=== PATIENT | female | born 1955 | race Caucasian/White ===

== ENCOUNTER 2016-10-17 03:03 | Inpatient (IN) | payer BC ==
[~2016-10-17] VITALS: Ht 157.5 cm; Wt 73.0 kg
[~2016-10-17 03:03] MED LIST: AMLO-145 PO; ASPI325T4 PO; ATOR20TA38 PO; LISI10TA2 PO; METO-53 PO; OMEP40CA3 PO; RANI150T9 PO
[2016-10-17 03:07] VITALS: Ht 157.5 cm; Wt 73.0 kg
[2016-10-17 05:21] LABS: ADD SCAN DIFF NO
[2016-10-17 05:31] LABS: BASOPHIL # 0.1 10^3/ul (0.0-0.1); BASOPHILS % 0.6 % (0.0-2.0); EOSINOPHILS # 0.2 10^3/ul (0.0-0.5); EOSINOPHILS % 2.2 % (0.0-7.0); HEMATOCRIT 39.6 % (37.0-47.0); HEMOGLOBIN 12.3 g/dl (12.0-16.0); LYMPHOCYTES # 1.9 10^3/ul (0.8-2.9); LYMPHOCYTES % 22.9 % (15.0-51.0); MEAN CORPUSCULAR HEMOGLOBIN 26.3 pg (29.0-33.0); MEAN CORPUSCULAR HGB CONC 31.1 g/dl (32.0-37.0); MEAN CORPUSCULAR VOLUME 84.6 fl (82.0-101.0); MONOCYTE # 0.7 10^3/ul (0.3-0.9); NEUTROPHIL # 5.6 10^3/ul (1.6-7.5); NEUTROPHILS % 66.2 % (39.0-77.0); PLATELET COUNT 362 10^3/UL (140-415); RED BLOOD COUNT 4.68 10^6/ul (4.20-5.40); RED CELL DISTRIBUTION WIDTH 21.4 % (11.5-14.5); WHITE BLOOD COUNT 8.5 10^3/ul (4.8-10.8)
[2016-10-17 05:38] LABS: PARTIAL THROMBOPLASTIN TIME 24.7 Sec (25.0-35.0)
[2016-10-17 05:45] LABS: INR 1.01; PROTIME 13.3 Sec (12.2-14.2)
--- NOTE | 2016-10-17 05:46 | RADRPT ---
PROCEDURE: CHEST - 1 VIEW CLINICAL INDICATION: 61-year-old female with chest pain. TECHNIQUE: A single frontal AP portable view of the chest was performed. The images were reviewed on a PACS workstation. COMPARISON: Chest x-ray October 16, 2013. FINDINGS: The cardiomediastinal silhouette has a normal appearance. There is no evidence for an infiltrate. There is no evidence for congestive heart failure. There is no evidence for pneumothorax. There is a old fracture deformity within the right mid clavicle. IMPRESSION: 1. No evidence for active cardiopulmonary disease. 2. Old right mid clavicular fracture deformity. .Arsalan Najera MD, MD Date Time Electronically viewed and signed by .Arsalan Najera MD, on 10/17/2016 05:46 .M/
[2016-10-17 05:52] LABS: POTASSIUM 3.1 mmol/L (3.5-5.1)
[2016-10-17 05:54] LABS: CREATININE 0.75 mg/dl (0.44-1.00)
[2016-10-17 05:55] LABS: CALCIUM 9.7 mg/dl (8.4-10.2)
[2016-10-17 06:04] LABS: TROPONIN-I 0.035 ng/ml (0.00-0.12)
[2016-10-17] MEDS ORDERED: KETOROLAC 15 MG INJ IV ONE (06:40)
[2016-10-17] MEDS ORDERED: FUROSEMIDE 40 MG INJ IV ONE (07:00)
[2016-10-17] MEDS ORDERED: ASPIRIN 325 MG TAB PO ONE (07:00)
--- NOTE | 2016-10-17 07:26 | ERA ---
ER Documentation Chief Complaint Date/Time DATE: 10/17/16 TIME: 07:23 Chief Complaint CP started 1 hour ago HPI 61-year-old woman complains of pressure-like left-sided chest pain beginning about 1-2 hours prior to arrival, she does have a history of myocardial infarction and states symptoms similar to previous episodes. She states when it occurred she had associated diaphoresis. She denies cough, no shortness of breath, no loss of consciousness, no calf or leg swelling, no vomiting or diarrhea. ROS All systems reviewed and are negative except as per history of present illness. Medications Home Meds Reported Medications Zolpidem Tartrate* (Ambien*) 10 Mg Tablet, 10 MG PO QHS Y for INSOMNIA, TAB 10/17/16 Esomeprazole Mag Trihydrate (Nexium) 40 Mg Capsule.dr, 40 MG PO DAILY, #30 CAP 10/17/16 Ranitidine Hcl* (Zantac*) 300 Mg Tablet, 300 MG PO HS, #30 TAB 10/17/16 Metoprolol Tartrate* (Lopressor*) 50 Mg Tab, 50 MG PO TID, #60 TAB 10/17/16 Lisinopril* (Lisinopril*) 20 Mg Tablet, 20 MG PO BID, #30 TAB 10/17/16 Aspirin* (Aspirin*) 325 Mg Tablet, 325 MG PO DAILY 10/16/13 Amlodipine Besylate* (Amlodipine Besylate*) 5 Mg Tablet, 5 MG PO DAILY 10/16/13 Atorvastatin Calcium* (Atorvastatin Calcium*) 20 Mg Tablet, 20 MG PO DAILY 10/16/13 Discontinued Reported Medications Ranitidine Hcl* (Zantac*) 150 Mg Tablet, 150 MG PO HS, TAB 06/20/14 Omeprazole* (Prilosec*) 40 Mg Capsule.dr, 40 MG PO DAILY 10/16/13 Lisinopril* (Lisinopril*) 10 Mg Tablet, 20 MG PO DAILY 10/16/13 Metoprolol (Lopressor) 50 Mg Tablet, 50 MG PO BID 10/16/13 Allergies Allergies: Coded Allergies: Penicillins (Verified Allergy, Unknown, 10/17/16) PMhx/Soc History of HI in 1994, hypertension, hypercholesterolemia History of Surgery: Yes (c-sectionx2, hysterectomy,tonsil,cholecyst, hemorrhoidx2,hernia) Anesthesia Reaction: No Hx Neurological Disorder: No Hx Respiratory Disorders: No Hx Cardiac Disorders: Yes (htn) Hx Psychiatric Problems: No Hx Miscellaneous Medical Probl: No Hx Alcohol Use: Yes (social) Hx Substance Use: No Hx Tobacco Use: No Smoking Status: Never smoker FmHx Family History: No diabetes Physical Exam Vitals Vital Signs Date Time Temp Pulse Resp B/P Pulse Ox O2 Delivery O2 Flow Rate FiO2 10/17/16 12:00 98.0 97 20 131/108 98 Room Air 10/17/16 11:30 98.0 99 20 128/88 97 10/17/16 10:36 80 20 135/79 98 10/17/16 08:30 100 18 137/94 99 10/17/16 06:25 98.0 78 20 142/89 98 10/17/16 03:07 98.0 104 20 136/99 97 Physical Exam GENERAL: Well-developed, well-nourished, well-hydrated, in no apparent distress , looks nontoxic in appearance HEENT: Moist mucous membranes, pink conjunctiva, no cervical spine tenderness or step-off deformities, no goiter, no jaundice or icterus, extraocular movements intact without pain. No submandibular induration, and no pharyngeal erythema NEURO: Alert and oriented 3, cranial nerves II through XII intact bilaterally, pupils equal round reactive to light, no focal deficits or facial asymmetry, sensation intact distally Strength 5/5 in upper and lower extremities bilaterally CARDIAC: Regular rate and rhythm, no murmurs rubs or gallops LUNGS: Clear bilaterally no wheezing crackles or stridor ABDOMEN: Soft nontender, no guarding, no rigidity, no rebound, no psoas sign no obturator sign. Normoactive bowel sounds SKIN: Warm and dry to touch, no abrasions, contusions, or hematomas, no lacerations, no ecchymosis, no target lesions, and without ulcers EXTREMITIES: No clubbing cyanosis, 2+ pitting edema in the lower extremities bilaterally, calves are bilaterally symmetrical, no Homans sign, no popliteal cord sign. Distal pulses equal and bilateral PSYCH: Normal affect without agitation or irritability Result Diagram: 10/17/16 0503 10/17/16 0503 Results 24 hrs Laboratory Tests Test 10/17/16 05:03 10/17/16 11:45 White Blood Count 8.510^3/ul Red Blood Count 4.6810^6/ul Hemoglobin 12.3g/dl Hematocrit 39.6% Mean Corpuscular Volume 84.6fl Mean Corpuscular Hemoglobin 26.3pg Mean Corpuscular Hemoglobin Concent 31.1g/dl Red Cell Distribution Width 21.4% Platelet Count 91666^3/UL Mean Platelet Volume 10.0fl Neutrophils % 66.2% Lymphocytes % 22.9% Monocytes % 8.0% Eosinophils % 2.2% Basophils % 0.6% Nucleated Red Blood Cells % 0.0/100WBC Neutrophils # 5.610^3/ul Lymphocytes # 1.910^3/ul Monocytes # 0.710^3/ul Eosinophils # 0.210^3/ul Basophils # 0.110^3/ul Nucleated Red Blood Cells # 0.010^3/ul Prothrombin Time 13.3Sec Prothrombin Time Ratio 1.0 INR International Normalized Ratio 1.01 Activated Partial Thromboplast Time 24.7Sec Sodium Level 147mmol/L Potassium Level 3.1mmol/L Chloride Level 104mmol/L Carbon Dioxide Level 25mmol/L Anion Gap 21 Blood Urea Nitrogen 18mg/dl Creatinine 0.75mg/dl Glucose Level 100mg/dl Calcium Level 9.7mg/dl Troponin I 0.035ng/ml 0.019ng/ml Creatine Kinase 293IU/L Creatine Kinase Index 0.7 Creatinine Kinase MB (Mass) 2.14ng/ml Current Medications Medications (Trade) Dose Ordered Sig/Markus Route PRN Reason Start Time Stop Time Status Last Admin Dose Admin Aspirin (Aspirin) 325 mg ONCE ONCE PO 10/17/16 07:00 10/17/16 07:01 DC 10/17/16 06:55 Furosemide (Lasix) 40 mg ONCE ONCE IV 10/17/16 07:00 10/17/16 07:01 DC 10/17/16 06:55 Ketorolac Tromethamine (Toradol) 15 mg ONCE ONCE IV 10/17/16 06:40 10/17/16 06:43 DC 10/17/16 06:55 Acetaminophen (Tylenol Tab) 650 mg ONCE ONCE PO 10/17/16 12:30 10/17/16 12:31 DC 10/17/16 12:14 Acetaminophen (Tylenol Tab) 325 mg STK-MED ONCE .ROUTE 10/17/16 12:10 10/17/16 12:11 DC IV Flush (NS 3 ml) 3 ml PER PROTOCOL IV 10/17/16 13:00 UNV Lorazepam (Ativan) 0.5 mg Q8H PRN PO ANXIETY 10/17/16 13:00 UNV Ondansetron HCl (Zofran Tab) 4 mg Q6H PRN PO NAUSEA AND/OR VOMITING 10/17/16 13:00 UNV Aspirin (Aspirin) 81 mg DAILY PO 10/18/16 09:00 UNV Nitroglycerin (Nitroglycerin (Sl Tab) 0.4 Mg) 1 tab Q5M PRN SL CHEST PAIN 10/17/16 13:00 UNV Acetaminophen (Tylenol Tab) 650 mg Q6H PRN PO PAIN LEVEL 1-3 OR FEVER 10/17/16 13:00 UNV Morphine Sulfate (morphine) 1 mg Q4H PRN IV PAIN LEVEL 7-10 10/17/16 13:00 UNV Docusate Sodium (Colace) 100 mg Q12H PRN PO CONSTIPATION 10/17/16 13:00 UNV Pantoprazole (Protonix Tab) 40 mg DAILY@06 PO 10/18/16 06:00 UNV Enoxaparin Sodium (Lovenox) 40 mg DAILY SC 10/18/16 09:00 UNV Atorvastatin Calcium (Lipitor) 20 mg DAILY PO 10/18/16 09:00 UNV Lisinopril (Zestril) 20 mg BID PO 10/17/16 21:00 UNV Metoprolol Tartrate (Lopressor) 50 mg TID PO 10/17/16 13:00 10/17/16 13:00 DC Zolpidem Tartrate (Ambien) 10 mg QHS PRN PO INSOMNIA 10/17/16 13:00 UNV Miscellaneous Information 40 mg DAILY PO 10/18/16 09:00 UNV Metoprolol Tartrate (Lopressor) 50 mg BID PO 10/17/16 21:00 UNV Potassium Chloride (Klor-Con 20) 40 meq Q4H PO 10/17/16 13:30 UNV Procedures/MDM IV line was established patient was placed on cardiac specialist rhythm strip revealed a normal sinus rhythm at about 90 bpm with upright P and T waves. Patient was afebrile. EKG performed, read by me revealed a normal sinus rhythm at 95 bpm, left axis deviation, with a right ventricular conduction delay and a QRS duration 102 ms, no concerning ST elevations or depressions noted. One AP view of the chest performed, read by me reveals no acute infiltrates, normal mediastinum, sharp costophrenic and cardiac borders, no air under the diaphragm. Otherwise unremarkable chest x-ray. Patient received furosemide 40 mg IV 1 and aspirin 325 mg p.o. for cardioprotective measures. She also received Toradol 15 mg IV 1 for complaints of pain. CBC was normal, electrolytes revealed hypokalemia 3.1, troponin was negative. Patient will be admitted to telemetry setting for continued medical management and cardiology consultation. Departure Diagnosis: Primary Impression: Chest pain Qualified Code: R07.9 - Chest pain, unspecified type Additional Impression: Hypertension Qualified Code: I10 - Essential hypertension Condition: KURT Lopez MD Oct 17, 2016 07:26
[2016-10-17] MEDS ORDERED: LISI20TA11 PO (09:18)
[2016-10-17] MEDS ORDERED: METO-429 PO (09:19)
[2016-10-17] MEDS ORDERED: RANI300T3 PO (09:20)
[2016-10-17] MEDS ORDERED: ZOLP10TA PO (09:21)
[2016-10-17] MEDS ORDERED: ESOM40CA PO (09:21)
[2016-10-17] MEDS ORDERED: ACETAMINOPHEN 325 MG TAB ONE (12:10)
[2016-10-17 12:17] LABS: CK-MB 2.14 ng/ml (0.0-2.4)
[2016-10-17 12:20] LABS: TROPONIN-I 0.019 ng/ml (0.00-0.12)
[2016-10-17] MEDS ORDERED: ACETAMINOPHEN 325 MG TAB PO ONE (12:30)
[2016-10-17] MEDS ORDERED: DOCUSATE SODIUM 100 MG CAP PO PRN (13:00)
[2016-10-17] MEDS ORDERED: ONDANSETRON 4 MG TAB PO PRN (13:00)
[2016-10-17] MEDS ORDERED: morphine 2 MG INJ IV PRN (13:00)
[2016-10-17] MEDS ORDERED: LORAZEPAM 0.5 MG TAB PO PRN (13:00)
[2016-10-17] MEDS ORDERED: ZOLPIDEM 5 MG TAB PO PRN (13:00)
[2016-10-17] MEDS ORDERED: ACETAMINOPHEN 325 MG TAB PO PRN (13:00)
[2016-10-17] MEDS ORDERED: NITROGLYCERIN (SL) 0.4 MG TAB SL PRN (13:00)
[2016-10-17] MEDS ORDERED: METOPROLOL 50 MG TAB PO SCH ×2 (13:00→21:00)
[2016-10-17] MEDS ORDERED: NACL 0.9% 3 ML SYG IV SCH (13:00)
[2016-10-17 13:32] LABS: BARBITURATES Negative (NEGATIVE); BENZODIAZEPINES Negative (NEGATIVE); CANNABINOIDS Positive (NEGATIVE); COCAINE Negative (NEGATIVE)
[2016-10-17 13:37] LABS: OPIATES Negative (NEGATIVE)
--- NOTE | 2016-10-17 13:42 | HP ---
DATE OF ADMISSION: 10/17/2016 MICROBIOLOGY SUPERVISOR: Mukund Langley MD, cardiology. CHIEF COMPLAINT: Chest discomfort. HISTORY OF PRESENT ILLNESS: This is a 61-year-old female with past medical history of congestive he art failure, hypertension, dyslipidemia, GERD, insomnia, who presented to [facility] secondary to having chest discomfort. Chest discomfort is explained as upper gastric and subster nal, nonradiating, accompanied with palpitations and diaphoresis. The pain was 4/10 and after the p atient received her aspirin it decreased to 2/10. The patient states that she has been having a lot of social issues at home with her significant others and this morning the pain started, which broug ht her to the emergency room at [facility]. Upon arrival to the ER, the troponin was 0.035. EKG showed normal sinus rhythm with ventricular rate 95, left axis deviation, right vent ricular conduction delay, QRS duration 102 msec, no concerning ST elevation or depression, no sign o f ischemia. The patient received aspirin, Lasix and Toradol. At this time, the patient continues t o complain of having chest discomfort. The patient denies any shortness of breath, nausea, vomiting , diarrhea. No headache, dizziness, lightheadedness. No change in visual acuity, diplopia, photoph obia. No abdominal pain. No dysuria, hematuria, urgency, incontinence or any other discomfort exce pt as stated above. PAST MEDICAL AND SURGICAL HISTORY: 1. Hypertension. 2. Congestive heart failure. 3. Dyslipidemia. 4. Insomnia. 5. GERD. MEDICATIONS: 1. Amlodipine 5 mg. 2. Aspirin 325 mg. 3. Lipitor 20 mg. 4. Omeprazole 40 mg. 5. Lisinopril 20 mg. 6. Lopressor 50 mg. 7. Zantac 300 mg. 8. Ambien 10 mg. ALLERGIES: PENICILLIN. SOCIAL HISTORY: She denies any history of smoking. She denies drinking any alcohol or any illicit drugs. PHYSICAL EXAMINATION: VITAL SIGNS: Temperature 98.0, pulse 80, respirations 20, blood pressure 134/79, oxygen saturation 98% in room air. GENERAL APPEARANCE: The patient is lying in bed comfortably without any acute distress. She is phyllis ke, alert, oriented. She is able to answer my questions properly. EYES AND ENT: Conjunctivae and lids are normal. Pupils are normal. Extraocular normal. Hearing g rossly normal. Lips, teeth and gums normal. Oral mucosa is moist. NECK: Supple. Trachea is midline. No lymphadenopathy. RESPIRATORY: Effort is normal. Clear to auscultation bilaterally. CARDIOVASCULAR: Normal S1, S2. Regular rhythm and rate. No murmur, no bruits, no edema. Peripher al pulses, radial pulses palpable. Capillary refill is normal. CHEST: Normal expansion of thorax during inspiration. GASTROINTESTINAL: Abdomen is soft, nontender, not distended. Bowel sounds present. No guarding, n o rebound. GENITOURINARY: Deferred. MUSCULOSKELETAL: Upper and lower extremities within normal limits. Full range of motion. Strength 5/5 both upper and lower extremities. NEUROLOGIC: Cranial nerves II through XII are grossly intact. She is awake, alert, oriented. LABORATORY DATA: WBC 8.5, hemoglobin 12.3, hematocrit 39.3, platelets 362. Sodium 147, potassium 3 .1, chloride 104, bicarbonate 25, BUN 18, creatinine 0.75, glucose 100, calcium 9.7. Troponin 0.19. EKG normal sinus rhythm with no ST elevation or depression, no sign of ischemia. Chest x-ray showed no evidence of acute cardiopulmonary disease, old right midclavicular fracture deformity. ASSESSMENT AND PLAN: 1. Atypical chest pain/angina with a history of hypertension, congestive heart failure, dyslipidemi a. Cardiology has been consulted. The patient has been restarted on aspirin. Continue metoprolol. Continue statin. We will obtain 2D echocardiogram. Follow up serial troponins. 2. Essential hypertension, well controlled on medical management. 3. Hypokalemia, repleted. 4. Dyslipidemia. Follow up lipid panel. Continue statin. 5. Gastroesophageal reflux disease. Continue proton pump inhibitor. 6. For deep venous thrombosis prophylaxis, on Lovenox. 7. We will continue to monitor patient closely. Further recommendations, management and treatment as per clinical course. Dictated By: BING HARKINS/SHEREEN Conf#: [id number] DID#: [id number]
[2016-10-17] MEDS: POTASSIUM CHLORIDE (SR) 20 MEQ TAB PO SCH ×2 (14:42→19:39)
[2016-10-17 17:33] LABS: CK-MB 1.82 ng/ml (0.0-2.4)
[2016-10-17 17:36] LABS: TROPONIN-I 0.025 ng/ml (0.00-0.12)
[2016-10-17 19:00] VITALS: TEMP 98.6
[2016-10-17] MEDS ORDERED: LISINOPRIL 20 MG TAB PO SCH (21:00)
--- NOTE | 2016-10-17 21:14 | RADRPT ---
Echocardiogram Report Patient Name: JOHNNIE CERNA Gender: Female Date: 1955 Study Date: 17-Oct-2016 Photostatic Copy Maker: Carline SCHUMACHER Location: ED 7 Ref. Physician: BING PRADO Quality: Adequate Procedures: Transthoracic echocardiogram with complete 2D, M-Mode, and doppler examination. Indications: Chest Pain. 2D/M Mode Doppler Measurement Value Normal Ranges Measurement Value Normal Ranges LVIDd 2D 3.9 3.5 - 5.6 cm AV Mean Jeff 1.7 m/sec LVIDs 2D 2.3 2.1 - 4.1 cm AV Mean PG 13.0 mmHg FS 2D 41.2 % AV Peak Jeff 2.2 m/sec LVPWd 2D 1.3 0.6 - 1.1 cm AV Peak PG 20.0 mmHg IVSd 2D 1.3 0.6 - 1.1 cm AV VTI 42.6 cm IVS/LVPW 2D 1.0 LVOT Mean Jeff 1.0 m/sec AoR Diam 2D 2.9 2.0 - 3.7 cm LVOT Mean PG 5.0 mmHg LA/Ao 2D 1 0 - 1 LVOT Peak Jeff 1.5 m/sec EDV 2D 57.5 cm3 LVOT Peak PG 9.0 mmHg ESV 2D 11.7 cm3 LVOT VTI 31.7 cm LA Dimen 2D 2.7 2.3 - 4.0 cm MV E Peak Jeff 0.8 m/sec MV A Peak Jeff 1.3 m/sec MV E/A 0.6 MV Decel Time 232 msec MV E/A 0.6 TR Peak Jeff 1.9 m/sec TR Peak PG 15.0 mmHg Findings Left Ventricle: Normal left ventricular systolic function. Normal left ventricular cavity size. Moderate concentric left ventricular hypertrophy. Ejection fraction is visually estimated at 65 %. Tissue Doppler/Mitral Doppler indices are consistent with impaired relaxation (Stage I diastolic dysfunction). Right Ventricle: Normal right ventricular size. Normal right ventricular systolic function. Left Atrium: The left atrium is normal in size. Right Atrium: The right atrium is normal in size. Mitral Valve: Normal appearance and function of the mitral valve with trace physiologic regurgitation. Aortic Valve: Aortic valve Max velocity 2.21 m/sec. Max PG 19.00 mmHg. Mean PG 13.00 mmHg. Aortic sclerosis without stenosis. Trace aortic valve regurgitation. Tricuspid Valve: Normal appearance and function of the tricuspid valve with trace physiologic regurgitation. Normal right ventricular systolic pressure. Estimated peak PA systolic pressure 18 mmHg. Pulmonic Valve: Pulmonic valve not well visualized. Pericardium: Trivial pericardial effusion. Aorta: Normal aortic root. IVC: Normal size and normal respiratory collapse consistent with normal right atrial pressure. Conclusions 1.Normal left ventricular systolic function. Normal left ventricular cavity size. Moderate concentric left ventricular hypertrophy. Ejection fraction is visually estimated at 65 %. Tissue Doppler/Mitral Doppler indices are consistent with impaired relaxation (Stage I diastolic dysfunction). 2.Normal appearance and function of the mitral valve with trace physiologic regurgitation. 3.Trace aortic valve regurgitation. 4.Normal appearance and function of the tricuspid valve with trace physiologic regurgitation. Normal right ventricular systolic pressure. Estimated peak PA systolic pressure 18 mmHg. 5.Trivial pericardial effusion. Electronically Signed By: Mukund Langley 17-Oct-2016 21:13:18 -0700 Patient Name: JOHNNIE CERNA Study Date: 17-Oct-2016 [id number]
--- NOTE | 2016-10-17 21:38 | CONS ---
DATE OF ADMISSION: 10/17/2016 DATE OF CONSULTATION: 10/17/2016 TYPE OF CONSULTATION: Cardiology. REASON FOR CONSULTATION: Chest pain, assess for acute coronary syndrome. REQUESTING PHYSICIAN: Bing Prado MD from the hospitalist service. HISTORY OF PRESENT ILLNESS: Ms. Gaitan is a 61-year-old female with history of hypertension, dysli pidemia, prior myocardial infarction, gastroesophageal reflux disease, possible congestive heart lurdes lure, who presented with left-sided substernal chest pain. The patient states that she initially in the evening had diaphoresis, and then began to have chest pain; left-sided middle of her chest that awoke her from sleep; she describes a dull aching pain without radiation. Upon arrival in the [facility], temperature 98, blood pressure 136/99, pulse 104, respiratory rate 20, saturating 97%. The patient's labs revealed white count 8.5, hemoglobin 12.3, platelet count 362. Sodium 147, potassium 3.1, creatinine 0.75, BUN of 18. Troponin negative 0.035. The patient's electrocardiogr am revealed sinus tachycardic rate of 100, left axis deviation, left ventricular hypertrophy with vo ltage criteria, anteroseptal Q's, poor R-wave progression across the anterior precordial leads. The patient underwent a chest x-ray revealing no evidence of acute cardiopulmonary abnormalities and ol d right midclavicular fracture. The patient subsequently has been in awaiting admit in the emergenc y department. The patient at this time denies ongoing chest pain. PAST MEDICAL HISTORY: As above in HPI. MEDICATIONS CURRENTLY IN HOSPITAL: 1. Aspirin 81 mg daily. 2. Lovenox 40 mg subcutaneous daily. 3. Lipitor 20 mg at bedtime. 4. Protonix 40 mg daily. 5. Zestril 20 mg p.o. b.i.d. 6. Metoprolol 50 mg p.o. b.i.d. 7. Ativan p.r.n. 8. Zofran p.r.n. 9. Sublingual nitroglycerin p.r.n. 10. Tylenol p.r.n. 11. Morphine p.r.n. 12. Colace 100 mg p.o. q.12 hours p.r.n. 13. Ambien. ALLERGIES: PENICILLIN. SOCIAL HISTORY: No tobacco, ETOH, or illicit drug use. FAMILY HISTORY: No history of sudden cardiac or early CAD. REVIEW OF SYSTEMS: As above in HPI. CONSTITUTIONAL: No fevers, chills. PULMONARY: No current shortness of breath. CARDIOVASCULAR: Intermittent chest pain. GASTROINTESTINAL: No vomiting. GENITOURINARY: No hematuria. MUSCULOSKELETAL: Degenerative joint disease. PSYCHIATRIC: The patient denies depression. NEUROLOGIC: No documented history of CVA. PHYSICAL EXAMINATION VITAL SIGNS: Temperature 98, blood pressure 120/88, pulse 99, respiratory 20, saturating 97%. GENERAL: The patient is alert, awake, complaining of chest pain. NECK: JVP approximately 8-9 cm of water. CHEST: Fair air movement throughout. HEART: Regular rate and rhythm. Normal S1, S2, a I/ systolic murmur, nondisplaced PMI. ABDOMEN: Positive bowel sounds, soft. EXTREMITIES: No pitting edema, 1+ pulses bilaterally, posterior tibial. LABORATORY DATA: As above in HPI. No further labs for my review at this time. IMAGING STUDIES: As above in HPI. No further imaging studies for my review at this time. ECG: As above in HPI. No further electrocardiograms for my review at this time. IMPRESSION: 1. Chest pain. Assess for acute coronary syndrome. A somewhat atypical symptomatology for cardiac etiology at this time, but given history of prior myocardial infarction, it deserves further evalua tion. 2. Abnormal electrocardiogram with anteroseptal Q's, poor R-wave progression across the anterior pr ecordial leads, concerning for possible prior anteroseptal infarction. 3. Hypertension, under reasonable control. 4. Dyslipidemia. 5. History of congestive heart failure, question systolic versus diastolic, likely chronic. 6. Gastroesophageal reflux disease. RECOMMENDATIONS: 1. At this time, would admit patient to telemetry monitoring to follow rhythm and rate control clos josi. 2. Would send an additional troponin to ensure the patient's chest pain was not due to an acute cor onary syndrome or acute myocardial infarction. 3. Continue the patient's aspirin for prophylaxis against cardiovascular events. 4. Continue the patient's current aspirin and beta-viji for control of blood pressure and heart rate. 5. Continue the patient's current statin therapy and adjust it according to a fasting lipid panel t o be checked. 6. Continue the patient's Protonix to ensure that the chest pain is not due to gastroesophageal ref lux disease. 7. We will follow the patient's 2D echo to assess ejection fraction, wall motion, and any major abdias ve abnormalities, and if the patient does rule out, given the patient's cardiac history, I believe t he patient would benefit from further risk stratification as inpatient with cardiac stress test, whi ch thus can scheduled to take place first thing in the morning. Thank you for allowing me to take part in the care of this patient. I will continue to follow her v chiquita closely with you, with further recommendations to be made as the patient progresses through her inpatient hospital clinical course. Dictated By: KIMMY COHN/SHEREEN Conf#: [id number] DID#: [id number] CC: BING PRADO MD;*[facility]*
[2016-10-18 00:21] VITALS: BP 144/103; RESP 20
[2016-10-18 00:49] VITALS: PULSE 70
[2016-10-18 01:38] LABS: CK-MB 1.51 ng/ml (0.0-2.4); TROPONIN-I 0.024 ng/ml (0.00-0.12)
[2016-10-18 03:43] VITALS: BP 131/82; RESP 20
[2016-10-18 04:34] VITALS: PULSE 63
[2016-10-18] MEDS ORDERED: PANTOPRAZOLE (EC) 40 MG TAB PO SCH (06:00)
[2016-10-18 07:39] VITALS: BP 144/86; RESP 20
[2016-10-18] MEDS ORDERED: NON-FORMULARY/PATIENT OWN MED (Esomeprazole Mag Trihydrate (Nexium) 40 MG) PO SCH (09:00)
[2016-10-18] MEDS ORDERED: ENOXAPARIN 40 MG/0.4 ML SYG SC SCH (09:00)
[2016-10-18] MEDS ORDERED: ATORVASTATIN 20 MG TAB PO SCH (09:00)
[2016-10-18] MEDS ORDERED: ASPIRIN 81 MG TAB PO SCH (09:00)
--- NOTE | 2016-10-18 12:07 | DS ---
DATE OF ADMISSION: 10/17/2016 DATE OF DISCHARGE: 10/18/2016 The patient, Leah Gaitan, left against medical advice this morning 10/18/2016 at 6:02. This patie nt was admitted by my partner, Dr. Vides, yesterday and I was scheduled to take over management today. I never saw the patient. No instructions were given. Dictated By: BRANDON TRAN MD BA/NTS Conf#: [id number] DID#: [id number]
== END 2016-10-18 07:30 | disposition left against medical advice (07) | DRG 313 ==
LOC: E/R 03:03 → TEL 08:32
PROVIDERS: ADMIT Family Medicine; ATTEND Family Medicine
DX: R07.89 Other chest pain (principal); I50.9 Heart failure, unspecified; I10 Essential (primary) hypertension; E78.5 Hyperlipidemia, unspecified; K21.9 Gastro-esophageal reflux disease without esophagitis; Z90.710 Acquired absence of both cervix and uterus; Z90.49 Acquired absence of other specified parts of digestive tract
CPT/HCPCS: 36415; 71010; 80048; 80307; 82550; 82553; 84484; 85025; 85610; 85730; 93005; 93306; 96374; 96375; J1885; J1940

== ENCOUNTER 2017-01-22 21:28 | Inpatient (IN) | payer BC ==
[~2017-01-22] VITALS: Ht 165.1 cm; Wt 71.0 kg
[~2017-01-22 21:28] MED LIST changes: +ESOM40CA PO; -LISI10TA2 PO; +LISI20TA11 PO; +METO-429 PO; -METO-53 PO; -OMEP40CA3 PO; -RANI150T9 PO; +RANI300T3 PO; +ZOLP10TA PO
[2017-01-22] MEDS ORDERED: ONDANSETRON 4 MG INJ IV STA (21:51)
[2017-01-22] MEDS ORDERED: SOD CHLORIDE 0.9% 1,000 ML IV STA (21:51)
[2017-01-22] MEDS ORDERED: morphine 4 MG/ML VIAL IV STA (21:51)
[2017-01-22] MEDS ORDERED: LORAZEPAM 2 MG INJ IV ONE ×2 (22:00→23:00)
[2017-01-22 22:17] LABS: ADD SCAN DIFF NO
[2017-01-22 22:18] LABS: BASOPHILS % 0.1 % (0.0-2.0); HEMATOCRIT 40.5 % (37.0-47.0); HEMOGLOBIN 13.8 g/dl (12.0-16.0); MEAN CORPUSCULAR HEMOGLOBIN 27.4 pg (29.0-33.0); MEAN CORPUSCULAR HGB CONC 34.1 g/dl (32.0-37.0); MEAN CORPUSCULAR VOLUME 80.4 fl (82.0-101.0); MEAN PLATELET VOLUME 10.1 fl (7.4-10.4); MONOCYTE # 1.1 10^3/ul (0.3-0.9); MONOCYTES % 4.9 % (0.0-11.0); NEUTROPHIL # 18.7 10^3/ul (1.6-7.5); NEUTROPHILS % 85.3 % (39.0-77.0); PLATELET COUNT 417 10^3/UL (140-415); RED BLOOD COUNT 5.04 10^6/ul (4.20-5.40); RED CELL DISTRIBUTION WIDTH 17.9 % (11.5-14.5); WHITE BLOOD COUNT 21.9 10^3/ul (4.8-10.8)
[2017-01-22] MEDS ORDERED: HALOPERIDOL 5 MG INJ IM ONE ×2 (22:30→23:00)
[2017-01-22 22:31] LABS: ADD UMIC YES; UR ASCORBIC ACID NEGATIVE (NEGATIVE); UR BILIRUBIN (Dip) 1+ mg/dL (NEGATIVE); UR BLOOD (Dip) 1+ mg/dL (NEGATIVE); UR CLARITY CLOUDY (CLEAR); UR COLOR AMBER (YELLOW); UR GLUCOSE (Dip) 1+ mg/dL (NEGATIVE); UR KETONES (Dip) TRACE mg/dL (NEGATIVE); UR LEUKOCYTE ESTERASE (Dip) NEGATIVE Leu/ul (NEGATIVE); UR MUCUS FEW /HPF (NONE SEEN); UR NITRITE (Dip) NEGATIVE (NEGATIVE); UR RBC 4 /HPF (0-5); UR SPECIFIC GRAVITY (Dip) 1.021 (1.003-1.030); UR SQUAMOUS EPITHELIAL CELL FEW /HPF (FEW); UR TOTAL PROTEIN (Dip) 2+ mg/dl (NEGATIVE); UR UROBILINOGEN (Dip) NEGATIVE (NEGATIVE)
[2017-01-22 22:36] LABS: INR 1.05; PROTIME 13.7 Sec (12.2-14.2); PT RATIO 1.1
[2017-01-22 22:37] LABS: PARTIAL THROMBOPLASTIN TIME 22.3 Sec (25.0-35.0)
[2017-01-22] MEDS ORDERED: CEFEPIME 2GM/50 ML (PMX) 50 ML IVPB STA (22:41)
[2017-01-22] MEDS ORDERED: SODIUM CHLORIDE 0.9% 1L BAG IV* STA (22:41)
[2017-01-22 22:44] LABS: ALANINE AMINOTRANSFERASE 35 IU/L (13-69); ALBUMIN 5.8 g/dl (3.3-4.9); ALBUMIN/GLOBULIN RATIO 1.52; ALKALINE PHOSPHATASE 118 IU/L (42-121); ANION GAP 31 (8-16); ASPARTATE AMINO TRANSFERASE 55 IU/L (15-46); BILIRUBIN,INDIRECT 0.9 mg/dl (0-1.1); BILIRUBIN,TOTAL 0.9 mg/dl (0.2-1.3); BLOOD UREA NITROGEN 52 mg/dl (7-20); CARBON DIOXIDE 19 mmol/L (21-31); CHLORIDE 89 mmol/L (97-110); GLUCOSE 251 mg/dl (70-220); SODIUM 135 mmol/L (135-144); TOTAL PROTEIN 9.6 g/dl (6.1-8.1)
[2017-01-22 22:46] LABS: ACETAMINOPHEN < 10.0 ug/ml (10.0-30.0); ETHANOL < 10.0 mg/dl; SALICYLATE < 1.0 mg/dl (5.0-30.0)
[2017-01-22 22:59] LABS: BARBITURATES Negative (NEGATIVE); BENZODIAZEPINES Negative (NEGATIVE); CANNABINOIDS Positive (NEGATIVE); COCAINE Negative (NEGATIVE); OPIATES Negative (NEGATIVE); TROPONIN-I 0.091 ng/ml (0.00-0.12)
--- NOTE | 2017-01-22 23:34 | RADRPT ---
PROCEDURE: CT Abdomen and pelvis without contrast. CLINICAL INDICATION: Abdominal pain. TECHNIQUE: CT scan of the abdomen and pelvis was performed on a multi-detector high-resolution CT scanner. Contiguous axial images were obtained from the lung bases to the ischial tuberosities wit hout intravenous contrast. Coronal and sagittal reformatted images were also obtained. Images were reviewed on the PACS workstation. One or more of the following dose reduction techniques were used: - Automated exposure control. - Adjustment of the mA and/or kV according to patient size. - Use of iterative reconstruction technique. Exam CTD/vol = 12.86 mGy. Total exam DLP = 708.98 mGy-cm. COMPARISON: 10/16/2013. FINDINGS: Evaluation of the lung bases demonstrates mild bibasilar atelectasis. The heart is mildly enlarged. There is a large hiatal hernia. Abdomen: The liver is normal in size. There is no focal mass or dilatation of the biliary tree. T he patient status post cholecystectomy. The spleen, pancreas and bilateral adrenal glands are withi n normal limits. Bilateral kidneys are normal in size with no contour deforming mass identified. T here is a 1 mm calculus within the upper pole of the right kidney. There is a 1 mm calculus within the mid left kidney. There is no radiopaque ureteral calculus identified. There is no hydronephros is or hydroureter. There is no retroperitoneal adenopathy. The abdominal aorta is of normal calibe r with mild scattered atherosclerotic calcifications. There is a small periumbilical hernia containing nonobstructed loops of small bowel. There is no cheryl wel obstruction or free air. The appendix is not visualized. There are no pericecal inflammatory c hanges to suggest appendicitis. There are scattered diverticuli of the descending and sigmoid colon without evidence of diverticulitis. There is no ascites. Pelvis: The bladder contains a Cano catheter. The uterus is absent. There is no significant pelv ic adenopathy or free fluid. Evaluation of the osseous structures demonstrates no suspicious lytic or blastic lesion. IMPRESSION: Small periumbilical hernia containing loops of small bowel, new compared to 10/16/2013. There is no bowel obstruction. Large hiatal hernia. Bilateral nonobstructing renal calculi. Descending and sigmoid diverticulosis without evidence of diverticulitis. Mild cardiomegaly. Mild bibasilar atelectasis. Status post cholecystectomy. Mild vascular calcifications reflective of atherosclerosis. .Rios Majano MD, Date Time Electronically viewed and signed by .Rios Majano MD, on 01/22/2017 23:33 .T/
[2017-01-23] VITALS (9 sets, daily range): BP systolic 124–145; BP diastolic 69–90; PULSE 96–110; RESP 16–22; Ht 165.1 cm; Wt 71.0 kg
[2017-01-23] MEDS ORDERED: ONDANSETRON 4 MG INJ IV PRN ×2 (00:30→03:00)
[2017-01-23] MEDS ORDERED: ACETAMINOPHEN 325 MG TAB PO PRN (00:30)
[2017-01-23 02:07] LABS: ADD SCAN DIFF NO
[2017-01-23 02:10] LABS: BASOPHILS % 0.1 % (0.0-2.0); HEMATOCRIT 32.2 % (37.0-47.0); HEMOGLOBIN 10.4 g/dl (12.0-16.0); LYMPHOCYTES % 6.7 % (15.0-51.0); MEAN CORPUSCULAR HEMOGLOBIN 27.7 pg (29.0-33.0); MEAN CORPUSCULAR HGB CONC 32.3 g/dl (32.0-37.0); MEAN CORPUSCULAR VOLUME 85.6 fl (82.0-101.0); MEAN PLATELET VOLUME 10.2 fl (7.4-10.4); MONOCYTE # 1.3 10^3/ul (0.3-0.9); MONOCYTES % 8.2 % (0.0-11.0); NEUTROPHILS % 84.5 % (39.0-77.0); PLATELET COUNT 272 10^3/UL (140-415); RED BLOOD COUNT 3.76 10^6/ul (4.20-5.40); RED CELL DISTRIBUTION WIDTH 18.2 % (11.5-14.5); WHITE BLOOD COUNT 15.3 10^3/ul (4.8-10.8)
--- NOTE | 2017-01-23 02:15 | ERA ---
ER Documentation Chief Complaint Date/Time DATE: 01/23/17 TIME: 01:43 Chief Complaint c/o abd pain, states vomiting blood HPI This 61-year-old female presents to the ER with severe mid abdominal pain. This began yesterday around midday she is also been vomiting. Last couple times she vomited there was some blood in the vomit. She has no dark stools. She denies doing any drugs or drinking alcohol. States that she does have psychiatric diagnoses including bipolar for which she used to be on meds but stopped taking. She cannot however the names of the medications except that 1 of them is Latuda. ROS All systems reviewed and are negative except as per history of present illness. Medications Home Meds Reported Medications Zolpidem Tartrate* (Ambien*) 10 Mg Tablet, 10 MG PO QHS Y for INSOMNIA, TAB 10/17/16 Esomeprazole Mag Trihydrate (Nexium) 40 Mg Capsule.dr, 40 MG PO DAILY, #30 CAP 10/17/16 Ranitidine Hcl* (Zantac*) 300 Mg Tablet, 300 MG PO HS, #30 TAB 10/17/16 Metoprolol Tartrate* (Lopressor*) 50 Mg Tab, 50 MG PO TID, #60 TAB 10/17/16 Lisinopril* (Lisinopril*) 20 Mg Tablet, 20 MG PO BID, #30 TAB 10/17/16 Aspirin* (Aspirin*) 325 Mg Tablet, 325 MG PO DAILY 10/16/13 Amlodipine Besylate* (Amlodipine Besylate*) 5 Mg Tablet, 5 MG PO DAILY 10/16/13 Atorvastatin Calcium* (Atorvastatin Calcium*) 20 Mg Tablet, 20 MG PO DAILY 10/16/13 Allergies Allergies: Coded Allergies: Penicillins (Unverified Allergy, Unknown, 01/22/17) PMhx/Soc History of Surgery: Yes (Hernia repair, hysterectomy ) Anesthesia Reaction: No Hx Neurological Disorder: No Hx Respiratory Disorders: No Hx Cardiac Disorders: Yes (HTN) Hx Psychiatric Problems: No Hx Miscellaneous Medical Probl: No Hx Alcohol Use: No Hx Substance Use: No Hx Tobacco Use: No Smoking Status: Unknown if ever smoked Physical Exam Vitals Vital Signs Date Time Temp Pulse Resp B/P Pulse Ox O2 Delivery O2 Flow Rate FiO2 01/23/17 01:34 102 19 108/94 97 Nasal Cannula 5.0 01/23/17 00:49 105 18 128/90 100 Nasal Cannula 5.0 01/22/17 23:25 102 22 109/81 98 Nasal Cannula 4.0 01/22/17 21:39 98.1 163 30 99 Physical Exam Const: [] Moderate distress, patient is rocking back and forth Head: Atraumatic Eyes: Normal Conjunctiva, EOMI, PRL ENT: Normal External Ears, Nose and Mouth. Neck: Full range of motion..~ No meningismus. Resp: Clear to auscultation bilaterally, mild tachypnea Cardio: Regular extreme tachycardia, no murmurs Abd: Soft, mild to moderate mid abdominal tenderness without guarding or rebound, non distended. Normal bowel sounds Skin: No petechiae or rashes Back: No midline or flank tenderness Ext: No cyanosis, or edema Neur: Awake and alert and oriented 3, no focal deficits Psych: Very anxious Result Diagram: 01/22/17220801/22/172208 Results 24 hrs Laboratory Tests Test 01/22/17 22:00 01/22/17 22:09 01/22/17 22:37 01/23/17 00:20 Lactic Acid Level 6.2mmol/L 1.8mmol/L White Blood Count 21.910^3/ul Red Blood Count 5.0410^6/ul Hemoglobin 13.8g/dl Hematocrit 40.5% Mean Corpuscular Volume 80.4fl Mean Corpuscular Hemoglobin 27.4pg Mean Corpuscular Hemoglobin Concent 34.1g/dl Red Cell Distribution Width 17.9% Platelet Count 27777^3/UL Mean Platelet Volume 10.1fl Neutrophils % 85.3% Lymphocytes % 9.0% Monocytes % 4.9% Eosinophils % 0.0% Basophils % 0.1% Nucleated Red Blood Cells % 0.0/100WBC Neutrophils # 18.710^3/ul Lymphocytes # 2.010^3/ul Monocytes # 1.110^3/ul Eosinophils # 0.010^3/ul Basophils # 0.010^3/ul Nucleated Red Blood Cells # 0.010^3/ul Prothrombin Time 13.7Sec Prothrombin Time Ratio 1.1 INR International Normalized Ratio 1.05 Activated Partial Thromboplast Time 22.3Sec Urine Color CHER Urine Clarity CLOUDY Urine pH 5.0 Urine Specific [place] 1.021 Urine Ketones TRACEmg/dL Urine Nitrite NEGATIVEmg/dL Urine Bilirubin 1+mg/dL Urine Urobilinogen NEGATIVEmg/dL Urine Leukocyte Esterase NEGATIVELeu/ul Urine Microscopic RBC 4/HPF Urine Microscopic WBC 0/HPF Urine Squamous Epithelial Cells FEW/HPF Urine Mucus FEW/HPF Urine Hemoglobin 1+mg/dL Urine Glucose 1+mg/dL Urine Total Protein 2+mg/dl Sodium Level 135mmol/L Potassium Level 4.0mmol/L Chloride Level 89mmol/L Carbon Dioxide Level 19mmol/L Anion Gap 31 Blood Urea Nitrogen 52mg/dl Creatinine 3.80mg/dl Glucose Level 251mg/dl Calcium Level 11.0mg/dl Total Bilirubin 0.9mg/dl Direct Bilirubin 0.00mg/dl Indirect Bilirubin 0.9mg/dl Aspartate Amino Transf (AST/SGOT) 55IU/L Alanine Aminotransferase (ALT/SGPT) 35IU/L Alkaline Phosphatase 118IU/L Troponin I 0.091ng/ml Total Protein 9.6g/dl Albumin 5.8g/dl Globulin 3.80g/dl Albumin/Globulin Ratio 1.52 Lipase 133U/L Salicylates Level < 1.0mg/dl Urine Opiates Screen Negative Acetaminophen Level < 10.0ug/ml Urine Barbiturates Negative Urine Amphetamines Screen Negative Urine Benzodiazepines Screen Negative Urine Cocaine Screen Negative Urine Cannabinoids Positive Ethyl Alcohol Level < 10.0mg/dl Bedside Glucose 167mg/dL Current Medications Medications (Trade) Dose Ordered Sig/Markus Route PRN Reason Start Time Stop Time Status Last Admin Dose Admin Sodium Chloride (NS) 1,000 ml @ 1,000 mls/hr Q1H STAT IV 01/22/17 21:51 01/22/17 22:50 DC 01/22/17 22:09 Morphine Sulfate (morphine) 4 mg ONCE STAT IV 01/22/17 21:51 01/22/17 21:55 DC 01/22/17 22:10 Ondansetron HCl (Zofran Inj) 4 mg ONCE STAT IV 01/22/17 21:51 01/22/17 21:55 DC 01/22/17 22:10 Lorazepam (Ativan) 1 mg ONCE ONCE IV 01/22/17 22:00 01/22/17 22:01 DC 01/22/17 22:10 Haloperidol (Haldol) 5 mg ONCE ONCE IM 01/22/17 22:30 01/22/17 22:31 DC 01/22/17 22:31 Sodium Chloride 2200 ml 2,200 ml BOLUS OVER 2 HOURS STAT IV* 01/22/17 22:41 01/22/17 22:43 DC 01/22/17 22:59 Cefepime HCl (Maxipime 2gm/50 ml (Pmx)) 50 ml @ 100 mls/hr ONCE STAT IVPB 01/22/17 22:41 01/22/17 23:10 DC 01/22/17 22:59 Lorazepam (Ativan) 2 mg ONCE ONCE IV 01/22/17 23:00 01/22/17 23:01 DC 01/22/17 22:59 Haloperidol (Haldol) 5 mg ONCE ONCE IM 01/22/17 23:00 01/22/17 23:01 DC 01/22/17 22:59 Ondansetron HCl (Zofran Inj) 4 mg ER BRIDGE PRN IV NAUSEA AND/OR VOMITING 01/23/17 00:30 01/24/17 00:29 Acetaminophen (Tylenol Tab) 650 mg ER BRIDGE PRN PO MILD PAIN/FEVER 01/23/17 00:30 01/24/17 00:29 Procedures/MDM 61-year-old female with abdominal pain and extreme tachycardia. Patient is afebrile but does meet criteria for sepsis with a very high white count and vital sign abnormalities. Diagnosis of sepsis was made when labs return approximately 40 minutes after patient arrived. There is no clear source of infection currently. The urine was quite cloudy however there is no leukocyte esterase, no white blood cells. Culture was also taken. She was given 30 cc/ kg of IV fluid as well as cefepime. Patient's vital signs did stabilize with fluid, pain management, psychiatric medications. She was given a total of 3 mg of Ativan and 10 of Haldol. Lactic acid was also corrected quickly with IV fluid administration. Patient seen much more comfortable after that. No signs of cardiac ischemia. EKG interpretation: Sinus tachycardia rate of 144, left axis deviation, incomplete right bundle branch block, no obvious ST elevations or depressions concerning for acute ischemia. QTC of 504. electronic device monitor interpretation: Extreme sinus tachycardia improved with fluid. No other arrhythmia CT abdomen pelvis interpretation: Abdominal hernia containing bowel loops with no signs of obstruction, no evidence of bowel obstruction at all, no free air, no abnormal fat stranding, renal stones, no fractures. Chest x-ray interpretation: Possibly very slight infiltrate in the right lower mid lung, otherwise a see no acute process. I see no pneumothorax, no pulmonary edema, no fractures. Perfusion Reassessment for Septic Shock: Temp [98.1], Pulse [102], RR [20], BP [118] / 66 Heart Exam: [Tachycardic]OXOXO Lung Exam: [No Crackles] Capillary Refill: [Less than 1 second] Peripheral Pulses: [Radially present] Skin: [Normal skin exam] Departure Diagnosis: Primary Impression: Severe sepsis Additional Impressions: Lactic acidosis Acute abdominal pain Acute renal failure Condition: Serious MARILIN ELIZABETH DO Jan 23, 2017 01:53
[2017-01-23 02:28] LABS: CALCIUM 8.1 mg/dl (8.4-10.2); CREATININE 2.88 mg/dl (0.44-1.00); POTASSIUM 3.5 mmol/L (3.5-5.1)
--- NOTE | 2017-01-23 02:32 | RADRPT ---
PROCEDURE: Chest. CLINICAL INDICATION: Chest pain. TECHNIQUE: Single frontal view of the chest was obtained. COMPARISON: 10/17/2016. FINDINGS: The cardiac silhouette is enlarged. The aortic arch is calcified. There is mild bibasilar atelecta sis. There is no focal consolidation, vascular congestion or pleural effusion. There is no pneumot horax. IMPRESSION: Mild bibasilar atelectasis. Cardiomegaly and aortic atherosclerosis. .Rios Majano MD, Date Time Electronically viewed and signed by .Rios Majano MD, on 01/23/2017 02:32 .T/
[2017-01-23] MEDS ORDERED: LORAZEPAM 2 MG INJ IV PRN (03:00)
[2017-01-23] MEDS ORDERED: LEVOFLOXACIN 750MG/D5W (PMX) 150 ML IVPB SCH (03:00)
[2017-01-23] MEDS ORDERED: ACETAMINOPHEN 650 MG SUPP PR PRN (03:00)
[2017-01-23] MEDS ORDERED: NACL 0.9% 3 ML SYG IV SCH (03:00)
--- NOTE | 2017-01-23 03:01 | HP ---
Date/Time of Note Date/Time of Note DATE: 01/23/17 TIME: 02:51 Assessment/Plan VTE Prophylaxis VTE Prophylaxis Intervention: SCD's Assessment/Plan Chief Complaint/Hosp Course This is a 61 year female being admitted to the telemetry floor for: #1 Sirs: Patient presented with tachypnea and tachycardia as well as an elevated white blood cell count of 21. There is no overt source identified at this time with the negative chest x-ray and UA. Patient did receive cefepime in the ED. At the current time I will continue the patient on Levaquin renally dosed as a broad coverage antibiotic. Will await urine and blood cultures. #2 lactic acidosis: Initial lactic acid was 6.2 which could have been infectious versus dehydration. Fluid resuscitation was started will continue IV normal saline fluid resuscitation and continue antibiotic coverage at this time until blood cultures and urine cultures are back. #3 JOSE GUADALUPE: Based on previous lab results patient had normal kidney function back in October 2016. This likely is acute in nature. Will continue IV fluid hydration and continue to monitor renal function. Consider nephrology if renal function does not improve. #4 Leukocytosis: Initial white blood cell count was 21. No overt source of infection was found at this time. CAT scan was performed which did show abdominal hernia however no overt signs of any infection. We will continue Levaquin at this time as broad coverage until blood cultures and urine cultures come back. #5 Schizophrenia: At the current time we will continue to monitor as there are no medications the patient is taking right now. Consider telemetry psych eval as indicated. #6 DVT and GI prophylaxis: SCDs, Protonix Further treatment strategy will be up implemented as per the clinical course Problems: HPI/ROS Admit Date/Time Admit Date/Time Hx of Present Illness Chief complaint: Abdominal pain. This 61-year-old female presents to the ER with severe mid abdominal pain. Patient is a poor historian and most of the information was obtained from the ED records. This began yesterday around midday she is also been vomiting. Last couple times she vomited there was some blood in the vomit. She has no dark stools. She denies doing any drugs or drinking alcohol. States that she does have psychiatric diagnoses including bipolar for which she used to be on meds but stopped taking. She thinks 1 of them may be named Latuda. Allergies: Penicillin Medications: See MAR ROS Subjective hx not possible: other (Unable to get an adequate review of systems secondary to patient's somnolent and lethargic condition) PMH/Family/Social Past Medical History Ovarian cancer, schizophrenia, unable to fully assess secondary to patient's somnolent lethargic condition Past Surgical History nable to fully assess secondary to patient's somnolent lethargic condition Family History Significant Family History: other (nable to fully assess secondary to patient' s somnolent lethargic condition) Social History nable to fully assess secondary to patient's somnolent lethargic condition Smoking Status: Unknown if ever smoked Exam/Review of Systems Vital Signs Vitals Vital Signs Date Time Temp Pulse Resp B/P Pulse Ox O2 Delivery O2 Flow Rate FiO2 01/23/17 02:49 108 18 115/76 97 Nasal Cannula 5.0 01/22/17 21:39 98.1 Exam Exam General: Patient initially was reported as being very uncooperative and aggressive she was given Haldol and Ativan. At the current time patient is somnolent however she is easily arousable though she was unable to give proper answers to my questions she states that she has a hard time coming up with the answers. HEENT: Atraumatic, normocephalic. The pupils are equal, round and reactive. Extraocular motor are intact Neck: Supple with full range of motion. No rigidity or meningismus Chest: Nontender Lungs: Clear to auscultation bilaterally no crackles rales or wheezing Heart: Normal S1-S2, Regular rhythm and rate. Abdomen: Soft, mild tenderness to palpation over the lower abdominal quadrant, normal bowel sound Extremities: Normal to inspection, no edema no cyanosis Neurologic: Somnolent and lethargic though easily arousable. Unable to answer questions she states that she has a hard time coming up with the Additional Comments PROCEDURE: Chest. CLINICAL INDICATION: Chest pain. TECHNIQUE: Single frontal view of the chest was obtained. COMPARISON: 10/17/2016. FINDINGS: The cardiac silhouette is enlarged. The aortic arch is calcified. There is mild bibasilar atelectasis. There is no focal consolidation, vascular congestion or pleural effusion. There is no pneumothorax. IMPRESSION: Mild bibasilar atelectasis. Cardiomegaly and aortic atherosclerosis. .Rios Majano MD, MD Date Time Electronically viewed and signed by .Rios Majano MD, MD on 01/23/2017 02:32 PROCEDURE: CT Abdomen and pelvis without contrast. CLINICAL INDICATION: Abdominal pain. TECHNIQUE: CT scan of the abdomen and pelvis was performed on a multi- detector high-resolution CT scanner. Contiguous axial images were obtained from the lung bases to the ischial tuberosities without intravenous contrast. Coronal and sagittal reformatted images were also obtained. Images were reviewed on the PACS workstation. One or more of the following dose reduction techniques were used: - Automated exposure control. - Adjustment of the mA and/or kV according to patient size. - Use of iterative reconstruction technique. Exam CTD/vol = 12.86 mGy. Total exam DLP = 708.98 mGy-cm. COMPARISON: 10/16/2013. FINDINGS: Evaluation of the lung bases demonstrates mild bibasilar atelectasis. The heart is mildly enlarged. There is a large hiatal hernia. Abdomen: The liver is normal in size. There is no focal mass or dilatation of the biliary tree. The patient status post cholecystectomy. The spleen, pancreas and bilateral adrenal glands are within normal limits. Bilateral kidneys are normal in size with no contour deforming mass identified. There is a 1 mm calculus within the upper pole of the right kidney. There is a 1 mm calculus within the mid left kidney. There is no radiopaque ureteral calculus identified. There is no hydronephrosis or hydroureter. There is no retroperitoneal adenopathy. The abdominal aorta is of normal caliber with mild scattered atherosclerotic calcifications. There is a small periumbilical hernia containing nonobstructed loops of small bowel. There is no bowel obstruction or free air. The appendix is not visualized. There are no pericecal inflammatory changes to suggest appendicitis. There are scattered diverticuli of the descending and sigmoid colon without evidence of diverticulitis. There is no ascites. Pelvis: The bladder contains a Cano catheter. The uterus is absent. There is no significant pelvic adenopathy or free fluid. Evaluation of the osseous structures demonstrates no suspicious lytic or blastic lesion. IMPRESSION: Small periumbilical hernia containing loops of small bowel, new compared to 11/2013. There is no bowel obstruction. Large hiatal hernia. Bilateral nonobstructing renal calculi. Descending and sigmoid diverticulosis without evidence of diverticulitis. Mild cardiomegaly. Mild bibasilar atelectasis. Status post cholecystectomy. Mild vascular calcifications reflective of atherosclerosis. .Rios Majano MD, MD Date Time Electronically viewed and signed by .Rios Majano MD, MD on 01/22/2017 23:33 Labs Result Diagram: 01/23/170 01/23/17199 ANTONIO ABBOTT Jan 23, 2017 03:01
[2017-01-23] MEDS: SOD CHLORIDE 0.9% 1,000 ML IV SCH ×2 (04:30→17:12)
[2017-01-23] MEDS: PANTOPRAZOLE 40 MG INJ IV SCH (05:46)
[2017-01-23 07:34] LABS: ADD SCAN DIFF NO
[2017-01-23 07:43] LABS: ABNORMAL IP MESSAGE 1; BASOPHILS % 0.1 % (0.0-2.0); HEMATOCRIT 30.4 % (37.0-47.0); HEMOGLOBIN 9.6 g/dl (12.0-16.0); LYMPHOCYTES # 1.9 10^3/ul (0.8-2.9); LYMPHOCYTES % 12.1 % (15.0-51.0); MEAN CORPUSCULAR HEMOGLOBIN 26.7 pg (29.0-33.0); MEAN CORPUSCULAR HGB CONC 31.6 g/dl (32.0-37.0); MEAN CORPUSCULAR VOLUME 84.7 fl (82.0-101.0); MEAN PLATELET VOLUME 10.1 fl (7.4-10.4); MONOCYTE # 1.7 10^3/ul (0.3-0.9); MONOCYTES % 10.5 % (0.0-11.0); NEUTROPHIL # 12.2 10^3/ul (1.6-7.5); NEUTROPHILS % 76.6 % (39.0-77.0); PLATELET COUNT 282 10^3/UL (140-415); RED BLOOD COUNT 3.59 10^6/ul (4.20-5.40); RED CELL DISTRIBUTION WIDTH 18.3 % (11.5-14.5)
[2017-01-23 07:57] LABS: ALBUMIN 4.2 g/dl (3.3-4.9); ALBUMIN/GLOBULIN RATIO 1.61; BILIRUBIN,INDIRECT 0.5 mg/dl (0-1.1); BILIRUBIN,TOTAL 0.5 mg/dl (0.2-1.3); CALCIUM 8.3 mg/dl (8.4-10.2); CREATININE 2.01 mg/dl (0.44-1.00); POTASSIUM 3.6 mmol/L (3.5-5.1); TOTAL PROTEIN 6.8 g/dl (6.1-8.1)
[2017-01-23] MEDS ORDERED: CEFEPIME 2GM/50 ML (PMX) 50 ML IVPB SCH (09:00)
--- NOTE | 2017-01-23 14:21 | CONS ---
Date/Time of Note Date/Time of Note DATE: 01/23/17 TIME: 14:14 Assessment/Plan Assessment/Plan Chief Complaint/Hosp Course 1. Nonoliguric acute kidney injury with previously normal baseline creatinine -Etiology is likely secondary to prerenal volume depletion due to GI losses. Possible MICAH inhibitor effect -Renal function is improving with IV fluids. Urinalysis is bland no active sediment Continue current treatment plan continue IV hydration continue to monitor renal function closely, will check renal ultrasound, repeat urinalysis with lytes 2. Lactic acidosis -Etiology likely from volume depletion questionable infection -Levels have normalized with IV fluids and IV antibiotic -Continue to monitor 3. Anemia Monitor H&H levels 4. Mineral bone disorder -Monitor calcium phosphorus levels 5. Sirs possible sepsis -Continue current treatment plan continue antibiotics follow-up cultures 6. Leukocytosis improving Thank you for this interesting consult will be pleasure follow patient with you throughout hospital course Problems: Consultation Date/Type/Reason Admit Date/Time Reason for Consultation Acute kidney injury Hx of Present Illness This 61-year-old female presents to the ER with severe mid abdominal pain. Patient is a poor historian and most of the information was obtained from the ED records. Patient states she had multiple bouts of emesis starting yesterday. Patient also described episode of hematemesis. Patient came to the emergency room for evaluation Upon arrival in the emergency room patient was noted to be hypertensive acute kidney injury with creatinine around 3.8 mg/dL. Patient also had elevated lactic acid and abdominal pain. CT scan was obtained which showed periumbilical hernia but no evidence of obstruction. Patient was given IV fluids IV antibiotics admitted to telemetry for further evaluation Patient has no prior history of kidney disease denies any recent NSAID use denies any rashes or frothy urine Per HPI Past Medical History Ovarian cancer, schizophrenia, Past Surgical History none Social History Smoking Status: Former smoker Exam/Review of Systems Vital Signs Vitals Vital Signs Date Time Temp Pulse Resp B/P Pulse Ox O2 Delivery O2 Flow Rate FiO2 01/23/17 12:21 109 01/23/17 11:20 98.0 16 145/90 98 01/23/17 08:00 Nasal Cannula 2.0 Exam G HEENT: Atraumatic, normocephalic. The pupils are equal, round and reactive. Extraocular motor are intact Neck: Supple with full range of motion. No rigidity or meningismus Chest: Nontender Lungs: Clear to auscultation bilaterally no crackles rales or wheezing Heart: Normal S1-S2, Regular rhythm and rate. Abdomen: Soft, mild tenderness to palpation over the lower abdominal quadrant, normal bowel sound Extremities: Normal to inspection, no edema no cyanosis Neurologic: No deficit Results Result Diagram: 01/23/17 0704 01/23/17 0704 Results 24 hrs Laboratory Tests Test 01/22/17 22:00 01/22/17 22:09 01/22/17 22:37 01/23/17 00:20 Lactic Acid Level 6.2 *H 1.8 White Blood Count 21.9 #H Red Blood Count 5.04 Hemoglobin 13.8 Hematocrit 40.5 Mean Corpuscular Volume 80.4 L Mean Corpuscular Hemoglobin 27.4 L Mean Corpuscular Hemoglobin Concent 34.1 Red Cell Distribution Width 17.9 H Platelet Count 417 H Mean Platelet Volume 10.1 Neutrophils % 85.3 H Lymphocytes % 9.0 L Monocytes % 4.9 Eosinophils % 0.0 Basophils % 0.1 Nucleated Red Blood Cells % 0.0 Neutrophils # 18.7 H Lymphocytes # 2.0 Monocytes # 1.1 H Eosinophils # 0.0 Basophils # 0.0 Nucleated Red Blood Cells # 0.0 Prothrombin Time 13.7 Prothrombin Time Ratio 1.1 INR International Normalized Ratio 1.05 Activated Partial Thromboplast Time 22.3 L Urine Color CHER Urine Clarity CLOUDY A Urine pH 5.0 Urine Specific [place] 1.021 Urine Ketones TRACE A Urine Nitrite NEGATIVE Urine Bilirubin 1+ H Urine Urobilinogen NEGATIVE Urine Leukocyte Esterase NEGATIVE Urine Microscopic RBC 4 Urine Microscopic WBC 0 Urine Squamous Epithelial Cells FEW Urine Mucus FEW A Urine Hemoglobin 1+ H Urine Glucose 1+ H Urine Total Protein 2+ H Sodium Level 135 Potassium Level 4.0 Chloride Level 89 L Carbon Dioxide Level 19 L Anion Gap 31 H Blood Urea Nitrogen 52 H Creatinine 3.80 H Glucose Level 251 H Calcium Level 11.0 H Total Bilirubin 0.9 Direct Bilirubin 0.00 Indirect Bilirubin 0.9 Aspartate Amino Transf (AST/SGOT) 55 H Alanine Aminotransferase (ALT/SGPT) 35 Alkaline Phosphatase 118 Troponin I 0.091 Total Protein 9.6 H Albumin 5.8 H Globulin 3.80 H Albumin/Globulin Ratio 1.52 Lipase 133 Salicylates Level < 1.0 L Urine Opiates Screen Negative Acetaminophen Level < 10.0 L Urine Barbiturates Negative Urine Amphetamines Screen Negative Urine Benzodiazepines Screen Negative Urine Cocaine Screen Negative Urine Cannabinoids Positive Ethyl Alcohol Level < 10.0 Bedside Glucose 167 Test 01/23/17 02:00 01/23/17 07:04 White Blood Count 15.3 #H 16.0 H Red Blood Count 3.76 #L 3.59 L Hemoglobin 10.4 #L 9.6 L Hematocrit 32.2 #L 30.4 L Mean Corpuscular Volume 85.6 84.7 Mean Corpuscular Hemoglobin 27.7 L 26.7 L Mean Corpuscular Hemoglobin Concent 32.3 31.6 L Red Cell Distribution Width 18.2 H 18.3 H Platelet Count 272 # 282 Mean Platelet Volume 10.2 10.1 Neutrophils % 84.5 H 76.6 Lymphocytes % 6.7 L 12.1 L Monocytes % 8.2 10.5 Eosinophils % 0.0 0.0 Basophils % 0.1 0.1 Nucleated Red Blood Cells % 0.0 0.0 Neutrophils # 13.0 H 12.2 H Lymphocytes # 1.0 1.9 Monocytes # 1.3 H 1.7 H Eosinophils # 0.0 0.0 Basophils # 0.0 0.0 Nucleated Red Blood Cells # 0.0 0.0 Sodium Level 140 135 Potassium Level 3.5 3.6 Chloride Level 102 # 101 Carbon Dioxide Level 27 27 Anion Gap 15 # 11 Blood Urea Nitrogen 48 H 48 H Creatinine 2.88 H 2.01 H Glucose Level 114 # 95 Calcium Level 8.1 L 8.3 L [place]so Level < 0.6 L Lactic Acid Level 1.0 Total Bilirubin 0.5 Direct Bilirubin 0.00 Indirect Bilirubin 0.5 Aspartate Amino Transf (AST/SGOT) 43 Alanine Aminotransferase (ALT/SGPT) 27 Alkaline Phosphatase 59 Total Protein 6.8 # Albumin 4.2 # Globulin 2.60 Albumin/Globulin Ratio 1.61 Medications Medications Current Medications Sodium Chloride (NS) 1,000 ml @ 70 mls/hr [id number] IV Last administered on 01/23t 04:30; Admin Dose 70 MLS/HR; Start 01/23/17 at 02:54 Lorazepam (Ativan) 0.5 mg Q6H PRN IV ANXIETY; Start 01/23/17 at 03:00 Ondansetron HCl (Zofran Inj) 4 mg Q6H PRN IV NAUSEA AND/OR VOMITING; Start at 03:00 Acetaminophen (Tylenol Supp) 650 mg Q6H PRN ID PAIN LEVEL 1-3 OR FEVER; Start 01/23/17 at 03:00 Pantoprazole 40 mg 40 mg DAILY@06 IV Last administered on 01/23/17 05:46; Admin Dose 40 MG; Start 01/23/17 at 06:00 Levofloxacin/ Dextrose (Levaquin 750 Mg/ D5W 150 ml (Pmx)) 150 ml @ 100 mls/hr Q48H IVPB Last administered on 01/23/17 04:46; Admin Dose 100 MLS/HR; Start at 03:00 LISET SHAIKH DO Jan 23, 2017 14:21
[2017-01-23] MEDS: ATORVASTATIN 20 MG TAB PO SCH (21:49)
[2017-01-23] MEDS: METOPROLOL 50 MG TAB PO SCH (21:49)
[2017-01-23] MEDS: ZOLPIDEM 5 MG TAB PO PRN (21:49)
--- NOTE | 2017-01-23 21:58 | RADRPT ---
PROCEDURE: Renal US. CLINICAL INDICATION: Renal dysfunction. TECHNIQUE: Multiple sonographic images of the kidneys and urinary bladder were obtained. The imag es were reviewed on a PACS workstation. COMPARISON: No prior studies are available for comparison. FINDINGS: The right kidney measures 10.3 x 4.6 x 3.8 cm. The left kidney measures 9.9 x 4.5 x 5.0 cm. There is a small benign cyst in the mid right kidney measuring 1.4 cm. There is no solid renal mass . There is no hydronephrosis. There is no renal calculus. Renal parenchymal thickness is normal bilaterally. Both kidneys are hyperechoic consistent with medical renal disease. The perirenal regions are normal with no fluid collection or mass. A Cano catheter is present in the urinary bladder. IMPRESSION: 1. Small benign right renal cyst. 2. No hydronephrosis. 3. Bilateral hyperechoic kidneys consistent with medical renal disease. 4. Cano catheter in the bladder. RPTAT: QQ .Ethan Piña MD, MD Date Time Electronically viewed and signed by .Ethan Piña MD, MD on 01/23/2017 21:58 .R/
[2017-01-24] VITALS (12 sets, daily range): BP systolic 127–162; BP diastolic 93–101; PULSE 58–86; RESP 16–20
[2017-01-24] MEDS: SOD CHLORIDE 0.9% 1,000 ML IV SCH ×3 (04:00→22:56)
[2017-01-24] MEDS: PANTOPRAZOLE 40 MG INJ IV SCH ×2 (06:01→18:00)
[2017-01-24 07:58] LABS: ADD SCAN DIFF NO
[2017-01-24 08:15] LABS: BASOPHILS % 0.2 % (0.0-2.0); EOSINOPHILS % 0.3 % (0.0-7.0); HEMATOCRIT 33.1 % (37.0-47.0); HEMOGLOBIN 10.3 g/dl (12.0-16.0); LYMPHOCYTES # 1.7 10^3/ul (0.8-2.9); LYMPHOCYTES % 14.2 % (15.0-51.0); MEAN CORPUSCULAR HGB CONC 31.1 g/dl (32.0-37.0); MEAN CORPUSCULAR VOLUME 86.6 fl (82.0-101.0); MONOCYTE # 0.8 10^3/ul (0.3-0.9); MONOCYTES % 6.4 % (0.0-11.0); NEUTROPHIL # 9.6 10^3/ul (1.6-7.5); NEUTROPHILS % 78.5 % (39.0-77.0); PLATELET COUNT 284 10^3/UL (140-415); RED BLOOD COUNT 3.82 10^6/ul (4.20-5.40); RED CELL DISTRIBUTION WIDTH 18.3 % (11.5-14.5); WHITE BLOOD COUNT 12.3 10^3/ul (4.8-10.8)
[2017-01-24] MEDS: AMLODIPINE 5 MG TAB PO SCH (08:20)
[2017-01-24] MEDS: METOPROLOL 50 MG TAB PO SCH ×3 (08:20→20:49)
[2017-01-24] MEDS: HYDROCODONE/APAP (5/325) TAB PO PRN ×4 (08:20→23:26)
[2017-01-24 08:23] LABS: IRON 41 ug/dl (35-150)
[2017-01-24 08:33] LABS: TOTAL IRON BINDING CAPACITY 330 ug/dl (241-421)
[2017-01-24 08:45] LABS: ALBUMIN 4.3 g/dl (3.3-4.9); ALBUMIN/GLOBULIN RATIO 1.72; BILIRUBIN,INDIRECT 0.6 mg/dl (0-1.1); BILIRUBIN,TOTAL 0.6 mg/dl (0.2-1.3); CALCIUM 9.3 mg/dl (8.4-10.2); CHOL/HDL RATIO 2.7 RATIO; CREATININE 0.97 mg/dl (0.44-1.00); POTASSIUM 3.7 mmol/L (3.5-5.1); TOTAL PROTEIN 6.8 g/dl (6.1-8.1)
[2017-01-24 09:09] LABS: THYROID STIMULATING HORMONE 1.11 MIU/L (0.465-4.680)
--- NOTE | 2017-01-24 10:44 | CONS ---
Date/Time of Note Date/Time of Note DATE: 01/24/17 TIME: 10:42 Consult Date/Type/Reason Admit Date/Time Jan 23, 2017 at 00:23 Initial Consult Date Type of Consultation: nephro Subjective good uop. renal us reviewed. renal function stable. Objective Vital Signs Date Time Temp Pulse Resp B/P Pulse Ox O2 Delivery O2 Flow Rate FiO2 01/24/17 08:03 86 01/24/17 07:59 98.7 20 154/93 94 01/23/17 08:00 Nasal Cannula 2.0 Intake and Output 01/23/17 01/23/17 01/24/17 15:00 23:00 07:00 Intake Total 750 ml 1240 ml Output Total 800 ml 600 ml Balance -50 ml 640 ml Exam HEENT: Atraumatic, normocephalic. The pupils are equal, round and reactive. Extraocular motor are intact Neck: Supple with full range of motion. No rigidity or meningismus Chest: Nontender Lungs: Clear to auscultation bilaterally no crackles rales or wheezing Heart: Normal S1-S2, Regular rhythm and rate. Abdomen: Soft, mild tenderness to palpation over the lower abdominal quadrant, normal bowel sound Extremities: Normal to inspection, no edema no cyanosis Neurologic: No deficit Results/Medications Result Diagram: 01/24/1772001/24/17720 Results 24 hrs Laboratory Tests Test 01/24/17 07:21 White Blood Count 12.3 #H Red Blood Count 3.82 L Hemoglobin 10.3 L Hematocrit 33.1 L Mean Corpuscular Volume 86.6 Mean Corpuscular Hemoglobin 27.0 L Mean Corpuscular Hemoglobin Concent 31.1 L Red Cell Distribution Width 18.3 H Platelet Count 284 Mean Platelet Volume 10.0 Neutrophils % 78.5 H Lymphocytes % 14.2 L Monocytes % 6.4 Eosinophils % 0.3 Basophils % 0.2 Nucleated Red Blood Cells % 0.0 Neutrophils # 9.6 H Lymphocytes # 1.7 Monocytes # 0.8 Eosinophils # 0.0 Basophils # 0.0 Nucleated Red Blood Cells # 0.0 Sodium Level 137 Potassium Level 3.7 Chloride Level 104 Carbon Dioxide Level 25 Anion Gap 12 Blood Urea Nitrogen 27 #H Creatinine 0.97 # Glucose Level 90 Calcium Level 9.3 Iron Level 41 Total Iron Binding Capacity 330 Percent Iron Saturation 12 L Ferritin 25.9 Total Bilirubin 0.6 Direct Bilirubin 0.00 Indirect Bilirubin 0.6 Aspartate Amino Transf (AST/SGOT) 45 Alanine Aminotransferase (ALT/SGPT) 36 Alkaline Phosphatase 78 Total Protein 6.8 Albumin 4.3 Globulin 2.50 Albumin/Globulin Ratio 1.72 Triglycerides Level 105 Cholesterol Level 173 LDL Cholesterol, Calculated 89 HDL Cholesterol 63 Cholesterol/HDL Ratio 2.7 Thyroid Stimulating Hormone (TSH) 1.110 Free Thyroxine 1.80 Medications Current Medications Sodium Chloride (NS) 1,000 ml @ 70 mls/hr [id number] IV Last administered on 01/24 04:00; Admin Dose 70 MLS/HR; Start 01/23/17 at 02:54 Lorazepam (Ativan) 0.5 mg Q6H PRN IV ANXIETY; Start 01/23/17 at 03:00 Ondansetron HCl (Zofran Inj) 4 mg Q6H PRN IV NAUSEA AND/OR VOMITING; Start at 03:00 Acetaminophen (Tylenol Supp) 650 mg Q6H PRN [place] PAIN LEVEL 1-3 OR FEVER; Start 01/23/17 at 03:00 Pantoprazole 40 mg 40 mg DAILY@06 IV Last administered on 01/24/17 06:01; Admin Dose 40 MG; Start 01/23/17 at 06:00 Levofloxacin/ Dextrose (Levaquin 750 Mg/ D5W 150 ml (Pmx)) 150 ml @ 100 mls/hr Q48H IVPB Last administered on 01/23/17 04:46; Admin Dose 100 MLS/HR; Start at 03:00 Amlodipine Besylate (Norvasc) 5 mg DAILY PO Last administered on 01/24/17 08: 20; Admin Dose 5 MG; Start 01/24/17 at 09:00 Atorvastatin Calcium (Lipitor) 20 mg DAILY@21 PO Last administered on 21:49; Admin Dose 20 MG; Start 01/23/17 at 21:00 Metoprolol Tartrate (Lopressor) 50 mg TID PO Last administered on 01/24/17 08: 20; Admin Dose 50 MG; Start 01/23/17 at 21:00 Zolpidem Tartrate (Ambien) 10 mg QHS PRN PO INSOMNIA Last administered on 21:49; Admin Dose 10 MG; Start 01/23/17 at 15:00 Acetaminophen/ Hydrocodone Bitart ([place] (5/325)) 1 tab Q4H PRN PO Pain Last administered on 01/24/17 08:20; Admin Dose 1 TAB; Start 01/23/17 at 15:00 Assessment/Plan Chief Complaint/Hosp Course 1. Nonoliguric acute kidney injury with previously normal baseline creatinine -Etiology is likely secondary to prerenal volume depletion due to GI losses. Possible MICAH inhibitor effect -Renal function is improving with IV fluids. Urinalysis is bland no active sediment Continue current treatment plan continue IV hydration continue to monitor renal function closely, will check renal ultrasound, repeat urinalysis with lytes 2. Lactic acidosis -Etiology likely from volume depletion questionable infection -Levels have normalized with IV fluids and IV antibiotic -Continue to monitor 3. Anemia Monitor H&H levels 4. Mineral bone disorder -Monitor calcium phosphorus levels 5. Sirs possible sepsis -Continue current treatment plan continue antibiotics follow-up cultures 6. Leukocytosis improving Problems: SONY HILL MD Jan 24, 2017 10:43
--- NOTE | 2017-01-24 12:10 | RADRPT ---
PROCEDURE: XR Chest 1 View. CLINICAL INDICATION: This of breath, elevated white count. TECHNIQUE: AP view of the chest was obtained. COMPARISON: Yesterday. FINDINGS: The heart size is within normal limits. Calcified atherosclerosis is noted in the aorta. Rounded re trocardiac density may reflect a hiatal hernia. The lungs are hyperexpanded. Mild interstitial pro minence is seen in both lungs. No consolidations are identified. No pneumothorax is seen. Atelecta sis is noted in the lingula. The osseous structures are unchanged. IMPRESSION: Calcified atherosclerosis in the aorta. Hyperexpanded lungs with diffuse mild interstitial prominence in both lungs. Interstitial prominenc e could be chronic. Findings could reflect COPD. Atelectasis in the lingula. Rounded retrocardiac density that may reflect a [id number] hiatal hernia. RPTAT: AA .Alberto Robertson MD, Date Time Electronically viewed and signed by .Alberto Robertson MD, MD on 01/24/2017 12:10 .P/
--- NOTE | 2017-01-24 13:51 | PN ---
Date/Time of Note Date/Time of Note DATE: 01/24/17 TIME: 13:45 Assessment/Plan VTE Prophylaxis VTE Prophylaxis Intervention: SCD's Lines/Catheters IV Catheter Type (from Nrsg): Peripheral IV Urinary Cath still in place: Yes Reason Cath still needed: other (indicate) Assessment/Plan Assessment/Plan 1. Acute gastritis, improving, on protonix 2. Dehydration from GI loss, improving on IVF 3. Acute pre-renal renal failure, improving, follow up with BMP 4. Hypertension, on norvasc and metoprolol 5. Bipolar disorder, stopped medication per herself due to side effects, psychiatry outpatient 6. No evidence of infection, stop levaquin Exam/Review of Systems Vital Signs Vitals Vital Signs Date Time Temp Pulse Resp B/P Pulse Ox O2 Delivery O2 Flow Rate FiO2 01/24/17 12:12 62 01/24/17 11:50 98.6 20 162/98 95 01/23/17 08:00 Nasal Cannula 2.0 Intake and Output 01/23/17 01/23/17 01/24/17 15:00 23:00 07:00 Intake Total 750 ml 1240 ml Output Total 800 ml 600 ml Balance -50 ml 640 ml Exam Constitutional: alert, oriented Head: atraumatic, normocephalic Eyes: EOMI, PERRL, nl conjunctiva, nl lids ENMT: nl external ears & nose, nl lips & teeth, nl nasal mucosa & septum Neck: non-tender, supple Respiratory: clear to auscultation, normal air movement, No congested cough, No crackles/rales, No diminished breath sounds, No intercostal retraction, No labored breathing, No other, No respirations, No tactile fremitus, No wheezing Cardiovascular: nl pulses, regular rate and rhythm, No S3, No S4, No bruits, No diastolic murmur, No edema, No gallop, No irregular rhythm, No jugular venous distention (JVD), No murmurs/extra sounds, No other, No rub, No systolic murmur Gastrointestinal: nl liver, spleen, soft, tender (epigastric) Musculoskeletal: nl extremities to inspection Extremities: normal pulses, No calf tenderness, No clubbing, No cyanosis, No edema, No other, No palpable cord, No pitting pedal edema, No tenderness Neurological: CLINIC MD ASSOCIATE II-XII intact, nl mental status, nl speech, nl strength Skin: nl turgor Lymph: nl lymph nodes Results Result Diagram: 01/24/17 0721 01/24/17 0721 Results 24 hrs Laboratory Tests Test 01/24/17 07:21 White Blood Count 12.3 #H Red Blood Count 3.82 L Hemoglobin 10.3 L Hematocrit 33.1 L Mean Corpuscular Volume 86.6 Mean Corpuscular Hemoglobin 27.0 L Mean Corpuscular Hemoglobin Concent 31.1 L Red Cell Distribution Width 18.3 H Platelet Count 284 Mean Platelet Volume 10.0 Neutrophils % 78.5 H Lymphocytes % 14.2 L Monocytes % 6.4 Eosinophils % 0.3 Basophils % 0.2 Nucleated Red Blood Cells % 0.0 Neutrophils # 9.6 H Lymphocytes # 1.7 Monocytes # 0.8 Eosinophils # 0.0 Basophils # 0.0 Nucleated Red Blood Cells # 0.0 Sodium Level 137 Potassium Level 3.7 Chloride Level 104 Carbon Dioxide Level 25 Anion Gap 12 Blood Urea Nitrogen 27 #H Creatinine 0.97 # Glucose Level 90 Calcium Level 9.3 Iron Level 41 Total Iron Binding Capacity 330 Percent Iron Saturation 12 L Ferritin 25.9 Total Bilirubin 0.6 Direct Bilirubin 0.00 Indirect Bilirubin 0.6 Aspartate Amino Transf (AST/SGOT) 45 Alanine Aminotransferase (ALT/SGPT) 36 Alkaline Phosphatase 78 Total Protein 6.8 Albumin 4.3 Globulin 2.50 Albumin/Globulin Ratio 1.72 Triglycerides Level 105 Cholesterol Level 173 LDL Cholesterol, Calculated 89 HDL Cholesterol 63 Cholesterol/HDL Ratio 2.7 Thyroid Stimulating Hormone (TSH) 1.110 Free Thyroxine 1.80 Medications Medications Current Medications Sodium Chloride (NS) 1,000 ml @ 70 mls/hr [id number] IV Last administered on 01/24t 04:00; Admin Dose 70 MLS/HR; Start 01/23/17 at 02:54 Lorazepam (Ativan) 0.5 mg Q6H PRN IV ANXIETY; Start 01/23/17 at 03:00 Ondansetron HCl (Zofran Inj) 4 mg Q6H PRN IV NAUSEA AND/OR VOMITING; Start at 03:00 Acetaminophen (Tylenol Supp) 650 mg Q6H PRN [place] PAIN LEVEL 1-3 OR FEVER; Start 01/23/17 at 03:00 Pantoprazole 40 mg 40 mg DAILY@06 IV Last administered on 01/24/17 06:01; Admin Dose 40 MG; Start 01/23/17 at 06:00 Levofloxacin/ Dextrose (Levaquin 750 Mg/ D5W 150 ml (Pmx)) 150 ml @ 100 mls/hr Q48H IVPB Last administered on 01/23/17 04:46; Admin Dose 100 MLS/HR; Start at 03:00 Amlodipine Besylate (Norvasc) 5 mg DAILY PO Last administered on 01/24/17 08: 20; Admin Dose 5 MG; Start 01/24/17 at 09:00 Atorvastatin Calcium (Lipitor) 20 mg DAILY@21 PO Last administered on 21:49; Admin Dose 20 MG; Start 01/23/17 at 21:00 Metoprolol Tartrate (Lopressor) 50 mg TID PO Last administered on 01/24/17 12: 22; Admin Dose 50 MG; Start 01/23/17 at 21:00 Zolpidem Tartrate (Ambien) 10 mg QHS PRN PO INSOMNIA Last administered on 21:49; Admin Dose 10 MG; Start 01/23/17 at 15:00 Acetaminophen/ Hydrocodone Bitart ([place] (5/325)) 1 tab Q4H PRN PO Pain Last administered on 01/24/17 12:26; Admin Dose 1 TAB; Start 01/23/17 at 15:00 IGOR WARNER MD Jan 24, 2017 13:51
[2017-01-24] MEDS: ATORVASTATIN 20 MG TAB PO SCH (20:49)
[2017-01-24] MEDS: ZOLPIDEM 5 MG TAB PO PRN (20:52)
[2017-01-25 00:11] VITALS: PULSE 87
[2017-01-25 00:28] VITALS: BP 179/100; RESP 18
[2017-01-25] MEDS: hydrALAzine 20 MG INJ IV PRN ×2 (01:19→04:38)
[2017-01-25 04:21] VITALS: PULSE 71
[2017-01-25] MEDS: HYDROCODONE/APAP (5/325) TAB PO PRN ×2 (04:36→08:37)
[2017-01-25 04:47] VITALS: BP 185/97; RESP 16
[2017-01-25] MEDS: PANTOPRAZOLE 40 MG INJ IV SCH (05:28)
[2017-01-25 08:14] VITALS: BP 150/93; RESP 18
[2017-01-25 08:16] LABS: ADD SCAN DIFF NO
[2017-01-25 08:20] VITALS: PULSE 91
[2017-01-25 08:22] LABS: BASOPHIL # 0.1 10^3/ul (0.0-0.1); BASOPHILS % 0.7 % (0.0-2.0); EOSINOPHILS # 0.2 10^3/ul (0.0-0.5); EOSINOPHILS % 1.9 % (0.0-7.0); HEMATOCRIT 35.9 % (37.0-47.0); HEMOGLOBIN 11.1 g/dl (12.0-16.0); LYMPHOCYTES % 22.4 % (15.0-51.0); MEAN CORPUSCULAR HEMOGLOBIN 26.6 pg (29.0-33.0); MEAN CORPUSCULAR HGB CONC 30.9 g/dl (32.0-37.0); MEAN CORPUSCULAR VOLUME 86.1 fl (82.0-101.0); MEAN PLATELET VOLUME 9.8 fl (7.4-10.4); MONOCYTE # 0.7 10^3/ul (0.3-0.9); MONOCYTES % 7.5 % (0.0-11.0); NEUTROPHILS % 67.1 % (39.0-77.0); PLATELET COUNT 317 10^3/UL (140-415); RED BLOOD COUNT 4.17 10^6/ul (4.20-5.40); RED CELL DISTRIBUTION WIDTH 17.5 % (11.5-14.5)
[2017-01-25] MEDS: AMLODIPINE 5 MG TAB PO SCH (08:30)
[2017-01-25] MEDS: METOPROLOL 50 MG TAB PO SCH (08:30)
[2017-01-25 08:39] LABS: ALBUMIN 4.3 g/dl (3.3-4.9); ALBUMIN/GLOBULIN RATIO 1.79; BILIRUBIN,INDIRECT 0.4 mg/dl (0-1.1); BILIRUBIN,TOTAL 0.4 mg/dl (0.2-1.3); CALCIUM 9.2 mg/dl (8.4-10.2); CREATININE 0.82 mg/dl (0.44-1.00); POTASSIUM 3.8 mmol/L (3.5-5.1); TOTAL PROTEIN 6.7 g/dl (6.1-8.1)
[2017-01-25] MEDS ORDERED: LISINOPRIL 20 MG TAB PO SCH (09:30)
--- NOTE | 2017-01-25 09:38 | PDOCDIS ---
Discharge Instructions DIAGNOSIS Discharge Diagnosis Acute gastroenteritis with severe dehydration and acute kidney injury; hypertension; schizoaffective disorder with bipolar features; hyperlipidemia; lactic acidosis; umbilical hernia; hiatal hernia CONDITION Patient Condition: Fair HOME CARE INSTRUCTIONS: Special Diet: REG ACTIVITY: Activity Restrictions: Do not operate Machinery Do not operate Power Tool FOLLOW UP/APPOINTMENTS Follow-up Plan Primary care physician, Dr. Devon Holland in 2 weeks SCHOOL/WORK RELEASE May return to School/Work with: With Restrictions MARILIN ISABEL MD Jan 25, 2017 09:38
--- NOTE | 2017-01-25 09:41 | DS ---
Date/Time of Note Date/Time of Note DATE: 01/25/17 TIME: 09:39 Discharge Summary Admission/Discharge Info Admit Date/Time Jan 23, 2017 at 00:23 Discharge Date/Time January 25, 2017 Discharge Diagnosis Acute gastroenteritis with severe dehydration and acute kidney injury; hypertension; schizoaffective disorder with bipolar features; hyperlipidemia; lactic acidosis; umbilical hernia; hiatal hernia Patient Condition: Good Consults Nephrology Procedures Renal ultrasound; noncontrast CT scan abdomen and pelvis Hx of Present Illness Chief complaint: Abdominal pain. This 61-year-old female presents to the ER with severe mid abdominal pain. Patient is a poor historian and most of the information was obtained from the ED records. This began yesterday around midday she is also been vomiting. Last couple times she vomited there was some blood in the vomit. She has no dark stools. She denies doing any drugs or drinking alcohol. States that she does have psychiatric diagnoses including bipolar for which she used to be on meds but stopped taking. She thinks 1 of them may be named Latuda. Allergies: Penicillin Medications: See [facility] Hospital Course 1. Nonoliguric acute kidney injury with previously normal baseline creatinine -Etiology is likely secondary to prerenal volume depletion due to GI losses. Possible MICAH inhibitor effect -Renal function is improving with IV fluids. Urinalysis is bland no active sediment Continue current treatment plan continue IV hydration continue to monitor renal function closely, will check renal ultrasound, repeat urinalysis with lytes 2. Lactic acidosis -Etiology likely from volume depletion questionable infection -Levels have normalized with IV fluids and IV antibiotic -Continue to monitor 3. Anemia Monitor H&H levels 4. Mineral bone disorder -Monitor calcium phosphorus levels 5. Sirs possible sepsis -Continue current treatment plan continue antibiotics follow-up cultures 6. Leukocytosis improving [facility] [place] 61-year-old female who came in with nausea vomiting severe dehydration and acute gastroenteritis. She had lactic acidosis with acute kidney injury. This resolved fully with IV hydration. There is no significant GI blood loss. Patient is now markedly improved condition as compared to the time of admission she has no known communicable diseases she is not hazard to herself or others and she is competent for medical decisions. She has fair to good rehabilitation potential. As such she will be followed up as an outpatient. She will follow-up with primary care physician Dr. Devon Holland. Please note she does have an umbilical hernia found on the CT scan that should be followed up as an outpatient. Home Meds Reported Medications Zolpidem Tartrate* (Ambien*) 10 Mg Tablet, 10 MG PO QHS Y for INSOMNIA, TAB 10/17/16 Esomeprazole Mag Trihydrate (Nexium) 40 Mg Capsule.dr, 40 MG PO DAILY, #30 CAP 10/17/16 Ranitidine Hcl* (Zantac*) 300 Mg Tablet, 300 MG PO HS, #30 TAB 10/17/16 Metoprolol Tartrate* (Lopressor*) 50 Mg Tab, 50 MG PO TID, #60 TAB 10/17/16 Lisinopril* (Lisinopril*) 20 Mg Tablet, 20 MG PO BID, #30 TAB 10/17/16 Aspirin* (Aspirin*) 325 Mg Tablet, 325 MG PO DAILY 10/16/13 Amlodipine Besylate* (Amlodipine Besylate*) 5 Mg Tablet, 5 MG PO DAILY 10/16/13 Atorvastatin Calcium* (Atorvastatin Calcium*) 20 Mg Tablet, 20 MG PO DAILY 10/16/13 Primary Care Provider Devon Holland MD Time spent on discharge: > 30 minutes Pending Labs Laboratory Tests Test 01/25/17 07:50 White Blood Count 9.010^3/ul (4.8-10.8) Red Blood Count 4.1710^6/ul (4.20-5.40) Hemoglobin 11.1g/dl (12.0-16.0) Hematocrit 35.9% (37.0-47.0) Mean Corpuscular Volume 86.1fl (82.0-101.0) Mean Corpuscular Hemoglobin 26.6pg (29.0-33.0) Mean Corpuscular Hemoglobin Concent 30.9g/dl (32.0-37.0) Red Cell Distribution Width 17.5% (11.5-14.5) Platelet Count 36457^3/UL (140-415) Mean Platelet Volume 9.8fl (7.4-10.4) Neutrophils % 67.1% (39.0-77.0) Lymphocytes % 22.4% (15.0-51.0) Monocytes % 7.5% (0.0-11.0) Eosinophils % 1.9% (0.0-7.0) Basophils % 0.7% (0.0-2.0) Nucleated Red Blood Cells % 0.0/100WBC (0.0-0.0) Neutrophils # 6.010^3/ul (1.6-7.5) Lymphocytes # 2.010^3/ul (0.8-2.9) Monocytes # 0.710^3/ul (0.3-0.9) Eosinophils # 0.210^3/ul (0.0-0.5) Basophils # 0.110^3/ul (0.0-0.1) Nucleated Red Blood Cells # 0.010^3/ul (0.0-0.0) Sodium Level 145mmol/L (135-144) Potassium Level 3.8mmol/L (3.5-5.1) Chloride Level 105mmol/L (97-110) Carbon Dioxide Level 22mmol/L (21-31) Anion Gap 22 (8-16) Blood Urea Nitrogen 19mg/dl (7-20) Creatinine 0.82mg/dl (0.44-1.00) Glucose Level 75mg/dl (70-220) Calcium Level 9.2mg/dl (8.4-10.2) Total Bilirubin 0.4mg/dl (0.2-1.3) Direct Bilirubin 0.00mg/dl (0.00-0.20) Indirect Bilirubin 0.4mg/dl (0-1.1) Aspartate Amino Transf (AST/SGOT) 56IU/L (15-46) Alanine Aminotransferase (ALT/SGPT) 41IU/L (13-69) Alkaline Phosphatase 72IU/L (42-121) Total Protein 6.7g/dl (6.1-8.1) Albumin 4.3g/dl (3.3-4.9) Globulin 2.40g/dl (1.3-3.2) Albumin/Globulin Ratio 1.79 MARILIN ISABEL MD Jan 25, 2017 09:41
--- NOTE | 2017-01-25 11:17 | CONS ---
Date/Time of Note Date/Time of Note DATE: 01/25/17 TIME: 11:16 Consult Date/Type/Reason Admit Date/Time Jan 23, 2017 at 00:23 Initial Consult Date Type of Consultation: nephro Subjective good uop. renal us reviewed. renal function stable. being discharged Exam HEENT: Atraumatic, normocephalic. The pupils are equal, round and reactive. Extraocular motor are intact Neck: Supple with full range of motion. No rigidity or meningismus Chest: Nontender Lungs: Clear to auscultation bilaterally no crackles rales or wheezing Heart: Normal S1-S2, Regular rhythm and rate. Abdomen: Soft, mild tenderness to palpation over the lower abdominal quadrant, normal bowel sound Extremities: Normal to inspection, no edema no cyanosis Neurologic: No deficit Objective Vital Signs Date Time Temp Pulse Resp B/P Pulse Ox O2 Delivery O2 Flow Rate FiO2 01/25/17 08:20 91 01/25/17 08:14 98.0 18 150/93 97 01/23/17 08:00 Nasal Cannula 2.0 Intake and Output 01/24/17 01/24/17 01/25/17 15:00 23:00 07:00 Intake Total 800 ml 1200 ml Output Total 450 ml 750 ml Balance 350 ml 450 ml Results/Medications Result Diagram: 01/25/17 0750 01/25/17 0750 Results 24 hrs Laboratory Tests Test 01/25/17 07:50 White Blood Count 9.0 # Red Blood Count 4.17 L Hemoglobin 11.1 L Hematocrit 35.9 L Mean Corpuscular Volume 86.1 Mean Corpuscular Hemoglobin 26.6 L Mean Corpuscular Hemoglobin Concent 30.9 L Red Cell Distribution Width 17.5 H Platelet Count 317 Mean Platelet Volume 9.8 Neutrophils % 67.1 Lymphocytes % 22.4 Monocytes % 7.5 Eosinophils % 1.9 Basophils % 0.7 Nucleated Red Blood Cells % 0.0 Neutrophils # 6.0 Lymphocytes # 2.0 Monocytes # 0.7 Eosinophils # 0.2 Basophils # 0.1 Nucleated Red Blood Cells # 0.0 Sodium Level 145 H Potassium Level 3.8 Chloride Level 105 Carbon Dioxide Level 22 Anion Gap 22 #H Blood Urea Nitrogen 19 Creatinine 0.82 Glucose Level 75 Calcium Level 9.2 Total Bilirubin 0.4 Direct Bilirubin 0.00 Indirect Bilirubin 0.4 Aspartate Amino Transf (AST/SGOT) 56 H Alanine Aminotransferase (ALT/SGPT) 41 Alkaline Phosphatase 72 Total Protein 6.7 Albumin 4.3 Globulin 2.40 Albumin/Globulin Ratio 1.79 Medications Current Medications Sodium Chloride (NS) 1,000 ml @ 70 mls/hr [id number] IV Last administered on 01/24 22:56; Admin Dose 70 MLS/HR; Start 01/23/17 at 02:54 Lorazepam (Ativan) 0.5 mg Q6H PRN IV ANXIETY; Start 01/23/17 at 03:00 Ondansetron HCl (Zofran Inj) 4 mg Q6H PRN IV NAUSEA AND/OR VOMITING; Start at 03:00 Acetaminophen (Tylenol Supp) 650 mg Q6H PRN [place] PAIN LEVEL 1-3 OR FEVER; Start 01/23/17 at 03:00 Amlodipine Besylate (Norvasc) 5 mg DAILY PO Last administered on 01/25/17 08: 30; Admin Dose 5 MG; Start 01/24/17 at 09:00 Atorvastatin Calcium (Lipitor) 20 mg DAILY@21 PO Last administered on 20:49; Admin Dose 20 MG; Start 01/23/17 at 21:00 Metoprolol Tartrate (Lopressor) 50 mg TID PO Last administered on 01/25/17 08: 30; Admin Dose 50 MG; Start 01/23/17 at 21:00 Zolpidem Tartrate (Ambien) 10 mg QHS PRN PO INSOMNIA Last administered on 20:52; Admin Dose 10 MG; Start 01/23/17 at 15:00 Acetaminophen/ Hydrocodone Bitart ([place] (5/325)) 1 tab Q4H PRN PO Pain Last administered on 01/25/17 08:37; Admin Dose 1 TAB; Start 01/23/17 at 15:00 Pantoprazole (Protonix Iv) 40 mg BID@06,18 IV Last administered on 01/25/17 05 :28; Admin Dose 40 MG; Start 01/24/17 at 18:00 Hydralazine HCl (Apresoline) 10 mg Q6H PRN IV ELEVATED SYSTOLIC BP Last administered on 01/25/17 04:38; Admin Dose 10 MG; Start 01/25/17 at 01:30 Lisinopril (Zestril) 20 mg DAILY PO Last administered on 01/25/17t 10:30; Admin Dose 20 MG; Start 01/25/17 at 09:30 Assessment/Plan Chief Complaint/Hosp Course 1. Nonoliguric acute kidney injury with previously normal baseline creatinine -Etiology is likely secondary to prerenal volume depletion due to GI losses. Possible MICAH inhibitor effect -Renal function is improving with IV fluids. Urinalysis is bland no active sediment Continue current treatment plan continue IV hydration continue to monitor renal function closely, will check renal ultrasound, repeat urinalysis with lytes 2. Lactic acidosis -Etiology likely from volume depletion questionable infection -Levels have normalized with IV fluids and IV antibiotic -Continue to monitor 3. Anemia Monitor H&H levels 4. Mineral bone disorder -Monitor calcium phosphorus levels 5. Sirs possible sepsis -Continue current treatment plan continue antibiotics follow-up cultures 6. Leukocytosis improving Problems: CHANDLER GREEN MD Jan 25, 2017 11:17
== END 2017-01-25 11:14 | disposition home or self-care (01) | DRG 872 ==
LOC: E/R 21:28 → MS4 01-23 00:23
PROVIDERS: ADMIT Family Medicine; ATTEND Family Medicine
DX: A41.9 Sepsis, unspecified organism (principal); N17.9 Acute kidney failure, unspecified; R45.1 Restlessness and agitation; I10 Essential (primary) hypertension; D64.9 Anemia, unspecified; K29.00 Acute gastritis without bleeding; E86.0 Dehydration; K52.9 Noninfective gastroenteritis and colitis, unspecified; F25.0 Schizoaffective disorder, bipolar type; K42.9 Umbilical hernia without obstruction or gangrene; K44.9 Diaphragmatic hernia without obstruction or gangrene
CPT/HCPCS: 36415; 71010; 74176; 76775; 80048; 80053; 80061; 80178; 80306; 80307; 81001; 82728; 82962; 83036; 83540; 83605; 83690; 84439; 84443; 84484; 85025; 85610; 85730; 87040; 87086; 93005; 96372; 96374; 96375; 96376; C9113; J0360; J0692; J1630; J1956; J2060; J2270; J2405; J7030

== ENCOUNTER 2017-01-30 16:00 | Outpatient (CLI) | payer BC ==
[~2017-01-30] VITALS: Ht 165.1 cm; Wt 78.9 kg
[2017-01-30 16:06] VITALS: Ht 165.1 cm; Wt 78.9 kg
[2017-01-30 16:08] VITALS: BP 135/84; PULSE 81; RESP 18
--- NOTE | 2017-01-30 16:22 | PN ---
Date/Time of Note Date/Time of Note DATE: 01/30/17 TIME: 16:17 Outpatient Progress Note Chief Complaint Abdominal pain/hypertension/hyperlipidemia/depression/umbilical hernia and hiatal hernia HPI Abdominal pain/patient was recently hospitalized with a severe abdominal pain, patient was had intractable vomiting, patient doing much better, patient on 2 medication, doing well, no nausea vomiting, no heartburn, patient also drinks wine one bottle 2-3 days, patient advised not to drink, Hypertension/no headache or dizziness, no local focal weakness, no impaired vision, Hyperlipidemia/no xanthoma, on medication, no side effect of medication, Depression/patient has schizoaffective disorder, no suicidal, not hearing any voices, on medication, Umbilical hernia and hiatal hernia/patient had umbilical hernia and hiatal hernia, no pain at present, no obstruction, Review of Systems Const: No Fever, no chills, no Wt. loss, no Fatigue, normal appetite, no diaphoresis. Slightly obese, Eyes: No pain, no discharge, no redness, no visual change, no foreign body. ENT: No pain, no bleeding, no congestion, no sore throat, no dysphagia, no discharge or rhinitis. Lymph: No adenopathy, no tender nodes, no lymphedema. Resp: No SOB, no cough, no sputum, no wheezing, no chest pain. CV: No chest pain, no palpitaions, no MONTERO, no PND, no edema. GI: Normal appetite, minimal retrosternal pain, no nausea, no vomiting, no diarrhea, no blood, no constipation. : No frequency, no urgency, no dysuria, no hematuria, no flank pain, no discharge, no bleeding. Musc: No bone/joint pain, no back pain, no neck pain, no knee pain, no restricted ROM. Skin: No rash, no skin lesions, no erythema, no laceration, no bruising, no pruritus. Neuro: No HAILE, no dizziness, no syncope, no seizure, no focal-weakness. Endo: No polyuria, no polydypsia, no dry-skin, no temp-intolerance. Psych: No hallucinations, no depression, no anxiety, no suicidal ideation. Ext: No edema, no pain, no ulcer, no weakness. Physical Exam Vital Signs Date Time Temp Pulse Resp B/P Pulse Ox O2 Delivery O2 Flow Rate FiO2 01/30/17 16:08 99.8 81 18 135/84 96 Room Air General Appearance: A 61 year-old female who appears well-developed, well- nourished, in no acute distress. Slightly obese, HEENT: Head normocephalic, atraumatic. Pupils equal, round, reactive to light and accommodate. Sclerae are no jaundice. Nasal turbinates pink without erythema or nasal discharge. Mucous membranes pink and moist without lesions. Oropharynx clear without any exudate or discharge. NECK: Supple. Trachea midline, No thyromegaly, No cervical lymphadenopathy, No mass, No carotid bruits, No JVD, Carotid pulses 2+ bilaterally. PULMONARY: Clear to auscultaion bilaterally, No retractions, Chest expansion symmetric bilaterally, no rales, no ronchi, no dulness on percussion. CARDIAC: Normal SI and S2, Regular rate and rythm, no murmur, gallop, or rub. GASTROINTESTINAL: Abdomen is soft, minimal retrosternal discomfort, much improved, Non Rigid, No distention, Positive bowel sounds x4 quadrants, Liver normal. SKIN: Warm, dry, no rash, no bruise, no echmosis. EXTREMITIES: Bilateral lower extremities normal, no edema, no phlabitus, pulse palpable, no contracture. MUSCULOSKELETAL: Spine Normal, Non-tender, Normal range of motion, No swelling, no deformity, no clubbing, or cyanosis, the patient has no edema to bilateral lower extremities, dorsalis pedis pulses palpable bilaterally. NEUROLOGIC: The patient is awake, alert, oriented, responding to yes/no questions appropriately, moving all extremities, cranial nerve intact, normal strenght, normal power, normal coordination, normal gait. Allergies Coded Allergies: Penicillins (Unverified Allergy, Unknown, 01/22/17) PMH Abdominal pain/acute nonoliguric kidney injury, lactic acidosis, mean calcium and phosphorus abnormality, possible sepsis, leukocytosis, hypertension, hyperlipidemia, No smoking, patient used to drinks 1 or 2 glasses of wine every day, Social Hx No smoking, Drinking 1 or 2 glasses of wine every day, Family Hx Noncontributory Assessment/Plan Impression Abdominal pain resolved Hypertension Hyperlipidemia Depression and schizoaffective disorder Umbilical hernia Hiatal hernia Possible sepsis resolved/middle bone disorder/renal insufficiency improved Plan Patient education done about alcohol and related disease, Patient advised not to drink at present for many months, Patient has enough medication, continue all medication, Patient encouraged to follow with the primary care physician, Patient also advised to lose weight, Medications Home Meds Reported Medications Zolpidem Tartrate* (Ambien*) 10 Mg Tablet, 10 MG PO QHS Y for INSOMNIA, TAB 10/17/16 Esomeprazole Mag Trihydrate (Nexium) 40 Mg Capsule.dr, 40 MG PO DAILY, #30 CAP 10/17/16 Ranitidine Hcl* (Zantac*) 300 Mg Tablet, 300 MG PO HS, #30 TAB 10/17/16 Metoprolol Tartrate* (Lopressor*) 50 Mg Tab, 50 MG PO TID, #60 TAB 10/17/16 Lisinopril* (Lisinopril*) 20 Mg Tablet, 20 MG PO BID, #30 TAB 10/17/16 Aspirin* (Aspirin*) 325 Mg Tablet, 325 MG PO DAILY 10/16/13 Amlodipine Besylate* (Amlodipine Besylate*) 5 Mg Tablet, 5 MG PO DAILY 10/16/13 Atorvastatin Calcium* (Atorvastatin Calcium*) 20 Mg Tablet, 20 MG PO DAILY 10/16/13 VIC JOSEPH MD Jan 30, 2017 16:22
== END 2017-01-30 16:24 | disposition home or self-care (01) ==
LOC: DCC 16:00
PROVIDERS: ATTEND Internal Medicine
DX: R10.9 Unspecified abdominal pain (principal); I10 Essential (primary) hypertension; E78.5 Hyperlipidemia, unspecified; F32.9 Major depressive disorder, single episode, unspecified; F25.9 Schizoaffective disorder, unspecified; K42.9 Umbilical hernia without obstruction or gangrene; K44.9 Diaphragmatic hernia without obstruction or gangrene; Z88.0 Allergy status to penicillin

== ENCOUNTER 2017-03-30 11:50 | Inpatient (IN) | payer BC ==
[~2017-03-30] VITALS: Ht 162.6 cm; Wt 72.5 kg
[2017-03-30] MEDS ORDERED: SODIUM CHLORIDE 0.9% 1L BAG IV* STA (12:30)
[2017-03-30] MEDS ORDERED: LORAZEPAM 2 MG INJ IV ONE (12:30)
[2017-03-30] MEDS ORDERED: morphine 4 MG/ML VIAL IV STA (12:30)
[2017-03-30] MEDS ORDERED: QUET50TA16 PO (12:57)
[2017-03-30] MEDS ORDERED: MIRT15TA5 PO (12:57)
[2017-03-30] MEDS ORDERED: GABA-526 PO (12:58)
--- NOTE | 2017-03-30 13:34 | RADRPT ---
PROCEDURE: XR Chest. CLINICAL INDICATION: Sepsis. TECHNIQUE: Single frontal view. COMPARISON: 01/24/2017. FINDINGS: The lungs are clear. The heart size is normal. There is calcification in the aorta consistent with atherosclerosis. There is a hiatus hernia. There is no pleural effusion. There is no pneumothorax. IMPRESSION: 1. Clear lungs. 2. Atherosclerosis. 3. Hiatus hernia. 4. No change from 01/24/2017. RPTAT: QQ .Ethan Piña MD, Date Time Electronically viewed and signed by .Ethan Piña MD, MD on 03/30/2017 13:34 .R/
[2017-03-30 13:41] LABS: BASOPHILS % 0.3 % (0.0-2.0); HEMATOCRIT 39.4 % (37.0-47.0); LYMPHOCYTES # 1.1 10^3/ul (0.8-2.9); LYMPHOCYTES % 8.4 % (15.0-51.0); MEAN CORPUSCULAR HEMOGLOBIN 26.8 pg (29.0-33.0); MEAN CORPUSCULAR VOLUME 81.2 fl (82.0-101.0); MONOCYTE # 0.5 10^3/ul (0.3-0.9); MONOCYTES % 3.7 % (0.0-11.0); NEUTROPHILS % 87.2 % (39.0-77.0); PLATELET COUNT 504 10^3/UL (140-415); RED BLOOD COUNT 4.85 10^6/ul (4.20-5.40); RED CELL DISTRIBUTION WIDTH 16.9 % (11.5-14.5); WHITE BLOOD COUNT 12.6 10^3/ul (4.8-10.8)
[2017-03-30 13:56] LABS: INR 1.01; PROTIME 13.3 Sec (12.2-14.2)
[2017-03-30 13:57] LABS: PARTIAL THROMBOPLASTIN TIME 23.2 Sec (25.0-35.0)
[2017-03-30 14:00] LABS: ALBUMIN 4.5 g/dl (3.3-4.9); ALBUMIN/GLOBULIN RATIO 1.18; BILIRUBIN,INDIRECT 0.3 mg/dl (0-1.1); BILIRUBIN,TOTAL 0.3 mg/dl (0.2-1.3); CALCIUM 9.8 mg/dl (8.4-10.2); CREATININE 1.32 mg/dl (0.44-1.00); POTASSIUM 3.7 mmol/L (3.5-5.1); TOTAL PROTEIN 8.3 g/dl (6.1-8.1)
[2017-03-30 14:11] LABS: TROPONIN-I 0.024 ng/ml (0.00-0.12)
[2017-03-30 15:10] LABS: ADD UMIC YES; UR ASCORBIC ACID NEGATIVE (NEGATIVE); UR BACTERIA FEW /HPF (NONE SEEN); UR BILIRUBIN (Dip) 1+ mg/dL (NEGATIVE); UR BLOOD (Dip) 1+ mg/dL (NEGATIVE); UR CLARITY CLOUDY (CLEAR); UR COLOR AMBER (YELLOW); UR GLUCOSE (Dip) 1+ mg/dL (NEGATIVE); UR KETONES (Dip) TRACE mg/dL (NEGATIVE); UR LEUKOCYTE ESTERASE (Dip) NEGATIVE Leu/ul (NEGATIVE); UR MUCUS MANY /HPF (NONE SEEN); UR NITRITE (Dip) NEGATIVE (NEGATIVE); UR NONSQUAMOUS EPITHELIAL CELL 1 /HPF (NONE SEEN); UR RBC 5 /HPF (0-5); UR SPECIFIC GRAVITY (Dip) 1.025 (1.003-1.030); UR SQUAMOUS EPITHELIAL CELL MANY /HPF (FEW); UR TOTAL PROTEIN (Dip) 2+ mg/dl (NEGATIVE); UR UROBILINOGEN (Dip) 1+ mg/dL (NEGATIVE)
[2017-03-30] MEDS ORDERED: CEFTRIAXONE 1 GM/50 ML (PMX) 50 ML IVPB ONE (15:30)
[2017-03-30] MEDS ORDERED: SOD CHLORIDE 0.9% 1,000 ML IV SCH (15:57)
[2017-03-30] MEDS ORDERED: ONDANSETRON 4 MG INJ IV PRN ×2 (16:00→20:00)
[2017-03-30] MEDS ORDERED: ACETAMINOPHEN 325 MG TAB PO PRN (16:00)
--- NOTE | 2017-03-30 16:02 | ERA ---
ER Documentation Chief Complaint Date/Time DATE: 03/30/17 TIME: 15:58 Chief Complaint AP W/VOMITTING X1 DAY, PT UNABLE TO SIT STILL, STATES SHE ANIXOUS HPI This is a 61-year-old female with a history of schizoaffective disorder, hypertension and previous renal issues who presents to the emergency room for evaluation of abdominal pain, nausea, vomiting and painful urination for the past 3 days. The patient denies any fevers and localizes the pain to the lower portion of the abdomen. She denies any radiation the pain came to the ER today for evaluation. ROS All systems reviewed and are negative except as per history of present illness. Medications Home Meds Reported Medications Gabapentin* (Gabapentin*) 600 Mg Tablet, 600 MG PO TID, #90 TAB 03/30/17 Quetiapine Fumarate* (Seroquel*) 50 Mg Tablet, 50 MG PO BID, TAB 03/30/17 Mirtazapine* (Mirtazapine*) 15 Mg Tablet, 15 MG PO HS, TAB 03/30/17 Zolpidem Tartrate* (Ambien*) 10 Mg Tablet, 10 MG PO QHS Y for INSOMNIA, TAB 10/17/16 Esomeprazole Mag Trihydrate (Nexium) 40 Mg Capsule.dr, 40 MG PO DAILY, #30 CAP 10/17/16 Ranitidine Hcl* (Zantac*) 300 Mg Tablet, 300 MG PO HS, #30 TAB 10/17/16 Metoprolol Tartrate* (Lopressor*) 50 Mg Tab, 50 MG PO TID, #60 TAB 10/17/16 Lisinopril* (Lisinopril*) 20 Mg Tablet, 20 MG PO BID, #30 TAB 10/17/16 Aspirin* (Aspirin*) 325 Mg Tablet, 325 MG PO DAILY 10/16/13 Amlodipine Besylate* (Amlodipine Besylate*) 5 Mg Tablet, 5 MG PO DAILY 10/16/13 Atorvastatin Calcium* (Atorvastatin Calcium*) 20 Mg Tablet, 20 MG PO DAILY 10/16/13 Allergies Allergies: Coded Allergies: Penicillins (Unverified Allergy, Unknown, 03/30/17) PMhx/Soc Medical and Surgical Hx: pt denies Medical Hx, pt denies Surgical Hx History of Surgery: Yes (2 c-sections,x3 Hernia repair,Hysterectomy.) Anesthesia Reaction: No Hx Neurological Disorder: No Hx Respiratory Disorders: No Hx Cardiac Disorders: Yes (CHF) Hx Psychiatric Problems: Yes (BiPolar) Hx Miscellaneous Medical Probl: No Hx Alcohol Use: No Hx Substance Use: No Hx Tobacco Use: No Smoking Status: Never smoker Physical Exam Vitals Vital Signs Date Time Temp Pulse Resp B/P Pulse Ox O2 Delivery O2 Flow Rate FiO2 03/30/17 14:30 111 19 124/98 100 Room Air 03/30/17 12:37 111 19 110/97 100 Room Air 03/30/17 11:56 97.9 144 22 155/112 99 Physical Exam INITIAL VITAL SIGNS: Reviewed by me GENERAL: The patient is well developed and appropriate for usual state of health in no apparent distress HEENT: Dry mucous membranes, pupils equal, round, and reactive to light. EOMI. There is no scleral icterus. NECK: C-spine is soft and supple, there is no meningismus. There is no cervical lymphadenopathy. LUNGS: Clear to auscultation bilaterally. There are no rales, wheezes or rhonchi. HEART: Tachycardic, no murmurs, clicks, rubs or gallops. ABDOMEN: Suprapubic tenderness, otherwise soft, non-tender, non-distended. There are bowel sounds in all four quadrants. No rebound or guarding. EXTREMITIES: There is no peripheral cyanosis or edema. No focal swelling or erythema. NEUROLOGICAL: The patient moves all four extremities with 5/5 strength. Cranial nerves II - XII are intact. Normal gait. Alert and oriented SKIN: There is no apparent rash or petechiae. HEME/LYMPHATIC: There is no evidence of excessive bruising or lymphedema. PSYCHIATRIC: The patient Appears to be mildly anxious Result Diagram: 03/30/17 1305 03/30/17 1305 Results 24 hrs Laboratory Tests Test 03/30/17 13:05 03/30/17 14:24 03/30/17 14:30 White Blood Count 12.610^3/ul Red Blood Count 4.8510^6/ul Hemoglobin 13.0g/dl Hematocrit 39.4% Mean Corpuscular Volume 81.2fl Mean Corpuscular Hemoglobin 26.8pg Mean Corpuscular Hemoglobin Concent 33.0g/dl Red Cell Distribution Width 16.9% Platelet Count 16814^3/UL Mean Platelet Volume 10.0fl Neutrophils % 87.2% Lymphocytes % 8.4% Monocytes % 3.7% Eosinophils % 0.0% Basophils % 0.3% Nucleated Red Blood Cells % 0.0/100WBC Neutrophils # 11.010^3/ul Lymphocytes # 1.110^3/ul Monocytes # 0.510^3/ul Eosinophils # 0.010^3/ul Basophils # 0.010^3/ul Nucleated Red Blood Cells # 0.010^3/ul Prothrombin Time 13.3Sec Prothrombin Time Ratio 1.0 INR International Normalized Ratio 1.01 Activated Partial Thromboplast Time 23.2Sec Sodium Level 145mmol/L Potassium Level 3.7mmol/L Chloride Level 106mmol/L Carbon Dioxide Level 21mmol/L Anion Gap 22 Blood Urea Nitrogen 29mg/dl Creatinine 1.32mg/dl Glucose Level 135mg/dl Lactic Acid Level 4.7mmol/L 2.5mmol/L Calcium Level 9.8mg/dl Total Bilirubin 0.3mg/dl Direct Bilirubin 0.00mg/dl Indirect Bilirubin 0.3mg/dl Aspartate Amino Transf (AST/SGOT) 38IU/L Alanine Aminotransferase (ALT/SGPT) 24IU/L Alkaline Phosphatase 135IU/L Troponin I 0.024ng/ml Total Protein 8.3g/dl Albumin 4.5g/dl Globulin 3.80g/dl Albumin/Globulin Ratio 1.18 Urine Color CHER Urine Clarity CLOUDY Urine pH 5.0 Urine Specific [place] 1.025 Urine Ketones TRACEmg/dL Urine Nitrite NEGATIVEmg/dL Urine Bilirubin 1+mg/dL Urine Urobilinogen 1+mg/dL Urine Leukocyte Esterase NEGATIVELeu/ul Urine Microscopic RBC 5/HPF Urine Microscopic WBC 10/HPF Urine Squamous Epithelial Cells MANY/HPF Urine Bacteria FEW/HPF Urine Hyaline Casts FEW/HPF Urine Mucus MANY/HPF Urine Hemoglobin 1+mg/dL Urine Glucose 1+mg/dL Urine Total Protein 2+mg/dl Current Medications Medications (Trade) Dose Ordered Sig/Markus Route PRN Reason Start Time Stop Time Status Last Admin Dose Admin Sodium Chloride (NS) 2,250 ml BOLUS OVER 2 HOURS STAT IV* 03/30/17 12:30 03/30/17 12:32 DC 03/30/17 13:19 Morphine Sulfate (morphine) 4 mg ONCE STAT IV 03/30/17 12:30 03/30/17 12:32 DC 03/30/17 13:18 Lorazepam 2 mg 2 mg ONCE ONCE IV 03/30/17 12:30 03/30/17 12:32 DC 03/30/17 13:17 Ceftriaxone Sodium (Rocephin) 50 ml @ 100 mls/hr ONCE ONCE IVPB 03/30/17 15:30 03/30/17 15:59 03/30/17 15:36 Procedures/MDM EKG: Rate/Rhythm: Sinus tach QRS, ST, T-waves: [No changes consistent w/ acute ischemia] Impression: [No evidence of ischemia or arrhythmia] Chest X-ray 1V Interpreted by me: Soft Tissue: No acute abnormalities Bones: No acute abnormalities Mediastinum/Cardiac Silhouette/Lungs: [No acute abnormalities] This 61-year-old female presents to the ER for evaluation of lower abdominal pain and painful urination. The patient was tachycardic on my examination. She did have a septic workup which does demonstrate a leukocytosis, urinary tract infection and a lactic acid of 4.7. This patient was given morphine and Ativan for her pain and anxiety. Urine cultures and blood cultures were obtained. This patient does not have a significant leukocytosis however she does have significant lactic acid elevation. The patient was given greater than 30 cc/kg of IV normal saline. She will be placed in for admission at this time for cystitis, lactic acidosis and sepsis. The patient was started on Rocephin after blood and urine cultures were obtained and will be admitted to Dr. Mark on the [facility] Critical Care: Excluding all billable procedures Time: 34 minutes Treatments/Evaluations: Close monitoring and treatment of unstable vital signs, cardiorespiratory, and neurologic status, while maintaining tight balance of fluid, respiratory, and cardiac interventions. Departure Diagnosis: Primary Impression: Sepsis Additional Impression: Cystitis Condition: Stable HEJOAO TAVAREZ Mar 30, 2017 16:02
[2017-03-30 18:05] VITALS: BP 124/80; RESP 18
[2017-03-30 18:32] VITALS: Ht 162.6 cm; Wt 72.5 kg
[2017-03-30 19:27] VITALS: BP 143/92; RESP 20
[2017-03-30] MEDS: morphine 2 MG INJ IV PRN (20:36)
[2017-03-30] MEDS: SOD CHLORIDE 0.9% 1,000 ML IV SCH (20:39)
[2017-03-31] MEDS: morphine 2 MG INJ IV PRN ×5 (00:24→21:28)
[2017-03-31 01:35] VITALS: BP 111/63; RESP 20
[2017-03-31] MEDS: SOD CHLORIDE 0.9% 1,000 ML IV SCH ×4 (02:40→11:03)
[2017-03-31 06:07] LABS: BASOPHIL # 0.1 10^3/ul (0.0-0.1); BASOPHILS % 0.7 % (0.0-2.0); EOSINOPHILS # 0.1 10^3/ul (0.0-0.5); EOSINOPHILS % 0.7 % (0.0-7.0); HEMATOCRIT 28.6 % (37.0-47.0); HEMOGLOBIN 9.2 g/dl (12.0-16.0); LYMPHOCYTES # 1.8 10^3/ul (0.8-2.9); LYMPHOCYTES % 26.1 % (15.0-51.0); MEAN CORPUSCULAR HEMOGLOBIN 27.3 pg (29.0-33.0); MEAN CORPUSCULAR HGB CONC 32.2 g/dl (32.0-37.0); MEAN CORPUSCULAR VOLUME 84.9 fl (82.0-101.0); MEAN PLATELET VOLUME 10.1 fl (7.4-10.4); MONOCYTE # 0.6 10^3/ul (0.3-0.9); MONOCYTES % 9.1 % (0.0-11.0); NEUTROPHIL # 4.4 10^3/ul (1.6-7.5); NEUTROPHILS % 63.1 % (39.0-77.0); PLATELET COUNT 330 10^3/UL (140-415); RED BLOOD COUNT 3.37 10^6/ul (4.20-5.40); RED CELL DISTRIBUTION WIDTH 17.3 % (11.5-14.5)
[2017-03-31 06:37] LABS: CALCIUM 7.6 mg/dl (8.4-10.2); CREATININE 0.84 mg/dl (0.44-1.00)
[2017-03-31 06:51] LABS: POTASSIUM 2.8 mmol/L (3.5-5.1)
[2017-03-31 07:14] VITALS: BP 136/89; RESP 20
[2017-03-31] MEDS: POTASSIUM CHLORIDE (SR) 20 MEQ TAB PO SCH ×2 (08:00→14:29)
[2017-03-31] MEDS ORDERED: POTASSIUM CHLORIDE (SR) 20 MEQ TAB PO SCH (08:00)
[2017-03-31] MEDS ORDERED: ESOM20CA PO (11:54)
[2017-03-31 14:00] VITALS: BP 149/93; PULSE 92; RESP 18
[2017-03-31] MEDS: CEFTRIAXONE 1 GM/50 ML (PMX) 50 ML IVPB SCH (14:29)
[2017-03-31] MEDS ORDERED: ZOLPIDEM 5 MG TAB PO PRN (16:30)
[2017-03-31] MEDS: NS + KCL 20 MEQ 1,000 ML IV SCH (16:50)
--- NOTE | 2017-03-31 17:27 | HP ---
DATE OF ADMISSION: 03/30/2017 CHIEF COMPLAINT: Abdominal pain, nausea, vomiting and anxiety. HISTORY OF PRESENT ILLNESS: The patient is a 61-year-old female with history of CHF, hypertension, hyperlipidemia, and bipolar disorder. Patient presented to the emergency room for evaluation of abdominal pain, nausea, vomiting, and painful urination for the last 3 days. Patient had extensive surgical history. Patient was diagnosed with ovarian cancer and underwent hysterectomy and bilateral salpingo-oophorectomy [place] [address] Rajput. Patient also had developed a hernia and had the initial hernia repair by in 2014, and patient had another hernia repair surgery by Dr. Gonsales. On evaluation in the emergency room, patient had elevated white blood cells and elevated lactic acid to 4.7. Patient also had urinalysis indicative of urinary tract infection. Patient was diagnosed with cystitis and sepsis and admitted for further evaluation and management. Patient was also started on Rocephin. Patient denies any chest pain, denies any shortness of breath, denies any diarrhea. PAST MEDICAL HISTORY: Positive for history of heart attack, hypertension, CHF, hypercholesterolemia, bipolar disorder, history of schizophrenia. PAST SURGICAL HISTORY: Per HPI. FAMILY HISTORY: History of bipolar disorder in patient's father. Both parents are . Both had cardiovascular disease. SOCIAL HISTORY: Patient lives at home. Patient denies any tobacco use. Patient drinks alcohol occasionally. The patient also takes edible marijuana for anxiety. ALLERGIES: PATIENT IS ALLERGIC TO PENICILLIN ANTIBIOTICS. MEDICATIONS: Includes: 1. Amlodipine. 2. Aspirin. 3. Atorvastatin. 4. Gabapentin. 5. Lisinopril. 6. Metoprolol. 7. Mirtazapine. 8. Seroquel. 9. Zantac. 10. Ambien. REVIEW OF SYSTEMS: A 12-point review of system is negative, otherwise as mentioned in HPI. PHYSICAL EXAMINATION: GENERAL: Well-developed, well-nourished female, in no acute distress. VITAL SIGNS: Temperature is 97.9, pulse is 87, blood pressure is 136/89, respiratory rate 20, oxygen saturation is 96 percent on room air. HEENT: Head is atraumatic, normocephalic. Pupils equal, round, reactive to light and accommodation. Oral mucosa is pink and moist. NECK: Supple. No cervical lymphadenopathy. No thyromegaly. CHEST: Lungs clear bilaterally. There are no rhonchi, wheezes, rales noted. CARDIOVASCULAR: Normal S1, S2. No murmurs, gallops, clicks, rubs noted. ABDOMEN: Round, soft, nondistended, nontender. Patient has umbilical hernia. Bowel sounds present. There is no guarding. No rebound tenderness. EXTREMITIES: No edema, clubbing, cyanosis. Pulses equal bilaterally, 2+. SKIN: There is no rash, petechiae noted. NEUROLOGICAL: Patient is awake, alert, and oriented x4. Moves all extremities. LABORATORY DATA: On admission, CBC: White blood cells 12.6, hemoglobin 13.0, hematocrit 39.4, platelets 504. Chemistry: Sodium was 145, potassium 3.7, chloride 106, carbon dioxide 21, anion gap 22, BUN of 29, creatinine 1.32, glucose 135. AST 38, ALT 24, alkaline phosphatase is 135. ASSESSMENT AND PLAN: 1. Urinary tract infection per urinalysis. Continue Rocephin. Follow up on final cultures. 2. Sepsis secondary to urinary tract infection. Continue intravenous fluids. 3. Umbilical hernia, with history of multiple hernia repairs. Patient is currently followed by Dr. Gonsales and await for insurance approval for hernia repair surgery by Dr. Gonsales. 4. Hypertension. Continue metoprolol and lisinopril. 5. Coronary artery disease. Continue aspirin. 6. Hyperlipidemia. Continue atorvastatin. 7. History of bipolar disorder and schizophrenia. Continue Seroquel and mirtazapine. 8. Hypokalemia, with potassium today 2.8. Replace potassium. Continue to monitor electrolytes. Further recommendations based on clinical course. 9. Plan of care discussed with Dr. Edwards. Dictated By: Shea Mcnally NP /cata/nicolás /Document#: [id number]
[2017-03-31 19:19] VITALS: BP 129/88; RESP 20
--- NOTE | 2017-03-31 19:37 | RADRPT ---
PROCEDURE: MRI ABDOMEN WITH CONTRAST CLINICAL INDICATION: 61 years of age, female , lower abdominal pain . COMPARISON: CT abdomen pelvis January 22, 2017 TECHNIQUE: An MRI study was performed with intravenous contrast. The following sequences were perfor med: Axial and coronal SS-T2 FSE, axial SS-T2FSE with fat suppression, axial T1 gradient echo in an d out of phase, axial DWI, axial T1 gradient echo with fat suppression pre and post gadolinium x 3 phases and coronal post gadolinium. Contrast: 20 mL gadolinium contrast was administered intravenously. FINDINGS: Lung bases: Bilateral dependent atelectasis. Liver: Normal. Negative for fatty infiltration. No focal lesions. Normal size. Liver measures 16 cm in length. Hepatic veins, portal veins, splenic vein and SMV are patent. Gall Bladder: Absent Bile Ducts: Mild prominence of intrahepatic and extrahepatic bile ducts is within normal limits post cholecystectomy. Pancreas: Normal. Negative for dilatation of pancreatic duct. Spleen: Normal. Adrenal glands: Normal. Kidneys: There are bilateral renal parenchymal cysts including simple cysts that are hyperintense o n T2 and hypointense on T1 and hemorrhagic or proteinaceous cysts that demonstrate low signal intens ity on T2 and hyperintensity on T1. Hemorrhagic or proteinaceous cysts include a 1.6 cm cyst in the superior pole of the right kidney (10/60) and a 2 cm cyst in the superior pole of the left kidney (1 0/49). Renal calculi seen on CT are not seen on MRI. Negative for hydronephrosis. Vasculature: Tortuous aorta. Negative for abdominal aortic aneurysm. IVC is patent. Lymph nodes: Small retroperitoneal lymph nodes are similar to prior exam and likely reactive. Foci o f magnetic susceptibility artifact in the infrarenal retroperitoneum correspond to surgical clips fr om prior lymph node dissection. Bowel: There is a moderate hiatus hernia that is similar to prior exam. There is a bowel containing umbilical hernia that is unchanged. Bowel loops are decompressed without obstruction. Peritoneal space: No free fluid. Abdominal wall: Normal. Musculoskeletal: Degenerative changes in spine. No suspicious bone lesions. IMPRESSION: 1. Moderate hiatus hernia. Bowel containing umbilical hernia without obstruction or strangulation. These findings are unchanged from CT performed January 22, 2017. 2. Bilateral renal parenchymal cysts including simple cysts and hemorrhagic/proteinaceous cysts. He morrhagic cysts are incompletely characterized. Recommend follow-up renal ultrasound in 6 months to document stability. RPTAT: HCTS Bunny Osborn, Physician Date Time Electronically viewed and signed by Bunny Osborn, Physician on 03/31/2017 19:49 CS/
[2017-03-31] MEDS: LISINOPRIL 20 MG TAB PO SCH (20:51)
[2017-03-31] MEDS: QUETIAPINE 25 MG TAB PO SCH (20:51)
[2017-03-31] MEDS: RANITIDINE 150 MG TAB PO SCH (20:52)
[2017-03-31] MEDS: GABAPENTIN 300 MG CAP PO SCH (20:52)
[2017-03-31] MEDS: METOPROLOL 50 MG TAB PO SCH (20:53)
[2017-03-31] MEDS: MIRTAZAPINE 15 MG TAB PO SCH (20:53)
[2017-04-01 01:41] VITALS: BP 111/81; RESP 20
[2017-04-01] MEDS: NS + KCL 20 MEQ 1,000 ML IV SCH ×3 (03:30→13:45)
[2017-04-01] MEDS: morphine 2 MG INJ IV PRN ×4 (05:23→21:18)
[2017-04-01 05:50] LABS: BASOPHILS % 0.8 % (0.0-2.0); EOSINOPHILS # 0.1 10^3/ul (0.0-0.5); EOSINOPHILS % 2.1 % (0.0-7.0); HEMOGLOBIN 8.5 g/dl (12.0-16.0); LYMPHOCYTES # 1.6 10^3/ul (0.8-2.9); LYMPHOCYTES % 30.8 % (15.0-51.0); MEAN CORPUSCULAR HEMOGLOBIN 26.3 pg (29.0-33.0); MEAN CORPUSCULAR HGB CONC 30.4 g/dl (32.0-37.0); MEAN CORPUSCULAR VOLUME 86.7 fl (82.0-101.0); MONOCYTE # 0.5 10^3/ul (0.3-0.9); MONOCYTES % 9.9 % (0.0-11.0); NEUTROPHIL # 2.9 10^3/ul (1.6-7.5); NEUTROPHILS % 56.2 % (39.0-77.0); PLATELET COUNT 307 10^3/UL (140-415); RED BLOOD COUNT 3.23 10^6/ul (4.20-5.40); RED CELL DISTRIBUTION WIDTH 17.7 % (11.5-14.5); WHITE BLOOD COUNT 5.2 10^3/ul (4.8-10.8)
[2017-04-01 06:30] LABS: CREATININE 0.68 mg/dl (0.44-1.00); POTASSIUM 4.1 mmol/L (3.5-5.1)
[2017-04-01 07:17] VITALS: BP 127/83; RESP 20
[2017-04-01] MEDS: ATORVASTATIN 20 MG TAB PO SCH (08:49)
[2017-04-01] MEDS: GABAPENTIN 300 MG CAP PO SCH ×3 (08:49→20:17)
[2017-04-01] MEDS: QUETIAPINE 25 MG TAB PO SCH ×2 (08:53→20:18)
[2017-04-01] MEDS: ASPIRIN 325 MG TAB PO SCH (08:54)
[2017-04-01] MEDS: LISINOPRIL 20 MG TAB PO SCH ×2 (08:54→20:18)
[2017-04-01] MEDS: AMLODIPINE 5 MG TAB PO SCH (08:54)
[2017-04-01] MEDS: METOPROLOL 50 MG TAB PO SCH ×3 (08:54→20:17)
[2017-04-01 13:06] VITALS: BP 122/76; RESP 20
[2017-04-01] MEDS: CEFTRIAXONE 1 GM/50 ML (PMX) 50 ML IVPB SCH (15:30)
--- NOTE | 2017-04-01 17:09 | PN ---
Date/Time of Note Date/Time of Note DATE: 04/01/17 TIME: 17:05 Assessment/Plan VTE Prophylaxis VTE Prophylaxis Intervention: SCD's Lines/Catheters IV [facility]ter Type (from [facility]): Peripheral IV Assessment/Plan Chief Complaint/Hosp Course She stated improvement in symptoms of dysuria, fevers. Problems: Assessment/Plan - Urinary tract infection per urinalysis. Continue Rocephin. Follow up on final cultures. - Sepsis secondary to urinary tract infection. Continue intravenous fluids. - Umbilical hernia, with history of multiple hernia repairs. Patient is currently followed by Dr. Gonsales and await for insurance approval for hernia repair surgery by Dr. Gonsales. - Hypertension. Continue metoprolol and lisinopril. - Coronary artery disease. Continue aspirin. - Hyperlipidemia. Continue atorvastatin. - History of bipolar disorder and schizophrenia. Continue Seroquel and mirtazapine. Further recommendations based on clinical course. Plan of care discussed with Dr. Edwards. Exam/Review of Systems Vital Signs Vitals Vital Signs Date Time Temp Pulse Resp B/P Pulse Ox O2 Delivery O2 Flow Rate FiO2 04/01/17 13:06 99.4 86 20 122/76 98 03/30/17 14:30 Room Air Intake and Output 03/31/17 03/31/17 04/01/17 15:00 23:00 07:00 Intake Total 50 ml 1400 ml 1600 ml Balance 50 ml 1400 ml 1600 ml Exam Constitutional: alert Neck: supple Respiratory: normal air movement Cardiovascular: nl pulses Gastrointestinal: soft Extremities: normal pulses Neurological: nl mental status Results Result Diagram: 04/01/17 0505 04/01/17 0506 Results 24 hrs Laboratory Tests Test 04/01/17 05:05 04/01/17 05:06 White Blood Count 5.2 # Red Blood Count 3.23 L Hemoglobin 8.5 L Hematocrit 28.0 L Mean Corpuscular Volume 86.7 Mean Corpuscular Hemoglobin 26.3 L Mean Corpuscular Hemoglobin Concent 30.4 L Red Cell Distribution Width 17.7 H Platelet Count 307 Mean Platelet Volume 10.0 Neutrophils % 56.2 Lymphocytes % 30.8 Monocytes % 9.9 Eosinophils % 2.1 Basophils % 0.8 Nucleated Red Blood Cells % 0.0 Neutrophils # 2.9 Lymphocytes # 1.6 Monocytes # 0.5 Eosinophils # 0.1 Basophils # 0.0 Nucleated Red Blood Cells # 0.0 Sodium Level 142 Potassium Level 4.1 Chloride Level 117 H Carbon Dioxide Level 24 Anion Gap 5 L Blood Urea Nitrogen 11 # Creatinine 0.68 Glucose Level 81 Calcium Level 8.0 L Medications Medications Current Medications Morphine Sulfate (morphine) 2 mg Q4H PRN IV PAIN Last administered on 13:38; Admin Dose 2 MG; Start 03/30/17 at 20:00 Ondansetron HCl 4 mg 4 mg Q6H PRN IV NAUSEA AND/OR VOMITING; Start 03/30/17 at 20:00 Ceftriaxone Sodium (Rocephin) 50 ml @ 100 mls/hr Q24H IVPB Last administered on 04/01/17 15:30; Admin Dose 100 MLS/HR; Start 03/31/17 at 15:00 Miscellaneous Information Patients own medicat... BID@10,16 XX ; Start 03/31/17 at 16:00 Potassium Chloride/Sodium Chloride (NS-KCl 20 Meq) 1,000 ml @ 40 mls/hr Q24H IV Last administered on 04/01/17 13:45; Admin Dose 100 MLS/HR; Start 03/31/17 at 16:00 Amlodipine Besylate (Norvasc) 5 mg DAILY PO Last administered on 04/01/17 08: 54; Admin Dose 5 MG; Start 04/01/17 at 09:00 Aspirin (Aspirin) 325 mg DAILY PO Last administered on 04/01/17 08:54; Admin Dose 325 MG; Start 04/01/17 at 09:00 Atorvastatin Calcium (Lipitor) 20 mg DAILY PO Last administered on 04/01/17 08 :49; Admin Dose 20 MG; Start 04/01/17 at 09:00 Gabapentin (Neurontin) 600 mg TID PO Last administered on 04/01/17 13:37; Admin Dose 600 MG; Start 03/31/17 at 21:00 Lisinopril (Zestril) 20 mg BID PO Last administered on 04/01/17 08:54; Admin Dose 20 MG; Start 03/31/17 at 21:00 Metoprolol Tartrate (Lopressor) 50 mg TID PO Last administered on 04/01/17 13: 37; Admin Dose 50 MG; Start 03/31/17 at 21:00 Mirtazapine (Remeron) 15 mg HS PO Last administered on 03/31/17 20:53; Admin Dose 15 MG; Start 03/31/17 at 21:00 Quetiapine Fumarate (Seroquel) 50 mg BID PO Last administered on 04/01/17 08: 53; Admin Dose 50 MG; Start 03/31/17 at 21:00 Ranitidine HCl (Zantac) 300 mg HS PO Last administered on 03/31/17 20:52; Admin Dose 300 MG; Start 03/31/17 at 21:00 Zolpidem Tartrate (Ambien) 10 mg QHS PRN PO INSOMNIA; Start 03/31/17 at 16:30 Acetaminophen/ Hydrocodone Bitart (Steedman (5/325)) 1 tab Q4H PRN PO PAIN; Start 04/01/17 at 15:30 LUDWIN BARRON Apr 01, 2017 17:09
[2017-04-01] MEDS: HYDROCODONE/APAP (5/325) TAB PO PRN (18:07)
[2017-04-01 19:20] VITALS: BP 147/93; RESP 20
[2017-04-01] MEDS: MIRTAZAPINE 15 MG TAB PO SCH (20:18)
[2017-04-01] MEDS: RANITIDINE 150 MG TAB PO SCH (20:18)
[2017-04-02 01:41] VITALS: BP 129/86; RESP 20
[2017-04-02 05:48] LABS: BASOPHILS % 0.8 % (0.0-2.0); EOSINOPHILS # 0.1 10^3/ul (0.0-0.5); EOSINOPHILS % 2.9 % (0.0-7.0); HEMATOCRIT 28.8 % (37.0-47.0); HEMOGLOBIN 8.8 g/dl (12.0-16.0); LYMPHOCYTES # 1.4 10^3/ul (0.8-2.9); MEAN CORPUSCULAR HEMOGLOBIN 26.5 pg (29.0-33.0); MEAN CORPUSCULAR HGB CONC 30.6 g/dl (32.0-37.0); MEAN CORPUSCULAR VOLUME 86.7 fl (82.0-101.0); MEAN PLATELET VOLUME 9.9 fl (7.4-10.4); MONOCYTE # 0.5 10^3/ul (0.3-0.9); MONOCYTES % 11.1 % (0.0-11.0); NEUTROPHIL # 2.7 10^3/ul (1.6-7.5); NEUTROPHILS % 55.8 % (39.0-77.0); PLATELET COUNT 300 10^3/UL (140-415); RED BLOOD COUNT 3.32 10^6/ul (4.20-5.40); RED CELL DISTRIBUTION WIDTH 17.3 % (11.5-14.5); WHITE BLOOD COUNT 4.8 10^3/ul (4.8-10.8)
[2017-04-02 06:24] LABS: CALCIUM 8.4 mg/dl (8.4-10.2); CREATININE 0.71 mg/dl (0.44-1.00)
[2017-04-02 07:21] VITALS: BP 151/96; RESP 18
[2017-04-02] MEDS: HYDROCODONE/APAP (5/325) TAB PO PRN ×3 (07:38→20:22)
[2017-04-02] MEDS: ATORVASTATIN 20 MG TAB PO SCH (08:48)
[2017-04-02] MEDS: ASPIRIN 325 MG TAB PO SCH (08:48)
[2017-04-02] MEDS: QUETIAPINE 25 MG TAB PO SCH ×2 (08:49→20:16)
[2017-04-02] MEDS: GABAPENTIN 300 MG CAP PO SCH ×3 (08:49→20:15)
[2017-04-02] MEDS: LISINOPRIL 20 MG TAB PO SCH ×2 (08:50→20:17)
[2017-04-02] MEDS: AMLODIPINE 5 MG TAB PO SCH (08:51)
[2017-04-02] MEDS: METOPROLOL 50 MG TAB PO SCH ×3 (08:51→20:16)
[2017-04-02] MEDS: NS + KCL 20 MEQ 1,000 ML IV SCH (08:52)
[2017-04-02] MEDS: morphine 2 MG INJ IV PRN ×4 (08:53→22:56)
[2017-04-02 14:23] VITALS: BP 131/91
[2017-04-02] MEDS: CEFTRIAXONE 1 GM/50 ML (PMX) 50 ML IVPB SCH (15:23)
--- NOTE | 2017-04-02 17:42 | PN ---
Date/Time of Note Date/Time of Note DATE: 04/02/17 TIME: 17:38 Assessment/Plan VTE Prophylaxis VTE Prophylaxis Intervention: SCD's Lines/Catheters [facility] Peripheral IV Assessment/Plan Chief Complaint/Hosp Course Patient complains of episodes of emesis after breakfast in the morning however was able to tolerate lunch, complains of abdominal pain however is well controlled on current medication regimen. Assessment/Plan - Urinary tract infection. Change Rocephin to Levaquin. - Sepsis secondary to urinary tract infection. Continue intravenous fluids. - Umbilical hernia, with history of multiple hernia repairs. Patient is currently followed by Dr. Gonsales and await for insurance approval for hernia repair surgery by Dr. Gonsales. - Hypertension. Continue metoprolol and lisinopril. - Coronary artery disease. Continue aspirin. - Hyperlipidemia. Continue atorvastatin. - History of bipolar disorder and schizophrenia. Continue Seroquel and mirtazapine. Further recommendations based on clinical course. Plan of care discussed with Dr. Edwards. Problems: Exam/Review of Systems Vital Signs Vitals Vital Signs Date Time Temp Pulse Resp B/P Pulse Ox O2 Delivery O2 Flow Rate FiO2 04/02/17 14:23 98.7 75 131/91 95 04/02/17 07:21 18 03/30/17 14:30 Room Air Intake and Output 04/01/17 04/01/17 04/02/17 15:00 23:00 07:00 Intake Total 800 ml 2190 ml 680 ml Balance 800 ml 2190 ml 680 ml Exam Constitutional: alert Neck: supple Respiratory: normal air movement Cardiovascular: nl pulses Gastrointestinal: soft Extremities: normal pulses Neurological: nl mental status Results Result Diagram: 04/02/17 0516 04/02/17 0516 Results 24 hrs Laboratory Tests Test 04/02/17 05:16 White Blood Count 4.8 Red Blood Count 3.32 L Hemoglobin 8.8 L Hematocrit 28.8 L Mean Corpuscular Volume 86.7 Mean Corpuscular Hemoglobin 26.5 L Mean Corpuscular Hemoglobin Concent 30.6 L Red Cell Distribution Width 17.3 H Platelet Count 300 Mean Platelet Volume 9.9 Neutrophils % 55.8 Lymphocytes % 29.0 Monocytes % 11.1 H Eosinophils % 2.9 Basophils % 0.8 Nucleated Red Blood Cells % 0.0 Neutrophils # 2.7 Lymphocytes # 1.4 Monocytes # 0.5 Eosinophils # 0.1 Basophils # 0.0 Nucleated Red Blood Cells # 0.0 Sodium Level 139 Potassium Level 4.0 Chloride Level 113 H Carbon Dioxide Level 24 Anion Gap 6 L Blood Urea Nitrogen 8 Creatinine 0.71 Glucose Level 89 Calcium Level 8.4 Medications Medications Current Medications Morphine Sulfate (morphine) 2 mg Q4H PRN IV PAIN Last administered on 13:02; Admin Dose 2 MG; Start 03/30/17 at 20:00 Ondansetron HCl 4 mg 4 mg Q6H PRN IV NAUSEA AND/OR VOMITING Last administered on 04/02/17 13:02; Admin Dose 4 MG; Start 03/30/17 at 20:00 Ceftriaxone Sodium (Rocephin) 50 ml @ 100 mls/hr Q24H IVPB Last administered on 04/02/17 15:23; Admin Dose 100 MLS/HR; Start 03/31/17 at 15:00 Miscellaneous Information Patients own medicat... BID@10,16 XX ; Start 03/31/17 at 16:00 Potassium Chloride/Sodium Chloride (NS-KCl 20 Meq) 1,000 ml @ 40 mls/hr Q24H IV Last administered on 04/02/17 08:52; Admin Dose 40 MLS/HR; Start 03/31/17 at 16:00 Amlodipine Besylate (Norvasc) 5 mg DAILY PO Last administered on 04/02/17 08: 51; Admin Dose 5 MG; Start 04/01/17 at 09:00 Aspirin (Aspirin) 325 mg DAILY PO Last administered on 04/02/17 08:48; Admin Dose 325 MG; Start 04/01/17 at 09:00 Atorvastatin Calcium (Lipitor) 20 mg DAILY PO Last administered on 04/02/17 08 :48; Admin Dose 20 MG; Start 04/01/17 at 09:00 Gabapentin (Neurontin) 600 mg TID PO Last administered on 04/02/17 13:01; Admin Dose 600 MG; Start 03/31/17 at 21:00 Lisinopril (Zestril) 20 mg BID PO Last administered on 04/02/17 08:50; Admin Dose 20 MG; Start 03/31/17 at 21:00 Metoprolol Tartrate (Lopressor) 50 mg TID PO Last administered on 04/02/17 13: 02; Admin Dose 50 MG; Start 03/31/17 at 21:00 Mirtazapine (Remeron) 15 mg HS PO Last administered on 04/01/17 20:18; Admin Dose 15 MG; Start 03/31/17 at 21:00 Quetiapine Fumarate (Seroquel) 50 mg BID PO Last administered on 04/02/17 08: 49; Admin Dose 50 MG; Start 03/31/17 at 21:00 Ranitidine HCl (Zantac) 300 mg HS PO Last administered on 04/01/17 20:18; Admin Dose 300 MG; Start 03/31/17 at 21:00 Zolpidem Tartrate (Ambien) 10 mg QHS PRN PO INSOMNIA; Start 03/31/17 at 16:30 Acetaminophen/ Hydrocodone Bitart (Pfeifer (5/325)) 1 tab Q4H PRN PO PAIN Last administered on 04/02/17 11:59; Admin Dose 1 TAB; Start 04/01/17 at 15:30 LUDWIN BARRON Apr 02, 2017 17:42
[2017-04-02] MEDS: LEVOFLOXACIN 500MG/D5W (PMX) 100 ML IVPB SCH (18:04)
[2017-04-02 20:00] VITALS: BP 144/98; RESP 20
[2017-04-02] MEDS: MIRTAZAPINE 15 MG TAB PO SCH (20:15)
[2017-04-02] MEDS: RANITIDINE 150 MG TAB PO SCH (20:16)
[2017-04-03 01:11] VITALS: BP 117/78; PULSE 77; RESP 18
[2017-04-03 05:54] LABS: BASOPHILS % 0.9 % (0.0-2.0); EOSINOPHILS # 0.2 10^3/ul (0.0-0.5); EOSINOPHILS % 4.7 % (0.0-7.0); HEMATOCRIT 29.4 % (37.0-47.0); HEMOGLOBIN 9.1 g/dl (12.0-16.0); LYMPHOCYTES # 1.4 10^3/ul (0.8-2.9); LYMPHOCYTES % 31.5 % (15.0-51.0); MEAN CORPUSCULAR HEMOGLOBIN 26.9 pg (29.0-33.0); MEAN PLATELET VOLUME 9.8 fl (7.4-10.4); MONOCYTE # 0.5 10^3/ul (0.3-0.9); MONOCYTES % 11.6 % (0.0-11.0); NEUTROPHIL # 2.3 10^3/ul (1.6-7.5); NEUTROPHILS % 50.9 % (39.0-77.0); PLATELET COUNT 304 10^3/UL (140-415); RED BLOOD COUNT 3.38 10^6/ul (4.20-5.40); RED CELL DISTRIBUTION WIDTH 17.1 % (11.5-14.5); WHITE BLOOD COUNT 4.5 10^3/ul (4.8-10.8)
[2017-04-03 06:56] LABS: CALCIUM 8.7 mg/dl (8.4-10.2); CREATININE 0.73 mg/dl (0.44-1.00); POTASSIUM 4.2 mmol/L (3.5-5.1)
[2017-04-03 07:13] VITALS: BP 143/71; RESP 18
[2017-04-03 07:48] VITALS: BP 134/94; PULSE 83; RESP 18
--- NOTE | 2017-04-03 08:55 | CONS ---
DATE OF ADMISSION: 03/30/2017 DATE OF CONSULTATION: 04/03/2017 HISTORY OF PRESENT ILLNESS: This is a 61-year-old female with a history of CHF, hypertension, hyperlipidemia, and bipolar disorder. She presents to the ER for evaluation of abdominal pain and painful urination for the past 2-3 days. Per report, she also had nausea and vomiting. She has extensive surgical history. She was diagnosed with ovarian cancer and underwent hysterectomy and bilateral salpingo-oophorectomy. She developed a subsequent incisional hernia and she had a repair for hernia surgery. Further evaluation in the ER showed that she had a urinary tract infection and sepsis. Per the patient, she reported that recently she had been lifting a mattress at home and felt a tear and a rip in the abdomen. General Surgery is consulted for management of the recurrent incarcerated incisional hernia. PAST MEDICAL HISTORY: As above and also positive for heart attack, hypertension, CHF, hypercholesterolemia, bipolar disorder and schizophrenia. PAST SURGICAL HISTORY: Per HPI. FAMILY HISTORY: Bipolar disease in the father. Both parents are . Both had cardiovascular disease. SOCIAL HISTORY: The patient lives at home. Denies any tobacco use and occasional alcohol use. The patient also admits to using marijuana for anxiety. ALLERGIES: PENICILLIN. REVIEW OF SYSTEMS: A 12-point review of systems negative except for what is mentioned in HPI. PHYSICAL EXAMINATION: VITAL SIGNS: Temperature is 98.3, pulse is 83, respiratory rate is 18, blood pressure is 134/94. GENERAL: On exam, a well-nourished female, in no acute distress. HEENT: Atraumatic, normocephalic. PERRLA and EOMI. NECK: Supple, midline. No cervical lymphadenopathy. CHEST: Clear lungs bilaterally. HEART: Normal rate and rhythm. ABDOMEN: Soft. Extensive well-healed incisional scar. Painful protrusion in the incision. No rebound tenderness. No peritoneal signs. EXTREMITIES: Warm. No cyanosis. NEUROLOGIC: Intact. LABORATORY: White blood cell count is 4.5, hemoglobin is 9.8, platelets 304. Chemistries: Sodium is 144, potassium is 4.2, chloride 112, carbon dioxide is 26, BUN is 7, creatinine is 0.7, glucose is 91. Urine: Bacteria present. IMPRESSION AND PLAN: This is a 61-year-old female with recurrent incarcerated incisional hernia and urinary tract infection. She is being currently treated for a urinary tract infection. Will need appropriate treatment prior to evaluation for surgery as patient needs to be clear of any infection before using the prosthetic mesh for hernia repair. Patient to follow with me in the office after her clinical course has been managed. Dictated By: Chapincito Granados /cata/salena /Document#: [id number]
[2017-04-03] MEDS: GABAPENTIN 300 MG CAP PO SCH ×2 (08:58→12:38)
[2017-04-03] MEDS: HYDROCODONE/APAP (5/325) TAB PO PRN ×3 (08:58→18:31)
[2017-04-03] MEDS: QUETIAPINE 25 MG TAB PO SCH (08:58)
[2017-04-03] MEDS: ASPIRIN 325 MG TAB PO SCH (08:58)
[2017-04-03] MEDS: ATORVASTATIN 20 MG TAB PO SCH (08:58)
[2017-04-03] MEDS: AMLODIPINE 5 MG TAB PO SCH (08:59)
[2017-04-03] MEDS: METOPROLOL 50 MG TAB PO SCH ×2 (08:59→12:38)
[2017-04-03] MEDS: LISINOPRIL 20 MG TAB PO SCH (08:59)
[2017-04-03 09:02] VITALS: BP 155/92; PULSE 93
[2017-04-03 12:39] VITALS: BP 147/91; PULSE 78
[2017-04-03] MEDS: NS + KCL 20 MEQ 1,000 ML IV SCH (15:15)
[2017-04-03] MEDS: morphine 2 MG INJ IV PRN (15:48)
--- NOTE | 2017-04-03 16:27 | PN ---
Date/Time of Note Date/Time of Note DATE: 04/03/17 TIME: 16:25 Assessment/Plan VTE Prophylaxis VTE Prophylaxis Intervention: SCD's Lines/Catheters IV Catheter Type (from [facility]): Peripheral IV Assessment/Plan Assessment/Plan - Urinary tract infection. Cont. Levaquin. - Sepsis secondary to urinary tract infection. Continue intravenous fluids. - Umbilical hernia, with history of multiple hernia repairs. -Patient is currently followed by Dr. Gonsales and await for insurance approval for hernia repair surgery by Dr. Gonsales. - Hypertension. Continue metoprolol and lisinopril. - Coronary artery disease. Continue aspirin. - Hyperlipidemia. Continue atorvastatin. - History of bipolar disorder and schizophrenia. Continue Seroquel and mirtazapine. Further recommendations based on clinical course. Plan of care discussed with Dr. Edwards. Subjective 24 Hr Interval Summary Constitutional: improved Respiratory: no complaints Cardiovascular: no complaints Gastrointestinal: no complaints Genitourinary: flank pain Musculoskeletal: no complaints Skin: no complaints Exam/Review of Systems Vital Signs Vitals Vital Signs Date Time Temp Pulse Resp B/P Pulse Ox O2 Delivery O2 Flow Rate FiO2 04/03/17 12:39 78 147/91 04/03/17 07:48 98.3 18 93 Room Air Intake and Output 04/02/17 04/02/17 04/03/17 15:00 23:00 07:00 Intake Total 160 ml 2380 ml 400 ml Balance 160 ml 2380 ml 400 ml Exam Constitutional: alert, oriented, well developed Respiratory: clear to auscultation, normal air movement Cardiovascular: nl pulses, regular rate and rhythm Gastrointestinal: non-tender, soft Genitourinary - Female: CVA tenderness (right CVA tenderness-better than before ) Musculoskeletal: nl extremities to inspection Extremities: normal pulses Neurological: nl mental status, nl speech Results Result Diagram: 04/03/1719 04/03/17 0519 Results 24 hrs Laboratory Tests Test 04/03/17 05:19 White Blood Count 4.5 L Red Blood Count 3.38 L Hemoglobin 9.1 L Hematocrit 29.4 L Mean Corpuscular Volume 87.0 Mean Corpuscular Hemoglobin 26.9 L Mean Corpuscular Hemoglobin Concent 31.0 L Red Cell Distribution Width 17.1 H Platelet Count 304 Mean Platelet Volume 9.8 Neutrophils % 50.9 Lymphocytes % 31.5 Monocytes % 11.6 H Eosinophils % 4.7 Basophils % 0.9 Nucleated Red Blood Cells % 0.0 Neutrophils # 2.3 Lymphocytes # 1.4 Monocytes # 0.5 Eosinophils # 0.2 Basophils # 0.0 Nucleated Red Blood Cells # 0.0 Sodium Level 144 Potassium Level 4.2 Chloride Level 112 H Carbon Dioxide Level 26 Anion Gap 10 Blood Urea Nitrogen 7 Creatinine 0.73 Glucose Level 91 Calcium Level 8.7 Medications Medications Current Medications Morphine Sulfate (morphine) 2 mg Q4H PRN IV PAIN Last administered on 15:48; Admin Dose 2 MG; Start 03/30/17 at 20:00 Ondansetron HCl (Zofran Inj) 4 mg Q6H PRN IV NAUSEA AND/OR VOMITING Last administered on 04/02/17 13:02; Admin Dose 4 MG; Start 03/30/17 at 20:00 Miscellaneous Information Patients own medicat... BID@10,16 XX ; Start 03/31/17 at 16:00 Potassium Chloride/Sodium Chloride (NS-KCl 20 Meq) 1,000 ml @ 40 mls/hr Q24H IV Last administered on 04/03/17 15:15; Admin Dose 40 MLS/HR; Start 03/31/17 at 16:00 Amlodipine Besylate (Norvasc) 5 mg DAILY PO Last administered on 04/03/17 08: 59; Admin Dose 5 MG; Start 04/01/17 at 09:00 Aspirin (Aspirin) 325 mg DAILY PO Last administered on 04/03/17 08:58; Admin Dose 325 MG; Start 04/01/17 at 09:00 Atorvastatin Calcium (Lipitor) 20 mg DAILY PO Last administered on 04/03/17 08 :58; Admin Dose 20 MG; Start 04/01/17 at 09:00 Gabapentin (Neurontin) 600 mg TID PO Last administered on 04/03/17 12:38; Admin Dose 600 MG; Start 03/31/17 at 21:00 Lisinopril (Zestril) 20 mg BID PO Last administered on 04/03/17 08:59; Admin Dose 20 MG; Start 03/31/17 at 21:00 Metoprolol Tartrate (Lopressor) 50 mg TID PO Last administered on 04/03/17 12: 38; Admin Dose 50 MG; Start 03/31/17 at 21:00 Mirtazapine (Remeron) 15 mg HS PO Last administered on 04/02/17 20:15; Admin Dose 15 MG; Start 03/31/17 at 21:00 Quetiapine Fumarate (Seroquel) 50 mg BID PO Last administered on 04/03/17 08: 58; Admin Dose 50 MG; Start 03/31/17 at 21:00 Ranitidine HCl (Zantac) 300 mg HS PO Last administered on 04/02/17 20:16; Admin Dose 300 MG; Start 03/31/17 at 21:00 Zolpidem Tartrate (Ambien) 10 mg QHS PRN PO INSOMNIA; Start 03/31/17 at 16:30 Acetaminophen/ Hydrocodone Bitart 1 tab 1 tab Q4H PRN PO PAIN Last administered on 04/03/17 13:40; Admin Dose 1 TAB; Start 04/01/17 at 15:30 Levofloxacin/ Dextrose (Levaquin 500mg/ D5W 100 ml (Pmx)) 100 ml @ 100 mls/hr Q24H IVPB Last administered on 04/02/17 18:04; Admin Dose 100 MLS/HR; Start at 18:00 SOM PALENCIA Apr 03, 2017 16:27
[2017-04-03] MEDS: LEVOFLOXACIN 500MG/D5W (PMX) 100 ML IVPB SCH (18:06)
--- NOTE | 2017-04-03 18:31 | PDOCDIS ---
Discharge Instructions CONDITION Patient Condition: Stable HOME CARE INSTRUCTIONS: Special Diet: cardiac diet ACTIVITY: Activity Restrictions: Slowly Increase Activity Rest between Activity Avoid heavy lifting Do not Drive Do not operate Machinery Do not operate Power Tool Avoid Heavy Housework Bathing Restrictions: Sponge Bath FOLLOW UP/APPOINTMENTS Follow-up Plan Fu with primary MD X 1 WEEK cALL 911 or go to the nearest hospital if symptoms get worse. dc instructions reviewed with patient and she [id number] understanding dc instructions. Macario Edwards/staff. SOM PALENCIA Apr 03, 2017 18:31
[2017-04-03] MEDS ORDERED: CEPH-443 PO (18:33)
[2017-04-03] MEDS ORDERED: HYDR-3498 PO (18:33)
--- NOTE | 2017-04-03 18:37 | DS ---
Date/Time of Note Date/Time of Note DATE: 04/03/17 TIME: 18:36 Discharge Summary Admission/Discharge Info Admit Date/Time Mar 30, 2017 at 15:58 Discharge Date/Time Discharge Diagnosis - Urinary tract infection. - Sepsis secondary to urinary tract infection. - Umbilical hernia, with history of multiple hernia repairs. - Hypertension. - Coronary artery disease. - Hyperlipidemia. - History of bipolar disorder and schizophrenia. Patient Condition: Stable Hospital Course This is a 61-year-old female with history of CHF, hypertension, hyperlipidemia , and bipolar disorder is admitted with abdominal pain, nausea, vomiting, and painful urination for the last 3 days. Patient was admitted with cystitis and sepsis for further evaluation and management. Patient was also started on Rocephin.Patient denies any chest pain, shortness of breath, abdominal pain. diarrhea. Patient was started on Rocephin abd changed to Levaquin with good response. Dr Gonsales cleared her to discharge home with fu in 1 week Constitutional: alert, oriented, well developed Respiratory: clear to auscultation, normal air movement Cardiovascular: nl pulses, regular rate and rhythm Gastrointestinal: non-tender, soft Genitourinary - Female: CVA tenderness (right CVA tenderness-better than before ) Musculoskeletal: nl extremities to inspection Extremities: normal pulses Neurological: nl mental status, nl speech Plan of care discussed with Dr. Edwards. Home Meds Active Scripts Cephalexin* (Keflex*) 500 Mg Capsule, 500 MG PO QID for 5 Days, CAP Prov:SOM PALENCIA 04/03/17 Hydrocodone Bit-Acetaminophen (Hydrocodone Bit-APAP) 5-325MG Tablet, 1 TAB PO Q4H Y for PAIN, #10 TAB Prov:SOM PALENCIA 04/03/17 Reported Medications Esomeprazole Mag Trihydrate (Nexium) 20 Mg Capsule., 22.3 MG PO DAILY, #30 CAP 03/31/17 Gabapentin* (Gabapentin*) 600 Mg Tablet, 600 MG PO TID, #90 TAB 03/30/17 Quetiapine Fumarate* (Seroquel*) 50 Mg Tablet, 50 MG PO BID, TAB 03/30/17 Mirtazapine* (Mirtazapine*) 15 Mg Tablet, 15 MG PO HS, TAB 03/30/17 Zolpidem Tartrate* (Ambien*) 10 Mg Tablet, 10 MG PO QHS Y for INSOMNIA, TAB 10/17/16 Esomeprazole Mag Trihydrate (Nexium) 40 Mg Capsule.dr, 40 MG PO DAILY, #30 CAP 10/17/16 Ranitidine Hcl* (Zantac*) 300 Mg Tablet, 300 MG PO HS, #30 TAB 10/17/16 Metoprolol Tartrate* (Lopressor*) 50 Mg Tab, 50 MG PO TID, #60 TAB 10/17/16 Lisinopril* (Lisinopril*) 20 Mg Tablet, 20 MG PO BID, #30 TAB 10/17/16 Aspirin* (Aspirin*) 325 Mg Tablet, 325 MG PO DAILY 10/16/13 Amlodipine Besylate* (Amlodipine Besylate*) 5 Mg Tablet, 5 MG PO DAILY 10/16/13 Atorvastatin Calcium* (Atorvastatin Calcium*) 20 Mg Tablet, 20 MG PO DAILY 10/16/13 Follow-up Plan Fu with primary MD X 1 WEEK cALL 911 or go to the nearest hospital if symptoms get worse. dc instructions reviewed with patient and she [id number] understanding dc instructions. Dw Dr Edwards/staff. Primary Care Provider Devon Holland MD Pending Labs Laboratory Tests Test 04/03/17 05:19 White Blood Count 4.510^3/ul (4.8-10.8) Red Blood Count 3.3810^6/ul (4.20-5.40) Hemoglobin 9.1g/dl (12.0-16.0) Hematocrit 29.4% (37.0-47.0) Mean Corpuscular Volume 87.0fl (82.0-101.0) Mean Corpuscular Hemoglobin 26.9pg (29.0-33.0) Mean Corpuscular Hemoglobin Concent 31.0g/dl (32.0-37.0) Red Cell Distribution Width 17.1% (11.5-14.5) Platelet Count 56133^3/UL (140-415) Mean Platelet Volume 9.8fl (7.4-10.4) Neutrophils % 50.9% (39.0-77.0) Lymphocytes % 31.5% (15.0-51.0) Monocytes % 11.6% (0.0-11.0) Eosinophils % 4.7% (0.0-7.0) Basophils % 0.9% (0.0-2.0) Nucleated Red Blood Cells % 0.0/100WBC (0.0-0.0) Neutrophils # 2.310^3/ul (1.6-7.5) Lymphocytes # 1.410^3/ul (0.8-2.9) Monocytes # 0.510^3/ul (0.3-0.9) Eosinophils # 0.210^3/ul (0.0-0.5) Basophils # 0.010^3/ul (0.0-0.1) Nucleated Red Blood Cells # 0.010^3/ul (0.0-0.0) Sodium Level 144mmol/L (135-144) Potassium Level 4.2mmol/L (3.5-5.1) Chloride Level 112mmol/L (97-110) Carbon Dioxide Level 26mmol/L (21-31) Anion Gap 10 (8-16) Blood Urea Nitrogen 7mg/dl (7-20) Creatinine 0.73mg/dl (0.44-1.00) Glucose Level 91mg/dl (70-220) Calcium Level 8.7mg/dl (8.4-10.2) SOM PALENCIA Apr 03, 2017 18:36
[2017-04-03 20:19] VITALS: BP 159/85; RESP 20
== END 2017-04-03 22:15 | disposition home or self-care (01) | DRG 872 ==
LOC: E/R 11:50 → MS2 15:58
PROVIDERS: ADMIT Internal Medicine; ATTEND Internal Medicine
DX: A41.9 Sepsis, unspecified organism (principal); K43.0 Incisional hernia with obstruction, without gangrene; I10 Essential (primary) hypertension; N39.0 Urinary tract infection, site not specified; F25.9 Schizoaffective disorder, unspecified; E87.6 Hypokalemia; I25.10 Atherosclerotic heart disease of native coronary artery without angina pectoris
CPT/HCPCS: 36415; 71010; 74182; 80048; 80053; 81001; 83605; 84484; 85025; 85610; 85730; 87040; 87086; 93005; 96374; 96375; J0696; J1956; J2060; J2270; J2405; J3480; J7030

== ENCOUNTER 2017-04-18 17:33 | Inpatient (IN) | payer BC ==
[~2017-04-18] VITALS: Ht 157.5 cm; Wt 74.7 kg
[~2017-04-18 17:33] MED LIST changes: +CEPH-443 PO; +ESOM20CA PO; +GABA-526 PO; +HYDR-3498 PO; +MIRT15TA5 PO; +QUET50TA16 PO
[2017-04-18] MEDS ORDERED: SODIUM CHLORIDE 0.9% 1L BAG IV* STA (18:50)
[2017-04-18] MEDS ORDERED: AZTREONAM 1 GM/NS (PMX) 50 ML IVPB STA (18:50)
[2017-04-18] MEDS ORDERED: VANCOMYCIN 1 GM (PMX) 250 ML IVPB STA (18:50)
[2017-04-18] MEDS ORDERED: LORAZEPAM 2 MG INJ IM ONE (19:00)
[2017-04-18] MEDS ORDERED: HALOPERIDOL 5 MG INJ IM ONE ×2 (19:00→20:30)
[2017-04-18 19:01] VITALS: TEMP 99.9
[2017-04-18 19:16] LABS: BASOPHILS % 0.3 % (0.0-2.0); HEMATOCRIT 39.2 % (37.0-47.0); HEMOGLOBIN 12.7 g/dl (12.0-16.0); LYMPHOCYTES # 1.1 10^3/ul (0.8-2.9); LYMPHOCYTES % 7.6 % (15.0-51.0); MEAN CORPUSCULAR HEMOGLOBIN 26.6 pg (29.0-33.0); MEAN CORPUSCULAR HGB CONC 32.4 g/dl (32.0-37.0); MEAN CORPUSCULAR VOLUME 82.2 fl (82.0-101.0); MEAN PLATELET VOLUME 10.4 fl (7.4-10.4); MONOCYTE # 0.5 10^3/ul (0.3-0.9); MONOCYTES % 3.7 % (0.0-11.0); NEUTROPHIL # 12.7 10^3/ul (1.6-7.5); PLATELET COUNT 512 10^3/UL (140-415); RED BLOOD COUNT 4.77 10^6/ul (4.20-5.40); RED CELL DISTRIBUTION WIDTH 16.7 % (11.5-14.5); WHITE BLOOD COUNT 14.4 10^3/ul (4.8-10.8)
[2017-04-18] MEDS ORDERED: ACETAMINOPHEN 325 MG TAB PO PRN ×2 (19:30→23:00)
[2017-04-18] MEDS ORDERED: ONDANSETRON 4 MG INJ IV PRN ×2 (19:30→23:00)
[2017-04-18 19:38] LABS: INR 1.02; PARTIAL THROMBOPLASTIN TIME 20.1 Sec (25.0-35.0); PROTIME 13.4 Sec (12.2-14.2)
[2017-04-18 19:58] LABS: ALBUMIN 5.1 g/dl (3.3-4.9); ALBUMIN/GLOBULIN RATIO 1.21; BILIRUBIN,INDIRECT 0.5 mg/dl (0-1.1); BILIRUBIN,TOTAL 0.5 mg/dl (0.2-1.3); CALCIUM 10.6 mg/dl (8.4-10.2); CREATININE 1.6 mg/dl (0.44-1.00); POTASSIUM 3.9 mmol/L (3.5-5.1); TOTAL PROTEIN 9.3 g/dl (6.1-8.1)
--- NOTE | 2017-04-18 20:00 | RADRPT ---
PROCEDURE: XR Chest. CLINICAL INDICATION: Sepsis . TECHNIQUE: Single frontal chest x-ray. COMPARISON: 03/30/2017 FINDINGS: There is diffuse bilateral interstitial prominence. . Calcific atherosclerosis of the aorta is prese nt.. The cardiomediastinal silhouette is unremarkable. The osseous structures are intact. Hiatal h ernia is present. IMPRESSION: Diffuse bilateral interstitial prominence consistent with interstitial edema or interstitial infiltr ates.. Hiatal hernia. RPTAT: [facility] .Chaitanya Hickman MD, Date Time Electronically viewed and signed by .Chaitanya Hickman MD, on 04/18/2017 20:00 .L/
[2017-04-18 20:09] LABS: TROPONIN-I 0.059 ng/ml (0.00-0.12)
--- NOTE | 2017-04-18 20:16 | RADRPT ---
PROCEDURE: CT ABDOMEN AND PELVIS WITHOUT CONTRAST CLINICAL INDICATION: 61 years of age, female . Abdominal pain. Two day history of hematemesis. COMPARISON: MRI abdomen March 31, [address] March 25, 2017 TECHNIQUE: CT of the abdomen and pelvis was performed without intravenous contrast. Oral contrast wa s not administered prior to the examination. Coronal and sagittal reformatted images were obtained from the axial source images. Images were revi ewed on a high-resolution PACS workstation. Dose information: Based on a 32 cm phantom, the estimated radiation dose (CTDIvol mGy) for each seri es in this exam is 13. The estimated cumulative dose (DLP mGy-cm) is 709. One or more of the following dose reduction techniques were used: - Automated exposure control. - Adjustment of the mA and/or kV according to patient size. - Use of iterative reconstruction technique. FINDINGS: In the absence of intravenous contrast, the study constitutes a limited assessment of the solid orga ns, bowel and vessels. LUNG BASES: Mild bibasilar atelectasis. Multivessel coronary artery calcification and trace pericard ial effusion. Pericardial effusion is increased from prior exam. ABDOMEN/PELVIS: Liver: Normal noncontrast appearance. Gallbladder: Status post cholecystectomy. Bile ducts: No intrahepatic or extrahepatic biliary duct dilatation. Spleen: Normal noncontrast appearance. Pancreas: Normal noncontrast appearance. Adrenal glands: Normal noncontrast appearance. Kidneys and ureters: Renal lesions seen on MRI are less well seen on CT. Kidneys are normal size wit hout hydronephrosis. Negative for urinary calculi or hydronephrosis Aorta and IVC: Atherosclerotic calcification and tortuosity of aorta and iliac vessels. Negative for abdominal aortic aneurysm. Lymph nodes: Surgical clips retroperitoneum from lymph node dissection. Negative for enlarged lymph nodes. Gastrointestinal tract: There is a moderate hiatus hernia that is unchanged from prior exam. Negativ e for abnormal wall thickening of the herniated fundus in the posterior mediastinum. Distal esophagu s is not evaluated. There is a 2.5 cm diverticulum arising from the anterior wall of the second port ion of the duodenum that is unchanged from prior exam. Negative for evidence of diverticulitis. Ther e are prominent fluid filled loops of small bowel in the left upper quadrant without a precise a zon e of transition likely due to dysmotility. There is a small bowel containing umbilical hernia withou t obstruction or strangulation that is unchanged. Hernia sac measures 8.1 cm. There is diverticulosi s of the descending and sigmoid colon without diverticulitis. There is moderate formed stool in the rectum suggesting constipation. Appendix: Not visualized Bladder: Normal noncontrast appearance. Pelvic Organs: Absent Peritoneal cavity: No free fluid or free intraperitoneal air. Abdominal wall: Small bowel containing umbilical hernia as described above. BONES: Musculoskeletal: Degenerative changes in spine. No suspicious bone lesions. No suspicious bone lesio ns. IMPRESSION: 1. Colonic diverticulosis without diverticulitis is unchanged. There is moderate stool in the dista l colon that may indicate constipation. 2. Moderate hiatus hernia and umbilical hernia containing small bowel without obstruction or roderick ulation are unchanged from prior exam. Duodenal diverticulum without diverticulitis is unchanged. 3. Trace pericardial effusion is mildly increased. RPTAT: HCTS Physician Isidoro Date Time Electronically viewed and signed by Bunny Osborn Physician on 04/18/2017 20:16 /
--- NOTE | 2017-04-18 21:30 | ERA ---
ER Documentation Chief Complaint Date/Time DATE: 04/18/17 TIME: 21:26 Chief Complaint ALTERED, CONFUSED, KEEPS SAYING " I'M SICK", WON'T ELABORATE FURTHER HPI Patient is a 61-year-old female with bipolar disorder and hypertension presents with abdominal pain. Please note the history and physical exam is limited secondary to the patient's mental status. The patient says "I am sick". She said that it started "a long time ago". She said that she had fever today but no treatment yet. She says that she has vomiting and diarrhea. Upon review of old medical records the patient has multiple visits to the ER and was admitted on March 30 for sepsis. Review of the emergency department information exchange system shows visits to 2 separate emergency departments. She does not know the name of her primary doctor. ROS All systems reviewed and are negative except as per history of present illness. Medications Home Meds Reported Medications Gabapentin* (Gabapentin*) 600 Mg Tablet, 600 MG PO TID, #90 TAB 03/30/17 Quetiapine Fumarate* (Seroquel*) 50 Mg Tablet, 50 MG PO BID, TAB 03/30/17 Mirtazapine* (Mirtazapine*) 15 Mg Tablet, 15 MG PO HS, TAB 03/30/17 Zolpidem Tartrate* (Ambien*) 10 Mg Tablet, 10 MG PO QHS Y for INSOMNIA, TAB 10/17/16 Esomeprazole Mag Trihydrate (Nexium) 40 Mg Capsule.dr, 40 MG PO DAILY, #30 CAP 10/17/16 Ranitidine Hcl* (Zantac*) 300 Mg Tablet, 300 MG PO HS, #30 TAB 10/17/16 Metoprolol Tartrate* (Lopressor*) 50 Mg Tab, 50 MG PO TID, #60 TAB 10/17/16 Lisinopril* (Lisinopril*) 20 Mg Tablet, 20 MG PO BID, #30 TAB 10/17/16 Aspirin* (Aspirin*) 325 Mg Tablet, 325 MG PO DAILY 10/16/13 Amlodipine Besylate* (Amlodipine Besylate*) 5 Mg Tablet, 5 MG PO DAILY 10/16/13 Atorvastatin Calcium* (Atorvastatin Calcium*) 20 Mg Tablet, 20 MG PO DAILY 10/16/13 Discontinued Reported Medications Esomeprazole Mag Trihydrate (Nexium) 20 Mg Capsule., 22.3 MG PO DAILY, #30 CAP 03/31/17 Discontinued Scripts Cephalexin* (Keflex*) 500 Mg Capsule, 500 MG PO QID for 5 Days, CAP Prov:SHERINE PALENCIABIR 04/03/17 Hydrocodone Bit-Acetaminophen (Hydrocodone Bit-APAP) 5-325MG Tablet, 1 TAB PO Q4H Y for PAIN, #10 TAB Prov:SOM PALENCIA 04/03/17 Allergies Allergies: Coded Allergies: Penicillins (Verified Allergy, Unknown, 04/18/17) PMhx/Soc History of Surgery: Yes (rossy, hernia repair, c section x2) Anesthesia Reaction: No Hx Neurological Disorder: No Hx Respiratory Disorders: No Hx Cardiac Disorders: Yes (htn, High cholesterol, CHF) Hx Psychiatric Problems: Yes (bipolar, patient is not being verbally cooperative ) Hx Miscellaneous Medical Probl: No Hx Alcohol Use: Yes (glass of wine every other day) Hx Substance Use: Yes Hx Tobacco Use: No Smoking Status: Current every day smoker FmHx Family History: No diabetes Physical Exam Vitals Vital Signs Date Time Temp Pulse Resp B/P Pulse Ox O2 Delivery O2 Flow Rate FiO2 04/18/17 19:01 99.9 19 165/95 99 Room Air 04/18/17 17:46 99.9 144 24 178/107 99 Physical Exam Const: Moderate distress Head: Atraumatic Eyes: Normal Conjunctiva ENT: Normal External Ears, Nose and Mouth. Neck: Full range of motion..~ No meningismus. Resp: Clear to auscultation bilaterally Cardio: Tachycardic rate without murmur Abd: Soft, diffuse tenderness to palpation without rebound or guarding Skin: No petechiae or rashes Back: No midline or flank tenderness Ext: No cyanosis, or edema Neur: Awake but confused Psych: Patient is confused and has flight of ideas, she keeps saying "I am sick" Result Diagram: 04/18/17185404/18/171854 Results 24 hrs Laboratory Tests Test 04/18/17 18:55 White Blood Count 14.410^3/ul Red Blood Count 4.7710^6/ul Hemoglobin 12.7g/dl Hematocrit 39.2% Mean Corpuscular Volume 82.2fl Mean Corpuscular Hemoglobin 26.6pg Mean Corpuscular Hemoglobin Concent 32.4g/dl Red Cell Distribution Width 16.7% Platelet Count 43625^3/UL Mean Platelet Volume 10.4fl Neutrophils % 88.0% Lymphocytes % 7.6% Monocytes % 3.7% Eosinophils % 0.0% Basophils % 0.3% Nucleated Red Blood Cells % 0.0/100WBC Neutrophils # 12.710^3/ul Lymphocytes # 1.110^3/ul Monocytes # 0.510^3/ul Eosinophils # 0.010^3/ul Basophils # 0.010^3/ul Nucleated Red Blood Cells # 0.010^3/ul Prothrombin Time 13.4Sec Prothrombin Time Ratio 1.0 INR International Normalized Ratio 1.02 Activated Partial Thromboplast Time 20.1Sec Sodium Level 147mmol/L Potassium Level 3.9mmol/L Chloride Level 105mmol/L Carbon Dioxide Level 19mmol/L Anion Gap 27 Blood Urea Nitrogen 32mg/dl Creatinine 1.60mg/dl Glucose Level 218mg/dl Lactic Acid Level 7.6mmol/L Calcium Level 10.6mg/dl Total Bilirubin 0.5mg/dl Direct Bilirubin 0.00mg/dl Indirect Bilirubin 0.5mg/dl Aspartate Amino Transf (AST/SGOT) 54IU/L Alanine Aminotransferase (ALT/SGPT) 30IU/L Alkaline Phosphatase 135IU/L Troponin I 0.059ng/ml Total Protein 9.3g/dl Albumin 5.1g/dl Globulin 4.20g/dl Albumin/Globulin Ratio 1.21 Current Medications Medications (Trade) Dose Ordered Sig/Markus Route PRN Reason Start Time Stop Time Status Last Admin Dose Admin Sodium Chloride 2480 ml 2,480 ml BOLUS OVER 2 HOURS STAT IV* 04/18/17 18:50 04/18/17 18:52 DC 04/18/17 19:16 Vancomycin HCl 250 ml @ 125 mls/hr ONCE STAT IVPB 04/18/17 18:50 04/18/17 20:49 DC 04/18/17 20:15 Aztreonam (Azactam 1gm/NS (Pmx)) 50 ml @ 100 mls/hr ONCE STAT IVPB 04/18/17 18:50 04/18/17 19:19 DC 04/18/17 19:50 Haloperidol (Haldol) 5 mg ONCE ONCE IM 04/18/17 19:00 04/18/17 19:01 DC 04/18/17 19:16 Lorazepam (Ativan) 2 mg ONCE ONCE IM 04/18/17 19:00 04/18/17 19:01 DC 04/18/17 19:17 Procedures/MDM EKG read by me: Rate/Rhythm: Tachycardic rate at 112 Intervals: Normal Impression: Sinus tachycardia with poor R-wave progression PROCEDURE: XR Chest. CLINICAL INDICATION: Sepsis . TECHNIQUE: Single frontal chest x-ray. COMPARISON: 03/30/2017 FINDINGS: There is diffuse bilateral interstitial prominence. . Calcific atherosclerosis of the aorta is present.. The cardiomediastinal silhouette is unremarkable. The osseous structures are intact. Hiatal hernia is present. IMPRESSION: Diffuse bilateral interstitial prominence consistent with interstitial edema or interstitial infiltrates.. Hiatal hernia. RPTAT: HJPL .Chaitanya Hickman MD, MD Date Time Electronically viewed and signed by .Chaitanya Hickman MD, MD on 04/18/2017 20:00 CT abdomen pelvis shows no surgical process per radiology. Admit MDM: Patient's infectious symptoms have not stabilized and the patient is at risk of rapid decompensation. The patient will be admitted for careful hydration, antibiotic therapy, and infectious source control. Severe Sepsis criteria: Infectious source: Likely cystitis End organ damage indicated by: Lactate greater than 2 Sepsis Management: Time of recognition of sepsis: 1854 Within 3 hours of recognition: Blood cultures x 2 before broad-spectrum antibiotics: Yes 30 ml/kg NS bolus Completed Initial lactate 7.6 Repeat lactate pending Time of recognition of septic shock: 1854 Septic Shock Assessment: Any lactic acid > 4.0 yes Persistent hypotension (SBP < 90 or 40 mmHg drop, MAP < 65) despite 30 mL/kg IV fluid bolus No Volume Re-assessment for Septic Shock (post 30 ml/kg bolus): Temp 99.9, BP 165/95, HR 112, RR 19, Pox 99% Heart tachycardic rate Lungs No crackles Skin pale skin Cap Refill Less than 2 seconds Peripheral pulses Radially present Persistent Hypotension Treatment: Comfort care No Central line Not Required Vasopressor started Not required I considered further perfusion assessment with CVP measurement, SCVO2, bedside ultrasound volume assessment, passive leg raise, trial of further fluid bolus. And proceeded with 30 ml/kg fluid bolus of NSS, broad spectrum antibiotics, and admission. I did discuss with Dr. Edwards whether we should admit this patient to the ICU based on her lactic acid result however we both decided that the patient is well-appearing and likely does not need ICU level of care at this time just based on a number. The patient will be fluid resuscitated was given broad-spectrum antibiotics and a repeat lactic acid is still pending. Accepting Care Team Current data and ongoing care discussed. Admitting Physician: Dr. Edwards as the patient was recently admitted to Dr. Edwards and has [employer] insurance assistant(s): None Outstanding Data: Culture results and repeat lactic acid Critical Care: Critical care time 35 minutes excluding all billable procedures Emergent fluid management while maintaining close respiratory support. Provision of immediate and broad-spectrum antibiotic therapy. Simultaneous assessment for possible sources in order to direct targeted therapy. Consideration for invasive and chemical support to prevent cardiopulmonary collapse. Departure Diagnosis: Primary Impression: Septic shock Additional Impression: Altered level of consciousness Condition: Serious RUSH VARGAS MD Apr 18, 2017 21:30
[2017-04-18 21:37] VITALS: PULSE 116
[2017-04-18 22:19] VITALS: BP 122/88; RESP 18
[2017-04-18] MEDS: SOD CHLORIDE 0.45% 1,000 ML IV SCH (23:38)
[2017-04-18] MEDS: morphine 2 MG INJ IV PRN (23:39)
[2017-04-19] VITALS (10 sets, daily range): BP systolic 112–149; BP diastolic 73–89; PULSE 75–122; RESP 18–20
[2017-04-19] MEDS: AZITHROMYCIN 500MG/NS (PMX) 250 ML IVPB SCH (02:15)
[2017-04-19] MEDS: morphine 2 MG INJ IV PRN ×4 (03:45→17:54)
[2017-04-19] MEDS: PANTOPRAZOLE (EC) 40 MG TAB PO SCH (06:43)
[2017-04-19 07:41] LABS: BASOPHIL # 0.1 10^3/ul (0.0-0.1); BASOPHILS % 0.6 % (0.0-2.0); EOSINOPHILS % 0.1 % (0.0-7.0); HEMOGLOBIN 9.8 g/dl (12.0-16.0); LYMPHOCYTES # 2.7 10^3/ul (0.8-2.9); MEAN CORPUSCULAR HGB CONC 30.6 g/dl (32.0-37.0); MEAN CORPUSCULAR VOLUME 84.9 fl (82.0-101.0); MEAN PLATELET VOLUME 10.2 fl (7.4-10.4); MONOCYTE # 1.5 10^3/ul (0.3-0.9); MONOCYTES % 10.8 % (0.0-11.0); NEUTROPHIL # 9.2 10^3/ul (1.6-7.5); NEUTROPHILS % 68.1 % (39.0-77.0); PLATELET COUNT 395 10^3/UL (140-415); RED BLOOD COUNT 3.77 10^6/ul (4.20-5.40); RED CELL DISTRIBUTION WIDTH 17.8 % (11.5-14.5); WHITE BLOOD COUNT 13.6 10^3/ul (4.8-10.8)
[2017-04-19 07:55] LABS: CALCIUM 8.5 mg/dl (8.4-10.2); CREATININE 1.23 mg/dl (0.44-1.00); POTASSIUM 3.6 mmol/L (3.5-5.1)
[2017-04-19] MEDS: ENOXAPARIN 30 MG/0.3 ML SYG SC SCH (08:53)
[2017-04-19] MEDS: AMLODIPINE 5 MG TAB PO SCH (08:54)
[2017-04-19] MEDS: CEFEPIME 1GM/50 ML (PMX) 50 ML IVPB SCH ×2 (08:55→20:30)
[2017-04-19] MEDS: SOD CHLORIDE 0.45% 1,000 ML IV SCH ×2 (08:55→19:31)
[2017-04-19] MEDS: METOPROLOL 50 MG TAB PO SCH ×2 (08:55→20:25)
--- NOTE | 2017-04-19 13:26 | CONS ---
Date/Time of Note Date/Time of Note DATE: 04/19/17 TIME: 13:24 Assessment/Plan Assessment/Plan Chief Complaint/Hosp Course assessment/impression - sepsis, possibly due to an intra-abdominal process e.g. ischemia - colonic diverticulosis without diverticulitis - moderate hiatus hernia and umbilical hernia containing small bowel without obstruction or strangulation (previously seen too) - JOSE GUADALUPE, improving - h/o sepsis associated with abd pain in the past - h/o JOSE GUADALUPE associated with sepsis - schizoaffective disorder with bipolar features - h/o CAD recommendations - Note: Pt's RN and I found that her urine sample was collected with another Pt' s label and has not been collected for hours. I instructed Pt and her RN to collect a fresh sample immediately. - pending results: blood cultures from 04/18/2017 - check hepatitis panel and HIV status (ordered) - continue empiric cefepime management d/w Pt and her RN Problems: Consultation Date/Type/Reason Admit Date/Time Apr 18, 2017 at 19:04 Date of Consultation: Apr 19, 2017 Type of Consultation: ID Reason for Consultation sepsis Referring Provider: JOSE EDWARDS MD Hx of Present Illness This is a 61 yo female with schizoaffective disorder with bipolar features, h/o hernia repair She presented at ER on 04/18/2017 c/o severe abdominal pain. One day prior to admission, Pt had hematemesis once. Since then, Pt has had abdominal pain, rated at 10 on the 1-10 scale. The pain is located around the umbilicus, and is constant. Pt denies diarrhea or bloating. She also denies fever, respiratory or genitourinary symptoms. At ER, Pt had leukocytosis, lactic acidosis and JOSE GUADALUPE. CT showed diverticulosis without diverticulitis, and moderate hiatus hernia and umbilical hernia containing small bowel without obstruction or strangulation. The latter finding was identified in her previous imaging studies in 2017. Pt was admitted and IV hydration and empiric cefepime. Today Pt continues to have severe abdominal pain. Her lactic acidosis has improved. Dr. Edwards requested ID consultation on this Pt. Constitutional: poor po Eyes: no complaints ENT: no complaints Respiratory: no complaints Cardiovascular: no complaints Gastrointestinal: decreased appetite, nausea, other (hemetemesis one day [employer]), pain, vomiting Genitourinary: no complaints Musculoskeletal: no complaints Skin: no complaints Neurologic: no complaints Past Medical History Medical History: angina, coronary artery disease, other (hernia, psych problems ) Past Surgical History Past Surgical Hx: other (hernia repair) Social History Alcohol Use: none Smoking Status: Former smoker Drug Use: none Exam/Review of Systems Vital Signs Vitals Vital Signs Date Time Temp Pulse Resp B/P Pulse Ox O2 Delivery O2 Flow Rate FiO2 04/19/17 12:21 98.0 76 18 116/80 98 04/18/17 19:15 Nasal Cannula 2 Exam Constitutional: alert, oriented, well developed Psych: nl mood/affect, no complaints Head: atraumatic, normocephalic Eyes: nl conjunctiva, nl lids ENMT: nl external ears & nose, nl nasal mucosa & septum Neck: supple Respiratory: clear to auscultation, normal air movement Cardiovascular: nl pulses, regular rate and rhythm Gastrointestinal: other (normoactive bowel sounds are present), soft, tender ( diffusely around umbilicus), No distended Genitourinary - Female: No CVA tenderness Musculoskeletal: nl extremities to inspection, nl gait and stance Extremities: normal pulses, No edema Neurological: [employer] II-XII intact, nl mental status Results Result Diagram: 04/19/17 0704 04/19/17 0704 Results 24 hrs Laboratory Tests Test 04/18/17 18:55 04/18/17 22:50 04/19/17 00:29 04/19/17 07:04 White Blood Count 14.4 #H 13.6 H Red Blood Count 4.77 # 3.77 #L Hemoglobin 12.7 # 9.8 #L Hematocrit 39.2 # 32.0 L Mean Corpuscular Volume 82.2 84.9 Mean Corpuscular Hemoglobin 26.6 L 26.0 L Mean Corpuscular Hemoglobin Concent 32.4 30.6 L Red Cell Distribution Width 16.7 H 17.8 H Platelet Count 512 #H 395 # Mean Platelet Volume 10.4 10.2 Neutrophils % 88.0 H 68.1 Lymphocytes % 7.6 L 20.0 Monocytes % 3.7 10.8 Eosinophils % 0.0 0.1 Basophils % 0.3 0.6 Nucleated Red Blood Cells % 0.0 0.0 Neutrophils # 12.7 H 9.2 H Lymphocytes # 1.1 2.7 Monocytes # 0.5 1.5 H Eosinophils # 0.0 0.0 Basophils # 0.0 0.1 Nucleated Red Blood Cells # 0.0 0.0 Prothrombin Time 13.4 Prothrombin Time Ratio 1.0 INR International Normalized Ratio 1.02 Activated Partial Thromboplast Time 20.1 L Sodium Level 147 H 145 H Potassium Level 3.9 3.6 Chloride Level 105 108 Carbon Dioxide Level 19 L 27 Anion Gap 27 H 14 # Blood Urea Nitrogen 32 H 32 H Creatinine 1.60 H 1.23 H Glucose Level 218 103 # Lactic Acid Level 7.6 *H 3.0 *H 1.6 Calcium Level 10.6 H 8.5 Total Bilirubin 0.5 Direct Bilirubin 0.00 Indirect Bilirubin 0.5 Aspartate Amino Transf (AST/SGOT) 54 H Alanine Aminotransferase (ALT/SGPT) 30 Alkaline Phosphatase 135 H Troponin I 0.059 Total Protein 9.3 H Albumin 5.1 H Globulin 4.20 H Albumin/Globulin Ratio 1.21 Medications Medications Current Medications Cefepime HCl (Maxipime 1gm/50 ml (Pmx)) 50 ml @ 100 mls/hr Q12 IVPB Last administered on 04/19/17 08:55; Admin Dose 100 MLS/HR; Start 04/19/17 at 09:00 Morphine Sulfate 2 mg 2 mg Q4H PRN IV PAIN Last administered on 04/19/17 08:53 ; Admin Dose 2 MG; Start 04/18/17 at 23:00 Azithromycin (Zithromax 500mg/ NS (Pmx)) 250 ml @ 250 mls/hr Q24H IVPB Last administered on 04/19/17 02:15; Admin Dose 250 MLS/HR; Start 04/19/17 at 00:00 Acetaminophen 650 mg 650 mg Q6H PRN PO PAIN AND OR ELEVATED TEMP; Start at 23:00 Sodium Chloride (1/2 NS) 1,000 ml @ 100 mls/hr Q10H IV Last administered on 23:38; Admin Dose 100 MLS/HR; Start 04/18/17 at 23:00 Enoxaparin Sodium (Lovenox) 30 mg DAILY SC Last administered on 04/19/17 08:53 ; Admin Dose 30 MG; Start 04/19/17 at 09:00 Ondansetron HCl (Zofran Inj) 4 mg Q4H PRN IV NAUSEA AND/OR VOMITING Last administered on 04/18/17 23:39; Admin Dose 4 MG; Start 04/18/17 at 23:00 Metoprolol Tartrate (Lopressor) 50 mg BID PO Last administered on 04/19/17 08: 55; Admin Dose 50 MG; Start 04/19/17 at 09:00 Amlodipine Besylate (Norvasc) 5 mg DAILY PO Last administered on 04/19/17 08: 54; Admin Dose 5 MG; Start 04/19/17 at 09:00 Pantoprazole (Protonix Tab) 40 mg DAILY@06 PO Last administered on 04/19/17 06 :43; Admin Dose 40 MG; Start 04/19/17 at 06:00 SADIE GUERRERO M.D. Apr 19, 2017 13:26
[2017-04-19 14:26] LABS: ADD UMIC YES; UR ASCORBIC ACID NEGATIVE (NEGATIVE); UR BILIRUBIN (Dip) NEGATIVE (NEGATIVE); UR BLOOD (Dip) NEGATIVE (NEGATIVE); UR CLARITY CLEAR (CLEAR); UR COLOR YELLOW (YELLOW); UR GLUCOSE (Dip) NEGATIVE (NEGATIVE); UR KETONES (Dip) NEGATIVE (NEGATIVE); UR LEUKOCYTE ESTERASE (Dip) NEGATIVE Leu/ul (NEGATIVE); UR NITRITE (Dip) NEGATIVE (NEGATIVE); UR RBC 3 /HPF (0-5); UR SPECIFIC GRAVITY (Dip) 1.025 (1.003-1.030); UR SQUAMOUS EPITHELIAL CELL FEW /HPF (FEW); UR TOTAL PROTEIN (Dip) 1+ mg/dl (NEGATIVE); UR UROBILINOGEN (Dip) 1+ mg/dL (NEGATIVE)
--- NOTE | 2017-04-19 16:01 | PN ---
Date/Time of Note Date/Time of Note DATE: 04/19/17 TIME: 16:01 Assessment/Plan Lines/Catheters IV C[facility]ter Type (from [facility]): Peripheral IV Urinary Cath still in place: No Exam/Review of Systems Vital Signs Vitals Vital Signs Date Time Temp Pulse Resp B/P Pulse Ox O2 Delivery O2 Flow Rate FiO2 04/19/17 12:21 98.0 76 18 116/80 98 04/18/17 19:15 Nasal Cannula 2 Results Result Diagram: 04/19/17 0704 04/19/17 0704 Results 24 hrs Laboratory Tests Test 04/18/17 18:55 04/18/17 22:50 04/19/17 00:29 04/19/17 07:04 White Blood Count 14.4 #H 13.6 H Red Blood Count 4.77 # 3.77 #L Hemoglobin 12.7 # 9.8 #L Hematocrit 39.2 # 32.0 L Mean Corpuscular Volume 82.2 84.9 Mean Corpuscular Hemoglobin 26.6 L 26.0 L Mean Corpuscular Hemoglobin Concent 32.4 30.6 L Red Cell Distribution Width 16.7 H 17.8 H Platelet Count 512 #H 395 # Mean Platelet Volume 10.4 10.2 Neutrophils % 88.0 H 68.1 Lymphocytes % 7.6 L 20.0 Monocytes % 3.7 10.8 Eosinophils % 0.0 0.1 Basophils % 0.3 0.6 Nucleated Red Blood Cells % 0.0 0.0 Neutrophils # 12.7 H 9.2 H Lymphocytes # 1.1 2.7 Monocytes # 0.5 1.5 H Eosinophils # 0.0 0.0 Basophils # 0.0 0.1 Nucleated Red Blood Cells # 0.0 0.0 Prothrombin Time 13.4 Prothrombin Time Ratio 1.0 INR International Normalized Ratio 1.02 Activated Partial Thromboplast Time 20.1 L Sodium Level 147 H 145 H Potassium Level 3.9 3.6 Chloride Level 105 108 Carbon Dioxide Level 19 L 27 Anion Gap 27 H 14 # Blood Urea Nitrogen 32 H 32 H Creatinine 1.60 H 1.23 H Glucose Level 218 103 # Lactic Acid Level 7.6 *H 3.0 *H 1.6 Calcium Level 10.6 H 8.5 Total Bilirubin 0.5 Direct Bilirubin 0.00 Indirect Bilirubin 0.5 Aspartate Amino Transf (AST/SGOT) 54 H Alanine Aminotransferase (ALT/SGPT) 30 Alkaline Phosphatase 135 H Troponin I 0.059 Total Protein 9.3 H Albumin 5.1 H Globulin 4.20 H Albumin/Globulin Ratio 1.21 Test 04/19/17 09:20 Urine Color YELLOW Urine Clarity CLEAR Urine pH 6.0 Urine Specific [place] 1.025 Urine Ketones NEGATIVE Urine Nitrite NEGATIVE Urine Bilirubin NEGATIVE Urine Urobilinogen 1+ H Urine Leukocyte Esterase NEGATIVE Urine Microscopic RBC 3 Urine Microscopic WBC 2 Urine Squamous Epithelial Cells FEW Urine Hemoglobin NEGATIVE Urine Glucose NEGATIVE Urine Total Protein 1+ H Medications Medications Current Medications Cefepime HCl (Maxipime 1gm/50 ml (Pmx)) 50 ml @ 100 mls/hr Q12 IVPB Last administered on 04/19/17 08:55; Admin Dose 100 MLS/HR; Start 04/19/17 at 09:00 Morphine Sulfate 2 mg 2 mg Q4H PRN IV PAIN Last administered on 04/19/17 13:28 ; Admin Dose 2 MG; Start 04/18/17 at 23:00 Azithromycin (Zithromax 500mg/ NS (Pmx)) 250 ml @ 250 mls/hr Q24H IVPB Last administered on 04/19/17 02:15; Admin Dose 250 MLS/HR; Start 04/19/17 at 00:00 Acetaminophen 650 mg 650 mg Q6H PRN PO PAIN AND OR ELEVATED TEMP; Start at 23:00 Sodium Chloride (1/2 NS) 1,000 ml @ 100 mls/hr Q10H IV Last administered on 23:38; Admin Dose 100 MLS/HR; Start 04/18/17 at 23:00 Enoxaparin Sodium (Lovenox) 30 mg DAILY SC Last administered on 04/19/17 08:53 ; Admin Dose 30 MG; Start 04/19/17 at 09:00 Ondansetron HCl (Zofran Inj) 4 mg Q4H PRN IV NAUSEA AND/OR VOMITING Last administered on 04/18/17 23:39; Admin Dose 4 MG; Start 04/18/17 at 23:00 Metoprolol Tartrate (Lopressor) 50 mg BID PO Last administered on 04/19/17 08: 55; Admin Dose 50 MG; Start 04/19/17 at 09:00 Amlodipine Besylate (Norvasc) 5 mg DAILY PO Last administered on 04/19/17 08: 54; Admin Dose 5 MG; Start 04/19/17 at 09:00 Pantoprazole (Protonix Tab) 40 mg DAILY@06 PO Last administered on 04/19/17 06 :43; Admin Dose 40 MG; Start 04/19/17 at 06:00 SOM PALENCIA Apr 19, 2017 16:01
--- NOTE | 2017-04-19 16:01 | HP ---
Date/Time of Note Date/Time of Note DATE: 04/19/17 TIME: 16:01 Assessment/Plan VTE Prophylaxis VTE Prophylaxis Intervention: other Lines/Catheters IV Catheter Type (from Nrsg): Peripheral IV Urinary Cath still in place: No Assessment/Plan Assessment/Plan - sepsis, possibly due to an intra-abdominal process e.g. ischemia - per ID consult --Septic shock sec to above -Altered level of consciousness -- JOSE GUADALUPE, improving - colonic diverticulosis without diverticulitis - moderate hiatus hernia and umbilical hernia containing small bowel without obstruction or strangulation (previously seen too) - h/o sepsis associated with abd pain in the past - h/o JOSE GUADALUPE associated with sepsis - schizoaffective disorder with bipolar features - h/o CAD Plan of care yadira Acuna HPI/ROS Admit Date/Time Admit Date/Time Apr 18, 2017 at 19:04 ROS Eyes: no complaints ENT: no complaints Respiratory: no complaints Cardiovascular: no complaints Gastrointestinal: decreased appetite, nausea, 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), pain, vomiting Genitourinary: no complaints Musculoskeletal: no complaints Skin: no complaints Neurologic: no complaints Psychological: nl mood/affect, no complaints PMH/Family/Social Past Medical History Medical History: angina, coronary artery disease, other (hernia, psych problems ) Past Surgical History Past Surgical Hx: other (hernia repair) Social History Alcohol Use: none Smoking Status: Former smoker Drug Use: none Exam/Review of Systems Vital Signs Vitals Vital Signs Date Time Temp Pulse Resp B/P Pulse Ox O2 Delivery O2 Flow Rate FiO2 04/19/17 12:21 98.0 76 18 116/80 98 04/18/17 19:15 Nasal Cannula 2 Exam Constitutional: alert, oriented Respiratory: clear to auscultation, diminished breath sounds Cardiovascular: nl pulses, regular rate and rhythm Gastrointestinal: non-tender, soft Musculoskeletal: other Extremities: normal pulses Neurological: nl mental status Labs Result Diagram: 04/19/1704 04/19/17 0704 Medications Medications Current Medications Cefepime HCl (Maxipime 1gm/50 ml (Pmx)) 50 ml @ 100 mls/hr Q12 IVPB Last administered on 04/19/17t 08:55; Admin Dose 100 MLS/HR; Start 04/19/17 at 09:00 Morphine Sulfate 2 mg 2 mg Q4H PRN IV PAIN Last administered on 04/19/17 13:28 ; Admin Dose 2 MG; Start 04/18/17 at 23:00 Azithromycin (Zithromax 500mg/ NS (Pmx)) 250 ml @ 250 mls/hr Q24H IVPB Last administered on 04/19/17 02:15; Admin Dose 250 MLS/HR; Start 04/19/17 at 00:00 Acetaminophen 650 mg 650 mg Q6H PRN PO PAIN AND OR ELEVATED TEMP; Start at 23:00 Sodium Chloride (1/2 NS) 1,000 ml @ 100 mls/hr Q10H IV Last administered on 23:38; Admin Dose 100 MLS/HR; Start 04/18/17 at 23:00 Enoxaparin Sodium (Lovenox) 30 mg DAILY SC Last administered on 04/19/17 08:53 ; Admin Dose 30 MG; Start 04/19/17 at 09:00 Ondansetron HCl (Zofran Inj) 4 mg Q4H PRN IV NAUSEA AND/OR VOMITING Last administered on 04/18/17 23:39; Admin Dose 4 MG; Start 04/18/17 at 23:00 Metoprolol Tartrate (Lopressor) 50 mg BID PO Last administered on 04/19/17 08: 55; Admin Dose 50 MG; Start 04/19/17 at 09:00 Amlodipine Besylate (Norvasc) 5 mg DAILY PO Last administered on 04/19/17 08: 54; Admin Dose 5 MG; Start 04/19/17 at 09:00 Pantoprazole (Protonix Tab) 40 mg DAILY@06 PO Last administered on 04/19/17 06 :43; Admin Dose 40 MG; Start 04/19/17 at 06:00 SOM PALENCIA Apr 19, 2017 16:01
[2017-04-19] MEDS: DOCUSATE SODIUM 100 MG CAP PO SCH (20:25)
[2017-04-19] MEDS: HYDROmorphONE 1 MG/ML SYG IV PRN (20:27)
[2017-04-20] MEDS: AZITHROMYCIN 500MG/NS (PMX) 250 ML IVPB SCH (00:29)
[2017-04-20] MEDS: HYDROmorphONE 1 MG/ML SYG IV PRN ×4 (00:29→21:38)
[2017-04-20 00:35] VITALS: Ht 157.5 cm; Wt 74.7 kg
[2017-04-20 02:00] VITALS: BP 98/69; RESP 20
[2017-04-20 02:06] LABS: BARBITURATES Negative (NEGATIVE); BENZODIAZEPINES Negative (NEGATIVE); CANNABINOIDS Positive (NEGATIVE); COCAINE Negative (NEGATIVE); OPIATES Positive (NEGATIVE)
[2017-04-20] MEDS: SOD CHLORIDE 0.45% 1,000 ML IV SCH ×4 (05:00→20:36)
[2017-04-20 05:23] LABS: HAAIG REFLEX REFLEX FILED
[2017-04-20 05:33] LABS: BASOPHIL # 0.1 10^3/ul (0.0-0.1); BASOPHILS % 0.9 % (0.0-2.0); EOSINOPHILS # 0.3 10^3/ul (0.0-0.5); EOSINOPHILS % 2.9 % (0.0-7.0); HEMATOCRIT 30.5 % (37.0-47.0); HEMOGLOBIN 9.1 g/dl (12.0-16.0); LYMPHOCYTES # 2.1 10^3/ul (0.8-2.9); LYMPHOCYTES % 22.2 % (15.0-51.0); MEAN CORPUSCULAR HEMOGLOBIN 26.1 pg (29.0-33.0); MEAN CORPUSCULAR HGB CONC 29.8 g/dl (32.0-37.0); MEAN CORPUSCULAR VOLUME 87.4 fl (82.0-101.0); MEAN PLATELET VOLUME 10.3 fl (7.4-10.4); MONOCYTE # 0.8 10^3/ul (0.3-0.9); MONOCYTES % 8.8 % (0.0-11.0); NEUTROPHIL # 6.1 10^3/ul (1.6-7.5); NEUTROPHILS % 64.8 % (39.0-77.0); PLATELET COUNT 334 10^3/UL (140-415); RED BLOOD COUNT 3.49 10^6/ul (4.20-5.40); RED CELL DISTRIBUTION WIDTH 17.4 % (11.5-14.5); WHITE BLOOD COUNT 9.4 10^3/ul (4.8-10.8)
[2017-04-20] MEDS: PANTOPRAZOLE (EC) 40 MG TAB PO SCH (05:35)
[2017-04-20 05:48] LABS: CALCIUM 8.5 mg/dl (8.4-10.2); CREATININE 0.82 mg/dl (0.44-1.00); POTASSIUM 3.7 mmol/L (3.5-5.1)
[2017-04-20 07:58] LABS: HEPATITIS B CORE ANTIBODY NEGATIVE (NEGATIVE)
[2017-04-20 08:16] VITALS: BP 118/81; RESP 18
[2017-04-20 08:21] VITALS: BP 160/70; RESP 18
[2017-04-20] MEDS: CEFEPIME 1GM/50 ML (PMX) 50 ML IVPB SCH ×2 (08:22→20:35)
[2017-04-20] MEDS: DOCUSATE SODIUM 100 MG CAP PO SCH ×2 (08:23→20:12)
[2017-04-20] MEDS: METOPROLOL 50 MG TAB PO SCH ×2 (08:25→20:13)
[2017-04-20] MEDS: AMLODIPINE 5 MG TAB PO SCH (08:27)
[2017-04-20] MEDS: ENOXAPARIN 30 MG/0.3 ML SYG SC SCH ×2 (09:00→12:07)
--- NOTE | 2017-04-20 12:13 | CONS ---
Date/Time of Note Date/Time of Note DATE: 04/20/17 TIME: 12:11 Assessment/Plan Assessment/Plan Chief Complaint/Hosp Course assessment/impression - sepsis, possibly due to an intra-abdominal process e.g. ischemic colon, improving - abdominal pain, possibly due to ileus or ischemia, improving - colonic diverticulosis without diverticulitis - moderate hiatus hernia and umbilical hernia containing small bowel without obstruction or strangulation (previously seen too) - JOSE GUADALUPE, improving - h/o sepsis associated with abd pain in the past - h/o JOSE GUADALUPE associated with sepsis - schizoaffective disorder with bipolar features - h/o CAD recommendations - pending results: blood and urine cultures - continue empiric cefepime (04/18/2017-) management d/w Pt Problems: Consultation Date/Type/Reason Admit Date/Time Apr 18, 2017 at 19:04 Initial Consult Date 04/19/17 Type of Consultation: ID Referring Provider: JOSE ZAVALA MD 24 HR Interval Summary Constitutional: improved Detailed Summary Eyes: no complaints ENT: no complaints Respiratory: no complaints Cardiovascular: no complaints Gastrointestinal: pain (less than yeseterday) Genitourinary: no complaints Musculoskeletal: no complaints Skin: no complaints Neurologic: no complaints Exam/Review of Systems Vital Signs Vitals Vital Signs Date Time Temp Pulse Resp B/P Pulse Ox O2 Delivery O2 Flow Rate FiO2 04/20/17 08:16 98.0 65 18 118/81 92 04/18/17 19:15 Nasal Cannula 2 Intake and Output 04/19/17 04/19/17 04/20/17 15:00 23:00 07:00 Intake Total 50 ml 850 ml 1720 ml Output Total 1600 ml Balance 50 ml 850 ml 120 ml Exam Constitutional: alert, oriented, well developed Psych: nl mood/affect, no complaints Head: atraumatic, normocephalic Eyes: nl conjunctiva, nl lids ENMT: nl external ears & nose, nl nasal mucosa & septum Neck: supple Respiratory: clear to auscultation, normal air movement Cardiovascular: nl pulses, regular rate and rhythm Gastrointestinal: other (normoactive BS is present), tender (diffusely, but not tense), No distended, No firm Musculoskeletal: nl extremities to inspection Extremities: normal pulses Neurological: PAINT TINTER II-XII intact, nl mental status, nl speech, nl strength Skin: nl turgor Results Result Diagram: 04/20/17 0455 04/20/17 0455 Results 24 hrs Laboratory Tests Test 04/19/17 15:15 04/20/17 04:55 Urine Opiates Screen Positive Urine Barbiturates Negative Urine Amphetamines Screen Negative Urine Benzodiazepines Screen Negative Urine Cocaine Screen Negative Urine Cannabinoids Positive White Blood Count 9.4 # Red Blood Count 3.49 L Hemoglobin 9.1 L Hematocrit 30.5 L Mean Corpuscular Volume 87.4 Mean Corpuscular Hemoglobin 26.1 L Mean Corpuscular Hemoglobin Concent 29.8 L Red Cell Distribution Width 17.4 H Platelet Count 334 Mean Platelet Volume 10.3 Neutrophils % 64.8 Lymphocytes % 22.2 Monocytes % 8.8 Eosinophils % 2.9 Basophils % 0.9 Nucleated Red Blood Cells % 0.0 Neutrophils # 6.1 Lymphocytes # 2.1 Monocytes # 0.8 Eosinophils # 0.3 Basophils # 0.1 Nucleated Red Blood Cells # 0.0 Sodium Level 139 Potassium Level 3.7 Chloride Level 107 Carbon Dioxide Level 26 Anion Gap 10 Blood Urea Nitrogen 20 # Creatinine 0.82 Glucose Level 93 Calcium Level 8.5 Hepatitis B Surface Antigen NEGATIVE Hepatitis B Core Total Antibody NEGATIVE Hepatitis C Antibody NEGATIVE HIV (1&2) Antibody NEGATIVE Medications Medications Current Medications Cefepime HCl 50 ml @ 100 mls/hr Q12 IVPB Last administered on 04/20/17 08:22 ; Admin Dose 100 MLS/HR; Start 04/19/17 at 09:00 Azithromycin (Zithromax 500mg/ NS (Pmx)) 250 ml @ 250 mls/hr Q24H IVPB Last administered on 04/20/17 00:29; Admin Dose 250 MLS/HR; Start 04/19/17 at 00:00 Acetaminophen 650 mg 650 mg Q6H PRN PO PAIN AND OR ELEVATED TEMP; Start at 23:00 Sodium Chloride (1/2 NS) 1,000 ml @ 100 mls/hr Q10H IV Last administered on 07:26; Admin Dose 100 MLS/HR; Start 04/18/17 at 23:00 Enoxaparin Sodium (Lovenox) 30 mg DAILY SC Last administered on 04/20/17 12:07 ; Admin Dose 30 MG; Start 04/19/17 at 09:00 Ondansetron HCl (Zofran Inj) 4 mg Q4H PRN IV NAUSEA AND/OR VOMITING Last administered on 04/18/17 23:39; Admin Dose 4 MG; Start 04/18/17 at 23:00 Metoprolol Tartrate (Lopressor) 50 mg BID PO Last administered on 04/20/17 08: 25; Admin Dose 50 MG; Start 04/19/17 at 09:00 Amlodipine Besylate (Norvasc) 5 mg DAILY PO Last administered on 04/20/17 08: 27; Admin Dose 5 MG; Start 04/19/17 at 09:00 Pantoprazole (Protonix Tab) 40 mg DAILY@06 PO Last administered on 04/20/17 05 :35; Admin Dose 40 MG; Start 04/19/17 at 06:00 Hydromorphone HCl (Dilaudid) 0.5 mg Q4H PRN IV PAIN Last administered on 05:40; Admin Dose 0.5 MG; Start 04/19/17 at 20:30 Docusate Sodium (Colace) 100 mg BID PO Last administered on 04/20/17 08:23; Admin Dose 100 MG; Start 04/19/17 at 21:00 SADIE GUERRERO M.D. Apr 20, 2017 12:13
--- NOTE | 2017-04-20 14:45 | PN ---
Date/Time of Note Date/Time of Note DATE: 04/20/17 TIME: 14:36 Assessment/Plan VTE Prophylaxis VTE Prophylaxis Intervention: SCD's Lines/Catheters IV Catheter Type (from Nrsg): Peripheral IV Urinary Cath still in place: No Assessment/Plan Assessment/Plan - sepsis, possibly due to an intra-abdominal process e.g. ischemia - per ID consult --Septic shock sec to above -Altered level of consciousness -- JOSE GUADALUPE, improving - colonic diverticulosis without diverticulitis - moderate hiatus hernia and umbilical hernia containing small bowel without obstruction or strangulation (previously seen too) - h/o sepsis associated with abd pain in the past - h/o JOSE GUADALUPE associated with sepsis - schizoaffective disorder with bipolar features - h/o CAD Plan of care yadira Acuna Subjective 24 Hr Interval Summary Respiratory: no complaints Cardiovascular: no complaints Gastrointestinal: no complaints Genitourinary: no complaints Musculoskeletal: no complaints Exam/Review of Systems Vital Signs Vitals Vital Signs Date Time Temp Pulse Resp B/P Pulse Ox O2 Delivery O2 Flow Rate FiO2 04/20/17 12:00 99.4 04/20/17 08:16 65 18 118/81 92 04/18/17 19:15 Nasal Cannula 2 Intake and Output 04/19/17 04/19/17 04/20/17 15:00 23:00 07:00 Intake Total 50 ml 850 ml 1720 ml Output Total 1600 ml Balance 50 ml 850 ml 120 ml Exam Constitutional: alert, well developed Respiratory: clear to auscultation, normal air movement Cardiovascular: nl pulses, regular rate and rhythm Gastrointestinal: non-tender, soft Musculoskeletal: nl extremities to inspection Extremities: normal pulses Neurological: confused, nl speech Results Result Diagram: 04/20/17 0455 04/20/17 0455 Results 24 hrs Laboratory Tests Test 04/19/17 15:15 04/20/17 04:55 Urine Opiates Screen Positive Urine Barbiturates Negative Urine Amphetamines Screen Negative Urine Benzodiazepines Screen Negative Urine Cocaine Screen Negative Urine Cannabinoids Positive White Blood Count 9.4 # Red Blood Count 3.49 L Hemoglobin 9.1 L Hematocrit 30.5 L Mean Corpuscular Volume 87.4 Mean Corpuscular Hemoglobin 26.1 L Mean Corpuscular Hemoglobin Concent 29.8 L Red Cell Distribution Width 17.4 H Platelet Count 334 Mean Platelet Volume 10.3 Neutrophils % 64.8 Lymphocytes % 22.2 Monocytes % 8.8 Eosinophils % 2.9 Basophils % 0.9 Nucleated Red Blood Cells % 0.0 Neutrophils # 6.1 Lymphocytes # 2.1 Monocytes # 0.8 Eosinophils # 0.3 Basophils # 0.1 Nucleated Red Blood Cells # 0.0 Sodium Level 139 Potassium Level 3.7 Chloride Level 107 Carbon Dioxide Level 26 Anion Gap 10 Blood Urea Nitrogen 20 # Creatinine 0.82 Glucose Level 93 Calcium Level 8.5 Hepatitis B Surface Antigen NEGATIVE Hepatitis B Core Total Antibody NEGATIVE Hepatitis C Antibody NEGATIVE HIV (1&2) Antibody NEGATIVE Medications Medications Current Medications Cefepime HCl 50 ml @ 100 mls/hr Q12 IVPB Last administered on 04/20/17 08:22 ; Admin Dose 100 MLS/HR; Start 04/19/17 at 09:00 Azithromycin (Zithromax 500mg/ NS (Pmx)) 250 ml @ 250 mls/hr Q24H IVPB Last administered on 04/20/17 00:29; Admin Dose 250 MLS/HR; Start 04/19/17 at 00:00 Acetaminophen 650 mg 650 mg Q6H PRN PO PAIN AND OR ELEVATED TEMP; Start at 23:00 Sodium Chloride (1/2 NS) 1,000 ml @ 100 mls/hr Q10H IV Last administered on 07:26; Admin Dose 100 MLS/HR; Start 04/18/17 at 23:00 Enoxaparin Sodium (Lovenox) 30 mg DAILY SC Last administered on 04/20/17 12:07 ; Admin Dose 30 MG; Start 04/19/17 at 09:00 Ondansetron HCl (Zofran Inj) 4 mg Q4H PRN IV NAUSEA AND/OR VOMITING Last administered on 04/18/17 23:39; Admin Dose 4 MG; Start 04/18/17 at 23:00 Metoprolol Tartrate (Lopressor) 50 mg BID PO Last administered on 04/20/17 08: 25; Admin Dose 50 MG; Start 04/19/17 at 09:00 Amlodipine Besylate (Norvasc) 5 mg DAILY PO Last administered on 04/20/17 08: 27; Admin Dose 5 MG; Start 04/19/17 at 09:00 Pantoprazole (Protonix Tab) 40 mg DAILY@06 PO Last administered on 04/20/17 05 :35; Admin Dose 40 MG; Start 04/19/17 at 06:00 Hydromorphone HCl (Dilaudid) 0.5 mg Q4H PRN IV PAIN Last administered on 05:40; Admin Dose 0.5 MG; Start 04/19/17 at 20:30 Docusate Sodium (Colace) 100 mg BID PO Last administered on 04/20/17 08:23; Admin Dose 100 MG; Start 04/19/17 at 21:00 SOM PALENCIA Apr 20, 2017 14:45
[2017-04-20 19:35] VITALS: BP 122/78; RESP 20
[2017-04-21] MEDS: AZITHROMYCIN 500MG/NS (PMX) 250 ML IVPB SCH (00:16)
[2017-04-21] MEDS: SOD CHLORIDE 0.45% 1,000 ML IV SCH ×3 (01:00→21:00)
[2017-04-21] MEDS: HYDROmorphONE 1 MG/ML SYG IV PRN ×5 (01:38→20:12)
[2017-04-21 02:00] VITALS: BP 129/92; RESP 20
[2017-04-21] MEDS: PANTOPRAZOLE (EC) 40 MG TAB PO SCH (05:38)
[2017-04-21 05:56] LABS: BASOPHIL # 0.1 10^3/ul (0.0-0.1); BASOPHILS % 0.9 % (0.0-2.0); EOSINOPHILS # 0.3 10^3/ul (0.0-0.5); EOSINOPHILS % 4.9 % (0.0-7.0); HEMATOCRIT 30.9 % (37.0-47.0); HEMOGLOBIN 9.4 g/dl (12.0-16.0); LYMPHOCYTES # 2.1 10^3/ul (0.8-2.9); LYMPHOCYTES % 30.6 % (15.0-51.0); MEAN CORPUSCULAR HEMOGLOBIN 26.6 pg (29.0-33.0); MEAN CORPUSCULAR HGB CONC 30.4 g/dl (32.0-37.0); MEAN CORPUSCULAR VOLUME 87.3 fl (82.0-101.0); MEAN PLATELET VOLUME 10.1 fl (7.4-10.4); MONOCYTE # 0.6 10^3/ul (0.3-0.9); MONOCYTES % 9.6 % (0.0-11.0); NEUTROPHIL # 3.6 10^3/ul (1.6-7.5); NEUTROPHILS % 53.6 % (39.0-77.0); PLATELET COUNT 330 10^3/UL (140-415); RED BLOOD COUNT 3.54 10^6/ul (4.20-5.40); RED CELL DISTRIBUTION WIDTH 17.1 % (11.5-14.5); WHITE BLOOD COUNT 6.7 10^3/ul (4.8-10.8)
[2017-04-21 06:24] LABS: CALCIUM 8.9 mg/dl (8.4-10.2); CREATININE 0.81 mg/dl (0.44-1.00); POTASSIUM 3.5 mmol/L (3.5-5.1)
--- NOTE | 2017-04-21 06:52 | HP ---
DATE OF ADMISSION: 04/18/2017 CHIEF COMPLAINT AND HISTORY OF PRESENT ILLNESS: The patient is a 61-year-old female with history of hypertension, dyslipidemia, bipolar disorder who came to ER with a mid abdominal pain and dysuria. Patient could not provide a good history. In fact, she was confused in the beginning and did receive some Haldol and Ativan in the ER. The patient denies any chest pain or cough. The patient was not short of breath. There was no leg edema or leg pain. The patient does have a history of extensive surgical history including ovarian cancer for which she underwent hysterectomy and bilateral salpingo-oophorectomy and subsequently developed incisional hernia and is status post repair of hernia surgery. The patient is being followed by Dr. Gonsales as an outpatient and was recently admitted for possible UTI, and was again seen by Dr. Gonsales, who recommended outpatient evaluation after treatment of infection. The patient did not have any vomiting. No reported abdominal distention. The patient underwent multiple diagnostic studies in the ER including urine examination, which was positive for UTI. However, the patient also has many squamous cells. Nitrite was negative, leukocyte esterase was also negative. The patient underwent CT of the abdomen and pelvis which revealed diverticulosis without diverticulitis, moderate hiatus hernia and umbilical hernia containing small bowel without obstruction or strangulation, unchanged from previous exam. The patient had a chest x-ray done which revealed diffuse bilateral interstitial prominence consistent with interstitial edema or interstitial infiltrate; however, the patient's lactic acid level was 7.6. The patient also had a white count of 14.4 with 88% neutrophils. The patient had a temperature of 99.9, therefore, a possibility of infectious etiology was high on the list. The patient received IV antibiotics in ER and is being admitted for further evaluation and management. PAST MEDICAL HISTORY: As stated above. The patient also reported a history of heart attack, details not available, history of bipolar disorder and schizophrenia. PAST SURGICAL HISTORY: Please see history of present illness. FAMILY HISTORY: The patient's father had bipolar disorder. Both parents had cardiovascular disease and are . SOCIAL HISTORY: The patient drinks alcohol occasionally and takes edible marijuana for anxiety. Denies any tobacco use. ALLERGIES: THE PATIENT IS ALLERGIC TO PENICILLIN. PHYSICAL EXAMINATION: GENERAL: The patient is conscious, awake, alert. VITAL SIGNS: T-maximum 99.9, pulse 115, respirations 18, blood pressure 122/88 , O2 saturation 99% on 2 liters nasal cannula. HEENT: Conjunctivae and lids normal. Oropharynx clear. NECK: Supple. No mass, no thyromegaly. CHEST: Revealed diminished air entry at bases. No use of accessory muscles. CARDIOVASCULAR: S1, S2 normal, no murmur, sinus tachycardia. ABDOMEN: Soft, nondistended, mid abdominal mild tenderness present. Rebound tenderness, no guarding. EXTREMITIES: No leg edema. Pedal pulses palpable. SKIN: Without rash. LABORATORY DATA: WBC 14.4, hemoglobin 12.7. Sodium 147, potassium 3.9, BUN 32 , creatinine 1.6, random glucose 218. The patient's hemoglobin A1c recently was only 6.1. Lactic acid 7, AST 54, ALT 30, alkaline phosphatase 134. IMPRESSION: 1. Sepsis, unclear etiology. Urine examination is not really suggestive of a urinary tract infection. Chest x-ray does show bilateral infiltrate, possibly she may have atypical pneumonia. The patient will be empirically started on IV cefepime and IV Zithromax.Urine & blood cultures will be sent. 2. Acute kidney injury. Continue IV fluid and do followup labs. 3. Bipolar disorder and schizophrenia. For now, we will hold off on Seroquel and gabapentin, as patient was confused and hallucinating when she arrived in the ER. 4. Dyslipidemia. Will hold off on statin because of slightly elevated liver enzymes. 5. Hypertension. Continue metoprolol and Norvasc. Will hold off on MICAH inhibitor because of elevated creatinine. 6. Infectious disease consult from Dr. Arroyo will be obtained. If the patient's renal functions do not improve by tomorrow morning and will also obtain nephrology consultation. Dictated By: JOSE PRECIADO/SHEREEN Conf#: [id number] DID#: [id number] MTDD
[2017-04-21 07:43] VITALS: BP 136/83; RESP 20
[2017-04-21] MEDS: CEFEPIME 1GM/50 ML (PMX) 50 ML IVPB SCH (08:16)
[2017-04-21] MEDS: AMLODIPINE 5 MG TAB PO SCH (08:18)
[2017-04-21] MEDS: DOCUSATE SODIUM 100 MG CAP PO SCH ×2 (08:19→20:09)
[2017-04-21] MEDS: METOPROLOL 50 MG TAB PO SCH ×2 (08:19→20:10)
[2017-04-21] MEDS: ENOXAPARIN 30 MG/0.3 ML SYG SC SCH (08:33)
--- NOTE | 2017-04-21 09:33 | RADRPT ---
PROCEDURE: US upper extremity Venous. CLINICAL INDICATION: Right arm edema TECHNIQUE: Multiple sonographic images of the right upper extremity venous system was obtained uti lizing grayscale, color-flow, compressive sonography and doppler imaging with augmentation. The oneil ges were reviewed on a PACS workstation. COMPARISON: None. FINDINGS: There is normal compressibility and flow within the right internal jugular vein, subclavian vein, ax illary vein, brachial, basilic veins. There is thrombosis of the right antecubital vein and right cephalic vein in the forearm. RPTAT: AA IMPRESSION: Thrombosed right antecubital vein and right cephalic vein in the forearm. .Rich Cedeno MD, MD Date Time Electronically viewed and signed by .Rich Cedeno MD, MD on 04/21/2017 09:33 .S/
--- NOTE | 2017-04-21 11:31 | CONS ---
Date/Time of Note Date/Time of Note DATE: 04/21/17 TIME: 11:29 Assessment/Plan Assessment/Plan Chief Complaint/Hosp Course assessment/impression - sepsis, possibly due to an intra-abdominal process e.g. ischemic colon, improving - abdominal pain, possibly due to ileus or ischemia, improving - colonic diverticulosis without diverticulitis - moderate hiatus hernia and umbilical hernia containing small bowel without obstruction or strangulation (previously seen too) - JOSE GUADALUPE, improving - h/o sepsis associated with abd pain in the past - h/o JOSE GUADALUPE associated with sepsis - schizoaffective disorder with bipolar features - h/o CAD recommendations - Pt's on azithromycin (04/19/2017-) for possible bronchitis - I recommend d/c empiric cefepime (04/18/2017-) - consider GI consultation management d/w Pt Problems: Consultation Date/Type/Reason Admit Date/Time Apr 18, 2017 at 19:04 Initial Consult Date 04/19/17 Type of Consultation: ID Referring Provider: JOSE ZAVALA MD 24 HR Interval Summary Constitutional: no complaints Detailed Summary Eyes: no complaints ENT: no complaints Respiratory: no complaints Cardiovascular: no complaints Gastrointestinal: pain (epigastrium), No diarrhea, No nausea, No vomiting Genitourinary: no complaints Musculoskeletal: no complaints Skin: no complaints Neurologic: no complaints Exam/Review of Systems Vital Signs Vitals Vital Signs Date Time Temp Pulse Resp B/P Pulse Ox O2 Delivery O2 Flow Rate FiO2 04/21/17 07:43 98.0 64 20 136/83 98 04/18/17 19:15 Nasal Cannula 2 Intake and Output 04/20/17 04/20/17 04/21/17 15:00 23:00 07:00 Intake Total 295 ml 1840 ml 1750 ml Output Total 1200 ml 650 ml Balance 295 ml 640 ml 1100 ml Exam Constitutional: alert, oriented, well developed Psych: nl mood/affect, no complaints Head: atraumatic, normocephalic Eyes: nl conjunctiva, nl lids ENMT: nl external ears & nose, nl nasal mucosa & septum Neck: non-tender, supple Respiratory: clear to auscultation, normal air movement Cardiovascular: nl pulses, regular rate and rhythm Gastrointestinal: soft, tender (mid gastrium, normoactive BS), No distended Musculoskeletal: nl extremities to inspection Extremities: normal pulses Neurological: FARM MANAGER II-XII intact, nl mental status Results Result Diagram: 04/21/1744404/21/175 Results 24 hrs Laboratory Tests Test 04/21/17 04:45 White Blood Count 6.7 # Red Blood Count 3.54 L Hemoglobin 9.4 L Hematocrit 30.9 L Mean Corpuscular Volume 87.3 Mean Corpuscular Hemoglobin 26.6 L Mean Corpuscular Hemoglobin Concent 30.4 L Red Cell Distribution Width 17.1 H Platelet Count 330 Mean Platelet Volume 10.1 Neutrophils % 53.6 Lymphocytes % 30.6 Monocytes % 9.6 Eosinophils % 4.9 Basophils % 0.9 Nucleated Red Blood Cells % 0.0 Neutrophils # 3.6 Lymphocytes # 2.1 Monocytes # 0.6 Eosinophils # 0.3 Basophils # 0.1 Nucleated Red Blood Cells # 0.0 Sodium Level 138 Potassium Level 3.5 Chloride Level 108 Carbon Dioxide Level 25 Anion Gap 9 Blood Urea Nitrogen 13 Creatinine 0.81 Glucose Level 86 Calcium Level 8.9 Medications Medications Current Medications Cefepime HCl 50 ml @ 100 mls/hr Q12 IVPB Last administered on 04/21/17 08:16 ; Admin Dose 100 MLS/HR; Start 04/19/17 at 09:00 Azithromycin (Zithromax 500mg/ NS (Pmx)) 250 ml @ 250 mls/hr Q24H IVPB Last administered on 04/21/17 00:16; Admin Dose 250 MLS/HR; Start 04/19/17 at 00:00 Acetaminophen 650 mg 650 mg Q6H PRN PO PAIN AND OR ELEVATED TEMP; Start at 23:00 Sodium Chloride (1/2 NS) 1,000 ml @ 100 mls/hr Q10H IV Last administered on 10:06; Admin Dose 100 MLS/HR; Start 04/18/17 at 23:00 Enoxaparin Sodium (Lovenox) 30 mg DAILY SC Last administered on 04/21/17 08:33 ; Admin Dose 30 MG; Start 04/19/17 at 09:00 Ondansetron HCl (Zofran Inj) 4 mg Q4H PRN IV NAUSEA AND/OR VOMITING Last administered on 04/18/17 23:39; Admin Dose 4 MG; Start 04/18/17 at 23:00 Metoprolol Tartrate (Lopressor) 50 mg BID PO Last administered on 04/21/17 08: 19; Admin Dose 50 MG; Start 04/19/17 at 09:00 Amlodipine Besylate (Norvasc) 5 mg DAILY PO Last administered on 04/21/17 08: 18; Admin Dose 5 MG; Start 04/19/17 at 09:00 Pantoprazole (Protonix Tab) 40 mg DAILY@06 PO Last administered on 04/21/17 05 :38; Admin Dose 40 MG; Start 04/19/17 at 06:00 Hydromorphone HCl (Dilaudid) 0.5 mg Q4H PRN IV PAIN Last administered on 10:25; Admin Dose 0.5 MG; Start 04/19/17 at 20:30 Docusate Sodium (Colace) 100 mg BID PO Last administered on 04/21/17 08:19; Admin Dose 100 MG; Start 04/19/17 at 21:00 SADIE GUERRERO M.D. Apr 21, 2017 11:31
[2017-04-21 13:14] VITALS: BP 143/94; RESP 20
--- NOTE | 2017-04-21 14:59 | PN ---
Date/Time of Note Date/Time of Note DATE: 04/21/17 TIME: 14:52 Assessment/Plan VTE Prophylaxis VTE Prophylaxis Intervention: SCD's Lines/Catheters IV C[facility]ter Type (from [facility]): Peripheral IV Urinary Cath still in place: No Assessment/Plan Chief Complaint/Hosp Course Patient stated that she had bloody emesis prior to admission, looks pale, did not drop in hemoglobin since admission, check stool for OB, Dr. Rodriguez is asked to see patient in gastroenterology consultation Problems: Assessment/Plan - Sepsis, possibly due to intra-abdominal process. Dr. Galeana is following in infection disease consultation. Dr. Rodriguez is asked to see patient in gastroenterology consultation - Acute kidney injury, resolving. - Bipolar disorder and schizophrenia. For now, we will hold off on Seroquel and gabapentin, as patient was confused and hallucinating when she arrived in the ER. - Dyslipidemia. Will hold off on statin because of slightly elevated liver enzymes. - Hypertension. Continue metoprolol and Norvasc. - Mild pericardial effusion - Moderate hiatus hernia and umbilical hernia containing small bowel without obstruction or strangulation Further recommendations based on clinical course. Plan of care discussed with Dr. Edwards Exam/Review of Systems Vital Signs Vitals Vital Signs Date Time Temp Pulse Resp B/P Pulse Ox O2 Delivery O2 Flow Rate FiO2 04/21/17 13:14 98.2 77 20 143/94 94 04/18/17 19:15 Nasal Cannula 2 Intake and Output 04/20/17 04/20/17 04/21/17 15:00 23:00 07:00 Intake Total 295 ml 1840 ml 1750 ml Output Total 1200 ml 650 ml Balance 295 ml 640 ml 1100 ml Exam Constitutional: alert, oriented, other (Pale) Head: normocephalic Neck: supple Respiratory: normal air movement Cardiovascular: nl pulses Gastrointestinal: non-tender, soft, tender Musculoskeletal: nl extremities to inspection Extremities: normal pulses Results Result Diagram: 04/21/17 0445 04/21/17 0445 Results 24 hrs Laboratory Tests Test 04/21/17 04:45 White Blood Count 6.7 # Red Blood Count 3.54 L Hemoglobin 9.4 L Hematocrit 30.9 L Mean Corpuscular Volume 87.3 Mean Corpuscular Hemoglobin 26.6 L Mean Corpuscular Hemoglobin Concent 30.4 L Red Cell Distribution Width 17.1 H Platelet Count 330 Mean Platelet Volume 10.1 Neutrophils % 53.6 Lymphocytes % 30.6 Monocytes % 9.6 Eosinophils % 4.9 Basophils % 0.9 Nucleated Red Blood Cells % 0.0 Neutrophils # 3.6 Lymphocytes # 2.1 Monocytes # 0.6 Eosinophils # 0.3 Basophils # 0.1 Nucleated Red Blood Cells # 0.0 Sodium Level 138 Potassium Level 3.5 Chloride Level 108 Carbon Dioxide Level 25 Anion Gap 9 Blood Urea Nitrogen 13 Creatinine 0.81 Glucose Level 86 Calcium Level 8.9 Medications Medications Current Medications Azithromycin (Zithromax 500mg/ NS (Pmx)) 250 ml @ 250 mls/hr Q24H IVPB Last administered on 04/21/17 00:16; Admin Dose 250 MLS/HR; Start 04/19/17 at 00:00 Acetaminophen 650 mg 650 mg Q6H PRN PO PAIN AND OR ELEVATED TEMP; Start at 23:00 Sodium Chloride (1/2 NS) 1,000 ml @ 100 mls/hr Q10H IV Last administered on 10:06; Admin Dose 100 MLS/HR; Start 04/18/17 at 23:00 Enoxaparin Sodium (Lovenox) 30 mg DAILY SC Last administered on 04/21/17 08:33 ; Admin Dose 30 MG; Start 04/19/17 at 09:00 Ondansetron HCl (Zofran Inj) 4 mg Q4H PRN IV NAUSEA AND/OR VOMITING Last administered on 04/18/17 23:39; Admin Dose 4 MG; Start 04/18/17 at 23:00 Metoprolol Tartrate (Lopressor) 50 mg BID PO Last administered on 04/21/17 08: 19; Admin Dose 50 MG; Start 04/19/17 at 09:00 Amlodipine Besylate (Norvasc) 5 mg DAILY PO Last administered on 04/21/17 08: 18; Admin Dose 5 MG; Start 04/19/17 at 09:00 Pantoprazole (Protonix Tab) 40 mg DAILY@06 PO Last administered on 04/21/17 05 :38; Admin Dose 40 MG; Start 04/19/17 at 06:00 Hydromorphone HCl (Dilaudid) 0.5 mg Q4H PRN IV PAIN Last administered on 14:38; Admin Dose 0.5 MG; Start 04/19/17 at 20:30 Docusate Sodium (Colace) 100 mg BID PO Last administered on 04/21/17 08:19; Admin Dose 100 MG; Start 04/19/17 at 21:00 LUDWIN BARRON Apr 21, 2017 14:59
--- NOTE | 2017-04-21 17:06 | CONS ---
DATE OF ADMISSION: 04/18/2017 DATE OF CONSULTATION: 04/21/2017 TYPE OF CONSULTATION: Gastroenterology. REFERRING PHYSICIAN: Sheila gillette. Dear Dr. Zavala: Thank you for the referral. HISTORY OF PRESENT ILLNESS: The patient is a 61-year-old female with schizoaffective disorder, bipo lar disorder and hernia repair who presented to the ER with abdominal pain. Patient had 1 episode o f hematemesis. She complains of vomiting on and off. No black stool. No hematochezia, no change i n bowel habits. The pain is around the umbilical area where she claims she has got a hernia. No ch est pain, no shortness of breath, no or [employer] SAL[employer] problem. When she arrived in the ER, she had a leuko cytosis with lactic acidosis and renal insufficiency. CAT scan of the abdomen and pelvis showed hia jorge hernia and umbilical hernia containing small bowel without strangulation. The patient was empir ically started on IV cefepime and hydration. GI consult was called in for persistent abdominal pain despite treatment. PAST MEDICAL HISTORY: Hernia surgery. Psychiatric problem, coronary artery disease and angina. PAST SURGICAL HISTORY: Hernia repair, endoscopy was done 15 years ago. SOCIAL HISTORY: Alcohol: None. Former smoker. REVIEW OF SYSTEMS: Otherwise negative. PHYSICAL EXAMINATION GENERAL: Well-built, nourished, not in distress. VITAL SIGNS: Stable. HEENT: Unremarkable. NECK: Supple, no thyromegaly, no lymphadenopathy. CARDIOVASCULAR: No murmur, gallop or click. LUNGS: Clear. ABDOMEN: Soft and mild ventral hernia identified. LUNGS: Clear. No peritonitis. EXTREMITIES: No edema. CENTRAL NERVOUS SYSTEM: Grossly within normal limits. LABORATORY DATA: WBC which was 14,000, came down to 6.7, hematocrit dropped down from [address] hydration, BUN was 32, creatinine 1.23, dropped down to 13 and 0.81 over a period of 48 hours. Serology was negative. LFTs showed mild elevation of alkaline phosphatase to 135. SGOT was 54, librado cium was mildly elevated to 10.6 and lactic acid was 7.6, which has come down to 1.6. The extremity study showed thrombosed right antecubital vein encephalic vein. Chest x-ray: Diffuse bilateral in terstitial prominence consistent with infiltrate or edema. IMPRESSION: 1. Sepsis much better, exact etiology is unclear. CAT scan is negative for any acute pathology. 2. Abdominal pain related to her hernia. Rule out peptic ulcer disease or erosive gastritis. 3. One episode of hematemesis. 4. Colonic diverticulosis. 5. Umbilical hernia. 6. Renal failure which has improved after hydration and is back to normal. 7. Schizoaffective disorder with bipolar feature. PLAN: To continue antibiotic as per infectious disease. Continue proton pump inhibitor and we will proceed with esophagogastroduodenoscopy. I will discuss with the patient and has agreed for the pr ocedure. Dictated By: GANESH VENTURA/NTS Conf#: [id number] DID#: [id number] CC: JOSE ZAVALA MD;*EndCC*
[2017-04-21 19:43] VITALS: BP 152/89; RESP 20
[2017-04-22] MEDS: AZITHROMYCIN 500MG/NS (PMX) 250 ML IVPB SCH (00:09)
[2017-04-22] MEDS: HYDROmorphONE 1 MG/ML SYG IV PRN ×6 (00:16→22:40)
[2017-04-22 02:00] VITALS: BP 152/88; PULSE 80; RESP 18
[2017-04-22] MEDS: SOD CHLORIDE 0.45% 1,000 ML IV SCH ×4 (03:03→17:00)
[2017-04-22] MEDS: PANTOPRAZOLE (EC) 40 MG TAB PO SCH (05:35)
[2017-04-22 05:41] LABS: BASOPHIL # 0.1 10^3/ul (0.0-0.1); BASOPHILS % 1.1 % (0.0-2.0); EOSINOPHILS # 0.3 10^3/ul (0.0-0.5); EOSINOPHILS % 5.4 % (0.0-7.0); HEMATOCRIT 31.9 % (37.0-47.0); HEMOGLOBIN 9.8 g/dl (12.0-16.0); MEAN CORPUSCULAR HEMOGLOBIN 26.8 pg (29.0-33.0); MEAN CORPUSCULAR HGB CONC 30.7 g/dl (32.0-37.0); MEAN CORPUSCULAR VOLUME 87.2 fl (82.0-101.0); MONOCYTE # 0.6 10^3/ul (0.3-0.9); MONOCYTES % 9.2 % (0.0-11.0); NEUTROPHIL # 3.3 10^3/ul (1.6-7.5); NEUTROPHILS % 52.1 % (39.0-77.0); PLATELET COUNT 325 10^3/UL (140-415); RED BLOOD COUNT 3.66 10^6/ul (4.20-5.40); WHITE BLOOD COUNT 6.3 10^3/ul (4.8-10.8)
[2017-04-22 06:23] LABS: CALCIUM 9.3 mg/dl (8.4-10.2); CREATININE 0.79 mg/dl (0.44-1.00); POTASSIUM 3.8 mmol/L (3.5-5.1)
[2017-04-22 07:33] VITALS: BP 147/95; RESP 20
[2017-04-22] MEDS: AMLODIPINE 5 MG TAB PO SCH (09:10)
[2017-04-22] MEDS: METOPROLOL 50 MG TAB PO SCH ×2 (09:10→20:25)
[2017-04-22] MEDS: DOCUSATE SODIUM 100 MG CAP PO SCH ×2 (09:10→20:25)
[2017-04-22 09:13] VITALS: BP 156/99; PULSE 80
[2017-04-22] MEDS: ENOXAPARIN 40 MG/0.4 ML SYG SC SCH (09:37)
[2017-04-22 13:28] VITALS: BP 144/84; RESP 20
--- NOTE | 2017-04-22 14:25 | PN ---
Date/Time of Note Date/Time of Note DATE: 04/22/17 TIME: 14:22 Assessment/Plan VTE Prophylaxis VTE Prophylaxis Intervention: SCD's Lines/Catheters [facility]ter Type (from [facility]): Peripheral IV Urinary Cath still in place: No Assessment/Plan Chief Complaint/Hosp Course Assessment/Plan - Sepsis, possibly due to intra-abdominal process. Dr. Galeana is following in infection disease consultation. - Abd pain, one episode of hematemesis, Dr Rodriguez is following in GI consultation. Pending endoscopy tomorrow. - Acute kidney injury, resolving. - Thrombosed right antecubital vein and right cephalic vein in the forearm. Continue Lovenox. - Bipolar disorder and schizophrenia. - Dyslipidemia. - Hypertension. Continue metoprolol and Norvasc. - Mild pericardial effusion - Moderate hiatus hernia and umbilical hernia containing small bowel without obstruction or strangulation Further recommendations based on clinical course. Plan of care discussed with Dr. Edwards Problems: Exam/Review of Systems Vital Signs Vitals Vital Signs Date Time Temp Pulse Resp B/P Pulse Ox O2 Delivery O2 Flow Rate FiO2 04/22/17 13:28 99.1 88 20 144/84 98 04/22/17 02:00 Room Air 04/18/17 19:15 2 Intake and Output 04/21/17 04/21/17 04/22/17 15:00 23:00 07:00 Intake Total 300 ml 1260 ml 1850 ml Output Total 600 ml 1400 ml Balance 300 ml 660 ml 450 ml Exam Constitutional: alert, oriented, other (Pale) Head: normocephalic Neck: supple Respiratory: normal air movement Cardiovascular: nl pulses Gastrointestinal: non-tender, soft, tender Musculoskeletal: nl extremities to inspection Extremities: normal pulses Results Result Diagram: 04/22/1751904/22/17519 Results 24 hrs Laboratory Tests Test 04/22/17 05:20 White Blood Count 6.3 Red Blood Count 3.66 L Hemoglobin 9.8 L Hematocrit 31.9 L Mean Corpuscular Volume 87.2 Mean Corpuscular Hemoglobin 26.8 L Mean Corpuscular Hemoglobin Concent 30.7 L Red Cell Distribution Width 17.0 H Platelet Count 325 Mean Platelet Volume 10.0 Neutrophils % 52.1 Lymphocytes % 32.0 Monocytes % 9.2 Eosinophils % 5.4 Basophils % 1.1 Nucleated Red Blood Cells % 0.0 Neutrophils # 3.3 Lymphocytes # 2.0 Monocytes # 0.6 Eosinophils # 0.3 Basophils # 0.1 Nucleated Red Blood Cells # 0.0 Sodium Level 141 Potassium Level 3.8 Chloride Level 109 Carbon Dioxide Level 26 Anion Gap 10 Blood Urea Nitrogen 10 Creatinine 0.79 Glucose Level 86 Calcium Level 9.3 Medications Medications Current Medications Azithromycin (Zithromax 500mg/ NS (Pmx)) 250 ml @ 250 mls/hr Q24H IVPB Last administered on 04/22/17 00:09; Admin Dose 250 MLS/HR; Start 04/19/17 at 00:00 Acetaminophen 650 mg 650 mg Q6H PRN PO PAIN AND OR ELEVATED TEMP; Start at 23:00 Sodium Chloride (1/2 NS) 1,000 ml @ 100 mls/hr Q10H IV Last administered on 13:18; Admin Dose 100 MLS/HR; Start 04/18/17 at 23:00 Ondansetron HCl (Zofran Inj) 4 mg Q4H PRN IV NAUSEA AND/OR VOMITING Last administered on 04/18/17 23:39; Admin Dose 4 MG; Start 04/18/17 at 23:00 Metoprolol Tartrate (Lopressor) 50 mg BID PO Last administered on 04/22/17 09 :10; Admin Dose 50 MG; Start 04/19/17 at 09:00 Amlodipine Besylate (Norvasc) 5 mg DAILY PO Last administered on 04/22/17 09: 10; Admin Dose 5 MG; Start 04/19/17 at 09:00 Pantoprazole (Protonix Tab) 40 mg DAILY@06 PO Last administered on 04/22/17 05:35; Admin Dose 40 MG; Start 04/19/17 at 06:00 Docusate Sodium (Colace) 100 mg BID PO Last administered on 04/22/17 09:10; Admin Dose 100 MG; Start 04/19/17 at 21:00 Enoxaparin Sodium (Lovenox) 40 mg DAILY SC Last administered on 04/22/17 09: 37; Admin Dose 40 MG; Start 04/22/17 at 09:00 Hydromorphone HCl (Dilaudid) 1 mg Q4H PRN IV PAIN Last administered on 10:00; Admin Dose 1 MG; Start 04/22/17 at 00:07 LUDWIN BARRON Apr 22, 2017 14:25
--- NOTE | 2017-04-22 17:25 | CONS ---
Date/Time of Note Date/Time of Note DATE: 04/22/17 TIME: 17:23 Assessment/Plan Assessment/Plan Chief Complaint/Hosp Course assessment/impression - sepsis, possibly due to an intra-abdominal process e.g. ischemic colon, improving - abdominal pain, possibly due to ileus or ischemia, improving - colonic diverticulosis without diverticulitis - moderate hiatus hernia and umbilical hernia containing small bowel without obstruction or strangulation (previously seen too) - JOSE GUADALUPE, improving - h/o sepsis associated with abd pain in the past - h/o JOSE GUADALUPE associated with sepsis - schizoaffective disorder with bipolar features - h/o CAD recommendations - Pt's on azithromycin (04/19/2017-) for possible bronchitis. Pt previously received cefepime (04/18/2017-04/21/2017) management d/w Pt Problems: Consultation Date/Type/Reason Admit Date/Time Apr 18, 2017 at 19:04 Initial Consult Date 04/19/17 Type of Consultation: ID Referring Provider: JOSE ZAVALA MD 24 HR Interval Summary Constitutional: no complaints Detailed Summary Eyes: no complaints ENT: no complaints Respiratory: cough ("my cold is better") Gastrointestinal: pain (diffuse in mid-abdomen) Genitourinary: no complaints Musculoskeletal: no complaints Skin: no complaints Neurologic: no complaints Exam/Review of Systems Vital Signs Vitals Vital Signs Date Time Temp Pulse Resp B/P Pulse Ox O2 Delivery O2 Flow Rate FiO2 04/22/17 13:28 99.1 88 20 144/84 98 04/22/17 02:00 Room Air 04/18/17 19:15 2 Intake and Output 04/21/17 04/21/17 04/22/17 15:00 23:00 07:00 Intake Total 300 ml 1260 ml 1850 ml Output Total 600 ml 1400 ml Balance 300 ml 660 ml 450 ml Exam Psych: nl mood/affect, no complaints, No confusion Head: normocephalic Eyes: nl conjunctiva, nl lids ENMT: nl external ears & nose, nl nasal mucosa & septum Neck: supple Respiratory: clear to auscultation, normal air movement Cardiovascular: nl pulses, regular rate and rhythm Gastrointestinal: soft, tender (diffusely, without guarding), No distended Musculoskeletal: nl extremities to inspection Extremities: No edema Neurological: SALESMAN/OWNER II-XII intact, nl mental status, nl speech, nl strength Skin: nl turgor Results Result Diagram: 04/22/17 0520 04/22/17 0520 Results 24 hrs Laboratory Tests Test 04/22/17 05:20 White Blood Count 6.3 Red Blood Count 3.66 L Hemoglobin 9.8 L Hematocrit 31.9 L Mean Corpuscular Volume 87.2 Mean Corpuscular Hemoglobin 26.8 L Mean Corpuscular Hemoglobin Concent 30.7 L Red Cell Distribution Width 17.0 H Platelet Count 325 Mean Platelet Volume 10.0 Neutrophils % 52.1 Lymphocytes % 32.0 Monocytes % 9.2 Eosinophils % 5.4 Basophils % 1.1 Nucleated Red Blood Cells % 0.0 Neutrophils # 3.3 Lymphocytes # 2.0 Monocytes # 0.6 Eosinophils # 0.3 Basophils # 0.1 Nucleated Red Blood Cells # 0.0 Sodium Level 141 Potassium Level 3.8 Chloride Level 109 Carbon Dioxide Level 26 Anion Gap 10 Blood Urea Nitrogen 10 Creatinine 0.79 Glucose Level 86 Calcium Level 9.3 Medications Medications Current Medications Azithromycin (Zithromax 500mg/ NS (Pmx)) 250 ml @ 250 mls/hr Q24H IVPB Last administered on 04/22/17 00:09; Admin Dose 250 MLS/HR; Start 04/19/17 at 00:00 Acetaminophen 650 mg 650 mg Q6H PRN PO PAIN AND OR ELEVATED TEMP; Start at 23:00 Sodium Chloride (1/2 NS) 1,000 ml @ 100 mls/hr Q10H IV Last administered on 13:18; Admin Dose 100 MLS/HR; Start 04/18/17 at 23:00 Ondansetron HCl (Zofran Inj) 4 mg Q4H PRN IV NAUSEA AND/OR VOMITING Last administered on 04/18/17 23:39; Admin Dose 4 MG; Start 04/18/17 at 23:00 Metoprolol Tartrate (Lopressor) 50 mg BID PO Last administered on 04/22/17 09 :10; Admin Dose 50 MG; Start 04/19/17 at 09:00 Amlodipine Besylate (Norvasc) 5 mg DAILY PO Last administered on 04/22/17 09: 10; Admin Dose 5 MG; Start 04/19/17 at 09:00 Pantoprazole (Protonix Tab) 40 mg DAILY@06 PO Last administered on 04/22/17 05:35; Admin Dose 40 MG; Start 04/19/17 at 06:00 Docusate Sodium (Colace) 100 mg BID PO Last administered on 04/22/17 09:10; Admin Dose 100 MG; Start 04/19/17 at 21:00 Enoxaparin Sodium (Lovenox) 40 mg DAILY SC Last administered on 04/22/17 09: 37; Admin Dose 40 MG; Start 04/22/17 at 09:00 Hydromorphone HCl (Dilaudid) 1 mg Q4H PRN IV PAIN Last administered on 14:29; Admin Dose 1 MG; Start 04/22/17 at 00:07 SADIE GUERRERO M.D. Apr 22, 2017 17:25
[2017-04-22 20:19] VITALS: BP 154/96; RESP 18
[2017-04-23] MEDS: SOD CHLORIDE 0.45% 1,000 ML IV SCH ×3 (00:50→22:56)
[2017-04-23] MEDS: AZITHROMYCIN 500MG/NS (PMX) 250 ML IVPB SCH (01:19)
[2017-04-23 01:52] VITALS: BP 153/99; RESP 18
[2017-04-23] MEDS: HYDROmorphONE 1 MG/ML SYG IV PRN ×5 (05:19→22:35)
[2017-04-23] MEDS: PANTOPRAZOLE (EC) 40 MG TAB PO SCH (05:30)
[2017-04-23 06:23] LABS: BASOPHIL # 0.1 10^3/ul (0.0-0.1); BASOPHILS % 0.7 % (0.0-2.0); EOSINOPHILS # 0.3 10^3/ul (0.0-0.5); EOSINOPHILS % 3.7 % (0.0-7.0); HEMATOCRIT 31.6 % (37.0-47.0); HEMOGLOBIN 9.7 g/dl (12.0-16.0); LYMPHOCYTES # 1.7 10^3/ul (0.8-2.9); LYMPHOCYTES % 23.2 % (15.0-51.0); MEAN CORPUSCULAR HEMOGLOBIN 26.1 pg (29.0-33.0); MEAN CORPUSCULAR HGB CONC 30.7 g/dl (32.0-37.0); MEAN CORPUSCULAR VOLUME 84.9 fl (82.0-101.0); MEAN PLATELET VOLUME 10.5 fl (7.4-10.4); MONOCYTE # 0.8 10^3/ul (0.3-0.9); MONOCYTES % 10.5 % (0.0-11.0); NEUTROPHIL # 4.5 10^3/ul (1.6-7.5); NEUTROPHILS % 61.8 % (39.0-77.0); PLATELET COUNT 348 10^3/UL (140-415); RED BLOOD COUNT 3.72 10^6/ul (4.20-5.40); RED CELL DISTRIBUTION WIDTH 17.3 % (11.5-14.5); WHITE BLOOD COUNT 7.3 10^3/ul (4.8-10.8)
[2017-04-23 07:13] LABS: CREATININE 0.76 mg/dl (0.44-1.00)
[2017-04-23 07:26] LABS: POTASSIUM 3.2 mmol/L (3.5-5.1)
[2017-04-23] MEDS: METOPROLOL 50 MG TAB PO SCH ×2 (08:05→20:46)
[2017-04-23] MEDS: DOCUSATE SODIUM 100 MG CAP PO SCH ×2 (08:05→20:46)
[2017-04-23 08:06] VITALS: BP 169/119; RESP 20
[2017-04-23] MEDS: ENOXAPARIN 40 MG/0.4 ML SYG SC SCH (08:06)
[2017-04-23] MEDS: AMLODIPINE 5 MG TAB PO SCH (08:06)
--- NOTE | 2017-04-23 09:44 | CONS ---
Date/Time of Note Date/Time of Note DATE: 04/23/17 TIME: 09:41 Assessment/Plan Assessment/Plan Chief Complaint/Hosp Course assessment/impression - sepsis, possibly due to an intra-abdominal process e.g. ischemic colon, improving - abdominal pain, possibly due to ileus or ischemia, improving - colonic diverticulosis without diverticulitis - moderate hiatus hernia and umbilical hernia containing small bowel without obstruction or strangulation (previously seen too) - JOSE GUADALUPE, improving - h/o sepsis associated with abd pain in the past - h/o JOSE GUADALUPE associated with sepsis - schizoaffective disorder with bipolar features - h/o CAD recommendations - ordered repeat urinalysis and urine culture - OK to complete 5 day course of azithromycin (04/19/2017-) for possible bronchitis. Pt previously received cefepime (04/18/2017-04/21/2017) management d/w Pt, her RN Problems: Consultation Date/Type/Reason Admit Date/Time Apr 18, 2017 at 19:04 Initial Consult Date 04/19/17 Type of Consultation: ID Referring Provider: JOSE ZAVALA MD 24 HR Interval Summary Constitutional: no complaints Detailed Summary Eyes: no complaints ENT: no complaints Respiratory: no complaints Cardiovascular: no complaints Gastrointestinal: pain (diffuse abdominal pain), No diarrhea Genitourinary: dysuria, No flank pain Musculoskeletal: no complaints Skin: no complaints Exam/Review of Systems Vital Signs Vitals Vital Signs Date Time Temp Pulse Resp B/P Pulse Ox O2 Delivery O2 Flow Rate FiO2 04/23/17 08:06 99.9 20 169/119 97 04/23/17 01:52 92 04/22/17 02:00 Room Air Intake and Output 04/22/17 04/22/17 04/23/17 15:00 23:00 07:00 Intake Total 800 ml 1450 ml 1700 ml Output Total 1375 ml 500 ml Balance 800 ml 75 ml 1200 ml Exam Constitutional: alert, well developed Psych: nl mood/affect, no complaints Head: atraumatic, normocephalic Eyes: nl conjunctiva, nl lids ENMT: nl external ears & nose, nl nasal mucosa & septum Respiratory: clear to auscultation, normal air movement Cardiovascular: nl pulses, regular rate and rhythm Gastrointestinal: tender (diffuse abdominal tenderness, particularly in mid abdomen and epigastrium), No distended Musculoskeletal: nl extremities to inspection Extremities: normal pulses Results Result Diagram: 04/23/17 0534 04/23/17 0534 Results 24 hrs Laboratory Tests Test 04/23/17 05:34 White Blood Count 7.3 Red Blood Count 3.72 L Hemoglobin 9.7 L Hematocrit 31.6 L Mean Corpuscular Volume 84.9 Mean Corpuscular Hemoglobin 26.1 L Mean Corpuscular Hemoglobin Concent 30.7 L Red Cell Distribution Width 17.3 H Platelet Count 348 Mean Platelet Volume 10.5 H Neutrophils % 61.8 Lymphocytes % 23.2 Monocytes % 10.5 Eosinophils % 3.7 Basophils % 0.7 Nucleated Red Blood Cells % 0.0 Neutrophils # 4.5 Lymphocytes # 1.7 Monocytes # 0.8 Eosinophils # 0.3 Basophils # 0.1 Nucleated Red Blood Cells # 0.0 Sodium Level 141 Potassium Level 3.2 L Chloride Level 109 Carbon Dioxide Level 22 Anion Gap 13 Blood Urea Nitrogen 9 Creatinine 0.76 Glucose Level 97 Calcium Level 9.0 Medications Medications Current Medications Acetaminophen 650 mg 650 mg Q6H PRN PO PAIN AND OR ELEVATED TEMP; Start at 23:00 Sodium Chloride (1/2 NS) 1,000 ml @ 100 mls/hr Q10H IV Last administered on 00:50; Admin Dose 100 MLS/HR; Start 04/18/17 at 23:00 Ondansetron HCl (Zofran Inj) 4 mg Q4H PRN IV NAUSEA AND/OR VOMITING Last administered on 04/18/17 23:39; Admin Dose 4 MG; Start 04/18/17 at 23:00 Metoprolol Tartrate (Lopressor) 50 mg BID PO Last administered on 04/22/17 20 :25; Admin Dose 50 MG; Start 04/19/17 at 09:00 Amlodipine Besylate (Norvasc) 5 mg DAILY PO Last administered on 04/22/17 09: 10; Admin Dose 5 MG; Start 04/19/17 at 09:00 Pantoprazole (Protonix Tab) 40 mg DAILY@06 PO Last administered on 04/22/17 05:35; Admin Dose 40 MG; Start 04/19/17 at 06:00 Docusate Sodium (Colace) 100 mg BID PO Last administered on 10/10/17at 20:25; Admin Dose 100 MG; Start 04/19/17 at 21:00 Enoxaparin Sodium (Lovenox) 40 mg DAILY SC Last administered on 04/22/17 09: 37; Admin Dose 40 MG; Start 04/22/17 at 09:00 Hydromorphone HCl (Dilaudid) 1 mg Q4H PRN IV PAIN Last administered on 09:26; Admin Dose 1 MG; Start 04/22/17 at 00:07 SADIE GUERRERO M.D. Apr 23, 2017 09:44
[2017-04-23 10:07] LABS: ADD UMIC YES; UR ASCORBIC ACID NEGATIVE (NEGATIVE); UR BILIRUBIN (Dip) NEGATIVE (NEGATIVE); UR BLOOD (Dip) 1+ mg/dL (NEGATIVE); UR CLARITY CLEAR (CLEAR); UR COLOR YELLOW (YELLOW); UR GLUCOSE (Dip) NEGATIVE (NEGATIVE); UR KETONES (Dip) 1+ mg/dL (NEGATIVE); UR LEUKOCYTE ESTERASE (Dip) NEGATIVE Leu/ul (NEGATIVE); UR MUCUS FEW /HPF (NONE SEEN); UR NITRITE (Dip) NEGATIVE (NEGATIVE); UR RBC 0 /HPF (0-5); UR SPECIFIC GRAVITY (Dip) 1.008 (1.003-1.030); UR TOTAL PROTEIN (Dip) NEGATIVE (NEGATIVE); UR UROBILINOGEN (Dip) NEGATIVE (NEGATIVE)
--- NOTE | 2017-04-23 13:29 | PN ---
Date/Time of Note Date/Time of Note DATE: 04/23/17 TIME: 13:27 Assessment/Plan VTE Prophylaxis VTE Prophylaxis Intervention: SCD's Lines/Catheters IV C[facility]ter Type (from [facility]): Peripheral IV Urinary Cath still in place: No Assessment/Plan Chief Complaint/Hosp Course Patient complains of dysuria, pending urinalysis and urine culture. Pending endoscopy today. Assessment/Plan - Hypokalemia, potassium replacement ordered - Sepsis, possibly due to intra-abdominal process. Dr. Galeana is following in infection disease consultation. - Abd pain, one episode of hematemesis, Dr Rodriguez is following in GI consultation. Pending endoscopy - Acute kidney injury, resolving. - Thrombosed right antecubital vein and right cephalic vein in the forearm. Continue Lovenox. - Bipolar disorder and schizophrenia. - Dyslipidemia. - Hypertension. Continue metoprolol and Norvasc. - Mild pericardial effusion - Moderate hiatus hernia and umbilical hernia containing small bowel without obstruction or strangulation Further recommendations based on clinical course. Plan of care discussed with Dr. Edwards Problems: Exam/Review of Systems Vital Signs Vitals Vital Signs Date Time Temp Pulse Resp B/P Pulse Ox O2 Delivery O2 Flow Rate FiO2 04/23/17 08:06 99.9 20 169/119 97 04/23/17 01:52 92 04/22/17 02:00 Room Air Intake and Output 04/22/17 04/22/17 04/23/17 15:00 23:00 07:00 Intake Total 800 ml 1450 ml 1700 ml Output Total 1375 ml 500 ml Balance 800 ml 75 ml 1200 ml Exam Constitutional: alert, oriented Head: normocephalic Neck: supple Respiratory: normal air movement Cardiovascular: nl pulses Gastrointestinal: non-tender, soft, tender Musculoskeletal: nl extremities to inspection Extremities: normal pulses Results Result Diagram: 04/23/17 0534 04/23/17 0534 Results 24 hrs Laboratory Tests Test 04/23/17 05:34 04/23/17 09:40 White Blood Count 7.3 Red Blood Count 3.72 L Hemoglobin 9.7 L Hematocrit 31.6 L Mean Corpuscular Volume 84.9 Mean Corpuscular Hemoglobin 26.1 L Mean Corpuscular Hemoglobin Concent 30.7 L Red Cell Distribution Width 17.3 H Platelet Count 348 Mean Platelet Volume 10.5 H Neutrophils % 61.8 Lymphocytes % 23.2 Monocytes % 10.5 Eosinophils % 3.7 Basophils % 0.7 Nucleated Red Blood Cells % 0.0 Neutrophils # 4.5 Lymphocytes # 1.7 Monocytes # 0.8 Eosinophils # 0.3 Basophils # 0.1 Nucleated Red Blood Cells # 0.0 Sodium Level 141 Potassium Level 3.2 L Chloride Level 109 Carbon Dioxide Level 22 Anion Gap 13 Blood Urea Nitrogen 9 Creatinine 0.76 Glucose Level 97 Calcium Level 9.0 Urine Color YELLOW Urine Clarity CLEAR Urine pH 5.0 Urine Specific Hart 1.008 Urine Ketones 1+ H Urine Nitrite NEGATIVE Urine Bilirubin NEGATIVE Urine Urobilinogen NEGATIVE Urine Leukocyte Esterase NEGATIVE Urine Microscopic RBC 0 Urine Microscopic WBC 0 Urine Mucus FEW A Urine Hemoglobin 1+ H Urine Glucose NEGATIVE Urine Total Protein NEGATIVE Medications Medications Current Medications Acetaminophen 650 mg 650 mg Q6H PRN PO PAIN AND OR ELEVATED TEMP; Start at 23:00 Sodium Chloride (1/2 NS) 1,000 ml @ 100 mls/hr Q10H IV Last administered on 00:50; Admin Dose 100 MLS/HR; Start 04/18/17 at 23:00 Ondansetron HCl (Zofran Inj) 4 mg Q4H PRN IV NAUSEA AND/OR VOMITING Last administered on 04/18/17 23:39; Admin Dose 4 MG; Start 04/18/17 at 23:00 Metoprolol Tartrate (Lopressor) 50 mg BID PO Last administered on 04/22/17 20 :25; Admin Dose 50 MG; Start 04/19/17 at 09:00 Amlodipine Besylate (Norvasc) 5 mg DAILY PO Last administered on 04/22/17 09: 10; Admin Dose 5 MG; Start 04/19/17 at 09:00 Pantoprazole (Protonix Tab) 40 mg DAILY@06 PO Last administered on 04/22/17 05:35; Admin Dose 40 MG; Start 04/19/17 at 06:00 Docusate Sodium (Colace) 100 mg BID PO Last administered on 04/22/17 20:25; Admin Dose 100 MG; Start 04/19/17 at 21:00 Enoxaparin Sodium (Lovenox) 40 mg DAILY SC Last administered on 04/22/17 09: 37; Admin Dose 40 MG; Start 04/22/17 at 09:00 Hydromorphone HCl (Dilaudid) 1 mg Q4H PRN IV PAIN Last administered on 09:26; Admin Dose 1 MG; Start 04/22/17 at 00:07 LUDWIN BARRON Apr 23, 2017 13:29
[2017-04-23] MEDS ORDERED: POTASSIUM CHLORIDE 30 MEQ in SOD CHLORIDE 0.9% 150 ML IVPB ONE (13:30)
[2017-04-23 15:30] VITALS: BP 157/99; RESP 20
[2017-04-23] MEDS ORDERED: PROPOFOL 40 ML ONE (17:01)
[2017-04-23] MEDS ORDERED: LIDOCAINE 2% (SDV) 5 ML INJ ONE (17:01)
--- NOTE | 2017-04-23 17:35 | OPPN ---
Date/Time of Note Date/Time of Note DATE: 04/23/17 TIME: 17:34 Proc Note GI Procedure Date 04/23/17 Indication: diagnostic Pre-procedure Diagnosis Epigastric pain and vomiting Post-procedure Diagnosis Extensive esophageal ulceration Large hiatal hernia Procedure Performed: Endoscopy Surgeon see signature line Room Service Clerk none Anesthesia Type: MAC Tourniquet Time none EBL none Transfusion required none Biopsy 1: Biopsies from the stomach to rule out H. pylori infection Grafts/Implants none Tubes/Drains none Complication(s) none Disposition: PACU Procedure Description EGD with biopsy 1. Deep esophageal ulceration involving the distal part circumferentially distributed 2. Large hiatal hernia 3. Gastritis GANESH VALDOVINOS MD Apr 23, 2017 17:35
[2017-04-23 17:46] VITALS: BP 152/94; PULSE 102; RESP 21
[2017-04-23 17:51] VITALS: BP 154/93; PULSE 98; RESP 21
[2017-04-23 20:00] VITALS: BP_SYST 152; BP_DIAS 103; BP_DIAS 90; RESP 20
[2017-04-24] MEDS: HYDROmorphONE 1 MG/ML SYG IV PRN (03:45)
[2017-04-24] MEDS: PANTOPRAZOLE (EC) 40 MG TAB PO SCH (06:04)
[2017-04-24] MEDS: SOD CHLORIDE 0.45% 1,000 ML IV SCH (06:08)
[2017-04-24 06:14] LABS: BASOPHILS % 0.3 % (0.0-2.0); EOSINOPHILS # 0.1 10^3/ul (0.0-0.5); EOSINOPHILS % 0.6 % (0.0-7.0); HEMATOCRIT 30.8 % (37.0-47.0); HEMOGLOBIN 9.5 g/dl (12.0-16.0); LYMPHOCYTES # 1.4 10^3/ul (0.8-2.9); MEAN CORPUSCULAR HEMOGLOBIN 26.2 pg (29.0-33.0); MEAN CORPUSCULAR HGB CONC 30.8 g/dl (32.0-37.0); MEAN CORPUSCULAR VOLUME 85.1 fl (82.0-101.0); MONOCYTE # 0.8 10^3/ul (0.3-0.9); MONOCYTES % 8.4 % (0.0-11.0); NEUTROPHILS % 75.5 % (39.0-77.0); PLATELET COUNT 333 10^3/UL (140-415); RED BLOOD COUNT 3.62 10^6/ul (4.20-5.40); RED CELL DISTRIBUTION WIDTH 17.4 % (11.5-14.5); WHITE BLOOD COUNT 9.3 10^3/ul (4.8-10.8)
[2017-04-24 06:41] LABS: CREATININE 0.66 mg/dl (0.44-1.00); POTASSIUM 3.3 mmol/L (3.5-5.1)
--- NOTE | 2017-04-24 10:51 | GILP ---
DATE OF PROCEDURE: PROCEDURE PERFORMED: Esophagogastroduodenoscopy with biopsy. INDICATION: The patient is a 61-year-old female undergoing this procedure for epigastric pain and v omiting. The purpose is to evaluate upper GI tract and find out the cause of her symptoms. Besides , the patient is also anemic. INFORMED CONSENT: The risk of the procedure, related and unrelated complications, anesthetic risks, alternatives discussed and informed consent was obtained. DESCRIPTION OF PROCEDURE: The patient was brought to the GI lab, sedated by Dr. Tena. After opti mal sedation, scope was passed with much ease into esophagus. The patient had a 3 cm in length and 1 cm in diameter deep ulceration identified in the distal part of the esophagus. Z line was a t 30 cm. The patient had a 5 cm hiatal hernia. Stomach mucosa revealed gastritis, 2 biopsies obtai suresh to rule out H. pylori infection. Duodenum, first and second part appeared normal. Retroflexion confirmed the hiatal hernia. Scope was straightened out and removed with good patient tolerance. IMPRESSION: 1. Large hiatal hernia 5 cm. 2. Deep esophageal ulceration circumferentially distributed ASA class D. 3. Z line at 30 cm. 4. Gastritis. 5. Normal duodenum. PLAN: Start the patient on low dose of Reglan, continue double dose of PPI. Dictated By: GANESH VENTURA/SHEREEN Conf#: [id number] DID#: [id number]
== END 2017-04-24 07:50 | disposition left against medical advice (07) | DRG 871 ==
LOC: E/R 17:33 → TEL 19:04 → MS2 04-19 18:49
PROVIDERS: ADMIT Internal Medicine; ATTEND Internal Medicine
PROC: 0DB68ZX Excision of Stomach, Via Natural or Artificial Opening Endoscopic, Diagnostic (ICD-10-PCS; principal; 2017-04-23 17:00)
DX: A41.9 Sepsis, unspecified organism (principal); R65.21 Severe sepsis with septic shock; N17.9 Acute kidney failure, unspecified; I82.601 Acute embolism and thrombosis of unspecified veins of right upper extremity; I31.3 Pericardial effusion (noninflammatory); F25.9 Schizoaffective disorder, unspecified; K22.10 Ulcer of esophagus without bleeding; K44.9 Diaphragmatic hernia without obstruction or gangrene; K57.30 Diverticulosis of large intestine without perforation or abscess without bleeding; K42.9 Umbilical hernia without obstruction or gangrene; K29.70 Gastritis, unspecified, without bleeding; F31.9 Bipolar disorder, unspecified; E87.6 Hypokalemia; E78.5 Hyperlipidemia, unspecified; I10 Essential (primary) hypertension; Z88.0 Allergy status to penicillin
CPT/HCPCS: 36415; 71010; 74176; 80048; 80053; 80307; 81001; 83605; 84484; 85025; 85610; 85730; 86703; 86704; 86709; 86803; 87040; 87086; 87340; 88305; 88312; 93005; 93971; 96372; 96374; 96375; J0456; J0692; J1170; J1630; J1650; J2060; J2270; J2405; J3370; J7030

== ENCOUNTER 2017-11-15 17:12 | Inpatient (IN) | END 2017-11-19 20:15 | disposition home or self-care (01) | DRG 354 ==

== ENCOUNTER 2018-01-08 18:30 | Emergency (ER) | END 2018-01-08 20:58 | disposition left against medical advice (07) ==

== ENCOUNTER 2018-07-27 19:34 | Emergency (ER) | payer BC, OTHER ==
[~2018-07-27] VITALS: Ht 157.5 cm; Wt 78.9 kg
[~2018-07-27 19:34] MED LIST changes: -AMLO-145 PO; -ASPI325T4 PO; -CEPH-443 PO; -ESOM20CA PO; -ESOM40CA PO; +FLUO20CA38 PO; -GABA-526 PO; -HYDR-3498 PO; +HYDR-3601 PO; +LISI-471 PO; -LISI20TA11 PO; -MIRT15TA5 PO; +OMEP40CA6 PO; +QUET400T PO; -QUET50TA16 PO
[2018-07-27 19:36] VITALS: Ht 157.5 cm; Wt 78.9 kg
[2018-07-27] MEDS ORDERED: SODIUM CHLORIDE 0.9% 1L BAG IV* STA ×2 (20:15→20:20)
--- NOTE | 2018-07-27 20:22 | ERD ---
ER Documentation Chief Complaint Chief Complaint SOB WITH COUGH ; D/C'D FROM [facility] FOR PNA HPI 63-year-old female history of hypertension, hyperlipidemia, coronary artery disease, bipolar disease and remote ovarian cancer status post hysterectomy presents the ED initially complained of shortness of breath, cough and abdominal pain but now states that she just does not feel well. Patient reports recent admission at [facility] for pneumonia. Denies sputum production or hemoptysis. No chest pain or palpitations. Mild, generalized abdominal pain without nausea, vomiting, diarrhea or constipation. No leg pain or swelling. No relieving or exacerbating factors. Denies depression, visual or auditory hallucinations. No suicidal ideations. No fevers or chills. ROS All systems reviewed and are negative except as per history of present illness. Medications Home Meds Reported Medications Albuterol Sulfate* (Ventolin HFA*) 18 Gm Hfa.aer.ad, 2 PUFF INHALATION Q4H, #1 INHALER 07/27/18 Apixaban* (Eliquis*) 5 Mg Tablet, 5 MG PO BID, TAB 07/27/18 Metformin Hcl* (Metformin Hcl* ER) 500 Mg Tab.sr.24h, 500 MG PO DAILY, #30 TAB 07/27/18 Gabapentin* (Gabapentin*) 300 Mg Capsule, 300 MG PO TID, #90 CAP 07/27/18 Fluoxetine Hcl* (Prozac*) 20 Mg Capsule, 20 MG PO DAILY, CAP 11/12/17 Quetiapine Fumarate* (Seroquel*) 400 Mg Tablet, 400 MG PO HS, TAB 11/12/17 Omeprazole* (Omeprazole*) 40 Mg Capsule.dr, 40 MG PO DAILY, #30 CAP 11/12/17 Zolpidem Tartrate* (Ambien*) 10 Mg Tablet, 10 MG PO QHS PRN for INSOMNIA, TAB 10/17/16 Ranitidine Hcl* (Zantac*) 300 Mg Tablet, 300 MG PO HS, #30 TAB 10/17/16 Metoprolol Tartrate* (Lopressor*) 50 Mg Tab, 50 MG PO TID, #60 TAB 10/17/16 Lisinopril* (Lisinopril*) 20 Mg Tablet, 20 MG PO BID, #30 TAB 10/17/16 Atorvastatin Calcium* (Atorvastatin Calcium*) 20 Mg Tablet, 20 MG PO DAILY 10/16/13 Discontinued Scripts Hydrocodone Bit-Acetaminophen (Hydrocodone Bit-APAP) 5-325MG Tablet, 1 TAB PO Q6H PRN for PAIN LEVEL 6-10, #40 TAB Prov:LUDWIN BARRON 11/19/17 Allergies Allergies: Coded Allergies: Penicillins (Unverified Allergy, Unknown, SWOLLEN THROAT , 07/28/18) lurasidone (Unverified Allergy, Unknown, 07/28/18) PMhx/Soc Reviewed in chart. As per HPI. History of Surgery: Yes (HERNIA SX X 2, C / S X 2, HYETERECTOMY, LYMPH NODE DISSECTION) Anesthesia Reaction: No Hx Neurological Disorder: No Hx Respiratory Disorders: No Hx Cardiac Disorders: Yes (CAD, HTN, HLP, [place] 20MI 20 YRS AGO) Hx Psychiatric Problems: Yes (BIPOLAR, SEVERE DEPRESSION) Hx Miscellaneous Medical Probl: No Hx Alcohol Use: No Hx Substance Use: No Hx Tobacco Use: No Smoking Status: Never smoker FmHx No family history relevant to presenting complaint Physical Exam Vitals Vital Signs Date Temp Pulse Resp B/P (MAP) Pulse Ox O2 O2 Flow FiO2 Time Delivery Rate 07/27/18 107 18 143/107 96 Room Air 21:00 (119) 07/27/18 98.3 121 20 174/107 95 19:36 (129) Physical Exam Const: Anxious, crying. Head: Atraumatic Eyes: Normal Conjunctiva ENT: Normal External Ears, Nose and Mouth. Neck: Full range of motion. No meningismus. No JVD. Resp: Breath sounds are equal and clear to auscultation bilaterally Cardio: Regular rate and rhythm, no murmurs. No chest wall tenderness Abd: Soft, mild, generalized tenderness without rebound or guarding. No masses or abnormal pulsations. Skin: No petechiae or rashes Back: No midline or flank tenderness Ext: No cyanosis, or edema Neur: Awake and alert. No focal deficit. Psych: Cooperative, anxious, crying. Denies hallucinations, suicidal or homicidal ideations. Result Diagram: 07/27/18202407/27/182024 Results 24 hrs Laboratory Tests Test 07/27/18 20:25 07/27/18 20:30 White Blood Count 11.1 10^3/ul Red Blood Count 3.98 10^6/ul Hemoglobin 10.6 g/dl Hematocrit 34.0 % Mean Corpuscular Volume 85.4 fl Mean Corpuscular Hemoglobin 26.6 pg Mean Corpuscular Hemoglobin Concent 31.2 g/dl Red Cell Distribution Width 18.2 % Platelet Count 393 10^3/UL Mean Platelet Volume 9.8 fl Immature Granulocytes % 0.300 % Neutrophils % 73.7 % Lymphocytes % 18.6 % Monocytes % 5.6 % Eosinophils % 1.2 % Basophils % 0.6 % Nucleated Red Blood Cells % 0.0 /100WBC Immature Granulocytes # 0.030 10^3/ul Neutrophils # 8.2 10^3/ul Lymphocytes # 2.1 10^3/ul Monocytes # 0.6 10^3/ul Eosinophils # 0.1 10^3/ul Basophils # 0.1 10^3/ul Nucleated Red Blood Cells # 0.0 10^3/ul Prothrombin Time 16.0 Sec Prothrombin Time Ratio 1.3 INR International Normalized Ratio 1.27 Activated Partial Thromboplast Time 33.2 Sec Urine Color YELLOW Urine Clarity CLEAR Urine pH 5.0 Urine Specific [place] 1.051 Urine Ketones NEGATIVE mg/dL Urine Nitrite NEGATIVE mg/dL Urine Bilirubin NEGATIVE mg/dL Urine Urobilinogen NEGATIVE mg/dL Urine Leukocyte Esterase NEGATIVE Jose M/ul Urine Microscopic RBC 1 /HPF Urine Microscopic WBC 1 /HPF Urine Squamous Epithelial Cells FEW /HPF Urine Mucus FEW /HPF Urine Hemoglobin 1+ mg/dL Urine Glucose NEGATIVE mg/dL Urine Total Protein NEGATIVE mg/dl Sodium Level 142 mmol/L Potassium Level 4.5 mmol/L Chloride Level 104 mmol/L Carbon Dioxide Level 24 mmol/L Anion Gap 14 Blood Urea Nitrogen 20 mg/dl Creatinine 1.17 mg/dl Est Glomerular Filtrat Rate mL/min 47 mL/min Glucose Level 111 mg/dl Calcium Level 10.0 mg/dl Total Bilirubin 0.2 mg/dl Direct Bilirubin 0.00 mg/dl Indirect Bilirubin 0.2 mg/dl Aspartate Amino Transf (AST/SGOT) 19 IU/L Alanine Aminotransferase (ALT/SGPT) 14 IU/L Alkaline Phosphatase 89 IU/L Troponin I < 0.012 ng/ml Total Protein 7.6 g/dl Albumin 4.2 g/dl Globulin 3.40 g/dl Albumin/Globulin Ratio 1.23 POC Venous Lactate 1.4 mmol/L Current Medications Medications Dose Sig/Markus Start Time Status Last (Trade) Ordered Route PRN Stop Time Admin Dose Reason Admin Sodium 2,370 ml BOLUS OVER 2 07/27/18 DC Chloride HOURS STAT 20:15 (NS) IV* 07/27/18 20:23 Sodium 1,500 ml BOLUS OVER 2 07/27/18 DC 07/27/18 Chloride HOURS STAT 20:20 21:21 (NS) IV* 07/27/18 20:21 IV Flush 10 ml STK-MED 07/27/18 DC 07/27/18 (NS 10 ml) ONCE .ROUTE 21:03 21:10 07/27/18 21:04 Sodium 100 ml @ ud STK-MED 07/27/18 DC 07/27/18 Chloride ONCE .ROUTE 21:03 21:11 07/27/18 21:04 Iohexol 150 ml STK-MED 07/27/18 DC 07/27/18 (Omnipaque ONCE .ROUTE 21:03 21:12 300mg/ ml) 07/27/18 21:04 Procedures/MDM DOCUMENTS REVIEWED: ED nurse, prior ED, prior records EKG: Time: 20:45. Sinus rhythm. Ventricular rate 90. Normal NE interval. QRS prolonged at 112 ms. Left anterior hemiblock. Q waves in leads II, III, aVF, V1 through V3. No acute ST segment elevation or depression. My Interpretation IMAGING: PROCEDURE: XR 1 view Chest. CLINICAL INDICATION: Sepsis. TECHNIQUE: Portable Single frontal view of the chest was obtained. COMPARISON: June 10, 2018. FINDINGS: The heart is normal in size. There are mild aortic calcifications. There is a possible retrocardiac consolidation. There is no pleural effusion. No pneumothorax is identified. The osseous structures are intact. There is mild spondylosis/enthesopathy within the thoracic spine. IMPRESSION: Possible retrocardiac consolidation. Aortic calcifications. Further findings as detailed above. RPTAT: HVF .Jorje Patiño MD, Date Time Electronically viewed and signed by .Jorje Patiño MD, on 07/27/2018 20:49 .F/ PROCEDURE: CT Chest without contrast. CLINICAL INDICATION: Shortness of breath. TECHNIQUE: CT scan of the chest was performed on a multi-detector high- resolution CT scanner. Contiguous axial images were obtained from the lung apices to the upper abdomen without intravenous contrast. Coronal and sagittal reformatted images were also obtained. Images were reviewed on the PACS workstation. DICOM images are available. One or more of the following dose reduction techniques were used: - Automated exposure control. - Adjustment of the mA and/or kV according to patient size. - Use of iterative reconstruction technique. Exam CTD/vol = 11.23 mGy. Total exam DLP = 403.17 mGy-cm. COMPARISON: None. FINDINGS: The visualized thyroid gland is unremarkable. There are no enlarged axillary lymph nodes. There are no enlarged mediastinal or hilar lymph nodes; however, study limited by lack of intravenous contrast. The heart is mildly enlarged with a trace pericardial effusion. The thoracic aorta is tortuous with mild dilatation of the ascending aorta measuring up to 4.0 cm. There are mild scattered atherosclerotic calcifications. There are scattered interstitial and alveolar opacities within the left upper lobe. There is mild bibasilar atelectasis. There is no pleural effusion. The central tracheobronchial tree is within normal limits. There is a large hiatal hernia. The osseous structures are unremarkable. Limited evaluation of the upper abdomen is unremarkable. IMPRESSION: Scattered interstitial and alveolar opacities within the left upper lobe. Mild bibasilar atelectasis. Tortuous aorta with mild dilatation of the ascending aorta measuring up to 4.0 cm. Mild cardiomegaly with trace pericardial effusion. Mild vascular calcifications reflective of atherosclerosis. Large hiatal hernia. .Rios Majano MD, MD Date Time Electronically viewed and signed by .Rios Majano MD, MD on 07/27/2018 21:28 .T/ Ordering MD: AMISHA CERRATO MD Location: E/R Room/Bed: PROCEDURE: CT Abdomen and pelvis with contrast. CLINICAL INDICATION: Abdominal pain. TECHNIQUE: CT scan of the abdomen and pelvis with contrast was performed on a multi-detector high-resolution CT scanner. The patient was scanned following the uncomplicated administration of 100 cc of Omnipaque 300 intravenous contrast. Coronal and sagittal reformatted images were obtained from the axial source images. Images were reviewed on a high-resolution PACS workstation. DICOM images are available. One or more of the following dose reduction techniques were used: - Automated exposure control. - Adjustment of the mA and/or kV according to patient size. - Use of iterative reconstruction technique. Exam CTD/vol = 14.82 mGy. Total exam DLP = 798.52 mGy-cm. COMPARISON: 06/09/2018. FINDINGS: Evaluation of the lung bases demonstrates mild bibasilar atelectasis. There is a large hiatal hernia. Abdomen: The liver is normal in size. There is no focal mass or dilatation of the biliary tree. The patient is status post cholecystectomy. The spleen, pancreas and bilateral adrenal glands are within normal limits. Bilateral kidneys are normal in size with symmetric enhancement. There are bilateral renal cysts. There is no hydronephrosis or hydroureter. There is no retroperitoneal adenopathy. The abdominal aorta is of normal caliber with scat tered atherosclerotic calcifications. There is a small periumbilical hernia containing fat with stranding and small fluid collection measuring 2.4 cm. There is no bowel obstruction or free air. A normal appendix is identified. There are scattered colonic diverticuli and diverticulosis of the sigmoid colon without evidence of diverticulitis. There is no ascites. Pelvis: The bladder is unremarkable. The uterus is absent. There is no significant pelvic adenopathy or free fluid. Evaluation of the osseous structures demonstrates no suspicious lytic or blastic lesion. IMPRESSION: Small periumbilical hernia containing fat with stranding and small fluid collection measuring 2.4 cm, unchanged from 06/09/2018. Colonic diverticulosis without evidence of diverticulitis. Large hiatal hernia. Status post cholecystectomy and hysterectomy. Bilateral small renal cysts. Vascular calcifications reflective of atherosclerosis. Otherwise no acute abnormality identified within the abdomen and pelvis. .Rios Majano MD, MD Date Time Electronically viewed and signed by .Rios Majano MD, MD on 07/27/2018:40 .T/ REEXAMINATION/REEVALUATION: Time: 23:10. Doing well. Asymptomatic. Feels fine and wants to go home. Abdomen soft nontender. MEDICAL DECISION MAKIN-year-old female history of hypertension, hyperlipidemia, coronary artery disease, bipolar disease and remote ovarian cancer status post hysterectomy presents the ED complaining of shortness of breath, anxiety and abdominal pain. CBC reveals borderline leukocytosis with anemia consistent with prior results. Chemistry significant for elevated creatinine but no electrolyte abnormalities or hyperglycemia. Troponin is negative. EKG negative for acute ischemic changes or dysrhythmia. Chest x-ray revealed possible retrocardiac infiltrate which was not confirmed on noncontrast chest CT. However there were some interstitial opacities of left upper lobe of uncertain clinical significance. Pulmonary embolism is unlikely and CT pulmonary angiogram is deferred. Other etiologies including acute coronary syndrome and aortic dissection considered. Abdominal pain of uncertain etiology. CT of the abdomen and pelvis to evaluate for an acute intra-abdominal process including but not limited to diverticulitis, appendicitis, bowel obstruction, obstructive uropathy and incarcerated hernia reveals small pelvic umbilical hernia unchanged from 05/2018. No fever or criteria for systemic in flammatory response syndrome or sepsis. Symptoms possibly related to anxiety and bipolar disease but no hallucinations, suicidality, homicidality or indication for urgent behavioral health intervention. Symptoms resolved. Stable for discharge with precautionary instructions and outpatient follow-up as counseled. Though the patient's latest blood pressure was elevated (>120/80), the patient has a known history of hypertension and urged to pursue adjustment of their medical therapy within a week with their primary care physician. Please refer to the medication reconciliation form for the current list of hypertensive medications. Patient counseled regarding diagnosis and workup. Understands that the etiology of her symptoms is not established. Mandatory, urgent outpatient follow-up ghada orrow will be necessary return to the ED immediately if symptoms recur. Patient symptoms resolved and she eloped prior to discharge at 23:22. Departure Diagnosis: Primary Impression: Shortness of breath Additional Impressions: Acute generalized abdominal pain Anxiety Bipolar disorder Active/Remission status: remission status unspecified Qualified Codes: F31.9 - Bipolar disorder, unspecified Umbilical hernia Obstruction and gangrene presence: without obstruction or gangrene Qualified Codes: K42.9 - Umbilical hernia without obstruction or gangrene Condition: Stable AMISHA CERRATO MD Jul 27, 2018 20:22
[2018-07-27 21:00] VITALS: BP 143/107; PULSE 107; RESP 18
[2018-07-27] MEDS ORDERED: SOD CHLORIDE 0.9% 100 ML ONE (21:03)
[2018-07-27] MEDS ORDERED: IOHEXOL 300MG/ML 150 ML BTL ONE (21:03)
[2018-07-27] MEDS ORDERED: METF500T3 PO (23:27)
[2018-07-27] MEDS ORDERED: APIX5TAB PO (23:27)
[2018-07-27] MEDS ORDERED: GABA300C16 PO (23:27)
[2018-07-27] MEDS ORDERED: ALBU18HF INHALATION (23:27)
[2018-08-26] MEDS ORDERED: TRAM50TA2 PO (05:56)
[2018-08-26] MEDS ORDERED: ONDA4TAB14 PO (05:56)
== END 2018-07-27 23:45 | disposition home or self-care (01) ==
LOC: E/R 19:34
DX: R06.02 Shortness of breath (principal); R40.2142 Coma scale, eyes open, spontaneous, at arrival to emergency department; R40.2362 Coma scale, best motor response, obeys commands, at arrival to emergency department; R40.2252 Coma scale, best verbal response, oriented, at arrival to emergency department; F41.9 Anxiety disorder, unspecified; F31.9 Bipolar disorder, unspecified; I25.10 Atherosclerotic heart disease of native coronary artery without angina pectoris; I10 Essential (primary) hypertension; I25.2 Old myocardial infarction; R10.9 Unspecified abdominal pain
CPT/HCPCS: 36415; 71045; 71250; 74177; 80053; 81001; 83605; 84484; 85025; 85610; 85730; 87040; 87086; 93005; J7030; Q9967; Z7502; Z7610

== ENCOUNTER 2018-07-28 09:29 | Inpatient (IN) | payer BC ==
[~2018-07-28] VITALS: Ht 167.6 cm; Wt 75.0 kg
[~2018-07-28 09:29] MED LIST changes: +ALBU18HF INHALATION; +APIX5TAB PO; +GABA300C16 PO; -HYDR-3601 PO; +METF500T3 PO
[2018-07-28 09:33] VITALS: Ht 167.6 cm; Wt 75.0 kg
[2018-07-28] MEDS ORDERED: ONDANSETRON 4 MG INJ IV STA (09:34)
[2018-07-28] MEDS ORDERED: SOD CHLORIDE 0.9% 500 ML IV STA (09:34)
[2018-07-28] MEDS ORDERED: KETOROLAC 15 MG INJ IV STA (09:34)
[2018-07-28] MEDS ORDERED: DICYCLOMINE 20 MG INJ IM ONE (10:00)
[2018-07-28] MEDS ORDERED: ACETAMINOPHEN 325 MG TAB PO PRN (12:30)
[2018-07-28] MEDS ORDERED: ONDANSETRON 4 MG INJ IV PRN ×2 (12:30→16:30)
--- NOTE | 2018-07-28 12:33 | ERD ---
ER Documentation Chief Complaint Chief Complaint pt biba from home for ap and n/v/d x 1 day HPI 63-year-old female history of bipolar disorder with frequent visits to the emergency room. The patient was actually seen here within the last 12-24 hours for shortness of breath. The patient had a broad workup including CT of the chest abdomen and pelvis and was discharged. She presents because she has persistent nausea vomiting and diarrhea with generalized abdominal cramping that is 5 out of 10. She feels that she cannot care for herself at home. Slightly decreased urine output. ROS All systems reviewed and are negative except as per history of present illness. Medications Home Meds Reported Medications Albuterol Sulfate* (Ventolin HFA*) 18 Gm Hfa.aer.ad, 2 PUFF INHALATION Q4H, #1 INHALER 07/27/18 Apixaban* (Eliquis*) 5 Mg Tablet, 5 MG PO BID, TAB 07/27/18 Metformin Hcl* (Metformin Hcl* ER) 500 Mg Tab.sr.24h, 500 MG PO DAILY, #30 TAB 07/27/18 Gabapentin* (Gabapentin*) 300 Mg Capsule, 300 MG PO TID, #90 CAP 07/27/18 Fluoxetine Hcl* (Prozac*) 20 Mg Capsule, 20 MG PO DAILY, CAP 11/12/17 Quetiapine Fumarate* (Seroquel*) 400 Mg Tablet, 400 MG PO HS, TAB 11/12/17 Omeprazole* (Omeprazole*) 40 Mg Capsule.dr, 40 MG PO DAILY, #30 CAP 11/12/17 Zolpidem Tartrate* (Ambien*) 10 Mg Tablet, 10 MG PO QHS PRN for INSOMNIA, TAB 10/17/16 Ranitidine Hcl* (Zantac*) 300 Mg Tablet, 300 MG PO HS, #30 TAB 10/17/16 Metoprolol Tartrate* (Lopressor*) 50 Mg Tab, 50 MG PO TID, #60 TAB 10/17/16 Lisinopril* (Lisinopril*) 20 Mg Tablet, 20 MG PO BID, #30 TAB 10/17/16 Atorvastatin Calcium* (Atorvastatin Calcium*) 20 Mg Tablet, 20 MG PO DAILY 10/16/13 Discontinued Scripts Hydrocodone Bit-Acetaminophen (Hydrocodone Bit-APAP) 5-325MG Tablet, 1 TAB PO Q6H PRN for PAIN LEVEL 6-10, #40 TAB Prov:LUDWIN BARRON 11/19/17 Allergies Allergies: Coded Allergies: Penicillins (Unverified Allergy, Unknown, SWOLLEN THROAT , 07/28/18) lurasidone (Unverified Allergy, Unknown, 07/28/18) PMhx/Soc History of Surgery: Yes (HERNIA SX X 2, C / S X 2, HYETERECTOMY, LYMPH NODE DISSECTION) Anesthesia Reaction: No Hx Neurological Disorder: No Hx Respiratory Disorders: No Hx Cardiac Disorders: Yes (CAD, HTN, HLP, [place] 20MI 20 YRS AGO, chf) Hx Psychiatric Problems: Yes (BIPOLAR, SEVERE DEPRESSION) Hx Miscellaneous Medical Probl: No Hx Alcohol Use: No Hx Substance Use: No Hx Tobacco Use: No Smoking Status: Never smoker FmHx Family History: No diabetes Physical Exam Vitals Vital Signs Date Temp Pulse Resp B/P (MAP) Pulse Ox O2 O2 Flow FiO2 Time Delivery Rate 07/28/18 97.9 116 18 147/118 97 09:33 (128) Physical Exam General: Well developed, well nourished, no acute distress Head: Normocephalic, atraumatic. Eyes: Pupils equally reactive, EOM intact ENT: Moist mucous membranes Neck: Supple, no lymphadenopathy Respiratory: Lungs clear bilaterally, no distress Cardiovascular: RRR, no murmurs, rubs, or gallops Abdominal: Soft, non-tender, non-distended, no peritoneal signs : Deferred MSK: No edema, no unilateral swelling, 5/5 strength Neurologic: Alert and oriented, moving all extremities, normal speech, no focal weakness, no cerebellar signs Skin: No rash Psych: Normal mood Result Diagram: 07/28/18 1004 07/28/18 1004 Results 24 hrs Laboratory Tests Test 07/28/18 10:04 White Blood Count 9.1 10^3/ul Red Blood Count 4.04 10^6/ul Hemoglobin 10.7 g/dl Hematocrit 34.3 % Mean Corpuscular Volume 84.9 fl Mean Corpuscular Hemoglobin 26.5 pg Mean Corpuscular Hemoglobin Concent 31.2 g/dl Red Cell Distribution Width 18.6 % Platelet Count 403 10^3/UL Mean Platelet Volume 9.6 fl Immature Granulocytes % 0.300 % Neutrophils % 64.9 % Lymphocytes % 25.8 % Monocytes % 6.1 % Eosinophils % 2.2 % Basophils % 0.7 % Nucleated Red Blood Cells % 0.0 /100WBC Immature Granulocytes # 0.030 10^3/ul Neutrophils # 5.9 10^3/ul Lymphocytes # 2.4 10^3/ul Monocytes # 0.6 10^3/ul Eosinophils # 0.2 10^3/ul Basophils # 0.1 10^3/ul Nucleated Red Blood Cells # 0.0 10^3/ul Sodium Level 146 mmol/L Potassium Level 4.5 mmol/L Chloride Level 105 mmol/L Carbon Dioxide Level 23 mmol/L Anion Gap 18 Blood Urea Nitrogen 18 mg/dl Creatinine 1.03 mg/dl Est Glomerular Filtrat Rate mL/min 54 mL/min Glucose Level 133 mg/dl Calcium Level 10.2 mg/dl Total Bilirubin 0.3 mg/dl Direct Bilirubin 0.00 mg/dl Indirect Bilirubin 0.3 mg/dl Aspartate Amino Transf (AST/SGOT) 21 IU/L Alanine Aminotransferase (ALT/SGPT) 14 IU/L Alkaline Phosphatase 94 IU/L Total Protein 8.2 g/dl Albumin 4.4 g/dl Globulin 3.80 g/dl Albumin/Globulin Ratio 1.15 Lipase 51 U/L Current Medications Medications Dose Sig/Markus Start Time Status Last (Trade) Ordered Route PRN Stop Time Admin Dose Reason Admin Sodium 500 ml @ Q1H STAT 07/28/18 DC 07/28/18 Chloride 500 mls/hr IV 09:34 09:34 07/28/18 10:33 Ondansetron 4 mg ONCE STAT 07/28/18 DC 07/28/18 HCl (Zofran IV 09:34 10:36 Inj) 07/28/18 09:35 Ketorolac 15 mg ONCE STAT 07/28/18 DC 07/28/18 Tromethamine IV 09:34 10:40 (Toradol) 07/28/18 09:35 Dicyclomine 10 mg ONCE ONCE 07/28/18 DC 07/28/18 HCl IM 10:00 10:06 (Bentyl) 07/28/18 10:01 Ondansetron 4 mg BRIDGE ORDER 07/28/18 HCl (Zofran PRN IV 12:30 Inj) NAUSEA AND/OR 07/29/18 12:29 VOMITING 650 mg ER BRIDGE 07/28/18 Acetaminophen PRN PO MILD 12:30 (Tylenol PAIN(1-3)OR 07/29/18 12:29 Tab) ELEVATED TEMP Procedures/MDM LAB INTERPRETATION: * Slight anion gap secondary to likely dehydration. * No significant leukocytosis, stable renal function MEDICAL DECISION MAKING: The patient's medical record was reviewed. The patient had thorough workup with recent ER visit and CT imaging of the chest abdomen pelvis that showed no acute process. The patient's persistence of symptoms are likely viral in etiology. Consider possible mild dehydration. However given the patient's persistence of symptoms inpatient hospital station for observation might be reasonable. ER COURSE: * IV fluids and symptom control medication provided in the ER setting * Slight anion gap acidosis of nonspecific etiology likely dehydration. * Given the patient's repeat visit within 12-24 hours inpatient hospital station for observation and fluid resuscitation appropriate. CONSULTATION: [None] DISPOSITION PLAN: Accepting care team and consultations: I discussed the current laboratory data, diagnostic imaging and emergency care provided. Admitting team: Dr. Edwards Admitting team indication: Insurance directed Departure Diagnosis: Primary Impression: Abdominal pain Abdominal location: generalized Qualified Codes: R10.84 - Generalized abdominal pain Additional Impression: Dehydration, severe Condition: Stable SP POLANCO MD Jul 28, 2018 12:33
[2018-07-28] MEDS ORDERED: morphine 2 MG INJ ONE (14:42)
[2018-07-28] MEDS ORDERED: LORAZEPAM 2 MG INJ IV ONE (15:00)
[2018-07-28] MEDS ORDERED: morphine 2 MG INJ IV PRN (15:00)
[2018-07-28 16:03] VITALS: BP 146/93; PULSE 91; RESP 18
[2018-07-28] MEDS ORDERED: morphine SULFATE/PF (2 MG/2 ML) SYG IV STA (17:49)
[2018-07-28] MEDS: ACCU-CHEK XX SCH ×2 (17:53→20:54)
[2018-07-28] MEDS: PANTOPRAZOLE 40 MG INJ IV SCH (17:53)
[2018-07-28] MEDS: SOD CHLORIDE 0.45% 1,000 ML IV SCH (18:20)
[2018-07-28 19:14] VITALS: BP 137/80; PULSE 102; RESP 18
[2018-07-28] MEDS ORDERED: ALBUTEROL HFA 8 GM INHALER INH PRN (20:00)
[2018-07-28] MEDS ORDERED: morphine LIQ (10 MG/5 ML) CUP PO PRN (20:46)
[2018-07-28] MEDS: GABAPENTIN 300 MG CAP PO SCH (20:51)
[2018-07-28] MEDS: QUETIAPINE 100 MG TAB PO SCH (20:51)
[2018-07-28] MEDS ORDERED: LISINOPRIL 20 MG TAB PO SCH (21:00)
[2018-07-28] MEDS ORDERED: METOPROLOL 50 MG TAB PO SCH (21:00)
[2018-07-28] MEDS: ZOLPIDEM 5 MG TAB PO PRN (22:39)
[2018-07-29] VITALS (30 sets, daily range): BP systolic 64–131; BP diastolic 38–87; PULSE 68–93; RESP 14–18
--- NOTE | 2018-07-29 00:27 | HP ---
DATE OF ADMISSION: 07/28/2018 CHIEF COMPLAINT: Vomiting, diarrhea, and abdominal pain. HISTORY OF PRESENT ILLNESS: The patient is a 63-year-old female well known to me from previous admis sions. The patient has a history of hypertension, dyslipidemia, history of ovarian cancer, coronary artery disease, history of myocardial infarction, bipolar disorder who was recently admitted at [facility] for repair of recurrent incisional hernia by Dr. Gonsales. The patient underwent open incarcerated hernia repair. The patient was seen in the ER yesterday for not feeling well and a lso was complaining of cough, shortness of breath, abdominal pain, but symptoms were mild and patient was discharged home. The patient was noted to have scattered interstitial and alveolar opacity with in the left upper lobe, mild bibasilar atelectasis and large hiatal hernia. The patient reported sujatha t she was recently admitted at [facility] for about 1 month for pneumonia and was recently dis charged about 5 days ago. The patient today returned to ER with vomiting, diarrhea, and abdominal pa in. The patient reported that the diarrhea started in the ER. Before that, she has had multiple vom iting. No reported hematemesis or melena. No reported documented fever or chills. No reported ches t pain. The patient denies any shortness of breath today. No orthopnea. The patient did not have a ny resting leg pain. No headache, dizziness, syncope. No history of focal weakness. The rest of review of systems is unremarkable. Labs done in ER revealed a white count of 9.1, hemoglobin 10.7, platelet 403. Chemistry revealed BUN of 18, creatinine of 1, up from creatinine of 0.8 back in November. Liver enzymes were unremarkable. The patient also had CT of the abdomen and pelvis done yesterday in addition to a chest CT, which revealed small periumbilical hernia with stranding and small fluid c ollection measuring 2.4 cm, unchanged from May 2018. Colonic diverticulosis, large hiatal herni a, status post cholecystectomy and hysterectomy, bilateral small renal cyst; otherwise, no acute abno rmality was identified. The patient is admitted for further evaluation and management. PAST MEDICAL HISTORY: As stated above. PAST SURGICAL HISTORY: As stated above. In addition, the patient has history of total hysterectomy and bilateral salpingo-oophorectomy, status post lymph node dissection, colon cancer, status post C-s ection x2, status post multiple hernia repair. FAMILY HISTORY: Negative. SOCIAL HISTORY: No smoking or alcohol. PHYSICAL EXAMINATION: GENERAL: The patient is awake, alert, fairly oriented. VITAL SIGNS: Temperature 98.5, pulse 102, respirations 18, blood pressure 137/80, O2 saturation 90% to 96% on room air. HEENT: No eye discharge or redness. Conjunctivae are normal. Oropharynx clear. NECK: Supple. LYMPH: No thyromegaly. CHEST: Fairly clear. CARDIOVASCULAR: S1, S2 normal. No murmur. ABDOMEN: Soft, nondistended. EXTREMITIES: No leg edema. NEUROLOGIC: The patient is awake, alert, fairly oriented with no gross focal deficit. IMPRESSION: 1. Acute gastroenteritis. 2. Hypertension. 3. Dyslipidemia. 4. History of lung cancer, status post surgery. 5. History of coronary artery disease, status post myocardial infarction. 6. Bipolar disorder. 7. History of recurrent incisional hernia, status post repair. PLAN: The patient admitted on medical floor. The patient will be started on clear liquid diet, whic h will be advanced as tolerated. The patient will be started on IV fluid, Zofran, IV morphine, IV Pr otonix. We will continue her psych medication including fluoxetine and Seroquel. The patient also h as history of mild diabetes and is on metformin 500 mg once a day. Due to multiple episodes of vomit ing, I will hold off on that and will put her on sliding scale insulin for now. We will continue Ser oquel as at home. The patient's medical reconciliation also revealed Eliquis, but she is not sure wh y she is on it. We will put her on Lovenox 40 mg once a day starting tomorrow. Will obtain records from [facility]. If the patient does not improve clinically by tomorrow, then will obtain GI consultation. Dictated By: JOSE PRECIADO/SHEREEN Conf#: [id number] DID#: [id number]
[2018-07-29] MEDS ORDERED: SOD CHLORIDE 0.9% 1,000 ML IV ONE ×2 (01:30→03:00)
[2018-07-29] MEDS: SOD CHLORIDE 0.45% 1,000 ML IV SCH (03:54)
[2018-07-29] MEDS: PANTOPRAZOLE 40 MG INJ IV SCH ×2 (05:14→17:13)
[2018-07-29] MEDS: SOD CHLORIDE 0.9% 1,000 ML IV SCH ×2 (05:56→18:53)
[2018-07-29] MEDS: ACCU-CHEK XX SCH ×4 (07:20→20:24)
[2018-07-29] MEDS: ATORVASTATIN 20 MG TAB PO SCH (08:33)
[2018-07-29] MEDS: GABAPENTIN 300 MG CAP PO SCH ×3 (08:33→20:22)
[2018-07-29] MEDS: FLUOXETINE 20 MG CAP PO SCH (08:33)
[2018-07-29] MEDS ORDERED: SOD CHLORIDE 0.9% 250 ML IV* ONE (14:04)
--- NOTE | 2018-07-29 14:49 | PN ---
Date/Time of Note Date/Time of Note DATE: 07/29/18 TIME: 14:44 Assessment/Plan VTE Prophylaxis Risk score (from [facility])>0 risk: 3 SCD applied (from [facility]): Yes Pharmacological prophylaxis: NA/contraindicated Pharm contraindication: other Assessment/Plan Hospital Course Patient appears pale borderline blood pressure status post IV boluses, will transfuse 1 unit of packed red blood cells for hemoglobin of 7.8. Assessment/Plan - Acute gastroenteritis. Continue supportive care, Zofran as needed for nausea. - Anemia, will obtain stool for OB, iron panel B12 and folate, transfuse 1 unit of packed red blood cells. - Hypertension. - Dyslipidemia. - Bipolar disorder - History of coronary artery disease, status post myocardial infarction. - History of ovarian cancer status post surgery - History of recurrent incisional hernia, status post repair. Further recommendations based on clinical course. Plan of care discussed with Dr. Edwards. Result Diagram: 07/29/18 1227 07/29/18 0438 Results 24hrs Laboratory Tests Test 07/28/18 17:52 07/28/18 20:56 07/29/18 04:36 07/29/18 04:38 Bedside Glucose 92 89 Iron Level 26 L Total Iron Binding 275 Capacity Percent Iron 9 L Saturation White Blood Count 5.7 # Red Blood Count 2.98 #L Hemoglobin 7.9 #L Hematocrit 26.4 #L Mean Corpuscular 88.6 Volume Mean Corpuscular 26.5 L Hemoglobin Mean Corpuscular 29.9 L Hemoglobin Concent Red Cell 18.6 H Distribution Width Platelet Count 301 # Mean Platelet Volume 9.7 Immature 0.300 Granulocytes % Neutrophils % 47.4 Lymphocytes % 34.4 Monocytes % 10.5 Eosinophils % 6.5 Basophils % 0.9 Nucleated Red Blood 0.0 Cells % Immature 0.020 Granulocytes # Neutrophils # 2.7 Lymphocytes # 2.0 Monocytes # 0.6 Eosinophils # 0.4 Basophils # 0.1 Nucleated Red Blood 0.0 Cells # Sodium Level 141 Potassium Level 3.7 Chloride Level 113 H Carbon Dioxide Level 23 Anion Gap 5 # Blood Urea Nitrogen 18 Creatinine 1.08 H Est Glomerular 51 L Filtrat Rate mL/min Glucose Level 101 Hemoglobin A1c 5.8 Calcium Level 7.8 L Test 07/29/18 08:36 07/29/18 12:27 07/29/18 12:50 Bedside Glucose 103 105 Hemoglobin 7.8 L Hematocrit 26.1 L Exam/Review of Systems Vital Signs Vitals Vital Signs Date Temp Pulse Resp B/P (MAP) Pulse Ox O2 O2 Flow FiO2 Time Delivery Rate 07/29/18 93 18 100/68 14:02 (79) 07/29/18 94 Room Air 11:58 07/29/18 98.0 07:49 Intake and Output 07/28/18 07/28/18 07/29/18 1515:00 23:00 07:00 IntakeIntake Total 500 ml 3215 ml OutputOutput Total 100 ml 100 ml BalanceBalance 500 ml -100 ml 3115 ml Exam Constitutional: alert, oriented Head: normocephalic Neck: supple Respiratory: normal air movement Cardiovascular: nl pulses Gastrointestinal: soft, non-tender Musculoskeletal: nl extremities to inspection Extremities: normal pulses Neurological: nl mental status Medications Medications Current Medications Diagnostic Test (Pha) (Accu-Chek) 1 ea AC MEALS AND BEDTIME XX Last administered on 07/29/18at 11:23; Admin Dose 1 EA; Start 07/28/18 at 17:25 Ondansetron HCl (Zofran Inj) 4 mg Q4H PRN IV NAUSEA AND/OR VOMITING Last administered on 07/28/18at 17:55; Admin Dose 4 MG; Start 07/28/18 at 16:30 Pantoprazole (Protonix Iv) 40 mg BID@06,18 IV Last administered on 07/29/18 05:14; Admin Dose 40 MG; Start 07/28/18 at 18:00 Albuterol (Ventolin Hfa) 2 puff Q4H PRN INH sob; Start 07/28/18 at 20:00 Atorvastatin Calcium (Lipitor) 20 mg DAILY PO Last administered on 07/29/18at 08:33; Admin Dose 20 MG; Start 07/29/18 at 09:00 Fluoxetine HCl (Prozac) 20 mg DAILY PO Last administered on 07/29/18at 08:33; Admin Dose 20 MG; Start 07/29/18 at 09:00 Gabapentin (Neurontin) 300 mg TID PO Last administered on 07/29/18at 14:00; Admin Dose 300 MG; Start 07/28/18 at 21:00 Lisinopril (Zestril) 20 mg BID PO Last administered on 07/28/18 20:52; Admin Dose 20 MG; Start 07/28/18 at 21:00; Status Hold Metoprolol Tartrate (Lopressor) 50 mg TID PO Last administered on 07/28/18 20:52; Admin Dose 50 MG; Start 07/28/18 at 21:00; Status Hold Quetiapine Fumarate (Seroquel) 400 mg HS PO Last administered on 07/28/18 20:51; Admin Dose 400 MG; Start 07/28/18 at 21:00 Zolpidem Tartrate (Ambien) 10 mg QHS PRN PO INSOMNIA Last administered on 07/28/18 22:39; Admin Dose 10 MG; Start 07/28/18 at 20:00 Sodium Chloride 1,000 ml @ 75 mls/hr [id number] IV Last administered on 07/29/18 05:56; Admin Dose 75 MLS/HR; Start 07/29/18 at 06:00 Morphine Sulfate (morphine) 4 mg Q4H PRN PO PAIN LEVEL 6-10; Start 07/29/18 at 13:30 LUDWIN BARRON Jul 29, 2018 14:49
[2018-07-29] MEDS: morphine LIQ (10 MG/5 ML) CUP PO PRN (18:42)
[2018-07-29] MEDS: QUETIAPINE 100 MG TAB PO SCH (20:22)
[2018-07-29] MEDS: ZOLPIDEM 5 MG TAB PO PRN (23:06)
[2018-07-30 02:00] VITALS: BP 100/56; PULSE 82; RESP 18
[2018-07-30] MEDS: PANTOPRAZOLE 40 MG INJ IV SCH ×2 (06:00→17:58)
[2018-07-30] MEDS: ACCU-CHEK XX SCH ×3 (07:20→16:33)
[2018-07-30 07:52] VITALS: BP 148/86; PULSE 88; RESP 18
[2018-07-30] MEDS: FLUOXETINE 20 MG CAP PO SCH (08:32)
[2018-07-30] MEDS: SOD CHLORIDE 0.9% 1,000 ML IV SCH (08:32)
[2018-07-30] MEDS: GABAPENTIN 300 MG CAP PO SCH ×3 (08:32→22:01)
[2018-07-30] MEDS: ATORVASTATIN 20 MG TAB PO SCH (08:32)
--- NOTE | 2018-07-30 14:23 | PN ---
Date/Time of Note Date/Time of Note DATE: 07/30/18 TIME: 14:15 Assessment/Plan VTE Prophylaxis Risk score (from [facility])>0 risk: 4 SCD applied (from [facility]): Yes Pharmacological prophylaxis: NA/contraindicated Pharm contraindication: other Lines/Catheters [facility] Peripheral IV Urinary Cath still in place: No Assessment/Plan Hospital Course Patient is status post blood transfusion last night, no nausea no diarrhea able to tolerate p.o. diet well complains of generalized weakness patient is lethargic but easily arousable, will replace magnesium. Assessment/Plan - Acute gastroenteritis. Continue supportive care, Zofran as needed for nausea. - Anemia, f/up on stool for OB, s/p blood transfusion - Hypertension. - Dyslipidemia. - Bipolar disorder - History of coronary artery disease, status post myocardial infarction. - History of ovarian cancer, status post surgery - History of recurrent incisional hernia, status post repair. Further recommendations based on clinical course. Plan of care discussed with Dr. Edwards. Result Diagram: 07/30/1844607/30/187 Results 24hrs Laboratory Tests Test 07/29/18 17:25 07/29/18 20:24 07/30/18 04:47 07/30/18 08:36 Bedside Glucose 103 96 95 White Blood Count 5.2 Red Blood Count 3.33 L Hemoglobin 9.1 L Hematocrit 29.3 L Mean Corpuscular 88.0 Volume Mean Corpuscular 27.3 L Hemoglobin Mean Corpuscular 31.1 L Hemoglobin Concent Red Cell 17.5 H Distribution Width Platelet Count 287 Mean Platelet Volume 9.8 Immature 0.200 Granulocytes % Neutrophils % 45.1 Lymphocytes % 35.1 Monocytes % 9.4 Eosinophils % 9.2 H Basophils % 1.0 Nucleated Red Blood 0.0 Cells % Immature 0.010 Granulocytes # Neutrophils # 2.4 Lymphocytes # 1.8 Monocytes # 0.5 Eosinophils # 0.5 Basophils # 0.1 Nucleated Red Blood 0.0 Cells # Sodium Level 140 Potassium Level 4.2 Chloride Level 109 Carbon Dioxide Level 25 Anion Gap 6 Blood Urea Nitrogen 15 Creatinine 1.02 H Est Glomerular 55 L Filtrat Rate mL/min Glucose Level 106 Calcium Level 8.4 Phosphorus Level 4.4 Magnesium Level 1.2 L Test 07/30/18 12:59 Bedside Glucose 120 Exam/Review of Systems Vital Signs Vitals Vital Signs Date Temp Pulse Resp B/P (MAP) Pulse Ox O2 O2 Flow FiO2 Time Delivery Rate 07/30/18 97.4 88 18 148/86 95 07:52 (106) 07/30/18 Room Air 02:00 Intake and Output 07/29/18 07/29/18 07/30/18 1515:00 23:00 07:00 IntakeIntake Total 200 ml 1750 ml 100 ml OutputOutput Total 400 ml BalanceBalance 200 ml 1350 ml 100 ml Exam Constitutional: alert, oriented Head: normocephalic Neck: supple Respiratory: normal air movement Cardiovascular: nl pulses Gastrointestinal: soft, non-tender Musculoskeletal: nl extremities to inspection Extremities: normal pulses Neurological: nl mental status Medications Medications Current Medications Diagnostic Test (Pha) (Accu-Chek) 1 ea AC MEALS AND BEDTIME XX Last administered on 07/30/18at 11:10; Admin Dose 1 EA; Start 07/28/18 at 17:25 Ondansetron HCl (Zofran Inj) 4 mg Q4H PRN IV NAUSEA AND/OR VOMITING Last administered on 07/28/18at 17:55; Admin Dose 4 MG; Start 07/28/18 at 16:30 Pantoprazole (Protonix Iv) 40 mg BID@06,18 IV Last administered on 07/29/18at 17:13; Admin Dose 40 MG; Start 07/28/18 at 18:00 Albuterol (Ventolin Hfa) 2 puff Q4H PRN INH sob; Start 07/28/18 at 20:00 Atorvastatin Calcium (Lipitor) 20 mg DAILY PO Last administered on 07/30/18at 08:32; Admin Dose 20 MG; Start 07/29/18 at 09:00 Fluoxetine HCl (Prozac) 20 mg DAILY PO Last administered on 07/30/18at 08:32; Admin Dose 20 MG; Start 07/29/18 at 09:00 Gabapentin (Neurontin) 300 mg TID PO Last administered on 07/30/18at 12:57; Admin Dose 300 MG; Start 07/28/18 at 21:00 Lisinopril (Zestril) 20 mg BID PO Last administered on 07/28/18at 20:52; Admin Dose 20 MG; Start 07/28/18 at 21:00; Status Hold Metoprolol Tartrate (Lopressor) 50 mg TID PO Last administered on 07/28/18at 20:52; Admin Dose 50 MG; Start 07/28/18 at 21:00; Status Hold Quetiapine Fumarate (Seroquel) 400 mg HS PO Last administered on 07/29/18at 20:22; Admin Dose 400 MG; Start 07/28/18 at 21:00 Zolpidem Tartrate (Ambien) 10 mg QHS PRN PO INSOMNIA Last administered on 07/29/18at 23:06; Admin Dose 10 MG; Start 07/28/18 at 20:00 Sodium Chloride 1,000 ml @ 75 mls/hr [id number] IV Last administered on 07/29/18at 18:53; Admin Dose 75 MLS/HR; Start 07/29/18 at 06:00 Morphine Sulfate (morphine) 4 mg Q4H PRN PO PAIN LEVEL 6-10 Last administered o n 07/29/18at 18:42; Admin Dose 4 MG; Start 07/29/18 at 13:30 Magnesium Sulfate 100 ml @ 25 mls/hr ONCE ONCE IVPB ; Start 07/30/18 at 14:30; Stop 07/30/18 at 18:29 LUDWIN BARRON Jul 30, 2018 14:23
[2018-07-30] MEDS ORDERED: MAGNESIUM SULFATE 4 GM/100 ML 100 ML IVPB ONE (14:30)
[2018-07-30 15:23] VITALS: BP 150/80; PULSE 78; RESP 19
[2018-07-30] MEDS: morphine LIQ (10 MG/5 ML) CUP PO PRN (19:53)
[2018-07-30 19:58] VITALS: BP 151/90; PULSE 88; RESP 20
[2018-07-30] MEDS: QUETIAPINE 100 MG TAB PO SCH (22:01)
[2018-07-30] MEDS: ZOLPIDEM 5 MG TAB PO PRN (22:10)
[2018-07-31] MEDS: morphine LIQ (10 MG/5 ML) CUP PO PRN ×3 (00:28→21:06)
[2018-07-31 02:45] VITALS: BP 148/88; PULSE 74; RESP 20
[2018-07-31] MEDS: PANTOPRAZOLE 40 MG INJ IV SCH ×2 (06:35→17:14)
[2018-07-31 07:34] VITALS: BP 118/83; PULSE 69; RESP 18
[2018-07-31] MEDS: GABAPENTIN 300 MG CAP PO SCH ×3 (09:29→20:26)
[2018-07-31] MEDS: ATORVASTATIN 20 MG TAB PO SCH (09:29)
[2018-07-31] MEDS: FLUOXETINE 20 MG CAP PO SCH (09:30)
--- NOTE | 2018-07-31 15:04 | PN ---
Date/Time of Note Date/Time of Note DATE: 07/31/18 TIME: 15:04 Assessment/Plan VTE Prophylaxis [place] [facility] risk: 2 SCD applied [place] [facility] No SCD contraindicated: other Pharmacological prophylaxis: other Pharm contraindication: other Lines/Catheters IV Catheter Type (from [facility]): [place] Urinary Cath still in place: No Assessment/Plan Assessment/Plan - Acute gastroenteritis. Continue supportive care, Zofran as needed for nausea. - Anemia, f/up on stool for OB, s/p blood transfusion - Hypertension. - Dyslipidemia. - Bipolar disorder - History of coronary artery disease, status post myocardial infarction. - History of ovarian cancer, status post surgery - History of recurrent incisional hernia, status post repair. Further recommendations based on clinical course. Plan of care discussed with Dr. Edwards. Result Diagram: 07/31/1842107/31/182 Results 24hrs Laboratory Tests Test 07/31/18 04:22 White Blood Count 5.3 Red Blood Count 3.56 L Hemoglobin 9.7 L Hematocrit 30.8 L Mean Corpuscular Volume 86.5 Mean Corpuscular Hemoglobin 27.2 L Mean Corpuscular Hemoglobin Concent 31.5 L Red Cell Distribution Width 17.4 H Platelet Count 316 Mean Platelet Volume 9.6 Immature Granulocytes % 0.200 Neutrophils % 47.3 Lymphocytes % 34.4 Monocytes % 9.1 Eosinophils % 8.0 H Basophils % 1.0 Nucleated Red Blood Cells % 0.0 Immature Granulocytes # 0.010 Neutrophils # 2.5 Lymphocytes # 1.8 Monocytes # 0.5 Eosinophils # 0.4 Basophils # 0.1 Nucleated Red Blood Cells # 0.0 Sodium Level 141 Potassium Level 3.7 Chloride Level 108 Carbon Dioxide Level 25 Anion Gap 8 Blood Urea Nitrogen 13 Creatinine 0.89 Est Glomerular Filtrat Rate mL/min > 60 Glucose Level 88 Calcium Level 8.9 Magnesium Level 2.3 # Ferritin 18.7 Exam/Review of Systems Vital Signs Vitals Vital Signs Date Temp Pulse Resp B/P (MAP) Pulse Ox O2 O2 Flow FiO2 Time Delivery Rate 07/31/18 97.6 69 18 118/83 95 07:34 (95) 07/30/18 Room Air 02:00 Intake and Output 07/30/18 07/30/18 07/31/18 1515:00 23:00 07:00 IntakeIntake Total 400 ml 850 ml 580 ml OutputOutput Total 1600 ml 5 ml BalanceBalance -1200 ml 850 ml 575 ml Medications Medications Current Medications Ondansetron HCl (Zofran Inj) 4 mg Q4H PRN IV NAUSEA AND/OR VOMITING Last administered on 07/28/18 17:55; Admin Dose 4 MG; Start 07/28/18 at 16:30 Pantoprazole (Protonix Iv) 40 mg BID@,18 IV Last administered on 07/31/18 06:35; Admin Dose 40 MG; Start 07/28/18 at 18:00 Albuterol (Ventolin Hfa) 2 puff Q4H PRN INH sob; Start 07/28/18 at 20:00 Atorvastatin Calcium (Lipitor) 20 mg DAILY PO Last administered on 07/31/18 09:29; Admin Dose 20 MG; Start 07/29/18 at 09:00 Fluoxetine HCl (Prozac) 20 mg DAILY PO Last administered on 07/31/18 09:30; Admin Dose 20 MG; Start 07/29/18 at 09:00 Gabapentin (Neurontin) 300 mg TID PO Last administered on 07/31/18 13:51; Admin Dose 300 MG; Start 07/28/18 at 21:00 Lisinopril (Zestril) 20 mg BID PO Last administered on 07/28/18 20:52; Admin Dose 20 MG; Start 07/28/18 at 21:00; Status Hold Metoprolol Tartrate (Lopressor) 50 mg TID PO Last administered on 07/28/18 20:52; Admin Dose 50 MG; Start 07/28/18 at 21:00; Status Hold Quetiapine Fumarate (Seroquel) 400 mg HS PO Last administered on 07/30/18 22:01; Admin Dose 400 MG; Start 07/28/18 at 21:00 Zolpidem Tartrate (Ambien) 10 mg QHS PRN PO INSOMNIA Last administered on 07/30/18 22:10; Admin Dose 10 MG; Start 07/28/18 at 20:00 Morphine Sulfate (morphine) 4 mg Q4H PRN PO PAIN LEVEL 6-10 Last administered on 07/31/18 10:08; Admin Dose 4 MG; Start 1/16/19 at 13:30 Enoxaparin Sodium (Lovenox) 40 mg Q24H SC ; Start 07/31/18 at 20:00 SOM PALENCIA Jul 31, 2018 15:04
[2018-07-31 20:03] VITALS: BP 145/88; PULSE 78; RESP 20
[2018-07-31] MEDS: QUETIAPINE 100 MG TAB PO SCH (20:26)
[2018-07-31] MEDS: ENOXAPARIN 40 MG/0.4 ML SYG SC SCH (20:28)
[2018-07-31] MEDS: ZOLPIDEM 5 MG TAB PO PRN (23:15)
[2018-08-01 02:18] VITALS: BP 144/82; RESP 20
[2018-08-01] MEDS: PANTOPRAZOLE 40 MG INJ IV SCH ×2 (06:00→17:31)
[2018-08-01 07:39] VITALS: BP 129/78; PULSE 76; RESP 18
[2018-08-01] MEDS: ATORVASTATIN 20 MG TAB PO SCH (09:24)
[2018-08-01] MEDS: FLUOXETINE 20 MG CAP PO SCH (09:24)
[2018-08-01] MEDS: GABAPENTIN 300 MG CAP PO SCH ×3 (09:24→20:19)
[2018-08-01] MEDS: morphine LIQ (10 MG/5 ML) CUP PO PRN ×2 (09:30→20:19)
--- NOTE | 2018-08-01 13:28 | PDOCDIS ---
Discharge Instructions CONDITION [id number] Patient Condition: [id number] Stable HOME CARE INSTRUCTIONS: [id number] Special Diet: [id number] Activity Restrictions: [id number] Slowly Increase Activity Rest between Activity Avoid heavy lifting Do not Drive Do not operate Machinery Do not operate Power Tool Avoid Heavy Housework FOLLOW UP/APPOINTMENTS Follow-up Plan - FU with Primary MD in 1 week - Call 911 or go to the nearest hospital if symptoms get worse.Patient and her daughter verbalized understanding dc instructions - staff / SOM Aguilar Aug 01, 2018 13:28
[2018-08-01 16:07] VITALS: BP 136/98; PULSE 87; RESP 18
[2018-08-01 19:55] VITALS: BP 148/90; PULSE 88; RESP 20
[2018-08-01] MEDS: QUETIAPINE 100 MG TAB PO SCH (20:20)
[2018-08-01] MEDS: ENOXAPARIN 40 MG/0.4 ML SYG SC SCH (20:23)
[2018-08-01 21:05] VITALS: BP 127/73; PULSE 70
[2018-08-01] MEDS: ZOLPIDEM 5 MG TAB PO PRN (22:06)
[2018-08-02 03:09] VITALS: BP 142/72; PULSE 74; RESP 18
[2018-08-02 04:00] VITALS: BP 132/70; PULSE 68
[2018-08-02] MEDS: PANTOPRAZOLE 40 MG INJ IV SCH (06:20)
[2018-08-02 07:19] VITALS: BP 114/78; PULSE 75; RESP 14
[2018-08-02] MEDS: GABAPENTIN 300 MG CAP PO SCH ×2 (09:33→12:30)
[2018-08-02] MEDS: FLUOXETINE 20 MG CAP PO SCH (09:33)
[2018-08-02] MEDS: ATORVASTATIN 20 MG TAB PO SCH (09:33)
[2018-08-26] MEDS ORDERED: ONDA4TAB14 PO (05:56)
[2018-08-26] MEDS ORDERED: TRAM50TA2 PO (05:56)
== END 2018-08-02 14:19 | disposition home or self-care (01) | DRG 392 ==
LOC: E/R 09:29 → MS1 12:16 → OBSVTOIN 07-29 11:44
PROVIDERS: ADMIT Internal Medicine; ATTEND Internal Medicine
PROC: 30233N1 Transfusion of Nonautologous Red Blood Cells into Peripheral Vein, Percutaneous Approach (ICD-10-PCS; principal; 2018-07-29)
DX: K52.9 Noninfective gastroenteritis and colitis, unspecified (principal); G93.40 Encephalopathy, unspecified; I25.10 Atherosclerotic heart disease of native coronary artery without angina pectoris; I10 Essential (primary) hypertension; E78.5 Hyperlipidemia, unspecified; F32.9 Major depressive disorder, single episode, unspecified; R11.2 Nausea with vomiting, unspecified; E86.0 Dehydration; D64.9 Anemia, unspecified; I25.2 Old myocardial infarction; Z90.710 Acquired absence of both cervix and uterus; Z98.890 Other specified postprocedural states; Z85.43 Personal history of malignant neoplasm of ovary
CPT/HCPCS: 36415; 36430; 80048; 80053; 82607; 82728; 82746; 82962; 83036; 83540; 83690; 83735; 84100; 85014; 85018; 85025; 86850; 86900; 86901; 86920; 87081; 96361; 96372; 96374; 96375; C9113; G0378; J0500; J1650; J1885; J2060; J2270; J2274; J2405; J7030; J7040; P9016

== ENCOUNTER 2018-08-26 09:32 | Inpatient (IN) | payer BC ==
[2018-08-26] VITALS (11 sets, daily range): BP systolic 132–175; BP diastolic 69–100; PULSE 31–56; RESP 9–18; Ht 162.6 cm; Wt 74.0 kg
[~2018-08-26] VITALS: Ht 162.6 cm; Wt 74.0 kg
[~2018-08-26 09:32] MED LIST changes: +ONDA4TAB14 PO; +TRAM50TA2 PO
[2018-08-26] MEDS ORDERED: SOD CHLORIDE 0.9% 1,000 ML IV STA (10:03)
[2018-08-26] MEDS ORDERED: ATROPINE 1 MG/10 ML SYRINGE ONE (11:06)
[2018-08-26] MEDS ORDERED: ATROPINE 0.4 MG INJ IV ONE (11:30)
[2018-08-26] MEDS ORDERED: ATROPINE 1 MG INJ IV SCH (11:30)
--- NOTE | 2018-08-26 12:46 | ERD ---
ER Documentation Chief Complaint Chief Complaint BIB [facility] AND [employer] INTENTIONAL OD ON HOME MEDS. HPI Patient is a 63-year-old female with depression who presents with an overdose. Please note that the history and physical exam is limited secondary to the patient's mental status. The patient was brought in by ambulance and police. S he admits to suicidal ideation and said that she overdosed on her medications about 1.5 hours ago. She says that she overdosed" all meds in the back". She cannot give me exact amounts or how much was in each bottle. The medications that were in the bottle were Advil, lisinopril, Seroquel, famotidine, metoprolol, clonidine, fluoxetine, Eliquis, omeprazole, prednisone, and zolpidem. She is tearful. Upon review of old medical records the patient has multiple visits for various complaints. ROS All systems reviewed and are negative except as per history of present illness. Medications Home Meds Active Scripts Ondansetron (Ondansetron Odt) 4 Mg Tab.rapdis, 4 MG PO Q6H PRN for NAUSEA AND/OR VOMITING, #10 TAB Prov:SAVANAH MERRILL 08/26/18 Tramadol HCl (Tramadol HCl) 50 Mg Tablet, 50 MG PO Q4 PRN for PAIN, #20 TAB Prov:SAVANAH MERRILL. 08/26/18 Reported Medications Albuterol Sulfate* (Ventolin HFA*) 18 Gm Hfa.aer.ad, 2 PUFF INHALATION Q4H, #1 INHALER 07/27/18 Apixaban* (Eliquis*) 5 Mg Tablet, 5 MG PO BID, TAB 07/27/18 Metformin Hcl* (Metformin Hcl* ER) 500 Mg Tab.sr.24h, 500 MG PO DAILY, #30 TAB 07/27/18 Gabapentin* (Gabapentin*) 300 Mg Capsule, 300 MG PO TID, #90 CAP 07/27/18 Fluoxetine Hcl* (Prozac*) 20 Mg Capsule, 20 MG PO DAILY, CAP 11/12/17 Quetiapine Fumarate* (Seroquel*) 400 Mg Tablet, 400 MG PO HS, TAB 11/12/17 Omeprazole* (Omeprazole*) 40 Mg Capsule.dr, 40 MG PO DAILY, #30 CAP 11/12/17 Zolpidem Tartrate* (Ambien*) 10 Mg Tablet, 10 MG PO QHS PRN for INSOMNIA, TAB 10/17/16 Metoprolol Tartrate* (Lopressor*) 50 Mg Tab, 50 MG PO TID, #60 TAB 10/17/16 Lisinopril* (Lisinopril*) 20 Mg Tablet, 20 MG PO BID, #30 TAB 10/17/16 Atorvastatin Calcium* (Atorvastatin Calcium*) 20 Mg Tablet, 20 MG PO DAILY 10/16/13 Discontinued Reported Medications Ranitidine Hcl* (Zantac*) 300 Mg Tablet, 300 MG PO HS, #30 TAB 10/17/16 Allergies Allergies: Coded Allergies: Penicillins (Unverified Allergy, Unknown, SWOLLEN THROAT , 08/26/18) lurasidone (Unverified Allergy, Unknown, 08/26/18) PMhx/Soc History of Surgery: No Anesthesia Reaction: No Hx Neurological Disorder: No Hx Respiratory Disorders: No Hx Cardiac Disorders: Yes (MT 20 years ago, CHF) Hx Psychiatric Problems: Yes (ANXIETY, DEPRESSION ) Hx Miscellaneous Medical Probl: No Hx Alcohol Use: Yes (When she was a "teen") Hx Substance Use: Yes (LSD in "highschool") Hx Tobacco Use: No Smoking Status: Never smoker FmHx Unable to obtain Physical Exam Vitals Vital Signs Date Temp Pulse Resp B/P (MAP) Pulse Ox O2 O2 Flow FiO2 Time Delivery Rate 08/26/18 52 18 143/106 98 Nasal 2.0 12:41 (118) Cannula 08/26/18 51 16 127/97 98 Nasal 2.0 11:37 (107) Cannula 08/26/18 55 16 107/64 98 Nasal 2.0 09:56 (78) Cannula 08/26/18 97.3 54 15 107/84 97 09:32 (92) Physical Exam Const: Awake but confused Head: Atraumatic Eyes: Normal Conjunctiva ENT: Normal External Ears, Nose and Mouth. Neck: Full range of motion. No meningismus. Resp: Clear to auscultation bilaterally Cardio: Bradycardia without murmur Abd: Soft, non tender, non distended. Normal bowel sounds Skin: No petechiae or rashes Back: No midline or flank tenderness Ext: No cyanosis, or edema Neur: Awake confused Psych: Tearful, admits to intentional overdose Result Diagram: 08/26/18 0950 08/26/18 0950 Results 24 hrs Laboratory Tests Test 08/26/18 09:50 White Blood Count 6.1 10^3/ul Red Blood Count 3.89 10^6/ul Hemoglobin 10.4 g/dl Hematocrit 34.4 % Mean Corpuscular Volume 88.4 fl Mean Corpuscular Hemoglobin 26.7 pg Mean Corpuscular Hemoglobin Concent 30.2 g/dl Red Cell Distribution Width 16.5 % Platelet Count 377 10^3/UL Mean Platelet Volume 9.7 fl Immature Granulocytes % 0.300 % Neutrophils % 61.1 % Lymphocytes % 28.2 % Monocytes % 6.1 % Eosinophils % 3.3 % Basophils % 1.0 % Nucleated Red Blood Cells % 0.0 /100WBC Immature Granulocytes # 0.020 10^3/ul Neutrophils # 3.7 10^3/ul Lymphocytes # 1.7 10^3/ul Monocytes # 0.4 10^3/ul Eosinophils # 0.2 10^3/ul Basophils # 0.1 10^3/ul Nucleated Red Blood Cells # 0.0 10^3/ul Sodium Level 141 mmol/L Potassium Level 3.6 mmol/L Chloride Level 110 mmol/L Carbon Dioxide Level 20 mmol/L Anion Gap 11 Blood Urea Nitrogen 15 mg/dl Creatinine 1.00 mg/dl Est Glomerular Filtrat Rate mL/min 56 mL/min Glucose Level 166 mg/dl Calcium Level 9.4 mg/dl Total Bilirubin 0.3 mg/dl Direct Bilirubin 0.00 mg/dl Indirect Bilirubin 0.3 mg/dl Aspartate Amino Transf (AST/SGOT) 20 IU/L Alanine Aminotransferase (ALT/SGPT) 11 IU/L Alkaline Phosphatase 86 IU/L Total Protein 6.6 g/dl Albumin 3.6 g/dl Globulin 3.00 g/dl Albumin/Globulin Ratio 1.20 Salicylates Level < 1.0 mg/dl Acetaminophen Level < 10.0 ug/ml Ethyl Alcohol Level < 10.0 mg/dl Current Medications Medications Dose Sig/Markus Start Time Status Last (Trade) Ordered Route PRN Stop Time Admin Dose Reason Admin Sodium 1,000 ml @ Q1H STAT 08/26/18 DC 08/26/18 Chloride 1,000 mls/hr IV 10:03 10:05 08/26/18 11:02 Atropine 0.5 mg ONCE ONCE 08/26/18 DC Sulfate IV 11:30 (Atropine) 08/26/18 11:30 Atropine 1 mg STK-MED 08/26/18 DC Sulfate ONCE .ROUTE 11:06 (Atropine 08/26/18 11:07 (Syringe)) Atropine 0.5 mg ONCE IV 08/26/18 DC 08/26/18 Sulfate 11:30 11:23 (Atropine) 08/26/18 11:31 Procedures/MDM EKG read by me: Rate/Rhythm: Sinus bradycardia Intervals: Normal Impression: Bradycardia without ischemia Patient is a 63-year-old female who presents with intentional overdose. The patient was bradycardic and did take an overdose of metoprolol potentially so atropine 0.5 mg IV was given. She cannot be cleared medically at this time. She will be admitted to the intensive care unit to the care of Dr. Cheng. She will need close monitoring for signs of decompensation. At this point she is protecting her own airway and does not need intubation. Her blood pressure has been stable and she does not need pressors or central line placement at this time. She will need a one-to-one sitter as this was an intentional overdose. When she is medically clear she will likely need transfer for psychiatric care. Critical Care: Time: 35 minutes excluding all billable procedures. Treatments/Evaluations: Close monitoring and treatment of unstable vital signs, cardiorespiratory, and neurologic status, while maintaining tight balance of fluid, respiratory, and cardiac interventions. Departure Diagnosis: Primary Impression: Bradycardia Additional Impression: Intentional drug overdose Encounter type: initial encounter Qualified Codes: T50.902A - Poisoning by unspecified drugs, medicaments and biological substances, intentional self- harm, initial encounter Condition: Critical RUSH VARGAS MD Aug 26, 2018 12:46
[2018-08-26] MEDS ORDERED: LISINOPRIL 20 MG TAB PO SCH (15:30)
--- NOTE | 2018-08-26 15:32 | HP ---
Date/Time of Note Date/Time of Note DATE: 08/26/18 TIME: 15:22 Assessment/Plan VTE Prophylaxis SCD applied (from Nsg): Yes Pharmacological prophylaxis: NA/contraindicated Pharm contraindication: other Lines/Catheters IV Catheter Type (from Nrsg): Saline Lock Urinary Cath still in place: Yes Reason Cath still needed: urinary retention Assessment/Plan Assessment/Plan -Intentional drug overdose, continue IV fluids, ICU monitoring with one-to-one sitter -Bradycardia. Dr. Abdalla is asked to see patient in cardiology consultation. -Suicidal ideation, psychiatric consult -Hypertension, she is currently normotensive -History of coronary artery disease -Hyperlipidemia -Schizoaffective disorder with bipolar features Further recommendations based on clinical course. Plan of care discussed with Dr. Edwards. Result Diagram: 08/26/1850 08/26/1850 Results 24hrs Laboratory Tests Test 08/26/18 09:49 08/26/18 09:50 Hemoglobin A1c 5.8 White Blood Count 6.1 # Red Blood Count 3.89 L Hemoglobin 10.4 L Hematocrit 34.4 L Mean Corpuscular Volume 88.4 Mean Corpuscular Hemoglobin 26.7 L Mean Corpuscular Hemoglobin Concent 30.2 L Red Cell Distribution Width 16.5 H Platelet Count 377 # Mean Platelet Volume 9.7 Immature Granulocytes % 0.300 Neutrophils % 61.1 Lymphocytes % 28.2 Monocytes % 6.1 Eosinophils % 3.3 Basophils % 1.0 Nucleated Red Blood Cells % 0.0 Immature Granulocytes # 0.020 Neutrophils # 3.7 Lymphocytes # 1.7 Monocytes # 0.4 Eosinophils # 0.2 Basophils # 0.1 Nucleated Red Blood Cells # 0.0 Prothrombin Time 13.4 Prothrombin Time Ratio 1.0 INR International Normalized Ratio 1.01 Activated Partial Thromboplast Time 26.7 Urine Color YELLOW Urine Clarity CLOUDY A Urine pH 5.0 Urine Specific Durand 1.024 Urine Ketones NEGATIVE Urine Nitrite NEGATIVE Urine Bilirubin NEGATIVE Urine Urobilinogen 1+ H Urine Leukocyte Esterase NEGATIVE Urine Microscopic RBC 2 Urine Microscopic WBC 7 H Urine Squamous Epithelial Cells FEW Urine Hyaline Casts FEW A Urine Mucus MANY A Urine Hemoglobin NEGATIVE Urine Glucose 1+ H Urine Total Protein 2+ H Sodium Level 141 Potassium Level 3.6 Chloride Level 110 Carbon Dioxide Level 20 L Anion Gap 11 Blood Urea Nitrogen 15 Creatinine 1.00 Est Glomerular Filtrat Rate mL/min 56 L Glucose Level 166 Calcium Level 9.4 Total Bilirubin 0.3 Direct Bilirubin 0.00 Indirect Bilirubin 0.3 Aspartate Amino Transf (AST/SGOT) 20 Alanine Aminotransferase (ALT/SGPT) 11 L Alkaline Phosphatase 86 Total Protein 6.6 # Albumin 3.6 Globulin 3.00 Albumin/Globulin Ratio 1.20 Salicylates Level < 1.0 L Urine Opiates Screen Positive Acetaminophen Level < 10.0 L Urine Barbiturates Negative Urine Amphetamines Screen Negative Urine Benzodiazepines Screen Negative Urine Cocaine Screen Negative Urine Cannabinoids Negative Ethyl Alcohol Level < 10.0 H HPI/ROS Admit Date/Time Admit Date/Time Aug 26, 2018 at 12:01 Hx of Present Illness The patient is 63-year-old female known to me from previous admission patient patient has a extensive medical history including ovarian cancer status post hysterectomy and bilateral oophorectomy years ago, history of coronary artery disease, myocardial infarction, hypertension, hyperlipidemia, congestive heart failure, gastritis, schizoaffective disorder with bipolar features. The patient was brought to the emergency room by ambulance and police. Patient stated that she overdosed on her medication, patient is unable to specify specify how much and what exactly medication she took, patient's home medication reviewed and include Advil lisinopril Seroquel Pepcid metoprolol clonidine fluoxetine Eliquis omeprazole, prednisone and Ambien. Patient admitted to suicidal ideation and wanted to hurt herself. Patient is bradycardic, patient is awake alert to name only cannot provide detailed history. Since patient is overdosed on metoprolol patient was given atropine in the emergency room. Patient is admitted to intensive care unit for evaluation and management. ROS Unable to obtain due to patient's condition PMH/Family/Social Past Medical History Medical History: coronary artery disease, high cholesterol, hypertension, other (Schizophrenia, bipolar disorder) Medications Current Medications Ondansetron HCl (Zofran Inj) 4 mg Q6H PRN IV NAUSEA AND/OR VOMITING; Start 08/26/18 at 14:30 Acetaminophen (Tylenol Tab) 650 mg Q6H PRN PO PAIN LEVEL 1-3 OR FEVER; Start 08/26/18 at 14:30 Pantoprazole (Protonix Tab) 40 mg DAILY@06 PO ; Start 08/27/18 at 06:00 Lisinopril (Zestril) 20 mg BID PO ; Start 08/26/18 at 15:30 Coded Allergies: Penicillins (Unverified Allergy, Unknown, SWOLLEN THROAT , 08/26/18) lurasidone (Unverified Allergy, Unknown, 08/26/18) Past Surgical History Past Surgical Hx: other (Status post x2, status post hysterectomy and bilateral oophorectomy, status post hernia repair) Family History Significant Family History: no pertinent family hx Social History Alcohol Use: none Smoking Status: Never smoker Drug Use: none Exam/Review of Systems Vital Signs Vitals Vital Signs Date Temp Pulse Resp B/P (MAP) Pulse Ox O2 O2 Flow FiO2 Time Delivery Rate 08/26/18 98.0 44 16 142/100 99 Nasal 4.0 13:56 (114) Cannula Exam Constitutional: alert, oriented Head: normocephalic Neck: supple Respiratory: clear to auscultation Cardiovascular: other (Sinus bradycardia) Gastrointestinal: soft, non-tender Musculoskeletal: nl extremities to inspection Extremities: normal pulses Neurological: nl mental status Skin: nl LUDWIN Morrissey Aug 26, 2018 15:32
[2018-08-26] MEDS: SOD CHLORIDE 0.9% 1,000 ML IV SCH (16:25)
[2018-08-26] MEDS ORDERED: ATROPINE 1 MG/10 ML SYRINGE IV ONE (18:30)
--- NOTE | 2018-08-26 20:08 | CONS ---
DATE OF ADMISSION: 08/26/2018 DATE OF CONSULTATION: 08/26/2018 REASON FOR CONSULTATION: Bradycardia. REQUESTING PHYSICIAN: Dr. Chon Zavala HISTORY OF PRESENT ILLNESS: Ms. Gaitan is a 63-year-old female with a history of ovarian cancer sta tus post hysterectomy, bilateral oophorectomy, coronary artery disease with VA, hypertension, dyslipi demia, congestive heart failure, bipolar disorder, who has been brought to the emergency room by [facility] [employer] after she stated that she had overdosed, saying that her life was bad and that she did not want to live. HOME MEDICATIONS: The patient's home medications as written down include: 1. Advil. 2. Lisinopril. 3. Seroquel. 4. Pepcid. 5. Metoprolol. 6. Clonidine. 7. Fluoxetine. 8. Eliquis. 9. Omeprazole. 10. Prednisone. 11. Ambien. Upon arrival in the emergency department, temperature 97.3, blood pressure 107/84, pulse 54, respirat ory rate 15, satting 97%. The patient's labs were notable for white count of 6.1, hemoglobin 10.4, p latelet count of 377; a sodium of 141, potassium 3.6, creatinine 1.0, BUN 15, AST 20, ALT 11; INR of 1.0; tox screen positive for opiates; UA negative. The patient underwent no imaging studies. The carmine bhat's electrocardiogram revealed marked sinus bradycardia at 36 with normal axis, incomplete right bundle branch block, inferior T-wave inversion, anteroseptal Q's. The patient subsequently has been admitted to the ICU for a close followup. She does not have pacing pads on but are available in the room for pacing as necessary. The patient at this time is very lethargic but does respond to questio ns appropriately, has stable blood pressure, continues to be bradycardic. PAST MEDICAL HISTORY: As above in the HPI. MEDICATIONS CURRENTLY IN THE HOSPITAL: 1. Protonix 40 mg daily. 2. IV fluid hydration 100 mL/hr. 3. Desyrel 200 mg p.o. b.i.d. 4. Zofran p.r.n. 5. Tylenol p.r.n. 6. Atrovent appears to have been given 0.5 mg x2. ALLERGIES: 1. PENICILLIN. 2. LURASIDONE. SOCIAL HISTORY: No tobacco. Social EtOH. Occasional marijuana per patient. FAMILY HISTORY: No history of sudden cardiac or early CAD. REVIEW OF SYSTEMS: As above in the HPI. CONSTITUTIONAL: No fevers, chills. PULMONARY: No current shortness of breath. CARDIOVASCULAR: Bradycardia. GASTROINTESTINAL: No vomiting. GENITOURINARY: No hematuria. MUSCULOSKELETAL: Degenerative joint disease. PSYCHIATRIC: Positive depression, suicidal ideation. PHYSICAL EXAMINATION: VITAL SIGNS: Temperature 97.6, blood pressure 149/93, pulse 37, respiratory rate 16, satting 99% on room air. GENERAL: The patient is sleeping, arousable. NECK: JVP approximately 8 to 9 cm of water. CHEST: Fair air movement throughout with mildly decreased breath sounds at the bases bilaterally. HEART: Bradycardic. Regular rhythm. Normal S1, S2. A I/ systolic murmur. Nondisplaced PMI. ABDOMEN: Positive bowel sounds. Soft. EXTREMITIES: No significant pitting edema. With 1+ pulses bilateral posterior tibial. LABORATORY DATA: As above in the HPI. No further labs for my review at this time. IMAGING STUDIES: As above in the HPI. No further imaging studies for my review at this time. ELECTROCARDIOGRAM: As above in the HPI. No further electrocardiograms for my review at this time. IMPRESSION: 1. Sinus bradycardia in the setting of overdose possibly due to the patient's beta blockers, clonidi ne, whichever was taken possibly. 2. Hypertension, borderline. 3. Abnormal electrocardiogram. Assess for acute coronary syndrome. 4. Suicidal ideations with intentional overdose. 5. Bipolar disorder, schizoaffective disorder. 6. Dyslipidemia. 7. History of myocardial infarction. RECOMMENDATIONS: 1. At this time, we would maintain the patient in ICU on close monitoring. 2. Continue the patient's IV fluid hydration. 3. Follow the patient's heart rate closely. 4. Keep pacing pads nearby. 5. Could attempt Glucagon to assess if truly due to beta viji toxicity and, therefore, will wear off in time. 6. Check a 2D echo to further assess patient's ejection fraction, wall motion or any major valve abn ormalities. 7. Complete the patient's rule-out myocardial infarction to ensure that the patient's accompanying s ymptoms are not due to an acute coronary syndrome, and we would check a TSH to be sure subclinical hy pothyroidism is not also contributing to any bouts of bradyarrhythmias. Thank you for allowing me to take part in the care of this patient. I will continue to follow along very closely with you, with further recommendations to be made as the patient progresses through her inpatient hospital clinical course. Dictated By: KIMMY COHN/SHEREEN Conf#: [id number] DID#: [id number] CC: CHON ZAVALA MD;*EndCC*
[2018-08-27] VITALS (34 sets, daily range): BP systolic 105–166; BP diastolic 60–113; PULSE 33–61; RESP 11–23
[2018-08-27] MEDS: SOD CHLORIDE 0.9% 1,000 ML IV SCH ×2 (05:00→12:00)
[2018-08-27] MEDS: PANTOPRAZOLE (EC) 40 MG TAB PO SCH ×2 (05:39→06:04)
[2018-08-27] MEDS ORDERED: LORAZEPAM 2 MG INJ IV PRN (10:00)
--- NOTE | 2018-08-27 10:50 | CONS ---
Assessment/Plan Assessment/Plan Hospital Course (Demo Recall) IMPRESSION: 1. Sinus bradycardia in the setting of overdose possibly due to the patient's beta blockers, clonidine, whichever was taken possibly.-improving S juwan 2. Hypertension, borderline. 3. Abnormal electrocardiogram. Assess for acute coronary syndrome. 4. Suicidal ideations with intentional overdose. 5. Bipolar disorder, schizoaffective disorder. 6. Dyslipidemia. 7. History of myocardial infarction. Recc: -ICU -Follow HR/rhythm clsoely -Hold any atif agents -start CCB to improve BP -RX psych d/o -will f/u echo Consultation Date/Type/Reason Admit Date/Time Aug 26, 2018 at 12:01 Initial Consult Date 08/26/18 Type of Consult Cardiology Reason for Consultation Bradycarda Requesting Provider: JOSE ZAVALA MD Date/Time of Note DATE: 08/27/18 TIME: 10:47 Exam/Review of Systems Vital Signs Vitals Vital Signs Date Temp Pulse Resp B/P (MAP) Pulse Ox O2 O2 Flow FiO2 Time Delivery Rate 08/27/18 43 20 09:00 08/27/18 98.0 157/113 100 Room Air 08:00 (128) 08/27/18 21 00:00 08/26/18 4.0 13:56 Intake and Output 08/26/18 08/26/18 08/27/18 1515:00 23:00 07:00 IntakeIntake Total 250 ml 1145 ml OutputOutput Total 225 ml 475 ml BalanceBalance 25 ml 670 ml Exam Exam Review of Systems: CONSTITUTIONAL: No fevers, chills. PULMONARY: No sob CARDIOVASCULAR: No chest pain/palpitations GASTROINTESTINAL: No nausea/vomiting. GENITOURINARY: No hematuria/dysuria. MUSCULOSKELETAL: No myagias/arthalgias. PSYCHIATRIC:Depressed NEUROLOGIC: No weakness Constitutional: alert Psych: no complaints Head: normocephalic ENMT: mucosa pink and moist Neck: supple, jvd (9 cm water) Respiratory: clear to auscultation Cardiovascular: regular rate and rhythm Gastrointestinal: soft, non-tender Musculoskeletal: muscle tone (normal) Extremities: edema (none) Neurological: other (No focal deficits) Labs Result Diagram: 08/27/18 0533 08/27/18 0533 Results 24hrs Laboratory Tests Test 08/26/18 17:50 08/27/18 00:52 08/27/18 05:33 Troponin I < 0.012 < 0.012 0.032 White Blood Count 12.8 #H Red Blood Count 3.64 L Hemoglobin 9.8 L Hematocrit 31.5 L Mean Corpuscular Volume 86.5 Mean Corpuscular Hemoglobin 26.9 L Mean Corpuscular Hemoglobin Concent 31.1 L Red Cell Distribution Width 16.1 H Platelet Count 360 Mean Platelet Volume 9.8 Immature Granulocytes % 0.500 H Neutrophils % 85.6 H Lymphocytes % 7.6 L Monocytes % 5.3 Eosinophils % 0.5 Basophils % 0.5 Nucleated Red Blood Cells % 0.0 Immature Granulocytes # 0.070 H Neutrophils # 10.9 H Lymphocytes # 1.0 Monocytes # 0.7 Eosinophils # 0.1 Basophils # 0.1 Nucleated Red Blood Cells # 0.0 Sodium Level 141 Potassium Level 3.7 Chloride Level 110 Carbon Dioxide Level 16 L Anion Gap 15 H Blood Urea Nitrogen 24 H Creatinine 1.45 H Est Glomerular Filtrat Rate mL/min 36 L Glucose Level 104 # Calcium Level 9.0 Magnesium Level 1.4 L Medications Medications Current Medications Ondansetron HCl (Zofran Inj) 4 mg Q6H PRN IV NAUSEA AND/OR VOMITING; Start 08/26/18 at 14:30 Acetaminophen (Tylenol Tab) 650 mg Q6H PRN PO PAIN LEVEL 1-3 OR FEVER; Start 08/26/18 at 14:30 Pantoprazole (Protonix Tab) 40 mg DAILY@06 PO Last administered on 08/27/18at 06:04; Admin Dose 40 MG; Start 08/27/18 at 06:00 Sodium Chloride 1,000 ml @ 100 mls/hr Q10H IV Last administered on 08/27/18at 05:00; Admin Dose 100 MLS/HR; Start 08/26/18 at 16:00 Miscellaneous Information Patients own medicat... BID@, XX ; Start 08/27/18 at 10:00 Influenza Virus Vaccine Quadrival (Fluzone) 0.5 ml ONCE ONCE IM* ; Start 08/29/18 at 09:00; Stop 08/29/18 at 09:01 Magnesium Sulfate 3 gm/Dextrose 106 ml @ 35.333 mls/ hr ONCE ONCE IVPB ; Start 2/14/19 at 11:00; Stop 08/27/18 at 13:59 Lorazepam (Ativan) 0.5 mg Q6H PRN IV AGITATION/ANXIETY Last administered on 08/27/18at 10:03; Admin Dose 0.5 MG; Start 08/27/18 at 10:00 KIMMY VILLATORO Aug 27, 2018 10:50
[2018-08-27] MEDS ORDERED: MAGNESIUM SULFATE 3 GM in DEXTROSE 5% 100 ML IVPB ONE (11:00)
[2018-08-27] MEDS ORDERED: hydrALAzine 20 MG INJ IV PRN (11:00)
--- NOTE | 2018-08-27 14:14 | RADRPT ---
Echocardiogram Report Patient Name: Tianna CERNAnt ID: [id number] : 1955 (63y 1m)Study Date: 08/27/2018 7:19:17 AM Gender: FAccession #: [id number] Tech: [place] Location: Ref.Physician: KIMMY LANGLEY Height(Cm): BSA: Weight(Kg): Quality: AdequateAccount #: Procedures: Echocardiographic Report: Transthoracic echocardiogram with complete 2D, M-Mode, and doppler examination. Indications: Bradycardia. Measurements: 2D/M Mode Doppler Measurement Value Normal Range Measurement Value Normal Range LVIDd 2D 4.4 [ 3.8 - 5.2 ] cm AV Peak Jeff 1.5 [ 100.0 - 170.0 ] cm/sec LVIDs 2D 3.2 [ 2.2 - 3.5 ] cm AV Peak PG 10.0 [ 2.0 - 9.0 ] mmHg LVPWd 2D 0.9 [ 0.6 - 0.9 ] cm LVOT Peak Jeff 0.8 [ 70.0 - 110.0 ] cm/sec IVSd 2D 1.1 [ 0.6 - 0.9 ] cm LVOT Peak PG 3.0 [ 2.0 - 6.0 ] mmHg IVS/LVPW 2D 1.1 ratio MV E Peak Jeff 1.1 [ 60.0 - 130.0 ] cm/sec AoR Diam 2D 2.7 [ 2.3 - 3.1 ] cm MV A Peak Jeff 1.0 [ 100.0 - 120.0 ] cm/sec LA/Ao 2D 2 ratio MV E/A 1.1 [ 0.8 - 1.5 ] ratio LA Dimen 2D 4.1 [ 2.7 - 3.8 ] cm MV Decel Time 187 [ 104 - 258 ] msec Lat E` Jeff 0.1 [ 10.0 - 15.0 ] cm/sec MV E/A 1.1 [ 0.8 - 1.5 ] ratio TR Peak Jeff 3.3 [ 100.0 - 280.0 ] cm/sec TR Peak PG 43.0 mmHg RVSP 51.0 [ 10.0 - 36.0 ] mmHg RA Pressure 8.0 mmHg Findings: Left Ventricle: Normal left ventricular systolic function. Normal left ventricular cavity size. Mild concentric left ventricular hypertrophy. Ejection fraction is visually estimated at 55 %. Right Ventricle: Normal right ventricular size. Normal right ventricular systolic function. Left Atrium: There is mild enlargement of left atrium. Right Atrium: The right atrium is normal in size. Mitral Valve: Mitral valve leaflets appear mildly thickened. Mild mitral annular calcification. Mild mitral valve regurgitation. Aortic Valve: Normal appearance of the aortic valve. No significant aortic stenosis or insufficiency. Tricuspid Valve: Normal appearance of the tricuspid valve. Estimated peak PA systolic pressure 51 mmHg. There is mild tricuspid regurgitation. Pulmonic Valve: Normal pulmonic valve appearance. Pericardium: Normal pericardium with no significant pericardial effusion. Aorta: Normal aortic root. IVC: Dilated IVC with respiratory collapse consistent with elevated right atrial pressure. Conclusions: Normal left ventricular systolic function. Normal left ventricular cavity size. Mild concentric left ventricular hypertrophy. Ejection fraction is visually estimated at 55 %. There is mild enlargement of left atrium. Mitral valve leaflets appear mildly thickened. Mild mitral annular calcification. Mild mitral valve regurgitation. Normal appearance of the tricuspid valve. Estimated peak PA systolic pressure 51 mmHg. There is mild tricuspid regurgitation. Electronically Signed By: Kimmy Langley 2018-08-27 14:13:54 PST
--- NOTE | 2018-08-27 16:28 | PN ---
Date/Time of Note Date/Time of Note DATE: 08/27/18 TIME: 16:26 Assessment/Plan VTE Prophylaxis Risk score (from [facility] – [place], [place])>0 risk: 3 SCD applied (from [facility] – [place], [place]): Yes Pharmacological prophylaxis: NA/contraindicated Pharm contraindication: other Lines/Catheters IV Catheter Type (from [facility]): Peripheral IV Urinary Cath still in place: Yes Reason Cath still needed: urinary retention Assessment/Plan Hospital Course Patient is still bradycardic cardiac however the rate is improved currently is 48, patient gets agitated and try to get out of bed, has unstable gait, alert to name, otherwise, confused, continue one-to-one sitter, pending psychiatric evalu ation. Continue ICU monitoring. Assessment/Plan -Intentional drug overdose, continue IV fluids, ICU monitoring with one-to-one sitter -Bradycardia. Dr. Langley is following in cardiology consultation. -Acute kidney injury, continue IV fluids monitor BUN and creatinine. -Suicidal ideation, psychiatric consult -Hypertension, patient is normotensive continue hydralazine as needed for systolic blood pressure above 170. -History of coronary artery disease -Hyperlipidemia -Schizoaffective disorder with bipolar features Further recommendations based on clinical course. Plan of care discussed with Dr. Edwards. Result Diagram: 08/27/18 0533 08/27/18 0533 Results 24hrs Laboratory Tests Test 08/26/18 17:50 08/27/18 00:52 08/27/18 05:33 08/27/18 12:57 Troponin I < 0.012 < 0.012 0.032 White Blood Count 12.8 #H Red Blood Count 3.64 L Hemoglobin 9.8 L Hematocrit 31.5 L Mean Corpuscular 86.5 Volume Mean Corpuscular 26.9 L Hemoglobin Mean Corpuscular 31.1 L Hemoglobin Concent Red Cell 16.1 H Distribution Width Platelet Count 360 Mean Platelet Volume 9.8 Immature 0.500 H Granulocytes % Neutrophils % 85.6 H Lymphocytes % 7.6 L Monocytes % 5.3 Eosinophils % 0.5 Basophils % 0.5 Nucleated Red Blood 0.0 Cells % Immature 0.070 H Granulocytes # Neutrophils # 10.9 H Lymphocytes # 1.0 Monocytes # 0.7 Eosinophils # 0.1 Basophils # 0.1 Nucleated Red Blood 0.0 Cells # Sodium Level 141 Potassium Level 3.7 Chloride Level 110 Carbon Dioxide Level 16 L Anion Gap 15 H Blood Urea Nitrogen 24 H Creatinine 1.45 H Est Glomerular 36 L Filtrat Rate mL/min Glucose Level 104 # Calcium Level 9.0 Magnesium Level 1.4 L Prothrombin Time 40.2 #H Prothrombin Time 3.1 Ratio INR International 4.17 Normalized Ratio Exam/Review of Systems Exam Vitals Vital Signs Date Temp Pulse Resp B/P (MAP) Pulse Ox O2 O2 Flow FiO2 Time Delivery Rate 08/27/18 58 13 119/100 98 Room Air 14:00 (106) 08/27/18 97.5 12:00 08/27/18 21 00:00 08/26/18 4.0 13:56 Intake and Output 08/26/18 08/26/18 08/27/18 1515:00 23:00 07:00 IntakeIntake Total 250 ml 1145 ml OutputOutput Total 225 ml 475 ml BalanceBalance 25 ml 670 ml Exam Constitutional: alert, oriented Respiratory: clear to auscultation Cardiovascular: other (Sinus bradycardia) Gastrointestinal: soft, non-tender Musculoskeletal: nl extremities to inspection Extremities: normal pulses Neurological: nl mental status Skin: nl turgor Results Results 24hrs Laboratory Tests Test 08/26/18 17:50 08/27/18 00:52 08/27/18 05:33 08/27/18 12:57 Troponin I < 0.012 < 0.012 0.032 White Blood Count 12.8 #H Red Blood Count 3.64 L Hemoglobin 9.8 L Hematocrit 31.5 L Mean Corpuscular 86.5 Volume Mean Corpuscular 26.9 L Hemoglobin Mean Corpuscular 31.1 L Hemoglobin Concent Red Cell 16.1 H Distribution Width Platelet Count 360 Mean Platelet Volume 9.8 Immature 0.500 H Granulocytes % Neutrophils % 85.6 H Lymphocytes % 7.6 L Monocytes % 5.3 Eosinophils % 0.5 Basophils % 0.5 Nucleated Red Blood 0.0 Cells % Immature 0.070 H Granulocytes # Neutrophils # 10.9 H Lymphocytes # 1.0 Monocytes # 0.7 Eosinophils # 0.1 Basophils # 0.1 Nucleated Red Blood 0.0 Cells # Sodium Level 141 Potassium Level 3.7 Chloride Level 110 Carbon Dioxide Level 16 L Anion Gap 15 H Blood Urea Nitrogen 24 H Creatinine 1.45 H Est Glomerular 36 L Filtrat Rate mL/min Glucose Level 104 # Calcium Level 9.0 Magnesium Level 1.4 L Prothrombin Time 40.2 #H Prothrombin Time 3.1 Ratio INR International 4.17 Normalized Ratio Medications Medication Current Medications Ondansetron HCl (Zofran Inj) 4 mg Q6H PRN IV NAUSEA AND/OR VOMITING; Start 08/26/18 at 14:30 Acetaminophen (Tylenol Tab) 650 mg Q6H PRN PO PAIN LEVEL 1-3 OR FEVER; Start 08/26/18 at 14:30 Pantoprazole (Protonix Tab) 40 mg DAILY@06 PO Last administered on 08/27/18at 06:04; Admin Dose 40 MG; Start 08/27/18 at 06:00 Sodium Chloride 1,000 ml @ 100 mls/hr Q10H IV Last administered on 08/27/18at 05:00; Admin Dose 100 MLS/HR; Start 08/26/18 at 16:00 Miscellaneous Information Patients own medicat... BID@10,16 XX ; Start 08/27/18 at 10:00 Influenza Virus Vaccine Quadrival (Fluzone) 0.5 ml ONCE ONCE IM* ; Start 08/29/18 at 09:00; Stop 08/29/18 at 09:01 Nifedipine (Procardia Xl) 30 mg DAILY PO ; Start 08/27/18 at 11:00 Hydralazine HCl (Apresoline) 10 mg Q4H PRN IV SBP>170 DBP>105; Start 08/27/18 at 11:00 Lorazepam (Ativan) 0.5 mg Q4 PRN IV AGITATION/ANXIETY; Start 08/27/18 at 16:00 LUDWIN BARRON Aug 27, 2018 16:28
[2018-08-27] MEDS: NIFEdipine (XL) 30 MG TAB PO SCH (18:34)
[2018-08-28] VITALS (41 sets, daily range): BP systolic 105–160; BP diastolic 64–103; PULSE 44–104; RESP 11–24
[2018-08-28] MEDS: ONDANSETRON 4 MG INJ IV PRN ×2 (00:21→10:57)
[2018-08-28] MEDS: SOD CHLORIDE 0.9% 1,000 ML IV SCH ×3 (05:19→16:09)
[2018-08-28] MEDS: PANTOPRAZOLE (EC) 40 MG TAB PO SCH (05:21)
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
[2018-08-28] MEDS: NIFEdipine (XL) 30 MG TAB PO SCH (09:46)
--- NOTE | 2018-08-28 10:03 | PN ---
Date/Time of Note Date/Time of Note DATE: 08/28/18 TIME: 10:03 Assessment/Plan VTE Prophylaxis Risk score (from [facility] [place])>0 risk: 3 SCD applied (from [facility] [place]): Yes SCD contraindicated: other Pharmacological prophylaxis: other Pharm contraindication: other Lines/Catheters IV [facility]ter Type (from [facility]): Peripheral IV Urinary Cath still in place: Yes Reason Cath still needed: urinary retention Assessment/Plan Assessment/Plan -Bradycardia. Dr. Langley is following in cardiology consultation. -Acute kidney injury, continue IV fluids monitor BUN and creatinine. -Suicidal ideation, psychiatric consult -Hypertension, patient is normotensive continue hydralazine as needed for systolic blood pressure above 170. -History of coronary artery disease -Hyperlipidemia -Schizoaffective disorder with bipolar features - seen by psych arnp today Total critical care time spent 35 mins.Further recommendations based on clinical course. Plan of care discussed with Dr. Edwards. Result Diagram: 08/28/18 0509 08/28/18 0509 Results 24hrs Laboratory Tests Test 08/27/18 12:57 08/28/18 05:09 Prothrombin Time 40.2 #H Prothrombin Time Ratio 3.1 INR International Normalized Ratio 4.17 White Blood Count 6.5 # Red Blood Count 3.62 L Hemoglobin 9.9 L Hematocrit 32.3 L Mean Corpuscular Volume 89.2 Mean Corpuscular Hemoglobin 27.3 L Mean Corpuscular Hemoglobin Concent 30.7 L Red Cell Distribution Width 16.5 H Platelet Count 318 Mean Platelet Volume 10.6 H Immature Granulocytes % 0.600 H Neutrophils % 68.1 Lymphocytes % 22.5 Monocytes % 5.6 Eosinophils % 2.6 Basophils % 0.6 Nucleated Red Blood Cells % 0.0 Immature Granulocytes # 0.040 H Neutrophils # 4.4 Lymphocytes # 1.5 Monocytes # 0.4 Eosinophils # 0.2 Basophils # 0.0 Nucleated Red Blood Cells # 0.0 Sodium Level 141 Potassium Level 3.9 Chloride Level 109 Carbon Dioxide Level 19 L Anion Gap 13 Blood Urea Nitrogen 24 H Creatinine 1.47 H Est Glomerular Filtrat Rate mL/min 36 L Glucose Level 73 Calcium Level 8.6 Subjective 24 Hr Interval Summary Free Text/Dictation - alert/awake - sitter at bed side- suicidal ideation - nad - possibly transfer to tele - no events reported overnight per staff Constitutional: improved, requiring O2 Eyes: no complaints ENT: no complaints Respiratory: no complaints Cardiovascular: no complaints Gastrointestinal: no complaints Genitourinary: no complaints Skin: no complaints Neurologic: no complaints Exam/Review of Systems Exam Vitals Vital Signs Date Temp Pulse Resp B/P (MAP) Pulse Ox O2 O2 Flow FiO2 Time Delivery Rate 08/28/18 98.0 58 17 133/92 92 Room Air 08:00 (106) 08/27/18 21 00:00 08/26/18 4.0 13:56 Intake and Output 08/27/18 08/27/18 08/28/18 1515:00 23:00 07:00 IntakeIntake Total 50 ml 100 ml 105 ml OutputOutput Total 650 ml 650 ml 1100 ml BalanceBalance -600 ml -550 ml -995 ml Constitutional: alert, well developed Psych: nl mood/affect Eyes: nl lids, nl sclera ENMT: nl external ears & nose Neck: non-tender Respiratory: clear to auscultation Cardiovascular: nl pulses, other (s1s2) Gastrointestinal: soft, non-tender Musculoskeletal: nl extremities to inspection Extremities: normal pulses Neurological: nl speech, other (alert/responsive) Lymph: nontender Results Results 24hrs Laboratory Tests Test 08/27/18 12:57 08/28/18 05:09 Prothrombin Time 40.2 #H Prothrombin Time Ratio 3.1 INR International Normalized Ratio 4.17 White Blood Count 6.5 # Red Blood Count 3.62 L Hemoglobin 9.9 L Hematocrit 32.3 L Mean Corpuscular Volume 89.2 Mean Corpuscular Hemoglobin 27.3 L Mean Corpuscular Hemoglobin Concent 30.7 L Red Cell Distribution Width 16.5 H Platelet Count 318 Mean Platelet Volume 10.6 H Immature Granulocytes % 0.600 H Neutrophils % 68.1 Lymphocytes % 22.5 Monocytes % 5.6 Eosinophils % 2.6 Basophils % 0.6 Nucleated Red Blood Cells % 0.0 Immature Granulocytes # 0.040 H Neutrophils # 4.4 Lymphocytes # 1.5 Monocytes # 0.4 Eosinophils # 0.2 Basophils # 0.0 Nucleated Red Blood Cells # 0.0 Sodium Level 141 Potassium Level 3.9 Chloride Level 109 Carbon Dioxide Level 19 L Anion Gap 13 Blood Urea Nitrogen 24 H Creatinine 1.47 H Est Glomerular Filtrat Rate mL/min 36 L Glucose Level 73 Calcium Level 8.6 Medications Medication Current Medications Ondansetron HCl (Zofran Inj) 4 mg Q6H PRN IV NAUSEA AND/OR VOMITING Last administered on 08/28/18at 00:21; Admin Dose 4 MG; Start 08/26/18 at 14:30 Acetaminophen (Tylenol Tab) 650 mg Q6H PRN PO PAIN LEVEL 1-3 OR FEVER; Start 08/26/18 at 14:30 Pantoprazole (Protonix Tab) 40 mg DAILY@06 PO Last administered on 08/28/18at 05:21; Admin Dose 40 MG; Start 08/27/18 at 06:00 Sodium Chloride 1,000 ml @ 100 mls/hr Q10H IV Last administered on 08/28/18at 05:19; Admin Dose 100 MLS/HR; Start 08/26/18 at 16:00 Miscellaneous Information Patients own medicat... BID@10,16 XX ; Start 08/27/18 at 10:00 Influenza Virus Vaccine Quadrival (Fluzone) 0.5 ml ONCE ONCE IM* ; Start 08/29/18 at 09:00; Stop 08/29/18 at 09:01 Nifedipine (Procardia Xl) 30 mg DAILY PO Last administered on 08/28/18at 09:46; Admin Dose 30 MG; Start 08/27/18 at 11:00 Hydralazine HCl (Apresoline) 10 mg Q4H PRN IV SBP>170 DBP>105; Start 08/27/18 at 11:00 Lorazepam (Ativan) 0.5 mg Q4 PRN IV AGITATION/ANXIETY; Start 08/27/18 at 16:00 SOM PALENCIA Aug 28, 2018 10:03 am
[2018-08-28] MEDS: LORAZEPAM 2 MG INJ IV PRN ×2 (10:53→14:54)
--- NOTE | 2018-08-28 13:13 | CONS ---
Assessment/Plan Assessment/Plan Hospital Course (Demo Recall) IMPRESSION: 1. Sinus bradycardia in the setting of overdose possibly due to the patient's beta blockers, clonidine, whichever was taken possibly.-improving S juwan,. NL EF by echo 2. Hypertension, borderline. 3. Abnormal electrocardiogram. Assess for acute coronary syndrome. 4. Suicidal ideations with intentional overdose. 5. Bipolar disorder, schizoaffective disorder. 6. Dyslipidemia. 7. History of myocardial infarction. Recc: -ICU -Follow HR/rhythm clsoely -Hold any atif agents -Continue CCB and follow BP clsoely -RX psych d/o -will f/u echo Consultation Date/Type/Reason Admit Date/Time Aug 26, 2018 at 12:01 Initial Consult Date 08/26/18 Type of Consult Cardiology Reason for Consultation bradycardia Requesting Provider: JOSE ZAVALA MD Date/Time of Note DATE: 08/28/18 TIME: 13:10 Exam/Review of Systems Vital Signs Vitals Vital Signs Date Temp Pulse Resp B/P (MAP) Pulse Ox O2 O2 Flow FiO2 Time Delivery Rate 08/28/18 55 16 126/89 93 Room Air 10:00 (101) 08/28/18 98.0 08:00 08/27/18 21 00:00 08/26/18 4.0 13:56 Intake and Output 08/27/18 08/27/18 08/28/18 1515:00 23:00 07:00 IntakeIntake Total 50 ml 100 ml 105 ml OutputOutput Total 650 ml 650 ml 1100 ml BalanceBalance -600 ml -550 ml -995 ml Exam Exam Review of Systems: CONSTITUTIONAL: No fevers, chills. PULMONARY: No sob CARDIOVASCULAR: No chest pain/palpitations GASTROINTESTINAL: No nausea/vomiting. GENITOURINARY: No hematuria/dysuria. MUSCULOSKELETAL: No myagias/arthalgias. PSYCHIATRIC: depressed NEUROLOGIC: No weakness Constitutional: alert Psych: no complaints Head: normocephalic ENMT: mucosa pink and moist Neck: supple, jvd (9 cm water) Respiratory: diminished breath sounds Cardiovascular: regular rate and rhythm Gastrointestinal: soft, non-tender Musculoskeletal: muscle tone Extremities: edema (none) Neurological: other (No focal deficits) Labs Result Diagram: 08/28/18 0509 08/28/18 1128 Results 24hrs Laboratory Tests Test 08/28/18 05:09 08/28/18 11:28 White Blood Count 6.5 # Red Blood Count 3.62 L Hemoglobin 9.9 L Hematocrit 32.3 L Mean Corpuscular Volume 89.2 Mean Corpuscular Hemoglobin 27.3 L Mean Corpuscular Hemoglobin Concent 30.7 L Red Cell Distribution Width 16.5 H Platelet Count 318 Mean Platelet Volume 10.6 H Immature Granulocytes % 0.600 H Neutrophils % 68.1 Lymphocytes % 22.5 Monocytes % 5.6 Eosinophils % 2.6 Basophils % 0.6 Nucleated Red Blood Cells % 0.0 Immature Granulocytes # 0.040 H Neutrophils # 4.4 Lymphocytes # 1.5 Monocytes # 0.4 Eosinophils # 0.2 Basophils # 0.0 Nucleated Red Blood Cells # 0.0 Sodium Level 141 138 Potassium Level 3.9 3.5 Chloride Level 109 109 Carbon Dioxide Level 19 L 18 L Anion Gap 13 11 Blood Urea Nitrogen 24 H 22 H Creatinine 1.47 H 1.36 H Est Glomerular Filtrat Rate mL/min 36 L 39 L Glucose Level 73 69 L Calcium Level 8.6 8.7 Medications Medications Current Medications Ondansetron HCl (Zofran Inj) 4 mg Q6H PRN IV NAUSEA AND/OR VOMITING Last administered on 08/28/18at 10:57; Admin Dose 4 MG; Start 08/26/18 at 14:30 Acetaminophen (Tylenol Tab) 650 mg Q6H PRN PO PAIN LEVEL 1-3 OR FEVER; Start 08/26/18 at 14:30 Pantoprazole (Protonix Tab) 40 mg DAILY@06 PO Last administered on 08/28/18at 05:21; Admin Dose 40 MG; Start 08/27/18 at 06:00 Sodium Chloride 1,000 ml @ 100 mls/hr Q10H IV Last administered on 08/28/18at 05:19; Admin Dose 100 MLS/HR; Start 08/26/18 at 16:00 Miscellaneous Information Patients own medicat... BID@ XX ; Start 08/27/18 at 10:00 Influenza Virus Vaccine Quadrival (Fluzone) 0.5 ml ONCE ONCE IM* ; Start 08/29/18 at 09:00; Stop 08/29/18 at 09:01 Nifedipine (Procardia Xl) 30 mg DAILY PO Last administered on 08/28/18at 09:46; Admin Dose 30 MG; Start 08/27/18 at 11:00 Hydralazine HCl (Apresoline) 10 mg Q4H PRN IV SBP>170 DBP>105; Start 08/27/18 at 11:00 Lorazepam (Ativan) 0.5 mg Q4 PRN IV AGITATION/ANXIETY Last administered on 08/28/18at 10:53; Admin Dose 0.5 MG; Start 08/27/18 at 16:00 KIMMY VILLATORO Aug 28, 2018 13:13
[2018-08-28] MEDS: FLUOXETINE 20 MG CAP PO SCH (15:06)
[2018-08-28] MEDS: DIVALPROEX (EC) 500 MG TAB PO SCH (21:09)
[2018-08-28] MEDS: QUETIAPINE 100 MG TAB PO SCH (21:09)
[2018-08-29] VITALS (18 sets, daily range): BP systolic 108–148; BP diastolic 70–95; PULSE 67–123; RESP 16–48
[2018-08-29] MEDS: LORAZEPAM 2 MG INJ IV PRN ×3 (00:46→23:23)
[2018-08-29] MEDS: SOD CHLORIDE 0.9% 1,000 ML IV SCH ×2 (03:14→16:13)
[2018-08-29] MEDS: PANTOPRAZOLE (EC) 40 MG TAB PO SCH (06:07)
[2018-08-29] MEDS: DIVALPROEX (EC) 500 MG TAB PO SCH ×3 (09:00→20:50)
[2018-08-29] MEDS ORDERED: INFLUENZA VIRUS VACCINE 0.5 ML (DISPENSING) IM* ONE (09:00)
[2018-08-29] MEDS: FLUOXETINE 20 MG CAP PO SCH ×2 (09:00→12:37)
[2018-08-29] MEDS: NIFEdipine (XL) 30 MG TAB PO SCH ×2 (09:00→12:38)
[2018-08-29] MEDS: POTASSIUM CHLORIDE 100 ML IVPB SCH ×2 (10:25→12:43)
[2018-08-29] MEDS ORDERED: MAGNESIUM SULFATE 1 GM/D5W 100 ML IVPB ONE (10:30)
--- NOTE | 2018-08-29 15:46 | CONS ---
Consult Date/Type/Reason Admit Date/Time Aug 26, 2018 at 12:01 Initial Consult Date Requesting Provider: JOSE ZAVALA MD Date/Time of Note DATE: 08/29/18 TIME: 15:44 Subjective NO acute events - pt stable - out of ICU - heart rate well controlled. ROS: No fever, no chills, no nausea, no vomiting, no diarrhea/constipation No recent weight changes No chest pain, no PND, no orthopnea - mild sob No dizziness, blurred vision No thirst, no heat or cold intolerance Objective Vitals Vital Signs Date Temp Pulse Resp B/P (MAP) Pulse Ox O2 O2 Flow FiO2 Time Delivery Rate 08/29/18 98.7 79 18 140/86 96 Room Air 12:57 (104) 08/27/18 21 00:00 08/26/18 4.0 13:56 Intake and Output 08/28/18 08/28/18 08/29/18 1515:00 23:00 07:00 IntakeIntake Total 1000 ml 1180 ml 800 ml OutputOutput Total 675 ml 2100 ml 400 ml BalanceBalance 325 ml -920 ml 400 ml Exam General: WN/WD/NAD, AOx comfortbale HEENT: Unicetric/atraumatic/EOMI (follows commands) NECK: JVD elevated, no thyromegaly Lymph: no lymphadenopathy HEART: regular with no S3, II/ systolic murmur at apex LUNGS: Coarse sounds ABD: soft, NT, ND, +BS : Intact Neuro: non focal SKIN: chronic changes EXT: trace edema Results/Medications Result Diagram: 08/29/1843908/29/18439 Results 24 hrs Laboratory Tests Test 08/28/18 17:56 08/29/18 04:40 White Blood Count 9.2 # 7.1 # Red Blood Count 3.55 L 3.46 L Hemoglobin 9.7 L 9.3 L Hematocrit 31.4 L 29.3 L Mean Corpuscular Volume 88.5 84.7 Mean Corpuscular Hemoglobin 27.3 L 26.9 L Mean Corpuscular Hemoglobin Concent 30.9 L 31.7 L Red Cell Distribution Width 16.1 H 16.0 H Platelet Count 341 320 Mean Platelet Volume 10.7 H 10.4 Immature Granulocytes % 0.500 H 0.300 Neutrophils % 78.1 H 62.6 Lymphocytes % 14.1 L 27.3 Monocytes % 5.3 7.8 Eosinophils % 1.6 1.7 Basophils % 0.4 0.3 Nucleated Red Blood Cells % 0.0 0.0 Immature Granulocytes # 0.050 H 0.020 Neutrophils # 7.2 4.5 Lymphocytes # 1.3 2.0 Monocytes # 0.5 0.6 Eosinophils # 0.2 0.1 Basophils # 0.0 0.0 Nucleated Red Blood Cells # 0.0 0.0 Prothrombin Time 23.5 #H 23.8 H Prothrombin Time Ratio 1.8 1.9 INR International Normalized Ratio 2.08 2.12 Activated Partial Thromboplast Time 46.2 H 47.1 H Thrombin Time 16.4 16.5 Sodium Level 138 142 Potassium Level 3.6 3.1 L Chloride Level 107 111 H Carbon Dioxide Level 16 L 22 Anion Gap 15 H 9 # Blood Urea Nitrogen 18 13 Creatinine 1.18 H 0.99 Est Glomerular Filtrat Rate mL/min 46 L 57 L Glucose Level 82 81 Calcium Level 8.7 8.9 Creatine Kinase 67 Creatine Kinase Index 1.9 Creatinine Kinase MB (Mass) 1.24 Troponin I 0.014 Phosphorus Level 2.8 Magnesium Level 1.6 L Home Meds Active Scripts Ondansetron (Ondansetron Odt) 4 Mg Tab.rapdis, 4 MG PO Q6H PRN for NAUSEA AND/OR VOMITING, #10 TAB Prov:SAVANAH MERRILL. 08/26/18 Tramadol HCl (Tramadol HCl) 50 Mg Tablet, 50 MG PO Q4 PRN for PAIN, #20 TAB Prov:SAVANAH MERRILL S. 08/26/18 Reported Medications Albuterol Sulfate* (Ventolin HFA*) 18 Gm Hfa.aer.ad, 2 PUFF INHALATION Q4H, #1 INHALER 07/27/18 Apixaban* (Eliquis*) 5 Mg Tablet, 5 MG PO BID, TAB 07/27/18 Metformin Hcl* (Metformin Hcl* ER) 500 Mg Tab.sr.24h, 500 MG PO DAILY, #30 TAB 07/27/18 Gabapentin* (Gabapentin*) 300 Mg Capsule, 300 MG PO TID, #90 CAP 07/27/18 Fluoxetine Hcl* (Prozac*) 20 Mg Capsule, 20 MG PO DAILY, CAP 11/12/17 Quetiapine Fumarate* (Seroquel*) 400 Mg Tablet, 400 MG PO HS, TAB 11/12/17 Omeprazole* (Omeprazole*) 40 Mg Capsule.dr, 40 MG PO DAILY, #30 CAP 11/12/17 Zolpidem Tartrate* (Ambien*) 10 Mg Tablet, 10 MG PO QHS PRN for INSOMNIA, TAB 10/17/16 Metoprolol Tartrate* (Lopressor*) 50 Mg Tab, 50 MG PO TID, #60 TAB 10/17/16 Lisinopril* (Lisinopril*) 20 Mg Tablet, 20 MG PO BID, #30 TAB 10/17/16 Atorvastatin Calcium* (Atorvastatin Calcium*) 20 Mg Tablet, 20 MG PO DAILY 10/16/13 Discontinued Reported Medications Ranitidine Hcl* (Zantac*) 300 Mg Tablet, 300 MG PO HS, #30 TAB 10/17/16 Medications Current Medications Ondansetron HCl (Zofran Inj) 4 mg Q6H PRN IV NAUSEA AND/OR VOMITING Last administered on 08/28/18at 10:57; Admin Dose 4 MG; Start 08/26/18 at 14:30 Acetaminophen (Tylenol Tab) 650 mg Q6H PRN PO PAIN LEVEL 1-3 OR FEVER; Start 08/26/18 at 14:30 Pantoprazole (Protonix Tab) 40 mg DAILY@06 PO Last administered on 08/29/18at 06:07; Admin Dose 40 MG; Start 08/27/18 at 06:00 Sodium Chloride 1,000 ml @ 100 mls/hr Q10H IV Last administered on 08/29/18at 03:14; Admin Dose 100 MLS/HR; Start 08/26/18 at 16:00 Miscellaneous Information Patients own medicat... BID@10,16 XX Last administered on 08/29/18at 10:25; Admin Dose 1 EA; Start 08/27/18 at 10:00 Nifedipine (Procardia Xl) 30 mg DAILY PO Last administered on 08/29/18at 12:38; Admin Dose 30 MG; Start 08/27/18 at 11:00 Hydralazine HCl (Apresoline) 10 mg Q4H PRN IV SBP>170 DBP>105; Start 08/27/18 at 11:00 Lorazepam (Ativan) 0.5 mg Q4 PRN IV AGITATION/ANXIETY Last administered on 08/29/18at 13:21; Admin Dose 0.5 MG; Start 08/27/18 at 16:00 Fluoxetine HCl (Prozac) 20 mg DAILY PO Last administered on 08/29/18at 12:37; Admin Dose 20 MG; Start 08/28/18 at 15:00 Quetiapine Fumarate (Seroquel) 400 mg QHS PO Last administered on 08/28/18at 21:09; Admin Dose 400 MG; Start 08/28/18 at 21:00 Divalproex Sodium (Depakote) 500 mg BID PO Last administered on 08/29/18at 12:35; Admin Dose 500 MG; Start 08/28/18 at 21:00 Assessment/Plan Hospital Course (Demo Recall) 1. Sinus bradycardia in the setting of overdose possibly due to the patient's beta blockers, clonidine, whichever was taken possibly.-improving S juwan,. NL EF by echo - now rate controlled - pt off tele. 2. Hypertension, borderline - treated. 3. Abnormal electrocardiogram. Assess for acute coronary syndrome. R/o [place]. 4. Suicidal ideations with intentional overdose- sitter at bedside. 5. Bipolar disorder, schizoaffective disorder. 6. Dyslipidemia. 7. History of myocardial infarction- no CP now. ERNESTO TONG MD Aug 29, 2018 15:46
--- NOTE | 2018-08-29 17:09 | PN ---
Date/Time of Note Date/Time of Note DATE: 08/29/18 TIME: 17:09 Assessment/Plan VTE Prophylaxis Risk score (from Ns)>0 risk: 2 SCD applied (from Ns): No Lines/Catheters IV Catheter Type (from Nrs): Peripheral IV Urinary Cath still in place: Yes Reason Cath still needed: urinary retention Assessment/Plan Assessment/Plan -Bradycardia. Dr. Langley is following in cardiology consultation. -Acute kidney injury, continue IV fluids monitor BUN and creatinine. -Suicidal ideation, psychiatric consult -Hypertension, patient is normotensive continue hydralazine as needed for systolic blood pressure above 170. -History of coronary artery disease -Hyperlipidemia -Schizoaffective disorder with bipolar features - seen by counselling psychologist today Total critical care time spent 35 mins.Further recommendations based on clinical course. Plan of care discussed with Dr. Edwards. Result Diagram: 08/29/18 0440 08/29/18 0440 Results 24hrs Laboratory Tests Test 08/28/18 17:56 08/29/18 04:40 White Blood Count 9.2 # 7.1 # Red Blood Count 3.55 L 3.46 L Hemoglobin 9.7 L 9.3 L Hematocrit 31.4 L 29.3 L Mean Corpuscular Volume 88.5 84.7 Mean Corpuscular Hemoglobin 27.3 L 26.9 L Mean Corpuscular Hemoglobin Concent 30.9 L 31.7 L Red Cell Distribution Width 16.1 H 16.0 H Platelet Count 341 320 Mean Platelet Volume 10.7 H 10.4 Immature Granulocytes % 0.500 H 0.300 Neutrophils % 78.1 H 62.6 Lymphocytes % 14.1 L 27.3 Monocytes % 5.3 7.8 Eosinophils % 1.6 1.7 Basophils % 0.4 0.3 Nucleated Red Blood Cells % 0.0 0.0 Immature Granulocytes # 0.050 H 0.020 Neutrophils # 7.2 4.5 Lymphocytes # 1.3 2.0 Monocytes # 0.5 0.6 Eosinophils # 0.2 0.1 Basophils # 0.0 0.0 Nucleated Red Blood Cells # 0.0 0.0 Prothrombin Time 23.5 #H 23.8 H Prothrombin Time Ratio 1.8 1.9 INR International Normalized Ratio 2.08 2.12 Activated Partial Thromboplast Time 46.2 H 47.1 H Thrombin Time 16.4 16.5 Sodium Level 138 142 Potassium Level 3.6 3.1 L Chloride Level 107 111 H Carbon Dioxide Level 16 L 22 Anion Gap 15 H 9 # Blood Urea Nitrogen 18 13 Creatinine 1.18 H 0.99 Est Glomerular Filtrat Rate mL/min 46 L 57 L Glucose Level 82 81 Calcium Level 8.7 8.9 Creatine Kinase 67 Creatine Kinase Index 1.9 Creatinine Kinase MB (Mass) 1.24 Troponin I 0.014 Phosphorus Level 2.8 Magnesium Level 1.6 L Exam/Review of Systems Exam Vitals Vital Signs Date Temp Pulse Resp B/P (MAP) Pulse Ox O2 O2 Flow FiO2 Time Delivery Rate 08/29/18 98.0 82 17 132/85 95 14:00 (101) 08/29/18 Room Air 12:57 08/27/18 21 00:00 08/26/18 4.0 13:56 Intake and Output 08/28/18 08/28/18 08/29/18 1515:00 23:00 07:00 IntakeIntake Total 1000 ml 1180 ml 800 ml OutputOutput Total 675 ml 2100 ml 400 ml BalanceBalance 325 ml -920 ml 400 ml Results Results 24hrs Laboratory Tests Test 08/28/18 17:56 08/29/18 04:40 White Blood Count 9.2 # 7.1 # Red Blood Count 3.55 L 3.46 L Hemoglobin 9.7 L 9.3 L Hematocrit 31.4 L 29.3 L Mean Corpuscular Volume 88.5 84.7 Mean Corpuscular Hemoglobin 27.3 L 26.9 L Mean Corpuscular Hemoglobin Concent 30.9 L 31.7 L Red Cell Distribution Width 16.1 H 16.0 H Platelet Count 341 320 Mean Platelet Volume 10.7 H 10.4 Immature Granulocytes % 0.500 H 0.300 Neutrophils % 78.1 H 62.6 Lymphocytes % 14.1 L 27.3 Monocytes % 5.3 7.8 Eosinophils % 1.6 1.7 Basophils % 0.4 0.3 Nucleated Red Blood Cells % 0.0 0.0 Immature Granulocytes # 0.050 H 0.020 Neutrophils # 7.2 4.5 Lymphocytes # 1.3 2.0 Monocytes # 0.5 0.6 Eosinophils # 0.2 0.1 Basophils # 0.0 0.0 Nucleated Red Blood Cells # 0.0 0.0 Prothrombin Time 23.5 #H 23.8 H Prothrombin Time Ratio 1.8 1.9 INR International Normalized Ratio 2.08 2.12 Activated Partial Thromboplast Time 46.2 H 47.1 H Thrombin Time 16.4 16.5 Sodium Level 138 142 Potassium Level 3.6 3.1 L Chloride Level 107 111 H Carbon Dioxide Level 16 L 22 Anion Gap 15 H 9 # Blood Urea Nitrogen 18 13 Creatinine 1.18 H 0.99 Est Glomerular Filtrat Rate mL/min 46 L 57 L Glucose Level 82 81 Calcium Level 8.7 8.9 Creatine Kinase 67 Creatine Kinase Index 1.9 Creatinine Kinase MB (Mass) 1.24 Troponin I 0.014 Phosphorus Level 2.8 Magnesium Level 1.6 L Medications Medication Current Medications Ondansetron HCl (Zofran Inj) 4 mg Q6H PRN IV NAUSEA AND/OR VOMITING Last administered on 08/28/18 10:57; Admin Dose 4 MG; Start 08/26/18 at 14:30 Acetaminophen (Tylenol Tab) 650 mg Q6H PRN PO PAIN LEVEL 1-3 OR FEVER; Start 08/26/18 at 14:30 Pantoprazole (Protonix Tab) 40 mg DAILY@06 PO Last administered on 08/29/18 06:07; Admin Dose 40 MG; Start 08/27/18 at 06:00 Sodium Chloride 1,000 ml @ 100 mls/hr Q10H IV Last administered on 08/29/18 16:13; Admin Dose 100 MLS/HR; Start 08/26/18 at 16:00 Miscellaneous Information Patients own medicat... BID@10,16 XX Last administered on 08/29/18at 10:25; Admin Dose 1 EA; Start 08/27/18 at 10:00 Nifedipine (Procardia Xl) 30 mg DAILY PO Last administered on 08/29/18 12:38; Admin Dose 30 MG; Start 08/27/18 at 11:00 Hydralazine HCl (Apresoline) 10 mg Q4H PRN IV SBP>170 DBP>105; Start 08/27/18 at 11:00 Lorazepam (Ativan) 0.5 mg Q4 PRN IV AGITATION/ANXIETY Last administered on 08/29/18 13:21; Admin Dose 0.5 MG; Start 08/27/18 at 16:00 Fluoxetine HCl (Prozac) 20 mg DAILY PO Last administered on 08/29/18at 12:37; Admin Dose 20 MG; Start 08/28/18 at 15:00 Quetiapine Fumarate (Seroquel) 400 mg QHS PO Last administered on 08/28/18at 21:09; Admin Dose 400 MG; Start 08/28/18 at 21:00 Divalproex Sodium (Depakote) 500 mg BID PO Last administered on 08/29/18at 12:35; Admin Dose 500 MG; Start 08/28/18 at 21:00 SOM PALENCIA Aug 29, 2018 17:09
[2018-08-29] MEDS: QUETIAPINE 100 MG TAB PO SCH (20:51)
[2018-08-29] MEDS: ACETAMINOPHEN 325 MG TAB PO PRN (20:52)
[2018-08-29] MEDS: ONDANSETRON 4 MG INJ IV PRN (22:01)
[2018-08-30] MEDS: ZOLPIDEM 5 MG TAB PO PRN ×2 (01:10→20:09)
[2018-08-30 01:31] VITALS: BP 113/80; PULSE 96; RESP 18
[2018-08-30] MEDS: SOD CHLORIDE 0.9% 1,000 ML IV SCH ×3 (05:01→16:12)
[2018-08-30] MEDS: PANTOPRAZOLE (EC) 40 MG TAB PO SCH ×2 (05:06→08:40)
[2018-08-30 08:35] VITALS: BP 111/70; PULSE 80; RESP 18
[2018-08-30] MEDS: FLUOXETINE 20 MG CAP PO SCH (08:39)
[2018-08-30] MEDS: DIVALPROEX (EC) 500 MG TAB PO SCH ×2 (08:39→20:15)
[2018-08-30] MEDS: NIFEdipine (XL) 30 MG TAB PO SCH (08:40)
[2018-08-30 14:00] VITALS: BP 132/84; PULSE 94; RESP 18
--- NOTE | 2018-08-30 15:10 | CONS ---
Consult Date/Type/Reason Admit Date/Time Aug 26, 2018 at 12:01 Initial Consult Date Requesting Provider: JOSE ZAVALA MD Date/Time of Note DATE: 08/30/18 TIME: 15:09 Subjective VS reviewed =- stable - no CP now ROS: No fever, no chills, no nausea, no vomiting, no diarrhea/constipation No recent weight changes No chest pain, no PND, no orthopnea No dizziness, blurred vision No thirst, no heat or cold intolerance Objective Vitals Vital Signs Date Temp Pulse Resp B/P (MAP) Pulse Ox O2 O2 Flow FiO2 Time Delivery Rate 08/30/18 97.7 80 18 111/70 93 Room Air 08:35 (84) 08/27/18 21 00:00 08/26/18 4.0 13:56 Intake and Output 08/29/18 08/29/18 08/30/18 1515:00 23:00 07:00 IntakeIntake Total 300 ml 280 ml 1014 ml OutputOutput Total 1 ml 1500 ml 300 ml BalanceBalance 299 ml -1220 ml 714 ml Exam General: WN/WD/NAD, AOx comfortable HEENT: Unicetric/atraumatic/EOMI (follows commands) NECK: JVD elevated, no thyromegaly Lymph: no lymphadenopathy HEART: regular with no S3, II/ systolic murmur at apex LUNGS: Coarse sounds ABD: soft, NT, ND, +BS : Intact Neuro: non focal SKIN: chronic changes EXT: trace edema Results/Medications Result Diagram: 08/29/1843908/29/18 044 Home Meds Active Scripts Ondansetron (Ondansetron Odt) 4 Mg Tab.rapdis, 4 MG PO Q6H PRN for NAUSEA AND/OR VOMITING, #10 TAB Prov:SAVANAH MERRILL 08/26/18 Tramadol HCl (Tramadol HCl) 50 Mg Tablet, 50 MG PO Q4 PRN for PAIN, #20 TAB Prov:SAVANAH MERRILL 08/26/18 Reported Medications Albuterol Sulfate* (Ventolin HFA*) 18 Gm Hfa.aer.ad, 2 PUFF INHALATION Q4H, #1 INHALER 07/27/18 Apixaban* (Eliquis*) 5 Mg Tablet, 5 MG PO BID, TAB 07/27/18 Metformin Hcl* (Metformin Hcl* ER) 500 Mg Tab.sr.24h, 500 MG PO DAILY, #30 TAB 07/27/18 Gabapentin* (Gabapentin*) 300 Mg Capsule, 300 MG PO TID, #90 CAP 07/27/18 Fluoxetine Hcl* (Prozac*) 20 Mg Capsule, 20 MG PO DAILY, CAP 11/12/17 Quetiapine Fumarate* (Seroquel*) 400 Mg Tablet, 400 MG PO HS, TAB 11/12/17 Omeprazole* (Omeprazole*) 40 Mg Capsule.dr, 40 MG PO DAILY, #30 CAP 11/12/17 Zolpidem Tartrate* (Ambien*) 10 Mg Tablet, 10 MG PO QHS PRN for INSOMNIA, TAB 10/17/16 Metoprolol Tartrate* (Lopressor*) 50 Mg Tab, 50 MG PO TID, #60 TAB 10/17/16 Lisinopril* (Lisinopril*) 20 Mg Tablet, 20 MG PO BID, #30 TAB 10/17/16 Atorvastatin Calcium* (Atorvastatin Calcium*) 20 Mg Tablet, 20 MG PO DAILY 10/16/13 Discontinued Reported Medications Ranitidine Hcl* (Zantac*) 300 Mg Tablet, 300 MG PO HS, #30 TAB 10/17/16 Medications Current Medications Ondansetron HCl (Zofran Inj) 4 mg Q6H PRN IV NAUSEA AND/OR VOMITING Last administered on 08/29/18at 22:01; Admin Dose 4 MG; Start 08/26/18 at 14:30 Acetaminophen (Tylenol Tab) 650 mg Q6H PRN PO PAIN LEVEL 1-3 OR FEVER Last administered on 08/29/18at 20:52; Admin Dose 650 MG; Start 08/26/18 at 14:30 Pantoprazole (Protonix Tab) 40 mg DAILY@06 PO Last administered on 08/30/18at 08:40; Admin Dose 40 MG; Start 08/27/18 at 06:00 Sodium Chloride 1,000 ml @ 100 mls/hr Q10H IV Last administered on 08/30/18at 05:01; Admin Dose 100 MLS/HR; Start 08/26/18 at 16:00 Miscellaneous Information Patients own medicat... BID@ XX Last administered on 08/29/18at 10:25; Admin Dose 1 EA; Start 08/27/18 at 10:00 Nifedipine (Procardia Xl) 30 mg DAILY PO Last administered on 08/30/18 08:40; Admin Dose 30 MG; Start 08/27/18 at 11:00 Hydralazine HCl (Apresoline) 10 mg Q4H PRN IV SBP>170 DBP>105; Start 08/27/18 at 11:00 Lorazepam (Ativan) 0.5 mg Q4 PRN IV AGITATION/ANXIETY Last administered on 08/29/18at 23:23; Admin Dose 0.5 MG; Start 08/27/18 at 16:00 Fluoxetine HCl (Prozac) 20 mg DAILY PO Last administered on 08/30/18 08:39; Admin Dose 20 MG; Start 08/28/18 at 15:00 Quetiapine Fumarate (Seroquel) 400 mg QHS PO Last administered on 08/29/18 20:51; Admin Dose 400 MG; Start 08/28/18 at 21:00 Divalproex Sodium (Depakote) 500 mg BID PO Last administered on 08/30/18at 08:39; Admin Dose 500 MG; Start 08/28/18 at 21:00 Zolpidem Tartrate (Ambien) 10 mg HS PRN PO INSOMNIA Last administered on 08/30/18 01:10; Admin Dose 10 MG; Start 08/30/18 at 01:00 Assessment/Plan Hospital Course (Demo Recall) 1. Sinus bradycardia in the setting of overdose possibly due to the patient's beta blockers, clonidine, whichever was taken possibly.-improving S juwan,. NL EF by echo - now rate controlled - pt off tele. NO indication for pacer now. 2. Hypertension, borderline - treated. BETTER overall. 3. Abnormal electrocardiogram. Assess for acute coronary syndrome. R/o [place]. 4. Suicidal ideations with intentional overdose- sitter at bedside. 5. Bipolar disorder, schizoaffective disorder. Sitter at bedside. 6. Dyslipidemia. 7. History of myocardial infarction- no CP now. ERNESTO TONG MD Aug 30, 2018 15:10
[2018-08-30 19:02] VITALS: BP 139/71; PULSE 88; RESP 16
[2018-08-30] MEDS: QUETIAPINE 100 MG TAB PO SCH (20:09)
[2018-08-31 01:00] VITALS: BP 111/66; PULSE 120; RESP 16
[2018-08-31] MEDS: LORAZEPAM 2 MG INJ IV PRN (01:01)
[2018-08-31 05:00] VITALS: BP 98/60; PULSE 83; RESP 16
[2018-08-31] MEDS: SOD CHLORIDE 0.9% 1,000 ML IV SCH ×3 (05:50→22:23)
[2018-08-31] MEDS: FLUOXETINE 20 MG CAP PO SCH (09:00)
[2018-08-31] MEDS: DIVALPROEX (EC) 500 MG TAB PO SCH ×2 (09:00→20:03)
[2018-08-31] MEDS: NIFEdipine (XL) 30 MG TAB PO SCH (09:00)
--- NOTE | 2018-08-31 14:41 | CONS ---
Assessment/Plan Assessment/Plan Hospital Course (Demo Recall) IMPRESSION: 1. Sinus bradycardia in the setting of overdose possibly due to the patient's beta blockers, clonidine, whichever was taken possibly.-improving S juwan,. NL EF by echo 2. Hypertension, borderline. 3. Abnormal electrocardiogram. Assess for acute coronary syndrome. 4. Suicidal ideations with intentional overdose. 5. Bipolar disorder, schizoaffective disorder. 6. Dyslipidemia. 7. History of myocardial infarction. Recc: -ICU -Follow HR/rhythm clsoely -Hold any atif agents -Continue CCB and follow BP clsoely -RX psych d/o Consultation Date/Type/Reason Admit Date/Time Aug 26, 2018 at 12:01 Initial Consult Date 08/26/18 Type of Consult Cardiology Reason for Consultation bradycardia Requesting Provider: JOSE ZAVALA MD Date/Time of Note DATE: 08/31/18 TIME: 14:38 Exam/Review of Systems Vital Signs Vitals Vital Signs Date Temp Pulse Resp B/P (MAP) Pulse Ox O2 O2 Flow FiO2 Time Delivery Rate 08/31/18 98.1 83 16 98/60 (73) 92 Room Air 05:00 Intake and Output 08/30/18 08/30/18 08/31/18 1515:00 23:00 07:00 IntakeIntake Total 1160 ml 1036 ml 500 ml OutputOutput Total 850 ml 750 ml BalanceBalance 310 ml 286 ml 500 ml Exam Exam Review of Systems: CONSTITUTIONAL: No fevers, chills. PULMONARY: No sob CARDIOVASCULAR: No chest pain/palpitations GASTROINTESTINAL: No nausea/vomiting. GENITOURINARY: No hematuria/dysuria. MUSCULOSKELETAL: No myagias/arthalgias. PSYCHIATRIC: Depresion. NEUROLOGIC: No weakness Constitutional: alert Psych: no complaints Head: normocephalic ENMT: mucosa pink and moist Neck: supple Respiratory: diminished breath sounds (at bases/B) Cardiovascular: regular rate and rhythm Gastrointestinal: soft, non-tender Musculoskeletal: muscle tone (normal) Extremities: edema (none) Neurological: other (NO focal deficits) Labs Result Diagram: 08/29/180 08/29/18 0440 Results 24hrs Laboratory Tests Test 08/31/18 11:34 Lab Scanned Report REFERENCE LAB Medications Medications Current Medications Ondansetron HCl (Zofran Inj) 4 mg Q6H PRN IV NAUSEA AND/OR VOMITING Last administered on 08/29/18 22:01; Admin Dose 4 MG; Start 08/26/18 at 14:30 Acetaminophen (Tylenol Tab) 650 mg Q6H PRN PO PAIN LEVEL 1-3 OR FEVER Last administered on 08/29/18 20:52; Admin Dose 650 MG; Start 08/26/18 at 14:30 Pantoprazole (Protonix Tab) 40 mg DAILY@06 PO Last administered on 08/30/18 08:40; Admin Dose 40 MG; Start 08/27/18 at 06:00 Sodium Chloride 1,000 ml @ 100 mls/hr Q10H IV Last administered on 08/31/18 11:44; Admin Dose 100 MLS/HR; Start 08/26/18 at 16:00 Miscellaneous Information Patients own medicat... BID@10,16 XX Last administered on 08/29/18 10:25; Admin Dose 1 EA; Start 08/27/18 at 10:00 Nifedipine (Procardia Xl) 30 mg DAILY PO Last administered on 08/30/18 08:40; Admin Dose 30 MG; Start 08/27/18 at 11:00 Hydralazine HCl (Apresoline) 10 mg Q4H PRN IV SBP>170 DBP>105; Start 08/27/18 at 11:00 Lorazepam (Ativan) 0.5 mg Q4 PRN IV AGITATION/ANXIETY Last administered on 08/31/18 01:01; Admin Dose 0.5 MG; Start 08/27/18 at 16:00 Fluoxetine HCl (Prozac) 20 mg DAILY PO Last administered on 08/30/18 08:39; Admin Dose 20 MG; Start 08/28/18 at 15:00 Quetiapine Fumarate (Seroquel) 400 mg QHS PO Last administered on 08/30/18 20:09; Admin Dose 400 MG; Start 08/28/18 at 21:00 Divalproex Sodium (Depakote) 500 mg BID PO Last administered on 08/30/18 20:15; Admin Dose 500 MG; Start 08/28/18 at 21:00 Zolpidem Tartrate (Ambien) 10 mg HS PRN PO INSOMNIA Last administered on 08/30/18 20:09; Admin Dose 10 MG; Start 08/30/18 at 01:00 KIMMY VILLATORO Aug 31, 2018 14:41
--- NOTE | 2018-08-31 15:20 | PN ---
Date/Time of Note Date/Time of Note DATE: 08/31/18 TIME: 15:12 Assessment/Plan VTE Prophylaxis Risk score (from Ns)>0 risk: 3 SCD applied (from Ns): Yes Pharmacological prophylaxis: LMWH Lines/Catheters IV Catheter Type (from Nrsg): Saline Lock Central line still needed: Yes Urinary Cath still in place: Yes Reason Cath still needed: urinary retention Assessment/Plan Hospital Course Patient is lethargic, was giving Ativan at 1 AM due to agitation, currently sleeping, stable vital signs. Hold Ativan continue Seroquel before bedtime as well as Depakote and Prozac. Assessment/Plan -Intentional drug overdose, patient is currently on involuntary hold, pending transfer to psych facility. S/p evaluation by Terrence, psychiatric DNP. -Bradycardia. Dr. Langley is following in cardiology consultation. -Acute kidney injury, continue IV fluids monitor BUN and creatinine. -Suicidal ideation, psychiatric consult -Hypertension, patient is normotensive continue hydralazine as needed for systolic blood pressure above 170. -History of coronary artery disease -Hyperlipidemia -Bipolar affective disorder depressed type, continue Depakote 500 mg twice a day, Seroquel 400 mg at bedtime, Prozac 20 mg daily Further recommendations based on clinical course. Plan of care discussed with Dr. Edwards. Result Diagram: 08/29/1843908/29/18439 Results 24hrs Laboratory Tests Test 08/31/18 11:34 Lab Scanned Report REFERENCE LAB Exam/Review of Systems Exam Vitals Vital Signs Date Temp Pulse Resp B/P (MAP) Pulse Ox O2 O2 Flow FiO2 Time Delivery Rate 08/31/18 98.1 83 16 98/60 (73) 92 Room Air 05:00 Intake and Output 08/30/18 08/30/18 08/31/18 1515:00 23:00 07:00 IntakeIntake Total 1160 ml 1036 ml 500 ml OutputOutput Total 850 ml 750 ml BalanceBalance 310 ml 286 ml 500 ml Constitutional: frail Respiratory: clear to auscultation Cardiovascular: nl pulses Gastrointestinal: soft, non-tender Extremities: normal pulses Neurological: lethargic Results Results 24hrs Laboratory Tests Test 08/31/18 11:34 Lab Scanned Report REFERENCE LAB Medications Medication Current Medications Ondansetron HCl (Zofran Inj) 4 mg Q6H PRN IV NAUSEA AND/OR VOMITING Last administered on 08/29/18 22:01; Admin Dose 4 MG; Start 08/26/18 at 14:30 Acetaminophen (Tylenol Tab) 650 mg Q6H PRN PO PAIN LEVEL 1-3 OR FEVER Last administered on 08/29/18 20:52; Admin Dose 650 MG; Start 08/26/18 at 14:30 Pantoprazole (Protonix Tab) 40 mg DAILY@06 PO Last administered on 08/30/18 08:40; Admin Dose 40 MG; Start 08/27/18 at 06:00 Sodium Chloride 1,000 ml @ 100 mls/hr Q10H IV Last administered on 08/31/18 11:44; Admin Dose 100 MLS/HR; Start 08/26/18 at 16:00 Miscellaneous Information Patients own medicat... BID@10,16 XX Last administered on 08/29/18 10:25; Admin Dose 1 EA; Start 08/27/18 at 10:00 Nifedipine (Procardia Xl) 30 mg DAILY PO Last administered on 08/30/18 08:40; Admin Dose 30 MG; Start 08/27/18 at 11:00 Hydralazine HCl (Apresoline) 10 mg Q4H PRN IV SBP>170 DBP>105; Start 08/27/18 at 11:00 Lorazepam (Ativan) 0.5 mg Q4 PRN IV AGITATION/ANXIETY Last administered on 08/31/18 01:01; Admin Dose 0.5 MG; Start 08/27/18 at 16:00 Fluoxetine HCl (Prozac) 20 mg DAILY PO Last administered on 08/30/18 08:39; Admin Dose 20 MG; Start 08/28/18 at 15:00 Quetiapine Fumarate (Seroquel) 400 mg QHS PO Last administered on 08/30/18 20:09; Admin Dose 400 MG; Start 08/28/18 at 21:00 Divalproex Sodium (Depakote) 500 mg BID PO Last administered on 08/30/18 20:15; Admin Dose 500 MG; Start 08/28/18 at 21:00 Zolpidem Tartrate (Ambien) 10 mg HS PRN PO INSOMNIA Last administered on 08/30/18 20:09; Admin Dose 10 MG; Start 08/30/18 at 01:00 LUDWIN BARRON Aug 31, 2018 15:20
[2018-08-31] MEDS: ENOXAPARIN 30 MG/0.3 ML SYG SC SCH (15:55)
[2018-08-31 19:55] VITALS: BP 135/96; PULSE 109; RESP 16
[2018-08-31] MEDS: QUETIAPINE 100 MG TAB PO SCH (20:03)
[2018-08-31] MEDS: ZOLPIDEM 5 MG TAB PO PRN (22:22)
[2018-09-01 01:51] VITALS: BP 151/85; PULSE 108; RESP 16
[2018-09-01] MEDS: PANTOPRAZOLE (EC) 40 MG TAB PO SCH (06:14)
[2018-09-01 08:00] VITALS: BP 146/105; PULSE 96; RESP 18
[2018-09-01] MEDS: FLUOXETINE 20 MG CAP PO SCH (09:07)
[2018-09-01] MEDS: NIFEdipine (XL) 30 MG TAB PO SCH (09:07)
[2018-09-01] MEDS: DIVALPROEX (EC) 500 MG TAB PO SCH ×2 (09:07→20:30)
[2018-09-01] MEDS: ENOXAPARIN 30 MG/0.3 ML SYG SC SCH (09:09)
--- NOTE | 2018-09-01 11:04 | CONS ---
Consult Date/Type/Reason Admit Date/Time Aug 26, 2018 at 12:01 Initial Consult Date Requesting Provider: JOSE ZAVALA MD Date/Time of Note DATE: 09/01/18 TIME: 11:03 Subjective NO acute events - pt stable - not juwan anymore - con't psych rX. ROS: No fever, no chills, no nausea, no vomiting, no diarrhea/constipation No recent weight changes No chest pain, no PND, no orthopnea No dizziness, blurred vision No thirst, no heat or cold intolerance Objective Vitals Vital Signs Date Temp Pulse Resp B/P (MAP) Pulse Ox O2 O2 Flow FiO2 Time Delivery Rate 09/01/18 98.5 96 18 146/105 96 Room Air 08:00 (119) Intake and Output 08/31/18 08/31/18 09/01/18 1515:00 23:00 07:00 IntakeIntake Total 1000 ml 480 ml BalanceBalance 1000 ml 480 ml Exam General: WN/WD/NAD, AOx 3 HEENT: Unicetric/atraumatic/EOMI (follows commands) NECK: JVD elevated, no thyromegaly Lymph: no lymphadenopathy HEART: regular with no S3, II/ systolic murmur at apex LUNGS: Coarse sounds ABD: soft, NT, ND, +BS : Intact Neuro: non focal SKIN: chronic changes EXT: trace edema Results/Medications Result Diagram: 08/29/1843908/29/18439 Results 24 hrs Laboratory Tests Test 08/31/18 11:34 Lab Scanned Report REFERENCE LAB Home Meds Active Scripts Ondansetron (Ondansetron Odt) 4 Mg Tab.rapdis, 4 MG PO Q6H PRN for NAUSEA AND/OR VOMITING, #10 TAB Prov:SAVANAH MERRILL 08/26/18 Tramadol HCl (Tramadol HCl) 50 Mg Tablet, 50 MG PO Q4 PRN for PAIN, #20 TAB Prov:SAVANAH MERRILL 08/26/18 Reported Medications Albuterol Sulfate* (Ventolin HFA*) 18 Gm Hfa.aer.ad, 2 PUFF INHALATION Q4H, #1 INHALER 07/27/18 Apixaban* (Eliquis*) 5 Mg Tablet, 5 MG PO BID, TAB 07/27/18 Metformin Hcl* (Metformin Hcl* ER) 500 Mg Tab.sr.24h, 500 MG PO DAILY, #30 TAB 07/27/18 Gabapentin* (Gabapentin*) 300 Mg Capsule, 300 MG PO TID, #90 CAP 07/27/18 Fluoxetine Hcl* (Prozac*) 20 Mg Capsule, 20 MG PO DAILY, CAP 11/12/17 Quetiapine Fumarate* (Seroquel*) 400 Mg Tablet, 400 MG PO HS, TAB 11/12/17 Omeprazole* (Omeprazole*) 40 Mg Capsule.dr, 40 MG PO DAILY, #30 CAP 11/12/17 Zolpidem Tartrate* (Ambien*) 10 Mg Tablet, 10 MG PO QHS PRN for INSOMNIA, TAB 10/17/16 Metoprolol Tartrate* (Lopressor*) 50 Mg Tab, 50 MG PO TID, #60 TAB 10/17/16 Lisinopril* (Lisinopril*) 20 Mg Tablet, 20 MG PO BID, #30 TAB 10/17/16 Atorvastatin Calcium* (Atorvastatin Calcium*) 20 Mg Tablet, 20 MG PO DAILY 10/16/13 Discontinued Reported Medications Ranitidine Hcl* (Zantac*) 300 Mg Tablet, 300 MG PO HS, #30 TAB 10/17/16 Medications Current Medications Ondansetron HCl (Zofran Inj) 4 mg Q6H PRN IV NAUSEA AND/OR VOMITING Last administered on 08/29/18at 22:01; Admin Dose 4 MG; Start 08/26/18 at 14:30 Acetaminophen (Tylenol Tab) 650 mg Q6H PRN PO PAIN LEVEL 1-3 OR FEVER Last administered on 08/29/18at 20:52; Admin Dose 650 MG; Start 08/26/18 at 14:30 Pantoprazole (Protonix Tab) 40 mg DAILY@06 PO Last administered on 09/01/18at 06:14; Admin Dose 40 MG; Start 08/27/18 at 06:00 Sodium Chloride 1,000 ml @ 100 mls/hr Q10H IV Last administered on 08/31/18at 22:23; Admin Dose 100 MLS/HR; Start 08/26/18 at 16:00 Miscellaneous Information Patients own medicat... BID@10,16 XX Last administered on 08/29/18at 10:25; Admin Dose 1 EA; Start 08/27/18 at 10:00 Nifedipine (Procardia Xl) 30 mg DAILY PO Last administered on 09/01/18 09:07; Admin Dose 30 MG; Start 08/27/18 at 11:00 Hydralazine HCl (Apresoline) 10 mg Q4H PRN IV SBP>170 DBP>105; Start 08/27/18 at 11:00 Fluoxetine HCl (Prozac) 20 mg DAILY PO Last administered on 09/01/18 09:07; Admin Dose 20 MG; Start 08/28/18 at 15:00 Quetiapine Fumarate (Seroquel) 400 mg QHS PO Last administered on 08/31/18 20:03; Admin Dose 400 MG; Start 08/28/18 at 21:00 Divalproex Sodium (Depakote) 500 mg BID PO Last administered on 09/01/18 09:07; Admin Dose 500 MG; Start 08/28/18 at 21:00 Zolpidem Tartrate (Ambien) 10 mg HS PRN PO INSOMNIA Last administered on 08/31/18 22:22; Admin Dose 10 MG; Start 08/30/18 at 01:00 Enoxaparin Sodium (Lovenox) 30 mg DAILY SC Last administered on 09/01/18 09:09; Admin Dose 30 MG; Start 08/31/18 at 15:30 Assessment/Plan Hospital Course (Demo Recall) 1. Sinus bradycardia in the setting of overdose possibly due to the patient's beta blockers, clonidine, whichever was taken possibly.-improving S juwan,. NL EF by echo - now rate controlled - pt off tele. NO indication for pacer now. RESOLVED. 2. Hypertension, borderline - treated. Some high reading, but reasonable overall. 3. Abnormal electrocardiogram. Assess for acute coronary syndrome. R/o PR. NO intervention planned. 4. Suicidal ideations with intentional overdose- sitter at bedside. Psych follows. 5. Bipolar disorder, schizoaffective disorder. Sitter at bedside. 6. Dyslipidemia. 7. History of myocardial infarction- no CP now. ERNESTO TONG MD Sep 01, 2018 11:04
[2018-09-01 14:00] VITALS: BP 142/102; PULSE 111; RESP 18
--- NOTE | 2018-09-01 15:17 | PN ---
Date/Time of Note Date/Time of Note DATE: 09/01/18 TIME: 15:06 Assessment/Plan VTE Prophylaxis Risk score (from Ns)>0 risk: 3 SCD applied (from Ns): Yes Pharmacological prophylaxis: LMWH Lines/Catheters IV Catheter Type (from Nrsg): Saline Lock Urinary Cath still in place: Yes Reason Cath still needed: urinary retention Assessment/Plan Hospital Course Patient is awake, alert, seems to be in a good mood, however, patient is tachycardic, with heart rate of 120 patient is currently on med-surg, will obtain 12-lead EKG, pt has Hx of PAF. Beta-blockers is currently on hold due to patient came with severe bradycardia. Assessment/Plan -Intentional drug overdose, patient is currently on involuntary hold, pending transfer to psych facility. S/p evaluation by [facility] psychiatric DNP. -Bradycardia. Dr. Langley is following in cardiology consultation. -Acute kidney injury, continue IV fluids monitor BUN and creatinine. -Suicidal ideation, psychiatric consult -Hypertension, patient is normotensive continue hydralazine as needed for systolic blood pressure above 170. -History of coronary artery disease -Hyperlipidemia -Bipolar affective disorder depressed type, continue Depakote 500 mg twice a day, Seroquel 400 mg at bedtime, Prozac 20 mg daily Further recommendations based on clinical course. Plan of care discussed with Dr. Edwards. Result Diagram: 08/29/1843908/29/18439 Exam/Review of Systems Exam Vitals Vital Signs Date Temp Pulse Resp B/P (MAP) Pulse Ox O2 O2 Flow FiO2 Time Delivery Rate 09/01/18 97.9 111 18 142/102 95 Room Air 14:00 (115) Intake and Output 08/31/18 08/31/18 09/01/18 1414:59 22:59 06:59 IntakeIntake Total 1000 ml 480 ml BalanceBalance 1000 ml 480 ml Constitutional: alert, oriented Respiratory: clear to auscultation Cardiovascular: nl pulses Gastrointestinal: soft, non-tender Extremities: normal pulses Neurological: nl mental status Medications Medication Current Medications Ondansetron HCl (Zofran Inj) 4 mg Q6H PRN IV NAUSEA AND/OR VOMITING Last administered on 08/29/18at 22:01; Admin Dose 4 MG; Start 08/26/18 at 14:30 Acetaminophen (Tylenol Tab) 650 mg Q6H PRN PO PAIN LEVEL 1-3 OR FEVER Last administered on 08/29/18 20:52; Admin Dose 650 MG; Start 08/26/18 at 14:30 Pantoprazole (Protonix Tab) 40 mg DAILY@06 PO Last administered on 09/01/18 06:14; Admin Dose 40 MG; Start 08/27/18 at 06:00 Miscellaneous Information Patients own medicat... BID@10,16 XX Last administered on 08/29/18 10:25; Admin Dose 1 EA; Start 08/27/18 at 10:00 Nifedipine (Procardia Xl) 30 mg DAILY PO Last administered on 09/01/18 09:07; Admin Dose 30 MG; Start 08/27/18 at 11:00 Hydralazine HCl (Apresoline) 10 mg Q4H PRN IV SBP>170 DBP>105; Start 08/27/18 at 11:00 Fluoxetine HCl (Prozac) 20 mg DAILY PO Last administered on 09/01/18 09:07; Admin Dose 20 MG; Start 08/28/18 at 15:00 Quetiapine Fumarate (Seroquel) 400 mg QHS PO Last administered on 08/31/18 20:03; Admin Dose 400 MG; Start 08/28/18 at 21:00 Divalproex Sodium (Depakote) 500 mg BID PO Last administered on 09/01/18 09:07; Admin Dose 500 MG; Start 08/28/18 at 21:00 Zolpidem Tartrate (Ambien) 10 mg HS PRN PO INSOMNIA Last administered on 08/31/18 22:22; Admin Dose 10 MG; Start 08/30/18 at 01:00 Enoxaparin Sodium (Lovenox) 30 mg DAILY SC Last administered on 09/01/18 09:09; Admin Dose 30 MG; Start 08/31/18 at 15:30 LUDWIN BARRON Sep 01, 2018 15:16
[2018-09-01] MEDS: ACETAMINOPHEN 325 MG TAB PO PRN (18:42)
[2018-09-01 19:45] VITALS: BP 132/88; PULSE 92; RESP 20
[2018-09-01] MEDS: QUETIAPINE 100 MG TAB PO SCH (20:25)
[2018-09-01] MEDS: METOPROLOL 25 MG TAB PO SCH (20:25)
[2018-09-01] MEDS: ZOLPIDEM 5 MG TAB PO PRN (21:50)
[2018-09-02 02:00] VITALS: BP 124/79; PULSE 78; RESP 20
[2018-09-02] MEDS: PANTOPRAZOLE (EC) 40 MG TAB PO SCH (05:16)
[2018-09-02 07:56] VITALS: BP 154/107; PULSE 74; RESP 18
[2018-09-02] MEDS: ENOXAPARIN 30 MG/0.3 ML SYG SC SCH (09:03)
[2018-09-02] MEDS: NIFEdipine (XL) 30 MG TAB PO SCH (09:05)
[2018-09-02] MEDS: METOPROLOL 25 MG TAB PO SCH ×2 (09:05→20:25)
[2018-09-02] MEDS: FLUOXETINE 20 MG CAP PO SCH (09:05)
[2018-09-02] MEDS: DIVALPROEX (EC) 500 MG TAB PO SCH ×2 (09:05→20:24)
[2018-09-02] MEDS ORDERED: POTASSIUM CHLORIDE (SR) 10 MEQ TAB PO ONE (11:30)
[2018-09-02] MEDS ORDERED: POTASSIUM CHLORIDE 100 ML IVPB ONE (11:30)
[2018-09-02] MEDS: POTASSIUM CHLORIDE 50 ML IVPB SCH ×3 (12:57→16:22)
[2018-09-02 14:00] VITALS: BP 124/81; PULSE 76; RESP 18
--- NOTE | 2018-09-02 14:30 | CONS ---
Assessment/Plan Assessment/Plan Hospital Course (Demo Recall) IMPRESSION: 1. Sinus bradycardia in the setting of overdose possibly due to the patient's beta blockers, clonidine, whichever was taken possibly.-improving S juwan,. NL EF by echo 2. Hypertension, borderline. 3. Abnormal electrocardiogram. Assess for acute coronary syndrome. 4. Suicidal ideations with intentional overdose. 5. Bipolar disorder, schizoaffective disorder. 6. Dyslipidemia. 7. History of myocardial infarction. Recc: -ICU -Follow HR/rhythm clsoely -Hold any atif agents -Continue CCB and follow BP clsoely -Ongoing psych eval and treatment Consultation Date/Type/Reason Admit Date/Time Aug 26, 2018 at 12:01 Initial Consult Date 08/26/18 Type of Consult Cardiology Reason for Consultation Bradycardia Requesting Provider: JOSE ZAVALA MD Date/Time of Note DATE: 09/02/18 TIME: 14:29 Exam/Review of Systems Vital Signs Vitals Vital Signs Date Temp Pulse Resp B/P (MAP) Pulse Ox O2 O2 Flow FiO2 Time Delivery Rate 09/02/18 99.1 76 18 124/81 95 Room Air 14:00 (95) Intake and Output 09/01/18 09/01/18 09/02/18 1414:59 22:59 06:59 IntakeIntake Total 1570 ml OutputOutput Total 1100 ml 200 ml BalanceBalance 470 ml -200 ml Exam Exam Review of Systems: CONSTITUTIONAL: No fevers, chills. PULMONARY: No sob CARDIOVASCULAR: No chest pain/palpitations GASTROINTESTINAL: No nausea/vomiting. GENITOURINARY: No hematuria/dysuria. MUSCULOSKELETAL: No myagias/arthalgias. PSYCHIATRIC: The patient denies depression. NEUROLOGIC: lethargic Constitutional: other (sleeping) Psych: no complaints Head: normocephalic ENMT: mucosa pink and moist Neck: supple, jvd (8 cm water) Respiratory: clear to auscultation Cardiovascular: regular rate and rhythm Gastrointestinal: soft, non-tender Musculoskeletal: muscle weakness (generalized mild) Extremities: edema (none) Neurological: other (No focal deficits) Labs Result Diagram: 08/29/18 0440 09/02/18 0900 Results 24hrs Laboratory Tests Test 09/02/18 09:00 Sodium Level 144 Potassium Level 2.8 *L Chloride Level 103 Carbon Dioxide Level 28 Anion Gap 13 Blood Urea Nitrogen 4 L Creatinine 0.80 Est Glomerular Filtrat Rate mL/min > 60 Glucose Level 106 Calcium Level 9.3 Magnesium Level 1.4 L Medications Medications Current Medications Ondansetron HCl (Zofran Inj) 4 mg Q6H PRN IV NAUSEA AND/OR VOMITING Last administered on 08/29/18 22:01; Admin Dose 4 MG; Start 08/26/18 at 14:30 Acetaminophen (Tylenol Tab) 650 mg Q6H PRN PO PAIN LEVEL 1-3 OR FEVER Last administered on 09/01/18 18:42; Admin Dose 650 MG; Start 08/26/18 at 14:30 Pantoprazole (Protonix Tab) 40 mg DAILY@06 PO Last administered on 09/02/18 05:16; Admin Dose 40 MG; Start 08/27/18 at 06:00 Miscellaneous Information Patients own medicat... BID@10,16 XX Last administered on 08/29/18 10:25; Admin Dose 1 EA; Start 08/27/18 at 10:00 Nifedipine (Procardia Xl) 30 mg DAILY PO Last administered on 09/02/18 09:05; Admin Dose 30 MG; Start 08/27/18 at 11:00 Hydralazine HCl (Apresoline) 10 mg Q4H PRN IV SBP>170 DBP>105; Start 08/27/18 at 11:00 Fluoxetine HCl (Prozac) 20 mg DAILY PO Last administered on 09/02/18 09:05; Admin Dose 20 MG; Start 08/28/18 at 15:00 Quetiapine Fumarate (Seroquel) 400 mg QHS PO Last administered on 09/01/18 20:25; Admin Dose 400 MG; Start 08/28/18 at 21:00 Divalproex Sodium (Depakote) 500 mg BID PO Last administered on 09/02/18 09:05; Admin Dose 500 MG; Start 08/28/18 at 21:00 Zolpidem Tartrate (Ambien) 10 mg HS PRN PO INSOMNIA Last administered on 09/01/18 21:50; Admin Dose 10 MG; Start 08/30/18 at 01:00 Enoxaparin Sodium (Lovenox) 30 mg DAILY SC Last administered on 09/02/18 09:03; Admin Dose 30 MG; Start 08/31/18 at 15:30 Metoprolol Tartrate (Lopressor) 25 mg BID PO Last administered on 09/02/18at 09:05; Admin Dose 25 MG; Start 09/01/18 at 21:00 Potassium Chloride 50 ml @ 50 mls/hr Q1H IVPB Last administered on 09/02/18at 12:57; Admin Dose 50 MLS/HR; Start 09/02/18 at 12:00; Stop 09/02/18 at 14:59 KIMMY VILLATORO Sep 02, 2018 14:30
--- NOTE | 2018-09-02 15:02 | PN ---
Date/Time of Note Date/Time of Note DATE: 09/02/18 TIME: 14:54 Assessment/Plan VTE Prophylaxis Risk score (from Ns)>0 risk: 4 SCD applied (from Ns): Yes Pharmacological prophylaxis: LMWH Lines/Catheters IV Catheter Type (from Nrsg): Saline Lock Central line still needed: Yes Urinary Cath still in place: Yes Reason Cath still needed: urinary retention Assessment/Plan Hospital Course Patient is awake, alert, however, still has suicidal ideation, plan for transfer to psychiatric hospital upon medical clearance. Patient was tachycardic yesterday, twelve-lead EKG revealed sinus tachycardia, patient started on beta- viji, currently heart rate is controlled, however patient has severe hypokalemia with potassium 2.8 and is getting potassium replacement, will also replace magnesium. BMP, Mag tomorrow. Assessment/Plan -Intentional drug overdose, patient is currently on involuntary hold, pending transfer to psych facility. S/p evaluation by [place], psychiatric DNP. -Bradycardia. Dr. Langley is following in cardiology consultation. -Acute kidney injury, continue IV fluids monitor BUN and creatinine. -Suicidal ideation, psychiatric consult -Hypertension, patient is normotensive continue hydralazine as needed for systolic blood pressure above 170. -History of coronary artery disease -Hyperlipidemia -Bipolar affective disorder depressed type, continue Depakote 500 mg twice a day, Seroquel 400 mg at bedtime, Prozac 20 mg daily Further recommendations based on clinical course. Plan of care discussed with Dr. Edwards. Result Diagram: 08/29/18 0440 09/02/18 0900 Results 24hrs Laboratory Tests Test 09/02/18 09:00 Sodium Level 144 Potassium Level 2.8 *L Chloride Level 103 Carbon Dioxide Level 28 Anion Gap 13 Blood Urea Nitrogen 4 L Creatinine 0.80 Est Glomerular Filtrat Rate mL/min > 60 Glucose Level 106 Calcium Level 9.3 Magnesium Level 1.4 L Exam/Review of Systems Exam Vitals Vital Signs Date Temp Pulse Resp B/P (MAP) Pulse Ox O2 O2 Flow FiO2 Time Delivery Rate 09/02/18 99.1 76 18 124/81 95 Room Air 14:00 (95) Intake and Output 09/01/18 09/01/18 09/02/18 1515:00 23:00 07:00 IntakeIntake Total 1570 ml OutputOutput Total 1100 ml 200 ml BalanceBalance 470 ml -200 ml Exam Constitutional: alert, oriented Respiratory: clear to auscultation Cardiovascular: nl pulses Gastrointestinal: soft, non-tender Extremities: normal pulses Neurological: nl mental status Results Results 24hrs Laboratory Tests Test 09/02/18 09:00 Sodium Level 144 Potassium Level 2.8 *L Chloride Level 103 Carbon Dioxide Level 28 Anion Gap 13 Blood Urea Nitrogen 4 L Creatinine 0.80 Est Glomerular Filtrat Rate mL/min > 60 Glucose Level 106 Calcium Level 9.3 Magnesium Level 1.4 L Medications Medication Current Medications Ondansetron HCl (Zofran Inj) 4 mg Q6H PRN IV NAUSEA AND/OR VOMITING Last administered on 08/29/18 22:01; Admin Dose 4 MG; Start 08/26/18 at 14:30 Acetaminophen (Tylenol Tab) 650 mg Q6H PRN PO PAIN LEVEL 1-3 OR FEVER Last administered on 09/01/18 18:42; Admin Dose 650 MG; Start 08/26/18 at 14:30 Pantoprazole (Protonix Tab) 40 mg DAILY@06 PO Last administered on 09/02/18 05:16; Admin Dose 40 MG; Start 08/27/18 at 06:00 Miscellaneous Information Patients own medicat... BID@10,16 XX Last administered on 08/29/18 10:25; Admin Dose 1 EA; Start 08/27/18 at 10:00 Nifedipine (Procardia Xl) 30 mg DAILY PO Last administered on 09/02/18 09:05; Admin Dose 30 MG; Start 08/27/18 at 11:00 Hydralazine HCl (Apresoline) 10 mg Q4H PRN IV SBP>170 DBP>105; Start 08/27/18 at 11:00 Fluoxetine HCl (Prozac) 20 mg DAILY PO Last administered on 09/02/18 09:05; Admin Dose 20 MG; Start 08/28/18 at 15:00 Quetiapine Fumarate (Seroquel) 400 mg QHS PO Last administered on 09/01/18 20:25; Admin Dose 400 MG; Start 08/28/18 at 21:00 Divalproex Sodium (Depakote) 500 mg BID PO Last administered on 09/02/18 09:05; Admin Dose 500 MG; Start 08/28/18 at 21:00 Zolpidem Tartrate (Ambien) 10 mg HS PRN PO INSOMNIA Last administered on 09/01/18at 21:50; Admin Dose 10 MG; Start 08/30/18 at 01:00 Enoxaparin Sodium (Lovenox) 30 mg DAILY SC Last administered on 09/02/18at 09:03; Admin Dose 30 MG; Start 08/31/18 at 15:30 Metoprolol Tartrate (Lopressor) 25 mg BID PO Last administered on 09/02/18at 09:05; Admin Dose 25 MG; Start 09/01/18 at 21:00 Potassium Chloride 50 ml @ 50 mls/hr Q1H IVPB Last administered on 09/02/18at 14:33; Admin Dose 50 MLS/HR; Start 09/02/18 at 12:00; Stop 09/02/18 at 14:59 LUDWIN BARRON Sep 02, 2018 15:02
[2018-09-02] MEDS ORDERED: MAGNESIUM SULFATE 2 GM/50 ML 50 ML IVPB ONE (15:30)
[2018-09-02 20:00] VITALS: BP 137/98; PULSE 77; RESP 18
[2018-09-02] MEDS: QUETIAPINE 100 MG TAB PO SCH (20:24)
[2018-09-02] MEDS: ONDANSETRON 4 MG INJ IV PRN (20:28)
[2018-09-02] MEDS: ZOLPIDEM 5 MG TAB PO PRN (20:28)
[2018-09-03] MEDS: LORAZEPAM 0.5 MG TAB PO PRN ×2 (01:21→14:33)
[2018-09-03 02:00] VITALS: BP 120/82; PULSE 79; RESP 18
[2018-09-03] MEDS: PANTOPRAZOLE (EC) 40 MG TAB PO SCH (06:04)
[2018-09-03 08:05] VITALS: BP 120/79; PULSE 66; RESP 18
[2018-09-03] MEDS: METOPROLOL 25 MG TAB PO SCH ×2 (08:12→20:26)
[2018-09-03] MEDS: FLUOXETINE 20 MG CAP PO SCH (08:12)
[2018-09-03] MEDS: DIVALPROEX (EC) 500 MG TAB PO SCH ×2 (08:12→20:27)
[2018-09-03] MEDS: NIFEdipine (XL) 30 MG TAB PO SCH (08:13)
[2018-09-03] MEDS: ENOXAPARIN 30 MG/0.3 ML SYG SC SCH (08:13)
[2018-09-03] MEDS ORDERED: MAGNESIUM SULFATE 2 GM/50 ML 50 ML IVPB ONE (10:00)
[2018-09-03] MEDS ORDERED: POTASSIUM CHLORIDE 20 MEQ POWDER FOR ORAL SOLN PO ONE (10:00)
--- NOTE | 2018-09-03 13:30 | CONS ---
Assessment/Plan Assessment/Plan Hospital Course (Demo Recall) IMPRESSION: 1. Sinus bradycardia in the setting of overdose possibly due to the patient's beta blockers, clonidine, whichever was taken possibly.-improving S juwan,. NL EF by echo 2. Hypertension, borderline. 3. Abnormal electrocardiogram. Assess for acute coronary syndrome. 4. Suicidal ideations with intentional overdose. 5. Bipolar disorder, schizoaffective disorder. 6. Dyslipidemia. 7. History of myocardial infarction. Recc: -ON Med-surg -Follow HR/rhythm clsoely -Continue CCB/BB and follow BP clsoely -Ongoing psych eval and treatment awaiting transfer to inpatient psych facility Consultation Date/Type/Reason Admit Date/Time Aug 26, 2018 at 12:01 Initial Consult Date 08/26/18 Type of Consult Cardiology Reason for Consultation bradycardia Requesting Provider: JOSE ZAVALA MD Date/Time of Note DATE: 09/03/18 TIME: 13:28 Exam/Review of Systems Vital Signs Vitals Vital Signs Date Temp Pulse Resp B/P (MAP) Pulse Ox O2 O2 Flow FiO2 Time Delivery Rate 09/03/18 97.8 66 18 120/79 94 08:05 (93) 09/02/18 Room Air 14:00 Intake and Output 09/02/18 09/02/18 09/03/18 1515:00 23:00 07:00 IntakeIntake Total 720 ml 898 ml 354 ml BalanceBalance 720 ml 898 ml 354 ml Exam Exam Review of Systems: CONSTITUTIONAL: No fevers, chills. PULMONARY: No sob CARDIOVASCULAR: No chest pain/palpitations GASTROINTESTINAL: No nausea/vomiting. GENITOURINARY: No hematuria/dysuria. MUSCULOSKELETAL: No myagias/arthalgias. PSYCHIATRIC: depression/SI. NEUROLOGIC: No weakness Constitutional: other (sleeping) Psych: no complaints Head: normocephalic ENMT: mucosa pink and moist Neck: supple, jvd (8 cm water) Respiratory: clear to auscultation Cardiovascular: regular rate and rhythm Gastrointestinal: soft, non-tender Musculoskeletal: muscle tone (normal) Extremities: edema (none) Neurological: other (No focal deficits) Labs Result Diagram: 09/03/18 0529 Results 24hrs Laboratory Tests Test 09/03/18 05:29 Sodium Level 142 Potassium Level 3.5 Chloride Level 106 Carbon Dioxide Level 28 Anion Gap 8 Blood Urea Nitrogen 12 Creatinine 0.72 Est Glomerular Filtrat Rate mL/min > 60 Glucose Level 88 Calcium Level 9.1 Magnesium Level 1.8 Medications Medications Current Medications Ondansetron HCl (Zofran Inj) 4 mg Q6H PRN IV NAUSEA AND/OR VOMITING Last administered on 09/02/18 20:28; Admin Dose 4 MG; Start 08/26/18 at 14:30 Acetaminophen (Tylenol Tab) 650 mg Q6H PRN PO PAIN LEVEL 1-3 OR FEVER Last administered on 09/01/18 18:42; Admin Dose 650 MG; Start 08/26/18 at 14:30 Pantoprazole (Protonix Tab) 40 mg DAILY@06 PO Last administered on 09/03/18 06:04; Admin Dose 40 MG; Start 08/27/18 at 06:00 Miscellaneous Information Patients own medicat... BID@10,16 XX Last a dministered on 08/29/18 10:25; Admin Dose 1 EA; Start 08/27/18 at 10:00 Nifedipine (Procardia Xl) 30 mg DAILY PO Last administered on 09/03/18 08:13; Admin Dose 30 MG; Start 08/27/18 at 11:00 Hydralazine HCl (Apresoline) 10 mg Q4H PRN IV SBP>170 DBP>105; Start 08/27/18 at 11:00 Fluoxetine HCl (Prozac) 20 mg DAILY PO Last administered on 09/03/18 08:12; Admin Dose 20 MG; Start 08/28/18 at 15:00 Quetiapine Fumarate (Seroquel) 400 mg QHS PO Last administered on 09/02/18 20:24; Admin Dose 400 MG; Start 08/28/18 at 21:00 Divalproex Sodium (Depakote) 500 mg BID PO Last administered on 09/03/18 08:12; Admin Dose 500 MG; Start 08/28/18 at 21:00 Zolpidem Tartrate (Ambien) 10 mg HS PRN PO INSOMNIA Last administered on 09/02/18 20:28; Admin Dose 10 MG; Start 08/30/18 at 01:00 Enoxaparin Sodium (Lovenox) 30 mg DAILY SC Last administered on 09/03/18 08:13; Admin Dose 30 MG; Start 08/31/18 at 15:30 Metoprolol Tartrate (Lopressor) 25 mg BID PO Last administered on 09/03/18at 08:12; Admin Dose 25 MG; Start 09/01/18 at 21:00 Lorazepam (Ativan) 0.5 mg Q6H PRN PO ANXIETY Last administered on 09/03/18at 01:21; Admin Dose 0.5 MG; Start 09/03/18 at 01:30 KIMMY VILLATORO Sep 03, 2018 13:30
[2018-09-03 13:33] VITALS: BP 136/94; PULSE 65; RESP 20
--- NOTE | 2018-09-03 20:08 | DS ---
Date/Time of Note Date/Time of Note DATE: 09/03/18 TIME: 20:01 Discharge Summary Admission/Discharge Info Admit Date/Time Aug 26, 2018 at 12:01 Discharge Date/Time Patient Condition: Stable Hx of Present Illness The patient is 63-year-old female known to me from previous admission patient patient has a extensive medical history including ovarian cancer status post hysterectomy and bilateral oophorectomy years ago, history of coronary artery disease, myocardial infarction, hypertension, hyperlipidemia, congestive heart failure, gastritis, schizoaffective disorder with bipolar features. The patient was brought to the emergency room by ambulance and police. Patient stated that she overdosed on her medication, patient is unable to specify specify how much and what exactly medication she took, patient's home medication reviewed and include Advil lisinopril Seroquel Pepcid metoprolol clonidine fluoxetine Eliquis omeprazole, prednisone and Ambien. Patient admitted to suicidal ideation and wanted to hurt herself. Patient is bradycardic, patient is awake alert to name only cannot provide detailed history. Since patient is overdosed on metoprolol patient was given atropine in the emergency room. Patient is admitted to intensive care unit for evaluation and management. Hospital Course Patient discharged to a psychiatric facility -Tachycardia, patient restarted on metoprolol currently is stable heart rate -Hypokalemia, resolved, status post replacement. -Hypomagnesemia, resolved, status post magnesium replacement. -Intentional drug overdose, patient is currently on involuntary hold, pending transfer to psych facility. S/p evaluation by Terrence psychiatric DNP. Patient has agreed to go to any hospital that accepts on a voluntary status. -Bradycardia on admission requiring ICU monitoring, resolved. Dr. Langley is following in cardiology consultation. -Acute kidney injury, continue IV fluids monitor BUN and creatinine. -Suicidal ideation -Hypertension, patient is normotensive continue hydralazine as needed for systolic blood pressure above 170. -History of coronary artery disease -Hyperlipidemia -Bipolar affective disorder depressed type, continue Depakote 500 mg twice a day, Seroquel 400 mg at bedtime, Prozac 20 mg daily Plan of care discussed with Dr. Edwards. Home Meds Active Scripts Ondansetron (Ondansetron Odt) 4 Mg Tab.rapdis, 4 MG PO Q6H PRN for NAUSEA AND/OR VOMITING, #10 TAB Prov:MOGHADAM,SAVANAH S. 08/26/18 Tramadol HCl (Tramadol HCl) 50 Mg Tablet, 50 MG PO Q4 PRN for PAIN, #20 TAB Prov:SAVANAH MERRILL. 08/26/18 Reported Medications Albuterol Sulfate* (Ventolin HFA*) 18 Gm Hfa.aer.ad, 2 PUFF INHALATION Q4H, #1 INHALER 07/27/18 Apixaban* (Eliquis*) 5 Mg Tablet, 5 MG PO BID, TAB 07/27/18 Metformin Hcl* (Metformin Hcl* ER) 500 Mg Tab.sr.24h, 500 MG PO DAILY, #30 TAB 07/27/18 Gabapentin* (Gabapentin*) 300 Mg Capsule, 300 MG PO TID, #90 CAP 07/27/18 Fluoxetine Hcl* (Prozac*) 20 Mg Capsule, 20 MG PO DAILY, CAP 11/12/17 Quetiapine Fumarate* (Seroquel*) 400 Mg Tablet, 400 MG PO HS, TAB 11/12/17 Omeprazole* (Omeprazole*) 40 Mg Capsule.dr, 40 MG PO DAILY, #30 CAP 11/12/17 Zolpidem Tartrate* (Ambien*) 10 Mg Tablet, 10 MG PO QHS PRN for INSOMNIA, TAB 10/17/16 Metoprolol Tartrate* (Lopressor*) 50 Mg Tab, 50 MG PO TID, #60 TAB 10/17/16 Lisinopril* (Lisinopril*) 20 Mg Tablet, 20 MG PO BID, #30 TAB 10/17/16 Atorvastatin Calcium* (Atorvastatin Calcium*) 20 Mg Tablet, 20 MG PO DAILY 10/16/13 Primary Care Provider Not On Staff Doctor Time spent on discharge: > 30 minutes Pending Labs Laboratory Tests Test 09/03/18 05:29 Sodium Level 142 mmol/L (135-144) Potassium Level 3.5 mmol/L (3.5-5.1) Chloride Level 106 mmol/L (97-110) Carbon Dioxide Level 28 mmol/L (21-31) Anion Gap 8 (5-13) Blood Urea Nitrogen 12 mg/dl (7-20) Creatinine 0.72 mg/dl (0.44-1.00) Est Glomerular Filtrat Rate mL/min > 60 mL/min (>60) Glucose Level 88 mg/dl (70-220) Calcium Level 9.1 mg/dl (8.4-10.2) Magnesium Level 1.8 mg/dl (1.7-2.5) LUDWIN BARRON Sep 03, 2018 20:08
[2018-09-03 20:26] VITALS: BP 128/85; PULSE 78; RESP 18
[2018-09-03] MEDS: QUETIAPINE 100 MG TAB PO SCH (20:26)
[2018-09-03] MEDS: ZOLPIDEM 5 MG TAB PO PRN (20:28)
[2018-09-04] MEDS: LORAZEPAM 0.5 MG TAB PO PRN (01:35)
[2018-09-04 01:55] VITALS: BP 144/88; PULSE 82; RESP 18
[2018-09-04] MEDS: PANTOPRAZOLE (EC) 40 MG TAB PO SCH (06:16)
[2018-09-04 08:06] VITALS: BP 136/93; PULSE 69; RESP 17
[2018-09-04] MEDS: NIFEdipine (XL) 30 MG TAB PO SCH (08:37)
[2018-09-04] MEDS: DIVALPROEX (EC) 500 MG TAB PO SCH (08:37)
[2018-09-04] MEDS: FLUOXETINE 20 MG CAP PO SCH (08:38)
[2018-09-04] MEDS: METOPROLOL 25 MG TAB PO SCH (08:38)
[2018-09-04] MEDS: ENOXAPARIN 30 MG/0.3 ML SYG SC SCH (08:39)
[2018-09-04 14:05] VITALS: BP 121/86; PULSE 74; RESP 18
--- NOTE | 2018-09-04 14:20 | CONS ---
Assessment/Plan Assessment/Plan Hospital Course (Demo Recall) IMPRESSION: 1. Sinus bradycardia in the setting of overdose likle due to the patient's beta blockers, clonidine.-Resolved now and back on low dose BB for tachycardia,. NL EF by echo 2. Hypertension, borderline. 3. Abnormal electrocardiogram. Assess for acute coronary syndrome. 4. Suicidal ideations with intentional overdose. 5. Bipolar disorder, schizoaffective disorder. 6. Dyslipidemia. 7. History of myocardial infarction. Recc: -ON Med-surg -Continue CCB/BB and follow BP/HR clsoely -Ongoing psych eval and treatment awaiting transfer to inpatient psych facility Consultation Date/Type/Reason Admit Date/Time Aug 26, 2018 at 12:01 Initial Consult Date 08/26/18 Type of Consult Cardiology Reason for Consultation BRadycardia Requesting Provider: JOSE ZAVALA MD Date/Time of Note DATE: 09/04/18 TIME: 14:18 Exam/Review of Systems Vital Signs Vitals Vital Signs Date Temp Pulse Resp B/P (MAP) Pulse Ox O2 O2 Flow FiO2 Time Delivery Rate 09/04/18 97.8 74 18 121/86 97 14:05 (98) 09/02/18 Room Air 14:00 Intake and Output 09/03/18 09/03/18 09/04/18 1515:00 23:00 07:00 IntakeIntake Total 530 ml 640 ml BalanceBalance 530 ml 640 ml Exam Exam Review of Systems: CONSTITUTIONAL: No fevers, chills. PULMONARY: No sob CARDIOVASCULAR: No chest pain/palpitations GASTROINTESTINAL: No nausea/vomiting. GENITOURINARY: No hematuria/dysuria. MUSCULOSKELETAL: No myagias/arthalgias. PSYCHIATRIC: Depression. NEUROLOGIC: No weakness Constitutional: other (sleeping, arousable) Head: normocephalic ENMT: mucosa pink and moist Neck: supple Respiratory: clear to auscultation Cardiovascular: regular rate and rhythm Gastrointestinal: soft, non-tender Musculoskeletal: muscle tone (normal) Extremities: edema (none) Neurological: other (No focal deficits) Labs Result Diagram: 09/03/18 0529 Medications Medications Current Medications Ondansetron HCl (Zofran Inj) 4 mg Q6H PRN IV NAUSEA AND/OR VOMITING Last administered on 09/02/18at 20:28; Admin Dose 4 MG; Start 08/26/18 at 14:30 Acetaminophen (Tylenol Tab) 650 mg Q6H PRN PO PAIN LEVEL 1-3 OR FEVER Last administered on 09/01/18 18:42; Admin Dose 650 MG; Start 08/26/18 at 14:30 Pantoprazole (Protonix Tab) 40 mg DAILY@06 PO Last administered on 09/04/18 06:16; Admin Dose 40 MG; Start 08/27/18 at 06:00 Miscellaneous Information Patients own medicat... BID@10,16 XX Last administered on 08/29/18 10:25; Admin Dose 1 EA; Start 08/27/18 at 10:00 Nifedipine (Procardia Xl) 30 mg DAILY PO Last administered on 09/04/18 08:37; Admin Dose 30 MG; Start 08/27/18 at 11:00 Hydralazine HCl (Apresoline) 10 mg Q4H PRN IV SBP>170 DBP>105; Start 08/27/18 at 11:00 Fluoxetine HCl (Prozac) 20 mg DAILY PO Last administered on 09/04/18 08:38; Admin Dose 20 MG; Start 08/28/18 at 15:00 Quetiapine Fumarate (Seroquel) 400 mg QHS PO Last administered on 09/03/18 20:26; Admin Dose 400 MG; Start 08/28/18 at 21:00 Divalproex Sodium (Depakote) 500 mg BID PO Last administered on 09/04/18 08:37; Admin Dose 500 MG; Start 08/28/18 at 21:00 Zolpidem Tartrate (Ambien) 10 mg HS PRN PO INSOMNIA Last administered on 09/03/18 20:28; Admin Dose 10 MG; Start 08/30/18 at 01:00 Enoxaparin Sodium (Lovenox) 30 mg DAILY SC Last administered on 09/04/18 08:39; Admin Dose 30 MG; Start 08/31/18 at 15:30 Metoprolol Tartrate (Lopressor) 25 mg BID PO Last administered on 09/04/18 08:38; Admin Dose 25 MG; Start 09/01/18 at 21:00 Lorazepam (Ativan) 0.5 mg Q6H PRN PO ANXIETY Last administered on 09/04/18 01:35; Admin Dose 0.5 MG; Start 09/03/18 at 01:30 KIMMY VILLATORO Sep 04, 2018 14:20
--- NOTE | 2018-09-04 21:48 | PN ---
Date/Time of Note Date/Time of Note DATE: 09/04/18 TIME: 21:48 Assessment/Plan VTE Prophylaxis Risk score (from Nsg)>0 risk: 2 SCD applied (from Nsg): No Lines/Catheters IV Catheter Type (from Nrsg): Saline Lock Urinary Cath still in place: Yes Reason Cath still needed: urinary retention Assessment/Plan Assessment/Plan -Intentional drug overdose, patient is currently on involuntary hold, pending transfer to psych facility. S/p evaluation by [place], psychiatric DNP. -Bradycardia. Dr. Langley is following in cardiology consultation. -Acute kidney injury, continue IV fluids monitor BUN and creatinine. -Suicidal ideation, psychiatric consult -Hypertension, patient is normotensive continue hydralazine as needed for systolic blood pressure above 170. -History of coronary artery disease -Hyperlipidemia -Bipolar affective disorder depressed type, continue Depakote 500 mg twice a day, Seroquel 400 mg at bedtime, Prozac 20 mg daily Further recommendations based on clinical course. Plan of care discussed with Dr. Edwards. Result Diagram: 09/03/18 0529 Exam/Review of Systems Exam Vitals Vital Signs Date Temp Pulse Resp B/P (MAP) Pulse Ox O2 O2 Flow FiO2 Time Delivery Rate 09/04/18 97.8 74 18 121/86 97 14:05 (98) 09/02/18 Room Air 14:00 Intake and Output 09/03/18 09/03/18 09/04/18 1515:00 23:00 07:00 IntakeIntake Total 530 ml 640 ml BalanceBalance 530 ml 640 ml SOM PALENCIA Sep 04, 2018 21:48
== END 2018-09-04 17:25 | DRG 918 ==
LOC: E/R 09:32 → ICU 12:01 → 5EC 08-29 12:47
PROVIDERS: ADMIT Internal Medicine; ATTEND Internal Medicine
DX: T44.7X2A Poisoning by beta-adrenoreceptor antagonists, intentional self-harm, initial encounter (principal); N17.9 Acute kidney failure, unspecified; R45.851 Suicidal ideations; F25.0 Schizoaffective disorder, bipolar type; F31.9 Bipolar disorder, unspecified; E87.6 Hypokalemia; E83.42 Hypomagnesemia; E78.5 Hyperlipidemia, unspecified; I25.10 Atherosclerotic heart disease of native coronary artery without angina pectoris; I11.0 Hypertensive heart disease with heart failure; I50.9 Heart failure, unspecified; I45.10 Unspecified right bundle-branch block; R94.31 Abnormal electrocardiogram [ECG] [EKG]; R00.1 Bradycardia, unspecified; I25.2 Old myocardial infarction; Z85.43 Personal history of malignant neoplasm of ovary; Z90.710 Acquired absence of both cervix and uterus; Z90.722 Acquired absence of ovaries, bilateral
CPT/HCPCS: 36415; 71045; 80048; 80053; 80307; 81001; 82550; 82553; 83036; 83735; 84100; 84439; 84443; 84484; 85025; 85049; 85610; 85670; 85730; 90686; 93005; 93306; 96374; J0461; J1650; J2060; J2405; J3475; J3480; J7030

== ENCOUNTER 2019-03-16 19:55 | Inpatient (IN) | payer BC ==
[~2019-03-16] VITALS: Ht 157.5 cm; Wt 76.7 kg
[~2019-03-16 19:55] MED LIST changes: +AMLO-145 PO; +AMLO-147 PO; +ATOR40TA68 PO; +CLON-379 PO; +DEXL60CA2 PO; +GABA-528 PO; +LANS15CA5 PO; +LEVO500T48 PO; +LOPE2CAP PO; +OMEP40CA38 PO; -OMEP40CA6 PO; +PANT40TA4 PO; +QUET100T32 PO; +QUET400T11 PO; +RANI150T5 PO; -RANI300T3 PO; +ZOLP10TA5 PO
[2019-03-16] MEDS ORDERED: ACETAMINOPHEN 325 MG TAB PO STA (20:19)
[2019-03-16] MEDS ORDERED: VANCOMYCIN 1 GM (PMX) 250 ML IVPB STA (20:19)
[2019-03-16] MEDS ORDERED: CEFEPIME 2GM/50 ML (PMX) 50 ML IVPB STA (20:25)
[2019-03-16] MEDS ORDERED: ACETAMINOPHEN 325 MG TAB PO PRN (23:30)
[2019-03-16] MEDS ORDERED: ONDANSETRON 4 MG INJ IV PRN (23:30)
[2019-03-16] MEDS ORDERED: VANCOMYCIN IV PER PHARMACY XX SCH (23:30)
[2019-03-16] MEDS ORDERED: ALBUTEROL/IPRATROPIUM (NEB) 3 ML AMP HHN PRN (23:30)
[2019-03-16] MEDS ORDERED: metroNIDAZOLE (5 MG/ML) IV SYG IV* SCH (23:30)
[2019-03-17 00:03] VITALS: Ht 157.5 cm; Wt 76.7 kg
[2019-03-17 00:12] VITALS: BP 112/71; PULSE 97; RESP 18
[2019-03-17] MEDS: Metronidazole 500 MG in NS 100 ML IVPB SCH ×4 (00:37→23:49)
[2019-03-17] MEDS: ACETAMINOPHEN 500 MG TAB PO PRN ×3 (01:14→20:24)
[2019-03-17] MEDS: AZTREONAM 1 GM/NS (PMX) 50 ML IVPB SCH ×3 (02:03→22:47)
[2019-03-17] MEDS: ZOLPIDEM 5 MG TAB PO PRN ×2 (02:04→23:49)
[2019-03-17] MEDS: VANCOMYCIN 1 GM 250 ML IVPB SCH ×2 (05:34→20:21)
[2019-03-17 07:57] VITALS: BP 117/77; PULSE 87; RESP 19
[2019-03-17] MEDS ORDERED: ENOXAPARIN 40 MG/0.4 ML SYG SC SCH (09:00)
[2019-03-17] MEDS: GABAPENTIN 400 MG CAP PO SCH ×4 (09:10→20:22)
[2019-03-17] MEDS: FAMOTIDINE 20 MG TAB PO SCH ×2 (09:10→20:22)
[2019-03-17] MEDS: ENOXAPARIN 40 MG/0.4 ML SYG SC SCH (09:12)
[2019-03-17 14:30] VITALS: BP 126/83; PULSE 90; RESP 17
[2019-03-17 14:50] VITALS: BP 124/89; PULSE 89; RESP 18
[2019-03-17 19:33] VITALS: BP 143/90; PULSE 112; RESP 17
[2019-03-17] MEDS: ATORVASTATIN 40 MG TAB PO SCH (20:21)
[2019-03-17] MEDS: QUETIAPINE 100 MG TAB PO SCH (20:22)
[2019-03-17] MEDS: SOD CHLORIDE 0.9% 1,000 ML IV SCH (22:47)
[2019-03-18 02:00] VITALS: BP 100/71; PULSE 100; RESP 19
[2019-03-18] MEDS: Metronidazole 500 MG in NS 100 ML IVPB SCH ×3 (05:12→21:29)
[2019-03-18] MEDS: VANCOMYCIN 1 GM 250 ML IVPB SCH ×2 (06:37→18:07)
[2019-03-18 07:57] VITALS: BP 125/84; PULSE 56; RESP 18
[2019-03-18] MEDS: GABAPENTIN 400 MG CAP PO SCH ×4 (08:33→20:13)
[2019-03-18] MEDS: FAMOTIDINE 20 MG TAB PO SCH ×2 (08:34→20:13)
[2019-03-18] MEDS: ENOXAPARIN 40 MG/0.4 ML SYG SC SCH (08:34)
[2019-03-18] MEDS: AZTREONAM 1 GM/NS (PMX) 50 ML IVPB SCH ×2 (11:03→20:13)
[2019-03-18] MEDS: SOD CHLORIDE 0.9% 1,000 ML IV SCH (12:20)
[2019-03-18] MEDS: ACETAMINOPHEN 500 MG TAB PO PRN (13:38)
[2019-03-18 14:03] VITALS: BP 131/84; PULSE 91; RESP 18
[2019-03-18] MEDS: ONDANSETRON 4 MG INJ IV PRN (18:11)
[2019-03-18 20:00] VITALS: BP 143/96; PULSE 94; RESP 18
[2019-03-18] MEDS: ATORVASTATIN 40 MG TAB PO SCH (20:13)
[2019-03-18] MEDS: QUETIAPINE 100 MG TAB PO SCH (20:13)
[2019-03-19] MEDS: SOD CHLORIDE 0.9% 1,000 ML IV SCH ×2 (01:40→16:37)
[2019-03-19 02:00] VITALS: BP 106/67; PULSE 95; RESP 18
[2019-03-19] MEDS: Metronidazole 500 MG in NS 100 ML IVPB SCH ×2 (05:04→13:28)
[2019-03-19] MEDS: VANCOMYCIN 1 GM 250 ML IVPB SCH (06:16)
[2019-03-19 07:26] VITALS: BP 119/71; PULSE 88; RESP 16
[2019-03-19] MEDS: FAMOTIDINE 20 MG TAB PO SCH ×2 (08:38→21:18)
[2019-03-19] MEDS: GABAPENTIN 400 MG CAP PO SCH ×4 (08:38→21:18)
[2019-03-19] MEDS: AZTREONAM 1 GM/NS (PMX) 50 ML IVPB SCH ×2 (08:40→21:19)
[2019-03-19] MEDS: ENOXAPARIN 40 MG/0.4 ML SYG SC SCH (08:40)
[2019-03-19] MEDS: ACETAMINOPHEN 500 MG TAB PO PRN (11:33)
[2019-03-19] MEDS: ONDANSETRON 4 MG INJ IV PRN (13:31)
[2019-03-19 14:21] VITALS: BP 129/88; PULSE 93; RESP 16
[2019-03-19] MEDS ORDERED: AZITHROMYCIN 500 MG TAB PO ONE (15:30)
[2019-03-19 20:00] VITALS: BP 162/98; RESP 19
[2019-03-19] MEDS: QUETIAPINE 100 MG TAB PO SCH (21:18)
[2019-03-19] MEDS: ATORVASTATIN 40 MG TAB PO SCH (21:18)
[2019-03-20 02:00] VITALS: BP 133/90; PULSE 99; RESP 20
[2019-03-20] MEDS: SOD CHLORIDE 0.9% 1,000 ML IV SCH ×2 (06:09→21:39)
[2019-03-20 08:11] VITALS: BP 109/73; PULSE 79; RESP 18
[2019-03-20] MEDS ORDERED: AZITHROMYCIN 250 MG TAB PO SCH (09:00)
[2019-03-20] MEDS: ENOXAPARIN 40 MG/0.4 ML SYG SC SCH (09:42)
[2019-03-20] MEDS: AZTREONAM 1 GM/NS (PMX) 50 ML IVPB SCH (09:43)
[2019-03-20] MEDS: FAMOTIDINE 20 MG TAB PO SCH ×2 (09:43→20:40)
[2019-03-20] MEDS: GABAPENTIN 400 MG CAP PO SCH ×4 (09:43→20:40)
[2019-03-20] MEDS: MEROPENEM 1 GM/50ML(PMX) 50 ML IVPB SCH ×2 (13:39→20:40)
[2019-03-20] MEDS: ACETAMINOPHEN 500 MG TAB PO PRN (15:04)
[2019-03-20 15:05] VITALS: BP 166/99; PULSE 106; RESP 14
[2019-03-20] MEDS ORDERED: POLYETHYLENE GLYCOL 17 GM PACKET GTB PRN (15:30)
[2019-03-20 15:48] VITALS: BP 146/89; PULSE 146; RESP 16
[2019-03-20] MEDS: ONDANSETRON 4 MG TAB PO PRN (18:32)
[2019-03-20 19:49] VITALS: BP 152/102; PULSE 81; RESP 17
[2019-03-20] MEDS: QUETIAPINE 100 MG TAB PO SCH (20:40)
[2019-03-20] MEDS: ATORVASTATIN 40 MG TAB PO SCH (20:40)
[2019-03-20 21:40] VITALS: BP 139/89; PULSE 89
[2019-03-20] MEDS: DOXYCYCLINE 100 MG in SOD CHLORIDE 0.9% 250 ML IVPB SCH (21:40)
[2019-03-20] MEDS: ZOLPIDEM 5 MG TAB PO PRN (22:46)
[2019-03-21 01:51] VITALS: BP 129/79; PULSE 110; RESP 18
[2019-03-21] MEDS: SOD CHLORIDE 0.9% 1,000 ML IV SCH ×2 (07:00→20:56)
[2019-03-21 07:43] VITALS: BP 133/101; PULSE 87; RESP 17
[2019-03-21] MEDS: MEROPENEM 1 GM/50ML(PMX) 50 ML IVPB SCH ×2 (08:16→20:56)
[2019-03-21] MEDS: FAMOTIDINE 20 MG TAB PO SCH ×2 (08:16→20:56)
[2019-03-21] MEDS: GABAPENTIN 400 MG CAP PO SCH ×4 (08:16→20:58)
[2019-03-21] MEDS: ENOXAPARIN 40 MG/0.4 ML SYG SC SCH (08:18)
[2019-03-21] MEDS: DOXYCYCLINE 100 MG in SOD CHLORIDE 0.9% 250 ML IVPB SCH ×2 (10:07→21:56)
[2019-03-21 14:13] VITALS: BP 165/103; PULSE 87; RESP 13
[2019-03-21] MEDS: ONDANSETRON 4 MG INJ IV PRN ×2 (14:25→18:58)
[2019-03-21 17:05] VITALS: BP 145/96; PULSE 75; RESP 16
[2019-03-21 20:50] VITALS: BP 179/109; RESP 16
[2019-03-21] MEDS: QUETIAPINE 100 MG TAB PO SCH (20:56)
[2019-03-21] MEDS: ATORVASTATIN 40 MG TAB PO SCH (20:56)
[2019-03-22 02:28] VITALS: BP 121/84; PULSE 71; RESP 18
[2019-03-22 08:16] VITALS: BP 128/91; PULSE 67; RESP 16
[2019-03-22] MEDS: DOXYCYCLINE 100 MG in SOD CHLORIDE 0.9% 250 ML IVPB SCH ×2 (08:35→21:23)
[2019-03-22] MEDS: GABAPENTIN 400 MG CAP PO SCH ×4 (08:35→20:18)
[2019-03-22] MEDS: MEROPENEM 1 GM/50ML(PMX) 50 ML IVPB SCH ×2 (08:35→20:20)
[2019-03-22] MEDS: FAMOTIDINE 20 MG TAB PO SCH ×2 (08:35→20:17)
[2019-03-22] MEDS: ENOXAPARIN 40 MG/0.4 ML SYG SC SCH (08:44)
[2019-03-22] MEDS: SOD CHLORIDE 0.9% 1,000 ML IV SCH ×2 (09:40→17:41)
[2019-03-22 14:49] VITALS: BP 124/75; PULSE 75; RESP 16
[2019-03-22] MEDS: ONDANSETRON 4 MG INJ IV PRN ×2 (15:26→22:42)
[2019-03-22 19:52] VITALS: BP 139/94; PULSE 93; RESP 17
[2019-03-22] MEDS: GUAIFENESIN 20 MG/ML 5ML CUP PO PRN (20:17)
[2019-03-22] MEDS: QUETIAPINE 100 MG TAB PO SCH (20:17)
[2019-03-22] MEDS: ATORVASTATIN 40 MG TAB PO SCH (20:17)
[2019-03-22] MEDS: ZOLPIDEM 5 MG TAB PO PRN (23:30)
[2019-03-23 01:48] VITALS: BP 162/94; PULSE 90; RESP 17
[2019-03-23] MEDS: GUAIFENESIN 20 MG/ML 5ML CUP PO PRN (06:45)
[2019-03-23 07:29] VITALS: BP 152/97; PULSE 78; RESP 17
[2019-03-23] MEDS: GABAPENTIN 400 MG CAP PO SCH ×4 (08:02→20:27)
[2019-03-23] MEDS: FAMOTIDINE 20 MG TAB PO SCH ×2 (08:02→20:27)
[2019-03-23] MEDS: MEROPENEM 1 GM/50ML(PMX) 50 ML IVPB SCH (08:05)
[2019-03-23] MEDS: ENOXAPARIN 40 MG/0.4 ML SYG SC SCH (08:06)
[2019-03-23] MEDS: DOXYCYCLINE 100 MG in SOD CHLORIDE 0.9% 250 ML IVPB SCH ×2 (08:07→20:27)
[2019-03-23] MEDS: SOD CHLORIDE 0.9% 1,000 ML IV SCH (11:58)
[2019-03-23 14:00] VITALS: BP 152/106; PULSE 90; RESP 17
[2019-03-23 17:21] VITALS: BP 152/94; PULSE 79
[2019-03-23 19:52] VITALS: BP 152/96; PULSE 79; RESP 18
[2019-03-23] MEDS: ATORVASTATIN 40 MG TAB PO SCH (20:27)
[2019-03-23] MEDS: QUETIAPINE 100 MG TAB PO SCH (20:27)
[2019-03-24 01:42] VITALS: BP 118/76; PULSE 77; RESP 17
[2019-03-24] MEDS: LEVOFLOXACIN 500 MG TAB PO SCH (05:02)
[2019-03-24 07:49] VITALS: BP 134/85; PULSE 76; RESP 17
[2019-03-24] MEDS: FAMOTIDINE 20 MG TAB PO SCH ×2 (08:33→20:08)
[2019-03-24] MEDS: DOXYCYCLINE 100 MG in SOD CHLORIDE 0.9% 250 ML IVPB SCH (08:33)
[2019-03-24] MEDS: GABAPENTIN 400 MG CAP PO SCH ×4 (08:34→20:08)
[2019-03-24] MEDS: ENOXAPARIN 40 MG/0.4 ML SYG SC SCH (08:36)
[2019-03-24 14:55] VITALS: BP 149/104; PULSE 98; RESP 18
[2019-03-24] MEDS: ACETAMINOPHEN 500 MG TAB PO PRN (15:41)
[2019-03-24] MEDS: DOXYCYCLINE 100 MG TAB PO SCH (17:44)
[2019-03-24 17:46] VITALS: BP 153/92; PULSE 84
[2019-03-24 20:00] VITALS: BP 143/92; PULSE 75; RESP 17
[2019-03-24] MEDS: ATORVASTATIN 40 MG TAB PO SCH (20:08)
[2019-03-24] MEDS: QUETIAPINE 100 MG TAB PO SCH (20:08)
[2019-03-24] MEDS: ONDANSETRON 4 MG TAB PO PRN (20:15)
[2019-03-24] MEDS: ZOLPIDEM 5 MG TAB PO PRN (23:05)
[2019-03-25 02:27] VITALS: BP 122/82; PULSE 75; RESP 19
[2019-03-25] MEDS: DOXYCYCLINE 100 MG TAB PO SCH (05:14)
[2019-03-25] MEDS: LEVOFLOXACIN 500 MG TAB PO SCH (05:14)
[2019-03-25 07:37] VITALS: BP 137/88; PULSE 76; RESP 18
[2019-03-25] MEDS: ENOXAPARIN 40 MG/0.4 ML SYG SC SCH (09:00)
[2019-03-25] MEDS: GABAPENTIN 400 MG CAP PO SCH (09:31)
[2019-03-25] MEDS: FAMOTIDINE 20 MG TAB PO SCH (09:32)
== END 2019-03-25 11:30 | disposition home or self-care (01) | DRG 178 ==
LOC: E/R 19:55 → UNDOADMIN 23:49 → 2NE 23:49 → MS3 03-17 14:25
PROVIDERS: ADMIT Internal Medicine; ATTEND Internal Medicine
DX: J69.0 Pneumonitis due to inhalation of food and vomit (principal); F31.89 Other bipolar disorder; K44.9 Diaphragmatic hernia without obstruction or gangrene; E78.5 Hyperlipidemia, unspecified; I25.10 Atherosclerotic heart disease of native coronary artery without angina pectoris; I25.2 Old myocardial infarction; I11.0 Hypertensive heart disease with heart failure; I50.9 Heart failure, unspecified; Z85.43 Personal history of malignant neoplasm of ovary; Z90.710 Acquired absence of both cervix and uterus; Z90.722 Acquired absence of ovaries, bilateral; K21.9 Gastro-esophageal reflux disease without esophagitis; D64.9 Anemia, unspecified
CPT/HCPCS: 36415; 71045; 80048; 80053; 80202; 81001; 81003; 82565; 83605; 84484; 84520; 85025; 85610; 85730; 87045; 87070; 87081; 87086; 93005; 96374; 96375; J0692; J1650; J2185; J2405; J3370; J7030; J7050